=== PATIENT | male | born 1975 | race African-American/Black ===

== ENCOUNTER 2025-05-06 01:37 | Emergency (ER) | payer MEDICAID, SELFPAY ==
--- OUTSIDE RECORDS SUMMARY | 2025-05-06 05:26 | XMS RPT_ITS | CCD ---
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 sources, and as a consequence, information in this document may materially change the coding, format and clinical context of patient data. In addition, data may be omitted in some cases. CLINICAL DECISIONS SHOULD BE BASED ON THE PRIMARY CLINICAL RECORDS. [facility] [employer] [facility]. provides no warranty or guarantee of the accuracy or completeness of information in this document.
--- NOTE | 2025-05-06 06:39 | CT_ITS ---
PROCEDURE: SPINE CERVICAL WITHOUT CONTRAS 05/06/2025 REASON FOR EXAM: LEFT ARM PAIN TECHNIQUE: SPINE CERVICAL WITHOUT CONTRAS Coronal and Sagittal reconstruction series were provided. CONTRAST: None. One or more dose reduction techniques were used (e.g., Automated exposure control, adjustment of the mA and/or kV according to patient size, use of iterative reconstruction technique. RADIATION DOSE SUMMARY: CTDlvol: 29.57 mGy DLP: 762.54 mGycm COMPARISON: None. FINDINGS: There are diffuse spondylotic changes. Findings are demonstrated to by diffuse disc space narrowing, osteophyte formation and degenerative endplate sclerosis. There is diffuse facet joint arthropathy with secondary bilateral neural foramina narrowing. No fracture or dislocation is seen. No aggressive lytic or blastic bony lesion is noted. CT/Spine Cervical without Contras IMPRESSION: No CT evidence of an acute abnormality. Diffuse spondylosis. Reading [facility]
[2025-05-06 07:16] LABS: Hematocrit 38.7 % (40-54); Hemoglobin 13.4 g/dL (13.0-16.5); Mean Corp Hgb Conc 34.6 g/dL (32-36); Mean Corpuscular Hgb 29.3 pg (27.0-32.0); Mean Corpuscular Volume 84.7 fL (80-94); RBC Distribution Width SD 37.2 fl (35.1-43.9); Red Blood Count 4.57 M/mm3 (4.6-6.2); White Blood Count 6.6 K/mm3 (4.4-11.0)
[2025-05-06 07:17] LABS: Mean Platelet Vol. 9.3 fl (6.2-12.0); Platelet Count 359 K/mm3 (150-450)
[2025-05-06 07:43] LABS: Anion Gap 13 (5-15); BUN 16 mg/dL (4-19); Calcium,Total 9.3 mg/dL (7.6-11.0); Carbon Dioxide 20.7 mmol/L (21.0-32.0); Chloride 101 mmol/L (98-108); Creatinine, Serum 1.02 mg/dL (0.70-1.20); EST Glomerular Filtration Rate 88 (>60); Glucose 190 mg/dL (70-99); Potassium 3.5 mmol/L (3.3-5.1); Sodium Level 135 mmol/L (133-145)
--- NOTE | 2025-05-09 04:42 | EX.ED.DYSGE1 ---
HPI History of Present Illness Informant: patient Narrative Narrative: Patient is a 50-year-old male with history of hypertension. He is right-hand dominant. He states that he has been doing the job for the past few weeks and has noticed that with the repetitive activity/motion he now will have intermittent pain and numbness from his right shoulder down to his right hand. He states that there has been no direct trauma and he denies any recent bouts of nausea vomiting or diarrhea. He states that he feels like the symptoms are worsening with more shifts/repetitive motion he performs and secondary to this comes in for evaluation [facility] Home Medications ?Medication ?Instructions ?Recorded ?Last Taken ?Type albuterol sulfate 90 mcg/actuation 2 puff inhalation Q4H PRN PRN 08/19/14 Unknown Rx aerosol inhaler (Ventolin HFA) Wheezing ##1 azithromycin 250 mg tablet 250 mg PO DAILY ##4 08/19/14 Unknown Rx prednisone 20 mg tablet 20 mg PO BIDCM ##10 08/19/14 Unknown Rx Allergy/AdvReac Type Severity Reaction Status Date / Time No Known Allergies Allergy Verified 08/19/14 10:04 Social History Smoking Status: Current every day smoker ROS [facility] ED Constitutional Constitutional ED: Denies chills or fever(s) Eyes Eyes: Denies change in vision ENT ENT ED: Denies sore throat Cardiovascular Cardiovascular: Denies chest pain Respiratory/Chest Respiratory/Chest: Denies cough or dyspnea Gastrointestinal Gastrointestinal: Denies abdominal pain, diarrhea, nausea or vomiting Musculoskeletal Musculoskeletal: Denies back pain or neck pain Integumentary Denies rash Neurologic Neurologic: Reports paresthesias and weakness; Denies headache(s) Hematologic/Lymphatic Hematologic/Lymphatic: Denies easy bleeding or easy bruising EXAM Physical Exam Const Positive well nourished, well developed and obese General Appearance ED: well developed; Negative for pallor Nutritional Appearance: obese HEENT HEENT Narrative: Normocephalic atraumatic Eyes PERRL and EOMs intact bilaterally General Eye ED: Negative for scleral icterus Neck supple Neck Narrative: No bony deformity or step-off of the cervical spine No midline pain with palpation Negative Spurling sign bilaterally Resp normal respiratory effort and clear to auscultation bilaterally Cardio regular rate and regular rhythm Rate: other Other Details: Radial and carotid pulses are equal and symmetric Back/Spine Back/Spine Narrative: No bony deformity or step-off of the thoracic or lumbar spine. No midline tenderness to palpation Extremity Extremity Narrative: Right upper extremity is neurovascularly intact; AIN/PIN are intact and normal No obvious bony deformity or joint effusion All compartments are soft and compressible going against compartment syndrome Neuro oriented x3, CN's II-XII intact bilaterally and no sensory deficits noted Sensorium / Orientation: alert Motor Exam: strength 5/5 throughout Psych mental status grossly normal Skin no rashes or lesions noted and no wounds General Skin Exam: Negative for jaundice or pallor MDM MDM MDM Narrative Medical decision making narrative: Patient presented to the ER mildly hypertensive but has a past medical history of this. He reported intermittent paresthesias that are now occurring with overuse of the right arm. He denies any recent bouts of vomiting or diarrhea which could relate to an electrolyte abnormality. Physical exam does not show any signs of infection such as cellulitis or abscess. As his symptoms could be related to spinal stenosis versus herniated disc versus arthritis changes I did elect to perform a CT of the neck to check for nerve's compression as well as basic labs to look for electrolyte abnormality. As he is neurologically normal at this time I have low concern that this is related to a TIA or acute CVA and there is no need for a head CT. Patient's labs revealed no clinically significant findings and his neck CT did reveal changes consistent with degenerative disc disease. He denies any recent surgical procedures or injections going against discitis. Based on his arthritis and degenerative disc disease and recurrent symptoms he may need evaluated by spine surgery to discuss further treatment options or imaging studies with MRI but at this time as he is hemodynamically stable without signs of acute electrolyte abnormality fracture or nervous compression he is otherwise safe for discharge History & Record Review Discussion w/independent historian: Patient Radiography Diagnostic Testing: Clinical Impression(s) from Imaging Studies Cervical Spine CT 05/06/25 06:39 IMPRESSION: No CT evidence of an acute abnormality. Diffuse spondylosis. Reading [facility] Triage ED Provider: Kenan Pedroza Dx/Rx/DC Orders Clinical Impression: Hypertension, Cervical radiculopathy, Degenerative disc disease, cervical Prescriptions: No Action azithromycin 250 MG tablet 250 mg PO DAILY Qty: 4 0RF prednisone 20 MG tablet 20 mg PO BIDCM Qty: 10 0RF albuterol sulfate [Ventolin HFA] 1 INHALER inhaler 2 puff inhalation Q4H PRN PRN (Reason: Wheezing) Qty: 1 0RF Primary Care Provider: Care Physician,No Primary Print Language: [place] Disposition Disposition: Home, Self Care Discharge Date/Time: 05/06/25 04:35
== END 2025-05-06 04:35 | disposition home or self-care (01) ==
LOC: ED 05:24
PROVIDERS: Emergency Provider Emergency Medicine; Visit Provider Emergency Medicine
DX: I10 Essential (primary) hypertension (principal); F17.200 Nicotine dependence, unspecified, uncomplicated; M50.10 Cervical disc disorder with radiculopathy, unspecified cervical region; E66.9 Obesity, unspecified; R20.2 Paresthesia of skin; R53.1 Weakness
CPT/HCPCS: 72125; 80048; 83735; 85027; A4216

== ENCOUNTER 2025-08-10 11:57 | Inpatient (IN) | payer MEDICAID, SELFPAY ==
--- OUTSIDE RECORDS SUMMARY | 2025-07-31 14:35 | XMS RPT_ITS ---
Author Name Auto Generated Organization [facility] Care Team Providers Care Rabbit Breeder Name Role Phone NORA SCHROEDER Admitting Unavailable NORA SCHROEDER Attending Unavailable NORA SCHROEDER Consulting Unavailable PROVIDER, UNKNOWN Admitting Unavailable PROVIDER, UNKNOWN Attending Unavailable STEVIE FELICIANO Attending Unavailable PROVIDER, UNKNOWN Admitting Unavailable PROBLEMS No Problem Records Found PROCEDURES No Procedure Records Found RESULTS PROGRESS NOTES Observed: 08/03/2025 2:34 PM Status: COMPLETED Source: THE [facility] Emergency Department Follow- Up Call [facility] Call attempt: 08/03/25, 2:37 PM, no answer, unable to leave a VM Sources of Information: Chart review Date of ED visit: 07/31/25 Reason for ED visit: HTN, right shoulder pain Medical coverage: Payor: [place] / Plan: [place] [employer] / Product Type: Medicaid HMO Medication changes? Yes Amlodipine Ibuprofen ED PROVIDER NOTES Observed: 07/31/2025 6:02 PM Status: COMPLETED Source: THE [employer] Attestation signed by Stevie Feliciano MD at 08/05/2025 5:19 PM ATTENDING NOTE I saw and evaluated the patient. I personally obtained the ji and critical portions of the history and physical exam. I reviewed the resident's documentation and discussed the patient with the resident. I agree with the resident's medical decision making as documented in the resident's note. Stevie Feliciano MD EMERGENCY DEPARTMENT - VISIT NOTE HISTORY OF PRESENT ILLNESS Chief Complaint Patient presents with Hypertension HTN w/ DYE since this am Pt inconsistent with HTN medication Arm symptoms Right arm pian x2 months The history is provided by the Patient. Director Of Trauma use: not needed - patient preferred language is Emirati. Ariel Weeks is a 50 year old male presenting to the ED for right shoulder pain and HTN. Past medical history significant for HTN. He says he used to be on blood pressure meds in the past. He is unsure which medication he took. He says he stopped taking the medication because he was eating healthier and thought his HTN would improve. He also says he has right shoulder pain that started a few days ago. He denies trauma to the shoulder. He believes he may have slept on it wrong. Pt denies fever, nausea/vomitng, chest pain, SOB, abdominal pain, and headache. PAST HISTORY Pertinent Past History (Per Chart): There is no previous medical history on file. Pertinent Social History: Social History[1] PHYSICAL EXAM Vitals: 07/31/25 1407 BP: 152/92 Pulse: 96 Resp: 18 Temp: 98.2 ???F (36.8 ???C) SpO2: 96% Physical Exam Vitals and nursing note reviewed. Constitutional: General: He is awake. He is not in acute distress. Appearance: He is not ill-appearing. Eyes: General: No scleral icterus. Cardiovascular: Rate and Rhythm: Normal rate and regular rhythm. Heart sounds: S1 normal and S2 normal. Pulmonary: Effort: Pulmonary effort is normal. Breath sounds: Normal breath sounds. No decreased breath sounds, wheezing, rhonchi or rales. Abdominal: General: There is no distension. Palpations: Abdomen is soft. Tenderness: There is no abdominal tenderness. There is no guarding or rebound. Musculoskeletal: Comments: No gross deformities of RUE. Tenderness to right shoulder. Motor function and sensation intact of RUE. ROM limited due to shoulder pain. Palpable right radial pulse. Unable to test rotator cuff due to pain. Neurological: Mental Status: He is alert. Psychiatric: Behavior: Behavior is cooperative. MEDICAL DECISION MAKING and ED COURSE Nursing triage and assessment notes reviewed and incorporated. Review of external notes show the findings attached in the HPI. Diagnosis considered: There is less concern for neurovascular compromise given palpable radial pulse and patient neurovascularly intact on exam. There is less concern for hypertensive emergency given no headache and no evidence of decreased end organ perfusion. Medication Management: Medications prescribed - see visit medications. Independent Radiology Test Interpretation: See ED Course. Final decision-making pending radiology read. Independent Lab Test Interpretation: See ED course Independent EKG interpretation: See ED course Evaluated by EM attending Stevie Feliciano Course: ED Course as of 07/31/251910 Sat Jul 31, 2025 1834 Complete Blood Count: WBC 6.2 RBC 5.00 Hemoglobin 14.6 Hematocrit 42.0 MCV 84 MCH 29.2 MCHC 34.7 Platelet 386 RDW-CV% 13.2 MPV 8.5 The above laboratory study was reviewed and independently interpreted. Pertinent findings include: No leukocytosis, anemia or quantitative platelet abnormalities . [BF] 1835 I have personally reviewed and interpreted the X-Ray right shoulder. Pertinent findings include: no dislocation. [BF] 1835 X-ray C-Spine AP+Lateral IMPRESSION: Cervical spondylosis, as detailed. Mild prevertebral soft tissue swelling, of uncertain significance [BF] 1909 EMERGENCY DEPARTMENT EKG INTERPRETATION Rhythm: Normal sinus rhythm Rate: 78 AV block, first degree No acute ischemic changes Personally reviewed and interpretated by Omar Malave MD [BF] ED Course User Index [BF] Omar Malave MD Assessment AND Plan: Ariel Weeks is a 50 year old male presenting with HTN and right shoulder pain. Patient was afebrile, hemodynamically stable, and satting on room air on arrival. Full exam noted above. Labs with interpretation noted in ED course. Work up significant for normal renal function. EKG showed normal sinus rhythm without acute ischemic changes. XR right shoulder showed no evidence of fracture or dislocation. On re-examination, they are well-appearing and have remained hemodynamically stable. Patient left prior to receiving discharge paperwork and discussion of return precautions/follow up. IMPRESSION AND DISPOSITION Clinical Impression Diagnosis Comment Acute pain of right shoulder [M25.511] Hypertension, unspecified type [I10] Disposition: Home The patient has received a medical screening examination and within reasonable clinical confidence an emergency medical condition was identified and has been stabilized. Omar Malave MD PGY2, Department of Emergency Medicine [1] Social History Socioeconomic History Marital status: Single XR SHOULDER RIGHT MINIMUM 2 VIEWS Observed: 07/31/2025 3:13 PM Status: F Source: THE [employer] SYSTEM EXAMINATION: XR SHOULDER RIG HT MINIMUM 2 VIEWSPRO/RT 07/31/2025 02:49 PM CLINICAL HISTORY: Range of motion decreased ASSOCIATED DIAGNOSIS: Range of motion decreased ORDERING PROVIDER: AMANUEL HAYWARD TECHNOLOGISTS NOTE: Injured at work ([employer]) COMPARISON: None IMPRESSION: No right shoulder fracture or glenohumeral dislocation is identified. No evidence of calcific tendinitis. Mild degenerative glenohumeral joint change. Mild degenerative changes are present at the acromioclavicular joint. Right shoulder MACRO: None XR C-SPINE AP+LATERAL 2 VIEWS Observed: 07/31/2025 3:08 PM Status: F Source: THE [facility] MD EXAMINATION: XR C-SPINE AP+L ATERAL 2 VIEWSPRO 07/31/2025 02:49 PM CLINICAL HISTORY: Neuropathy ASSOCIATED DIAGNOSIS: Neuropathy ORDERING PROVIDER: AMANUEL HAYWARD TECHNOLOGISTS NOTE: Injured at work ([employer]) COMPARISON: None FINDINGS: On the lateral view the C-spine is visible to the C6 level because of the shoulders. On the AP view, the tip of the dens, C1 and the atlantooccipital joints are not visible because of overlying bone. Normal alignment with suspected ankylosis of C5-C6. The vertebral bodies appear intact. The atlantodental interval is normal. If there is clinical concern for acute fracture, CT cervical spine should be considered. Mild to moderate endplate degenerative changes most pronounced at C4-C5. Facet and uncovertebral arthrosis. Bilateral carotid calcifications. Mild prevertebral soft tissue swelling. IMPRESSION: Cervical spondylosis, as detailed. Mild prevertebral soft tissue swelling, of uncertain significance. If there is further clinical concern for neck soft tissue CT with contrast can be obtained. COMPLETE BLOOD COUNT Collected: 2:33 PM Status: F Source: THE [facility] MD TYPE CODE TESTS RESULT OUT OF RANGE REFERENCE UNITS LAB WBC WBC 6.2 4.5-11.5 K/uL LAB RBC RBC 5.00 4.50-5.90 M/uL LAB HGB HGB 14.6 13.9-16.3 g/dL LAB HCT HCT 42.0 41.0-53.0 % LAB MCV MCV 84 80-100 fL LAB MCH MCH 29.2 26.0-34.0 pg LAB MCHC MCHC 34.7 32.0-35.9 g/dL LAB PLT PLT 386 150-400 K/uL LAB RDW RDW-CV 13.2 11.5-14.5 % LAB MPV MPV 8.5 7.5-11.2 fL Performed By: #### CBC #### [facility] [address] [place] [address], [phone] BASIC METABOLIC PANEL Collected: 2024 2:33 PM Status: F Source: THE [facility] MD TYPE CODE TESTS RESULT OUT OF RANGE REFERENCE UNITS LAB GLU GLU 134 High 74-109 mg/dL LAB NA3 NA 135 Low 136-145 mmol/L LAB POT K 5.8 High 3.5-5.0 mmol/L Result Comment: Hemolysis pr esent LAB CO2 CO2 28 21-31 mmol/L LAB CHLOR CL 103 98-107 mmol/L LAB BUN BUN 16 7-25 mg/dL LAB CREAT CREAT 0.73 0.70-1.30 mg/dL LAB CA CA 9.8 8.6-10.3 mg/dL LAB ANION GAP ANION GAP 10 10-20 LAB eGFR ESTIMATED GFR (CKD-EPI) 109 >=60 mL/min/1 .73sqm Result Comment: 2020 CKD EPI Equation using Creatinine without Race Comment: Estimated glomerular filtration rate (eGFR) is calculated without a race coefficient. Values should be interpreted in the context of the patient's full clinical presentation. Reference: 1. Bear C, Magdy M, Juliano SKAGGS, et al.. A Unifying Approach for GFR Estimation: Recommendations of the NKF-ASN Task Force on Reassessing the Inclusion of Race in Diagnosing Kidney Disease. [place]ian Journal of Kidney Diseases 202;79(2):268- 88.e1. 2. N Engl J Med 2021 Vol. 385 Issue 19 Pages 3961-7637 Performed By: #### CH8 #### [facility] [address] [place] [address], [phone] ED PROVIDER NOTES Observed: 07/31/2025 2:11 PM Status: COMPLETED Source: THE [facility] Physician Triage Note The patient was seen by me in intake for a brief history and physical obtained for triage reasons only. My exam is intended to be an initial medical screening exam for disposition within our ED with limited initial orders placed, when appropriate, to expedite care by the treating team. Patient complains of right arm tingling x 3 months was treated for pinched nreve [facility]. This morning woke up with throbbing headache. Endorses blurry vision. Has pmh Htn, not currently medicated. Denies CP/SOB. A little better with ibuprofen. Focused Exam: limited AROM of Right shoulder in flexion/ABD, no midline cervical ttp, NVI The patient is deemed appropriate for west. Initial orders: rads/labs. The remainder of testing, treatment, and diagnostic plan will be assumed by the next clinician who will be seeing the patient as a primary patient, creating a plan and impression, and final disposition of the patient from the ED. I had a limited role in this case. PLEASE SEE OTHER ATTENDING/RESIDENT/PHYSICIAN/DIAL MAKER/PA NOTATION Amanuel Hayward APRN-MEENAKSHI ALLERGIES No Allergies Records Found ENCOUNTERS ADMIT/DISCHARGE ACCOUNT NUMBER ADMITTING ENCOUNTER CLASS LOCATION SOURCE 07/31/2025 [id number] Unknown Emergency [facility] 07/31/2025/07/31/20 25 [id number] Unknown Emergency [facility] 10/15/2024 [id number] NOAR SCHROEDER [facility] [id number] [facility] PAYERS ENCOUNTER GUARANTOR PAYER SUBSCRIBER SOURCE 07/31/2025 ARIEL JEFFERSINSDOB: [id number] [place] [address]Tel: (HP) Primary Insurance:[place] MEDICAIDPolicy Number: [id number] Date:2023-11-11[address] [place] [address]QH: ARIEL BIVINSDOB: [id number] [place] [address] [facility] 10/15/2024 ARIEL JEFFERSENSDOB: [id number] [address] [address]Xew: (HP) Primary Insurance:[facility] Number: [id number] Date:8908-78-16Rspp Name:[address] [place], [place] [address]NQ: ARIEL BIVENSDOB: [id number] [address] [address]Xpm: (HP) [facility] 10/15/2024 Secondary Insurance[facility] Number: [id number] Date:8366-63-00Trdi Name:[address] [place], [place] [address], [place] [address]SS: ARIEL JETTB: [id number] [address] [address]Nqa: () [facility] 10/15/2024 Tertiary Insurance:MEDICAID [id number] Number: [id number] Date:1404-23-03Ilha Name:[address] [place] [address], [place] [address]NU: ARIEL JETTB: [id number] [address] [address]Dcr: () [facility]
[2025-08-10] VITALS (10 sets, daily range): BP systolic 118–165; BP diastolic 65–94; PULSE 49–90; RESP 16–20; TEMP 36.4–37.1; O2SAT 97–100; BMI 38.5; BMI 40.0; BMI 39.0
--- NOTE | 2025-08-10 13:43 | EKG12_ITS ---
Test Reason : NEURO Blood Pressure : */* mmHG Vent. Rate : 59 BPM Atrial Rate : 59 BPM P-R Int : 234 ms QRS Dur : 94 ms QT Int : 438 ms P-R-T Axes : 58 75 44 degrees QTcB Int : 433 ms Sinus bradycardia with 1st degree A-V block Otherwise normal ECG Confirmed by MYRA WOLF, SIDNEY ([id number]), advertising editor ABBY DHALIWAL ([id number]) on 08/11/2025 9:10:38 AM Referred By: Confirmed By: SIDNEY RENTERIA MD
--- NOTE | 2025-08-10 13:43 | EX.ED.DYSGE1 ---
HPI <Dr. Ever Barth, DO - Last Filed: 08/10/25 15:17> History of Present Illness Chief Complaint: Neuro S/Sx Narrative Narrative: Chief complaint and HPI: 50-year-old gentleman presents for evaluation for intermittent confusion and generalized weakness for the past 2 weeks. Close contact in the room states that the patient's last known normal was prior to 07/25/2025. Close contact states she saw the patient on 07/25/2025 and he seemed intermittently confused about what he was doing. States that it is progressively worsened. Patient states he feels confused and is intermittently mixing his words. He states approximately 3 weeks ago he had his head on a concrete wall. He denies any LOC. Not on blood thinners. He denies any fever, chills, shortness of breath, chest pain, abdominal pain, nausea, vomiting, dysuria, numbness/tingling. States he feels that he is occasionally slurring his speech. Review of systems: See HPI Medications: As listed on the chart Allergies: As listed on the chart PFSH: Per chart Vital signs: As listed on the chart. Reviewed. 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 Ever Barth, DO - Last Filed: 08/10/25 15:17> [facility] Medical History (Updated 08/10/25 @ 18:48 by Keiko French) HTN (hypertension) Eye globe prosthesis Home Medications ?Medication ?Instructions ?Recorded ?Last Taken ?Type NK 08/10/25 Unknown History Allergy/AdvReac Type Severity Reaction Status Date / Time No Known Allergies Allergy Verified 08/10/25 19:55 Social History (Updated 08/10/25 @ 18:48 by Keiko French) household members: family housing: house Smoking Status: Light Smoker (<10/day) EXAM <Dr. Ever Barth, DO - Last Filed: 08/10/25 15:17> Physical Exam Const Vital Signs: 08/10/25 15:00 08/10/25 16:00 Pulse Rate 52 L 49 L Respiratory Rate 19 H 20 H Blood Pressure 142/70 H 165/74 H Blood Pressure Mean 94 104 Pulse Ox 98 100 Oxygen Delivery Method Room Air <Dr. Nathan Mejias MD - Last Filed: 08/11/25 01:41> Physical Exam Const Vital Signs: 08/10/25 15:00 08/10/25 16:00 Pulse Rate 52 L 49 L Respiratory Rate 19 H 20 H Blood Pressure 142/70 H 165/74 H Blood Pressure Mean 94 104 Pulse Ox 98 100 Oxygen Delivery Method Room Air MDM <Dr. Ever Barth, DO - Last Filed: 08/10/25 15:17> MDM MDM Narrative Medical decision making narrative: 50-year-old gentleman presents for evaluation for intermittent confusion and generalized weakness for the past 2 weeks. Close contact in the room states that the patient's last known normal was prior to 07/25/2025. Close contact states she saw the patient on 07/25/2025 and he seemed intermittently confused about what he was doing. States that it is progressively worsened. Patient states he feels confused and is intermittently mixing his words. He states approximately 3 weeks ago he had his head on a concrete wall. He denies any LOC. On presentation patient is alert but fatigued. He is confused. Slow to respond. Vital stable. See physical exam findings. Differential diagnosis includes but is not limited to concussion, traumatic brain injury, CVA, electrolyte abnormality, dehydration, UTI. NS bolus ordered. CBC without leukocytosis or anemia. Platelets unremarkable. Coagulation panel unremarkable. CMP unremarkable. CTA head and neck shows critical stenosis involving the proximal left internal carotid artery additional supraclinoid portion of the left internal carotid artery with likely flow limitation. Urgent vascular surgery consultation suggested. 50% stenosis of the right supraclinoid internal carotid artery. Hypoplastic versus atherosclerotic A1 segment on the left. No evidence of LVO at the MCA at this time. Enlargement of the lymphoid tissue to the nasopharynx and palatine tonsils. I personally received a call from the radiologist. He is awaiting CT head without contrast. EKG: Interpreted by me/EM physician: EKG shows sinus bradycardia with first-degree AV block. Heart rate 59. I do not have a previous EKG to compare to. Diagnostic: Interpreted by me/EM physician: Chest x-ray without pneumonia, effusion, cardiomegaly, pneumothorax. Radiology in agreement. Patient signed out to oncoming physician Dr. Mejias. He will wait further workup and results with plan for admission. Lab Data Labs: Laboratory Results - last 24 hr 08/10/25 08/10/25 08/10/25 14:07 14:09 14:45 WBC 6.6 RBC 4.68 Hgb 13.6 Hct 39.6 L MCV 84.6 MCH 29.1 MCHC 34.3 RDW Std Deviation 36.7 RDW Coeff of [place] 12.3 Plt Count 380 MPV 9.7 Immature Gran % (Auto) 0.200 Neut % (Auto) 46.0 L Lymph % (Auto) 41.8 H [place] % (Auto) 11.1 H Eos % (Auto) 0.6 Baso % (Auto) 0.3 Absolute Neuts (auto) 3.0 Absolute Lymphs (auto) 2.76 Nucleated RBC % 0 PT 13.9 INR 1.1 APTT 24.9 Sodium 139 Potassium 3.5 Chloride 106 Carbon Dioxide 23.2 Anion Gap 10 BUN 17 Creatinine 0.72 Estim Creat Clear Calc 166.57 Est GFR (MDRD) Non-Af 110 BUN/Creatinine Ratio 23.5 H Glucose 117 H Hemoglobin A1c 6.7 H Lactic Acid < 1.0 Calcium 9.1 Total Bilirubin 0.23 AST 19 ALT 26 Alkaline Phosphatase 99 Troponin T High Sens 8 Troponin T Hi Sens 2 Hr Total Protein 7.2 Albumin 3.9 Globulin 3.3 Albumin/Globulin Ratio 1.2 TSH 1.020 Urine Color Yellow Urine Clarity Clear Urine pH 6.0 Ur Specific [place] 1.015 Urine Protein 15 H Urine Glucose (UA) Normal Urine Ketones Negative Urine Occult Blood Negative Urine Nitrite Negative Urine Bilirubin Negative Urine Urobilinogen Normal Ur Leukocyte Esterase Negative Urine RBC 0-5 SEEN Urine WBC 0-5 SEEN Ur Squamous Epith Cells 0 SEEN Urine Bacteria 0 SEEN Urine Mucus 0 SEEN Urine Opiates Screen NEGATIVE U Buprenorphine Qual NEGATIVE Ur Oxycodone Screen NEGATIVE Urine Methadone Screen NEGATIVE Urine Fentanyl Screen NEGATIVE Ur Barbiturates Screen NEGATIVE Ur Phencyclidine Scrn NEGATIVE Ur Amphetamines Screen NEGATIVE U Benzodiazepines Scrn NEGATIVE Urine Cocaine Screen NEGATIVE U Cannabinoids Screen NEGATIVE Ethyl Alcohol < 10.1 08/10/25 16:10 WBC RBC Hgb Hct MCV MCH MCHC RDW Std Deviation RDW Coeff of [place] Plt Count MPV Immature Gran % (Auto) Neut % (Auto) Lymph % (Auto) [place] % (Auto) Eos % (Auto) Baso % (Auto) Absolute Neuts (auto) Absolute Lymphs (auto) Nucleated RBC % PT INR APTT Sodium Potassium Chloride Carbon Dioxide Anion Gap BUN Creatinine Estim Creat Clear Calc Est GFR (MDRD) Non-Af BUN/Creatinine Ratio Glucose Hemoglobin A1c Lactic Acid Calcium Total Bilirubin AST ALT Alkaline Phosphatase Troponin T High Sens Troponin T Hi Sens 2 Hr 8 Total Protein Albumin Globulin Albumin/Globulin Ratio TSH Urine Color Urine Clarity Urine pH Ur Specific [place] Urine Protein Urine Glucose (UA) Urine Ketones Urine Occult Blood Urine Nitrite Urine Bilirubin Urine Urobilinogen Ur Leukocyte Esterase Urine RBC Urine WBC Ur Squamous Epith Cells Urine Bacteria Urine Mucus Urine Opiates Screen U Buprenorphine Qual Ur Oxycodone Screen Urine Methadone Screen Urine Fentanyl Screen Ur Barbiturates Screen Ur Phencyclidine Scrn Ur Amphetamines Screen U Benzodiazepines Scrn Urine Cocaine Screen U Cannabinoids Screen Ethyl Alcohol Radiography Diagnostic Testing: Clinical Impression(s) from Imaging Studies Brain CT 08/10/25 14:20 IMPRESSION: 1. Acute (to subacute) ischemia left MCA distribution. No hemorrhage. Correlate with history. 2. Correlate with CT angiogram as there are critical findings. Stroke Alert: Left MCA acute ischemia The critical findings in the findings and impression above were relayed directly by me by telephone to Ever Barth on 08/10/2025 at 3:05 pm with readback verification. Reading Location: [facility] Chest X-Ray 08/10/25 14:30 IMPRESSION: No acute abnormality Reading Location: [id number] Head/Neck CTA 08/10/25 14:52 IMPRESSION: 1. Critical stenosis involving the proximal left internal carotid artery. Additionally, supraclinoid portion of the left internal carotid artery with likely flow limitation. Urgent vascular surgical consultation suggested. 2. 50% stenosis right supraclinoid internal carotid artery. 3. Hypoplastic versus atherosclerotic A1 segment on the left. 4. No evidence of large vessel occlusion at the MCA at this time. 5. Correlate with the head CT of the same day as there are positive findings. 6. Enlargement of the lymphoid tissue of the nasopharynx, palatine tonsils and uvula. Correlate with direct inspection, history and physical. Stroke Alert: Acute ischemia. Critical stenosis. The critical findings in the findings and impression above were relayed directly by me by telephone to Ever Barth on 08/10/2025 at 3:05 pm with readback verification. Reading Location: [id number] <Dr. Nathan Mejias MD - Last Filed: 08/11/25 01:41> [facility] Lab Data Attestation: I reviewed the patient's lab results. Lab results narrative: CBC is remarkable for mild lymphocytosis. Lactate was normal. Basic metabolic panel with slight ovation glucose of 117 with a normal CO2 anion gap. Liver enzymes and protein are normal. Urinalysis is unremarkable. Talk screen is negative. Alcohol is not detected. Will contact hospitalist for admission for acute to subacute ischemic stroke involving the left MCA distribution without evidence of hemorrhage. The CTA was remarkable for critical stenosis involving the proximal left internal carotid artery and supraclinoid portion of the left internal carotid artery with likely flow limitation. There is also 50% stenosis noted on the right. Labs: Laboratory Results - last 24 hr 08/10/25 08/10/25 08/10/25 14:07 14:09 14:45 WBC 6.6 RBC 4.68 Hgb 13.6 Hct 39.6 L MCV 84.6 MCH 29.1 MCHC 34.3 RDW Std Deviation 36.7 RDW Coeff of [place] 12.3 Plt Count 380 MPV 9.7 Immature Gran % (Auto) 0.200 Neut % (Auto) 46.0 L Lymph % (Auto) 41.8 H [place] % (Auto) 11.1 H Eos % (Auto) 0.6 Baso % (Auto) 0.3 Absolute Neuts (auto) 3.0 Absolute Lymphs (auto) 2.76 Nucleated RBC % 0 PT 13.9 INR 1.1 APTT 24.9 Sodium 139 Potassium 3.5 Chloride 106 Carbon Dioxide 23.2 Anion Gap 10 BUN 17 Creatinine 0.72 Estim Creat Clear Calc 166.57 Est GFR (MDRD) Non-Af 110 BUN/Creatinine Ratio 23.5 H Glucose 117 H Hemoglobin A1c 6.7 H Lactic Acid < 1.0 Calcium 9.1 Total Bilirubin 0.23 AST 19 ALT 26 Alkaline Phosphatase 99 Troponin T High Sens 8 Troponin T Hi Sens 2 Hr Total Protein 7.2 Albumin 3.9 Globulin 3.3 Albumin/Globulin Ratio 1.2 TSH 1.020 Urine Color Yellow Urine Clarity Clear Urine pH 6.0 Ur Specific [place] 1.015 Urine Protein 15 H Urine Glucose (UA) Normal Urine Ketones Negative Urine Occult Blood Negative Urine Nitrite Negative Urine Bilirubin Negative Urine Urobilinogen Normal Ur Leukocyte Esterase Negative Urine RBC 0-5 SEEN Urine WBC 0-5 SEEN Ur Squamous Epith Cells 0 SEEN Urine Bacteria 0 SEEN Urine Mucus 0 SEEN Urine Opiates Screen NEGATIVE U Buprenorphine Qual NEGATIVE Ur Oxycodone Screen NEGATIVE Urine Methadone Screen NEGATIVE Urine Fentanyl Screen NEGATIVE Ur Barbiturates Screen NEGATIVE Ur Phencyclidine Scrn NEGATIVE Ur Amphetamines Screen NEGATIVE U Benzodiazepines Scrn NEGATIVE Urine Cocaine Screen NEGATIVE U Cannabinoids Screen NEGATIVE Ethyl Alcohol < 10.1 08/10/25 16:10 WBC RBC Hgb Hct MCV MCH MCHC RDW Std Deviation RDW Coeff of [place] Plt Count MPV Immature Gran % (Auto) Neut % (Auto) Lymph % (Auto) [place] % (Auto) Eos % (Auto) Baso % (Auto) Absolute Neuts (auto) Absolute Lymphs (auto) Nucleated RBC % PT INR APTT Sodium Potassium Chloride Carbon Dioxide Anion Gap BUN Creatinine Estim Creat Clear Calc Est GFR (MDRD) Non-Af BUN/Creatinine Ratio Glucose Hemoglobin A1c Lactic Acid Calcium Total Bilirubin AST ALT Alkaline Phosphatase Troponin T High Sens Troponin T Hi Sens 2 Hr 8 Total Protein Albumin Globulin Albumin/Globulin Ratio TSH Urine Color Urine Clarity Urine pH Ur Specific [place] Urine Protein Urine Glucose (UA) Urine Ketones Urine Occult Blood Urine Nitrite Urine Bilirubin Urine Urobilinogen Ur Leukocyte Esterase Urine RBC Urine WBC Ur Squamous Epith Cells Urine Bacteria Urine Mucus Urine Opiates Screen U Buprenorphine Qual Ur Oxycodone Screen Urine Methadone Screen Urine Fentanyl Screen Ur Barbiturates Screen Ur Phencyclidine Scrn Ur Amphetamines Screen U Benzodiazepines Scrn Urine Cocaine Screen U Cannabinoids Screen Ethyl Alcohol Radiography Diagnostic Testing: Clinical Impression(s) from Imaging Studies Brain CT 08/10/25 14:20 IMPRESSION: 1. Acute (to subacute) ischemia left MCA distribution. No hemorrhage. Correlate with history. 2. Correlate with CT angiogram as there are critical findings. Stroke Alert: Left MCA acute ischemia The critical findings in the findings and impression above were relayed directly by me by telephone to Ever Barth on 08/10/2025 at 3:05 pm with readback verification. Reading Location: [facility] Chest X-Ray 08/10/25 14:30 IMPRESSION: No acute abnormality Reading Location: [facility] Head/Neck CTA 08/10/25 14:52 IMPRESSION: 1. Critical stenosis involving the proximal left internal carotid artery. Additionally, supraclinoid portion of the left internal carotid artery with likely flow limitation. Urgent vascular surgical consultation suggested. 2. 50% stenosis right supraclinoid internal carotid artery. 3. Hypoplastic versus atherosclerotic A1 segment on the left. 4. No evidence of large vessel occlusion at the MCA at this time. 5. Correlate with the head CT of the same day as there are positive findings. 6. Enlargement of the lymphoid tissue of the nasopharynx, palatine tonsils and uvula. Correlate with direct inspection, history and physical. Stroke Alert: Acute ischemia. Critical stenosis. The critical findings in the findings and impression above were relayed directly by me by telephone to Ever Barth on 08/10/2025 at 3:05 pm with readback verification. Reading Location: [facility] Management Discussion w/another healthcare provider: Hospitalist (Spoke with Dr. Kal Costa. He was informed of patient's history physical. He requested that I contact Dr. Nguyễn.) and Assistant Chief Of Police (I spoke with Dr. Nguyễn. He states he will see the patient. There is no issue keeping him at [facility]. He stated that they should do their normal workup.) Discharge Plan Dx/Rx/DC Orders Clinical Impression: Acute ischemic left MCA stroke, Acute confusion due to medical condition, Bradycardia, Elevated blood-pressure reading without diagnosis of hypertension Disposition Disposition: Acute Care Hospital [facility] Discharge Date/Time: 08/10/25 18:00
--- NOTE | 2025-08-10 14:20 | CT_ITS ---
PROCEDURE: BRAIN/HEAD WITHOUT CONTRAST 08/10/2025 REASON FOR EXAM: CONFUSION TECHNIQUE: Procedure Code: CTBR Modality: CT Procedure: BRAIN/HEAD WITHOUT CONTRAST Coronal and Sagittal reconstruction series were provided. One or more dose reduction techniques were used (e.g., Automated exposure control, adjustment of the mA and/or kV according to patient size, use of iterative reconstruction technique. RADIATION DOSE SUMMARY: CTDlvol: 85 mGy DLP: 1679 mGycm COMPARISON: CT angiogram of the same day FINDINGS: Brain: Hypodensity is seen in the left MCA distribution involving the left insular cortex, anterior MCA cortex (M1), lateral cortex (5) - ASPECTS 7 points. This is worrisome for acute to subacute ischemia. No hemorrhage. Hypodensity in the right cerebellar hemisphere likely sequelae of old infarct. CSF Spaces: Normal Sinuses/Mastoids: Clear Bones: No fracture Left orbit prosthesis. Multiple round, non-specific lesions of the scalp. This should be apparent clinically. CT/Brain/Head without Contrast IMPRESSION: 1. Acute (to subacute) ischemia left MCA distribution. No hemorrhage. Correl ate with history. 2. Correlate with CT angiogram as there are critical findings. Stroke Alert: Left MCA acute ischemia The critical findings in the findings and impression above were relayed directl y by me by telephone to Ever Barth on 08/10/2025 at 3:05 pm with readback verification. Reading Location: [id number]
[2025-08-10 14:24] LABS: Hematocrit 39.6 % (40-54); Hemoglobin 13.6 g/dL (13.0-16.5); Immature Granulocytes Count 0.010 X10^3/uL (0.0-0.0); Mean Corp Hgb Conc 34.3 g/dL (32-36); Mean Corpuscular Volume 84.6 fL (80-94); Mean Platelet Vol. 9.7 fl (6.2-12.0); NRBC Flagged by Analyzer 0 % (0-5); Platelet Count 380 K/mm3 (150-450); RBC Distribution Width CV 12.3 % (11.6-14.6); RBC Distribution Width SD 36.7 fl (35.1-43.9); Red Blood Count 4.68 M/mm3 (4.6-6.2); White Blood Count 6.6 K/mm3 (4.4-11.0)
--- NOTE | 2025-08-10 14:30 | RAD_ITS ---
PROCEDURE: CHEST PA AND LATERAL 08/10/2025 REASON FOR EXAM: CONFUSION TECHNIQUE: Procedure Code: RADCXR Modality: DX Procedure: CHEST PA AND LATERAL COMPARISON: None FINDINGS: Hardware: EKG leads Heart: Mild cardiac enlargement. Mediastinum: Aorta is atherosclerotic. Lungs: Hypoventilation. Otherwise clear. No pleural effusion or pneumothorax. Bones: The bones are unremarkable. RAD/Chest PA and Lateral IMPRESSION: No acute abnormality Reading Location: [id number]
[2025-08-10 14:33] LABS: Partial Thromboplast Time 24.9 Seconds (24.1-36.2); Prothrombin Time (Protime)PT. 13.9 SECONDS (11.7-14.9)
[2025-08-10] MEDS: 0.9% Normal Saline (1000mL) 1,000 ML 1000 ML IV (14:42)
[2025-08-10 14:50] LABS: Mucous, Urine 0 SEEN /hpf (<or=2+); Squamous Epithelial Cells - UA 0 SEEN /hpf (0-5)
[2025-08-10 14:51] LABS: AST(SGOT) 19 U/L (<=37); Alanine Aminotransfer ALT/SGPT 26 U/L (<=46); Albumin, Serum 3.9 g/dL (3.5-5.0); Alkaline Phosphatase 99 U/L (40-129); Anion Gap 10 (5-15); BUN 17 mg/dL (4-19); BUN/Creat Ratio 23.5 RATIO (10-20); Calcium,Total 9.1 mg/dL (7.6-11.0); Carbon Dioxide 23.2 mmol/L (21.0-32.0); Chloride 106 mmol/L (98-108); Estimated Creatinine Clearance 166.57 ml/min (50-250); Globulin 3.3 g/dL (2.2-4.2); Glucose 117 mg/dL (70-99); Potassium 3.5 mmol/L (3.3-5.1)
--- NOTE | 2025-08-10 14:52 | CT_ITS ---
PROCEDURE: CTA HEAD AND NECK W/ CONTRAST 08/10/2025 REASON FOR EXAM: CONFUSION TECHNIQUE: Procedure Code: [id number].HDNCK Modality: CT Procedure: CTA HEAD AND NECK W/ CONTRAST Multiplanar Sagittal and Coronal images were obtained. 3D post processing was performed CONTRAST: Optiray 320 VOLUME: 100 mL One or more dose reduction techniques were used (e.g., Automated exposure control, adjustment of the mA and/or kV according to patient size, use of iterative reconstruction technique). RADIATION DOSE SUMMARY: CTDlvol: 86 mGy DLP: 1679 mGycm COMPARISON: Head CT of the same day FINDINGS: Aortic Arch: Normal size and branching pattern. No significant atherosclerotic plaque. Brachiocephalic and Subclavians: Unremarkable RIGHT Carotid: Right CCA: Unremarkable. Right ICA: Mild eccentric plaque at the proximal internal carotid artery. Calcified and noncalcified soft plaque of the cavernous and supraclinoid internal carotid arteries without flow limitation. However, there is at least 50% narrowing of the supraclinoid portion. Maximum stenosis (NASCET): Less than 25 % Right ECA: Unremarkable LEFT Carotid: Left CCA: Unremarkable. Left ICA: Atherosclerotic plaque is present in primarily is soft plaque that has an infundibular morphology over the proximal 2 cm that terminates and a string sign. Calcified and noncalcified soft plaque of the supraclinoid internal carotid artery is likely flow-limiting. Maximum stenosis (NASCET): 70-99 % Left ECA: Unremarkable. Vertebrals: Codominant. Arise from the subclavians. Both vertebrals form the basilar. RIGHT Vertebral: Unremarkable. LEFT Vertebral: Unremarkable. Anatomy: [place] anatomy is normal. Aneurysm or avm: No intracranial aneurysms or large vascular malformations are identified. Anterior cerebral arteries: Patent bilaterally. Small caliber left A1 segment. Hypoplasia versus atherosclerosis. Middle cerebral arteries: Unremarkable. Basilar artery: Unremarkable. Posterior cerebral arteries: Unremarkable. Other major branches of the posterior circulation: There are possibly very small caliber patent posterior communicating arteries. Major venous structures: Unremarkable. Other findings: Neck: Fullness of the palatine tonsils bilaterally. Fullness of the soft tissues of the nasopharynx and uvula. Lungs: Clear. Bones: Degenerative changes mid to lower cervical spine. CT/CTA Head AND Neck W/ Contrast IMPRESSION: 1. Critical stenosis involving the proximal left internal carotid artery. Add itionally, supraclinoid portion of the left internal carotid artery with likely flow limitation. Urgent vascular surgical consultation suggested. 2. 50% stenosis right supraclinoid internal carotid artery. 3. Hypoplastic versus atherosclerotic A1 segment on the left. 4. No evidence of large vessel occlusion at the MCA at this time. 5. Correlate with the head CT of the same day as there are positive findings. 6. Enlargement of the lymphoid tissue of the nasopharynx, palatine tonsils and uvula. Correlate with direct inspection, history and physical. Stroke Alert: Acute ischemia. Critical stenosis. The critical findings in the findings and impression above were relayed directl y by me by telephone to Ever Barth on 08/10/2025 at 3:05 pm with readback verification. Reading Location: [id number]
[2025-08-10 14:53] LABS: Alcohol, Blood (Medical)-Serum < 10.1 mg/dL (<=10.0)
[2025-08-10 15:33] LABS: Color, Urine Yellow (Yellow); Glucose, Dipstick Normal (Normal); Ketone-Dipstick Negative (Negative); Leukocyte Esterase-Dipstick Negative /ul (Negative); Nitrite-Dipstick Negative (Negative); Occult Blood-Urine Negative /ul (Negative); Protein-Dipstick 15 mg/dl (Negative); Specific Gravity, Urine 1.015 (1.002-1.030); Urine Bilirubin Dipstick Negative (Negative)
[2025-08-10 15:50] LABS: Red Blood Cells-Urine 0-5 SEEN /hpf (0-5)
[2025-08-10 16:12] LABS: Barbiturate Urine NEGATIVE (< 200 ng/mL); Benzodiazepine Urine NEGATIVE (< 200 ng/mL); PCP Urine NEGATIVE (< 25 ng/mL); THC Urine NEGATIVE (< 50 ng/mL)
[2025-08-10 16:19] LABS: Troponin T High Sensitivity 8 ng/L (<=22)
[2025-08-10 16:50] LABS: Troponin T High Sens 2 HR 8 ng/L (<=22)
--- NOTE | 2025-08-10 17:08 | PCM.HP.STD ---
[facility] - General General Date of Admission: 08/10/25 Date of Service: 08/10/25 Chief Complaint: Confusion, slurred speech and worsening right upper extremity weakness and numbness/tingling [facility] Narrative FIOR BEAN, is a 50 M who presented to [facility] ED on 08/10/2025 with confusion, slurred speech and worsening right upper extremity weakness and numbness/tingling. Medical history is significant for hypertension, class II obesity and tobacco dependence. Patient reports intermittent right upper extremity numbness/tingling for the right shoulder down to the hand for the past few months. He was seen in the ED here in late April for this. CT neck without contrast was negative for cervical spine pathology. Given that he was neurologically intact, CT brain and CTA head/neck were not done. Patient was accompanied by significant other today. She noted that 2 weeks ago on 07/25 he appeared to be more confused and had intermittent slurred speech. Since then he has progressively become more confused with worsening slurring of his speech. He has also developed right upper extremity weakness with inability to lift his arm up to 90 degrees. For this reason they came to the ED for further evaluation. On CT brain he was found to have acute to subacute ischemia in the left MCA distribution with no hemorrhage noted. CTA head/neck showed critical stenosis involving the proximal left internal carotid artery with likely flow limitation. Case was discussed with Dr. Nguyễn who reviewed the imaging and agreed with the radiology call of critical stenosis and suspected this was the cause of his left MCA stroke. He recommended admitting for further stroke workup with MRI brain and echo and initiating dual antiplatelet therapy, with likely plan for surgical intervention in the next 1 to 2 weeks. Hospitalist was then contacted for admission. I saw the patient at bedside in the ED, significant other was present. Patient was sitting back fairly comfortably in bed and answering questions with short appropriate responses. He did have some slurred speech noted with a few answers. 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 He reported numbness/tingling from the shoulder down to the hands. Also reports numbness/tingling in the right side of his face and into his neck. He denied any right lower extremity weakness or numbness/tingling. No other acute concerns this time. Will be admitted for further management. [facility] Medical History (Updated 08/10/25 @ 18:48 by Keiko French) HTN (hypertension) Eye globe prosthesis Home Medications ?Medication ?Instructions ?Recorded ?Last Taken ?Type NK 08/10/25 Unknown History Allergy/AdvReac Type Severity Reaction Status Date / Time No Known Allergies Allergy Verified 08/10/25 19:55 Social History (Updated 08/10/25 @ 18:48 by Keiko French) household members: family housing: house Smoking Status: Light Smoker (<10/day) ROS Constitutional Constitutional: Reports weakness; Denies chills, fatigue or fever(s) Eyes Eyes: Denies change in vision Cardiovascular Cardiovascular: Denies chest pain Respiratory/Chest Respiratory/Chest: Denies shortness of breath at rest Gastrointestinal Gastrointestinal: Denies abdominal pain Musculoskeletal Musculoskeletal: Denies arthralgias, myalgias or neck pain Neurologic Neurologic: Reports abnormal gait, abnormal speech, confusion, disequilibrium, focal weakness, numbness, paresthesias and tingling; Denies dizziness or headache(s) Vital Signs Vital Signs Vital Signs: 08/10/25 11:58 08/10/25 12:58 08/10/25 14:00 Temperature 98.7 F Temperature Source Oral Pulse Rate 90 63 57 L Respiratory Rate 18 16 Blood Pressure 118/65 129/78 H 137/83 H Blood Pressure Mean 82 95 101 Pulse Ox 97 98 97 Oxygen Delivery Method Room Air Room Air Room Air 08/10/25 15:00 08/10/25 16:00 Temperature Temperature Source Pulse Rate 52 L 49 L Respiratory Rate 19 H 20 H Blood Pressure 142/70 H 165/74 H Blood Pressure Mean 94 104 Pulse Ox 98 100 Oxygen Delivery Method Room Air Weight Weight: 133.8 kg Body Mass Index (BMI) 40.0 Physical Exam Const alert, oriented x3 and no apparent distress Constitutional Narrative: Pleasant middle-age male, class II obesity, intermittent slurred speech noted but otherwise sitting back comfortably in bed, answering questions with short appropriate responses, in no acute distress. 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 Neck full ROM Chest inspection of chest normal Resp normal respiratory effort, normal air movement, no use of accessory muscles and clear to auscultation bilaterally Cardio regular rate, regular rhythm, no murmurs and peripheral pulses 2+ throughout GI normal to inspection, nondistended, normoactive bowel sounds, soft to palpation, non-tender and non-distended Back/Spine normal ROM Extremity normal to inspection, full ROM and no pedal edema Skin no rashes or lesions noted Neuro Neuro Narrative: Right shoulder weakness with abduction noted. Intermittent slurred speech noted. Results Lab / Micro Data 08/10/25 14:07 08/10/25 14:07 Labs: Laboratory Results - last 24 hr 08/10/25 14:07: WBC 6.6, RBC 4.68, Hgb 13.6, Hct 39.6 L, MCV 84.6, MCH 29.1, MCHC 34.3, RDW Std Deviation 36.7, RDW Coeff of [place] 12.3, Plt Count 380, MPV 9.7, Immature Gran % (Auto) 0.200, Neut % (Auto) 46.0 L, Lymph % (Auto) 41.8 H, Grady % (Auto) 11.1 H, Eos % (Auto) 0.6, Baso % (Auto) 0.3, Absolute Neuts (auto) 3.0, Absolute Lymphs (auto) 2.76, Nucleated RBC % 0, PT 13.9, INR 1.1, APTT 24.9, Sodium 139, Potassium 3.5, Chloride 106, Carbon Dioxide 23.2, Anion Gap 10, BUN 17, Creatinine 0.72, Estim Creat Clear Calc 166.57, Est GFR (MDRD) Non-Af 110, BUN/Creatinine Ratio 23.5 H, Glucose 117 H, Calcium 9.1, Total Bilirubin 0.23, AST 19, ALT 26, Alkaline Phosphatase 99, Troponin T High Sens 8, Total Protein 7.2, Albumin 3.9, Globulin 3.3, Albumin/Globulin Ratio 1.2, Ethyl Alcohol < 10.1 08/10/25 14:09: Lactic Acid < 1.0 08/10/25 14:45: Urine Color Yellow, Urine Clarity Clear, Urine pH 6.0, Ur Specific [place] 1.015, Urine Protein 15 H, Urine Glucose (UA) Normal, Urine Ketones Negative, Urine Occult Blood Negative, Urine Nitrite Negative, Urine Bilirubin Negative, Urine Urobilinogen Normal, Ur Leukocyte Esterase Negative, Urine RBC 0-5 SEEN, Urine WBC 0-5 SEEN, Ur Squamous Epith Cells 0 SEEN, Urine Bacteria 0 SEEN, Urine Mucus 0 SEEN, Urine Opiates Screen NEGATIVE, U Buprenorphine Qual NEGATIVE, Ur Oxycodone Screen NEGATIVE, Urine Methadone Screen NEGATIVE, Urine Fentanyl Screen NEGATIVE, Ur Barbiturates Screen NEGATIVE, Ur Phencyclidine Scrn NEGATIVE, Ur Amphetamines Screen NEGATIVE, U Benzodiazepines Scrn NEGATIVE, Urine Cocaine Screen NEGATIVE, U Cannabinoids Screen NEGATIVE 08/10/25 16:10: Troponin T Hi Sens 2 Hr 8 Imaging Radiology Impression Brain CT 08/10/25 14:20 IMPRESSION: 1. Acute (to subacute) ischemia left MCA distribution. No hemorrhage. Correlate with history. 2. Correlate with CT angiogram as there are critical findings. Stroke Alert: Left MCA acute ischemia The critical findings in the findings and impression above were relayed directly by me by telephone to Ever Barth on 08/10/2025 at 3:05 pm with readback verification. Reading Location: [facility] Chest X-Ray 08/10/25 14:30 IMPRESSION: No acute abnormality Reading Location: [id number] Head/Neck CTA 08/10/25 14:52 IMPRESSION: 1. Critical stenosis involving the proximal left internal carotid artery. Additionally, supraclinoid portion of the left internal carotid artery with likely flow limitation. Urgent vascular surgical consultation suggested. 2. 50% stenosis right supraclinoid internal carotid artery. 3. Hypoplastic versus atherosclerotic A1 segment on the left. 4. No evidence of large vessel occlusion at the MCA at this time. 5. Correlate with the head CT of the same day as there are positive findings. 6. Enlargement of the lymphoid tissue of the nasopharynx, palatine tonsils and uvula. Correlate with direct inspection, history and physical. Stroke Alert: Acute ischemia. Critical stenosis. The critical findings in the findings and impression above were relayed directly by me by telephone to Ever Barth on 08/10/2025 at 3:05 pm with readback verification. Reading Location: [id number] Assessment & Plan Assessment/Plan (1) Acute ischemic left MCA stroke: PLAN: Plan Patient is a 50-year-old male who presented [facility] ED on 08/10/2025 with confusion, slurred speech and worsening right upper extremity weakness and numbness/tingling. 1. Acute left MCA stroke with left-sided critical ICA stenosis ? Admit under inpatient status to PCU. Neurology and vascular surgery consulted. CT brain showed an acute to subacute left MCA stroke with no hemorrhage. CTA head/neck showed critical stenosis involving the proximal left internal carotid artery with likely flow limitation. Orders placed per stroke protocol order set. MRI brain and echo ordered. Fasting lipid panel and A1c ordered. Discussed with vascular surgery and will initiate baby aspirin, Plavix and high intensity statin. Likely plan will be for vascular intervention in about 1 week but vascular surgery will discuss further with patient pending MRI and echo results. PT/OT/case management consulted. 2. Hypertension ? Hypertensive to the 150s to 160s systolic in the ED. Not on any antihypertensive agents at this time, unclear if he has been in the past. Will hold off on initiating any antihypertensive therapy given need for permissive hypertension in setting of stroke as above, can consider adding on discharge. 3. Class II obesity ? BMI 39 on admit. Discussed lifestyle modifications. Complicates hospital course and care. 4. Tobacco dependence ? Current smoker. Nicotine replacement therapy available per patient request. Discussed cessation on discharge. DVT prophylaxis: SCDs CODE STATUS: Full code, verified Expected disposition: TBD Total clinical time spent by myself addressing the patient's medical issues, reviewing all the data, and collaborating with patient's care team: 78 minutes. Charges/Coding Visit Charges Inpatient E&M: 54449 Init Hosp L3
--- NOTE | 2025-08-10 17:12 | ECHOCS_ITS ---
Reason For Study Reason For Study: TIA/CVA Procedure This was a 2D Doppler, Color Flow transthoracic echocardiogram. The study was technically difficult. Contrast injection was performed. Exam performed portable in patient room. Left Ventricle Normal LV size. Mild concentric left ventricular hypertrophy. Left ventricular systolic function is normal. The left ventricular ejection fraction is 60 %. No regional wall motion abnormalities noted. Right Ventricle Normal RV size. Normal systolic function. Atria Normal left atrium. Normal right atrium. Bubble contrast study is negative for PFO/ASD. Mitral Valve Normal mitral valve. Tricuspid Valve Normal tricuspid valve. Aortic Valve Trisinus/trileaflet aortic valve. Pulmonic Valve Normal pulmonic valve. Great Vessels Normal aortic root. The pulmonary artery is normal size. Inferior vena cava collapse with respiration. Pericardium/Pleural No pericardial effusion. Medication Diluted definity 2ml given slow IV push to enhance endocardial definition. Performed a rapid injection of agitated mix of 9 cc saline and 1cc air to assess for atrial septal defect. MMode/2D Measurements & Calculations LVIDd: 4.5 cm IVSd: 1.2 cm LVOT diam: 2.0 cm LVIDs: 2.3 cm LVPWd: 1.2 cm RVDd: 4.2 cm FS: 48.3 % LVOT area: 3.2 cm2 asc Aorta Diam: 3.8 cm LAV(MOD-bp): 43.5 ml LVAd ap4: 43.3 cm2 LAV(MOD-bp) Indexed: 17.4 ml/m2 LVLd ap4: 9.0 cm LAV(MOD-sp2): 41.5 ml EDV(MOD-sp4): 171.4 ml LAV(MOD-sp4): 39.1 ml EDV(sp4-el): 175.9 ml LVAs ap4: 25.5 cm2 LVLs ap4: 8.3 cm ESV(MOD-sp4): 66.3 ml ESV(sp4-el): 66.3 ml EF(MOD-sp4): 61.3 % EF(sp4-el): 62.3 % LVAd ap2: 42.0 cm2 SV(MOD-sp4): 105.1 ml SV(MOD-sp2): 85.6 ml LVLd ap2: 9.5 cm SI(MOD-sp4): 41.9 ml/m2 SI(MOD-sp2): 34.2 ml/m2 EDV(MOD-sp2): 152.6 ml EDV(sp2-el): 158.1 ml LVAs ap2: 25.5 cm2 LVLs ap2: 8.0 cm ESV(MOD-sp2): 67.0 ml ESV(sp2-el): 68.9 ml EF(MOD-sp2): 56.1 % SV(sp4-el): 109.6 ml Ao sinus diam: 3.[address] Junction: 2.7 cm LA dimension(2D): 4.1 cm LA A4 area: 16.3 cm2 RA A4 area: 11.7 cm2 TAPSE: 1.3 cm Time Measurements MV dec time: 0.26 sec Doppler Measurements & Calculations MV E max jose: 96.9 cm/sec Lat Peak E' Jose: 13.1 cm/sec Med Peak E' Jose: 8.6 cm/sec MV A max jose: 92.9 cm/sec E/E' lat: 7.4 E/E' med: 11.3 MV E/A: 1.0 MV dec slope: 376.0 cm/sec2 Ao V2 max: 147.2 cm/sec LV V1 max: 107.4 cm/sec Ao max P.7 mmHg LV V1 max P.6 mmHg Ao V2 mean: 88.0 cm/sec LV V1 mean P.2 mmHg Ao mean P.8 mmHg LV V1 mean: 69.5 cm/sec Ao V2 VTI: 35.7 cm LV V1 VTI: 23.0 cm AV (velocity ratio): 0.65 CHERELLE(I,D): 2.1 cm2 CHERELLE(V,D): 2.3 cm2 SV(LVOT): 73.4 ml PA V2 max: 96.8 cm/sec ECHO/Echo Complete W/ Contrast Interpretation Summary Normal LV size. Left ventricular systolic function is normal. The left ventricular ejection fraction is 60 %. Bubble contrast study is negative for PFO/ASD. Mild concentric left ventricular hypertrophy. Contrast injection was performed. Ordering Physician: Roger Costa Performed By: Rosalinda Davenport RDCS
--- NOTE | 2025-08-10 17:12 | MRI_ITS ---
PROCEDURE: BRAIN WITHOUT CONTRAST 08/10/2025 REASON FOR EXAM: CVA TECHNIQUE: Procedure Code: MRIBR Modality: MR Procedure: BRAIN WITHOUT CONTRAST Multiplanar and multisequence images were obtained. COMPARISON: 08/10/2025. FINDINGS: There are foci of abnormal signal in the left frontoparietal region demonstrating increased diffusion-weighted imaging (DWI) signal, corresponding increased apparent diffusion coefficient (ADC), increased T2 signal, decreased T1 signal, and increased FLAIR signal. No gradient echo susceptibility is identified to suggest hemorrhagic transformation. The ventricles are normal in size and configuration. The paranasal sinuses and mastoid air cells are clear. 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 No evidence of hemorrhagic transformation. Reading Location: [id number]
--- NOTE | 2025-08-10 17:47 | CASEMGMT ---
Care Management Face to Face with patient for initial transition planning/care coordination assessment in the ED.? This chart writer introduced self and role at [facility]. Patient alert and oriented. Patient willing to participate in assessment and is able to answer all questions appropriately.? Care providers, pharmacy, and demographics verified. Admitting Diagnosis: Neuro s/sx Other diagnosis history: hypertension PCP: ?none Specialists: ?none Preferred Pharmacy: [facility] Insurance: ?IGIGI Prescription Benefit: ?yes Living Will/HPOA: ?none LNOK: ?children Living Arrangements: ?Lives with brother and nephew in 2 story home.? Reports being independent with ADLs and IADLs. Transportation: ?patient drives DME: ?none HHC: ?none SNF/Rehab: ?none Community Resources: ?none Behavioral Health History: ?none Patient goals: Patient wishes to discharge home, denies need for home health care at this time. Patient denies any further needs or concerns at this time. Disposition Plan: admission to acute; RN CM/SW to follow for discharge planning needs that may arise. Martha Tapia, BODY PAINTER, TORCH CUTTER
--- NOTE | 2025-08-10 18:01 | ED.RN ---
PT D/C TO MRI BEFORE ADMISSION TO FLOOR. DR MELLO PERFORMED [facility] WITH THIS NURSE AT BEDSIDE. THIS NURSE CALLED [phone] AND SPOKE WITH JULEE PELAEZ [facility] [place], INFORMING HER WE WILL BE CUTTING THE ANKLE MONITOR OFF THE PTS RIGHT LEG BEFORE HE GOES TO MRI UNDER HIS ADMISSION ORDERS. THE ANKLE MONITOR WAS LABELED AND PLACED INTO A HAZ BAG AND PLACED WITH PTS BAGGED ITEMS TO GO TO THE FLOOR WITH PT. PT ADVISED THAT STAFF STATES HE IS TO RETURN TO THE [facility] [place] FACILITY FOLLOWING D/C TO HAVE THE ANKLE MONITOR REPLACED. PT AND FRIEND THAT IS PRESENT WAS MADE AWARE OF THESE ORDERS.
[2025-08-11] VITALS (9 sets, daily range): BP systolic 130–143; BP diastolic 66–85; PULSE 51–63; RESP 16–17; TEMP 36.5–37; O2SAT 95–99; BMI 39.0
--- NOTE | 2025-08-11 07:38 | PCM.PN.HOSP ---
Reason for Visit Chief Complaint: Confusion, slurred speech and worsening right upper extremity weakness and numbness/tingling Objective Data Objective Data Vital Signs: Vital Signs Temp Pulse Resp BP Pulse Ox O2 Del Method 98.6 F 54 L 16 135/75 H 99 Room Air 08/11/25 06:45 08/11/25 06:45 08/11/25 06:45 08/11/25 06:45 08/11/25 06:45 08/11/25 06:45 Oxygen Delivery Method Room Air Weight: 288 lb Body Mass Index (BMI) 39.0 Intake & Output: Intake and Output for Last 24 Hours 08/09/25 08/10/25 08/11/25 23:59 23:59 23:59 Intake Total 1000 / 1000 Balance 1000 / 1000 Lab / Micro Data 08/10/25 14:07 08/10/25 14:07 Labs: Laboratory Results - last 24 hr 08/10/25 14:07: WBC 6.6, RBC 4.68, Hgb 13.6, Hct 39.6 L, MCV 84.6, MCH 29.1, MCHC 34.3, RDW Std Deviation 36.7, RDW Coeff of Ashanti 12.3, Plt Count 380, MPV 9.7, Immature Gran % (Auto) 0.200, Neut % (Auto) 46.0 L, Lymph % (Auto) 41.8 H, [place] % (Auto) 11.1 H, Eos % (Auto) 0.6, Baso % (Auto) 0.3, Absolute Neuts (auto) 3.0, Absolute Lymphs (auto) 2.76, Nucleated RBC % 0, PT 13.9, INR 1.1, APTT 24.9, Sodium 139, Potassium 3.5, Chloride 106, Carbon Dioxide 23.2, Anion Gap 10, BUN 17, Creatinine 0.72, Estim Creat Clear Calc 166.57, Est GFR (MDRD) Non-Af 110, BUN/Creatinine Ratio 23.5 H, Glucose 117 H, Hemoglobin A1c 6.7 H, Calcium 9.1, Total Bilirubin 0.23, AST 19, ALT 26, Alkaline Phosphatase 99, Troponin T High Sens 8, Total Protein 7.2, Albumin 3.9, Globulin 3.3, Albumin/Globulin Ratio 1.2, TSH 1.020, Ethyl Alcohol < 10.1 08/10/25 14:09: Lactic Acid < 1.0 08/10/25 14:45: Urine Color Yellow, Urine Clarity Clear, Urine pH 6.0, Ur Specific Brandon 1.015, Urine Protein 15 H, Urine Glucose (UA) Normal, Urine Ketones Negative, Urine Occult Blood Negative, Urine Nitrite Negative, Urine Bilirubin Negative, Urine Urobilinogen Normal, Ur Leukocyte Esterase Negative, Urine RBC 0-5 SEEN, Urine WBC 0-5 SEEN, Ur Squamous Epith Cells 0 SEEN, Urine Bacteria 0 SEEN, Urine Mucus 0 SEEN, Urine Opiates Screen NEGATIVE, U Buprenorphine Qual NEGATIVE, Ur Oxycodone Screen NEGATIVE, Urine Methadone Screen NEGATIVE, Urine Fentanyl Screen NEGATIVE, Ur Barbiturates Screen NEGATIVE, Ur Phencyclidine Scrn NEGATIVE, Ur Amphetamines Screen NEGATIVE, U Benzodiazepines Scrn NEGATIVE, Urine Cocaine Screen NEGATIVE, U Cannabinoids Screen NEGATIVE 08/10/25 16:10: Troponin T Hi Sens 2 Hr 8 Radiography Diagnostic Testing: Radiology Impression Brain CT 08/10/25 14:20 IMPRESSION: 1. Acute (to subacute) ischemia left MCA distribution. No hemorrhage. Correlate with history. 2. Correlate with CT angiogram as there are critical findings. Stroke Alert: Left MCA acute ischemia The critical findings in the findings and impression above were relayed directly by me by telephone to Ever Barth on 08/10/2025 at 3:05 pm with readback verification. Reading Location: [facility] Chest X-Ray 08/10/25 14:30 IMPRESSION: No acute abnormality Reading Location: [facility] Head/Neck CTA 08/10/25 14:52 IMPRESSION: 1. Critical stenosis involving the proximal left internal carotid artery. Additionally, supraclinoid portion of the left internal carotid artery with likely flow limitation. Urgent vascular surgical consultation suggested. 2. 50% stenosis right supraclinoid internal carotid artery. 3. Hypoplastic versus atherosclerotic A1 segment on the left. 4. No evidence of large vessel occlusion at the MCA at this time. 5. Correlate with the head CT of the same day as there are positive findings. 6. Enlargement of the lymphoid tissue of the nasopharynx, palatine tonsils and uvula. Correlate with direct inspection, history and physical. Stroke Alert: Acute ischemia. Critical stenosis. The critical findings in the findings and impression above were relayed directly by me by telephone to Ever Barth on 08/10/2025 at 3:05 pm with readback verification. Reading Location: [facility] Brain MRI 08/10/25 17:12 IMPRESSION: Subacute infarcts in the left frontoparietal region. No evidence of hemorrhagic transformation. Reading Location: [id number] Physical Exam Narrative Seen and examined. Patient admitted with 5 days of confusion weakness, slow to respond, mixing words/language deficit and slurred speech Physical exam General: Alert, Oriented x3, Cooperative. BMI 39.0 kg/m? obesity grade 2 HEENT: Atraumatic, PERRLA, EOMI, Normocephalic. Oral: No Gingival or Mucosal Lesions/ Ulcerations Neck: Supple, No JVD, Negative Carotid Bruits Chest wall/Lungs: Air entry diminished in bilateral lung bases. No crepitation/rhonchi Cardiovascular: Sinus bradycardia, Normal S1,S2, No M/G/R Abdomen: Bowel Sounds Present, Soft, Non Tender, Non-Distended : No dysuria. No renal angle tenderness. No suprapubic tenderness. Extremities: No edema, Capillary Refill Less than 3 Seconds Skin: No rashes, No breakdown Musculoskeletal: Right upper extremity weakness 3/5 no Tenderness to Palpation of Joints or Extremities Neurological: Mild left-sided facial palsy. Left upper extremity weakness, language deficit/slurred speech. Slow to respond. Last NIH stroke scale documented 4 but + right arm 1. Right arm is more weaker, 3. Mild to moderate aphasia. Psych/Mental Status: Flat affect Assessment & Plan Assessment/Plan (1) Acute ischemic left MCA stroke: PLAN: Plan Patient is a 50-year-old male who presented [facility] ED on 08/10/2025 with intermittent confusion, generalized weakness for 2 weeks. Patient is not acting right. LKW last Saturday. Patient slow to respond and is mixing words. Patient also slurred speech and worsening right upper extremity weakness and numbness/tingling. 1. Acute left MCA stroke with left-sided critical ICA stenosis ? Admit under inpatient status to PCU. Neurology and vascular surgery consulted 08/11: MRI brain shows subacute infarct in left frontoparietal region. No evidence of hemorrhagic transformation. Prior to that, CT head shows acute/subacute ischemia of left MCA distribution no hemorrhage. CT headache note shows critical stenosis over supraclinoid portion of left ICA with flow limitation. 50% stenosis of right supraclinoid ICA no evidence of LVO at MCA. Patient evaluated by [facility] neurologist recommended aspirin and Plavix along with statin which patient is already on. 2D echo was done report pending. Discussed with vascular surgeon Dr. Nguyễn. If echo is normal otherwise if it shows regional wall motion abnormalities/depressed EF need director of spa and guest experience evaluation and clearance. Likely plan will be for vascular intervention in about 1 week. PT/OT/case management consulted. Lipid profile shows HDL 39, TC 200 LDL 143 elevated. TSH normal. A1c 6.7%. UTOX screen was negative. UA shows mild proteinuria 15 otherwise normal. DM type II: A1C 6.7%, meets the definition of DM type II. Accu-Cheks AC and at bedtime coverage is normal sliding scale 2. Hypertension ? Hypertensive to the 150s to 160s systolic in the ED. Not on any antihypertensive agents at this time, unclear if he has been in the past. 08/11: Blood pressure is in permissive hypertension range 3. Class II obesity ? BMI 39 on admit. Discussed lifestyle modifications. Complicates hospital course and care. 4. Tobacco dependence ? Current smoker. Nicotine replacement therapy available per patient request. Discussed cessation on discharge. DVT prophylaxis: SCDs CODE STATUS: Full code, verified Laboratory Results 08/10/25 14:07: Hemoglobin A1c 6.7 H, Troponin T High Sens 8, TSH 1.020 08/10/25 14:45: Urine Color Yellow, Urine Clarity Clear, Urine pH 6.0, Ur Specific Brandon 1.015, Urine Protein 15 H, Urine Glucose (UA) Normal, Urine Ketones Negative, Urine Occult Blood Negative, Urine Nitrite Negative, Urine Bilirubin Negative, Urine Urobilinogen Normal, Ur Leukocyte Esterase Negative, Urine RBC 0-5 SEEN, Urine WBC 0-5 SEEN, Ur Squamous Epith Cells 0 SEEN, Urine Bacteria 0 SEEN, Urine Mucus 0 SEEN, Urine Opiates Screen NEGATIVE, U Buprenorphine Qual NEGATIVE, Ur Oxycodone Screen NEGATIVE, Urine Methadone Screen NEGATIVE, Urine Fentanyl Screen NEGATIVE, Ur Barbiturates Screen NEGATIVE, Ur Phencyclidine Scrn NEGATIVE, Ur Amphetamines Screen NEGATIVE, U Benzodiazepines Scrn NEGATIVE, Urine Cocaine Screen NEGATIVE, U Cannabinoids Screen NEGATIVE 08/10/25 16:10: Troponin T Hi Sens 2 Hr 8 08/11/25 05:04: Triglycerides 89, Cholesterol 200, LDL Cholesterol, Calc 143, VLDL Cholesterol 18, HDL Cholesterol 39 L, Cholesterol/HDL Ratio 5.12 Clinical Impression(s) from Imaging Studies Brain CT 08/10/25 14:20 IMPRESSION: 1. Acute (to subacute) ischemia left MCA distribution. No hemorrhage. Correlate with history. 2. Correlate with CT angiogram as there are critical findings. Stroke Alert: Left MCA acute ischemia The critical findings in the findings and impression above were relayed directly by me by telephone to Ever Barth on 08/10/2025 at 3:05 pm with readback verification. Reading Location: [facility] Chest X-Ray 08/10/25 14:30 IMPRESSION: No acute abnormality Reading Location: [facility] Head/Neck CTA 08/10/25 14:52 IMPRESSION: 1. Critical stenosis involving the proximal left internal carotid artery. Additionally, supraclinoid portion of the left internal carotid artery with likely flow limitation. Urgent vascular surgical consultation suggested. 2. 50% stenosis right supraclinoid internal carotid artery. 3. Hypoplastic versus atherosclerotic A1 segment on the left. 4. No evidence of large vessel occlusion at the MCA at this time. 5. Correlate with the head CT of the same day as there are positive findings. 6. Enlargement of the lymphoid tissue of the nasopharynx, palatine tonsils and uvula. Correlate with direct inspection, history and physical. Stroke Alert: Acute ischemia. Critical stenosis. The critical findings in the findings and impression above were relayed directly by me by telephone to Ever Barth on 08/10/2025 at 3:05 pm with readback verification. Reading Location: [facility] Brain MRI 08/10/25 17:12 IMPRESSION: Subacute infarcts in the left frontoparietal region. No evidence of hemorrhagic transformation. Reading Location: [id number] Charges/Coding Addendum Addendum: Total time of the visit including total time spent in counseling or coordination of care, (more than 50% of the total time, spent in obtaining medical information from nurses and other ancillary care providers ,explaining to the patient about labs, imaging, diagnosis and management of active complex medical conditions), evaluation of left MCA distribution ischemic stroke, discussion with vascular surgeon and neurologist, review of labs, MRI and CT scan and imaging is 35 minutes. Visit Charges Inpatient E&M: 87040 Subs Hosp L3 NIHSS NIHSS Nursing Documentation NIHSS Nursing Documentation: NIH Stroke Scale Start: 08/10/25 12:25 Freq: Status: Discharge Protocol: Activity Type Activity Date Activity User E-sign Co-sign Detail Recorded Client Recorded Date Recorded By Document 08/10/25 12:26 [facility] [id number] 08/10/25 12:26 TOSHA 08/10/25 12:26 NIH Stroke Scale [NIHSS] A score of 0 is normal or asymptomatic . Total possible score is 42. Inpatient: RN or Physician to activate a stroke alert for onset of new stroke symptoms or with NIHSS increase >/= 3 points. Following change in neurological status, NIHSS will be performed per physician order or more frequently PRN. -1a. Level of Consciousness 0 - Alert; keenly responsive -1b. LOC Questions 1 - Answers ONE question correctly -1c. LOC Commands 0 - Performs BOTH tasks correctly -2. Best Gaze 0 - Normal -3. Visual 0 - No visual loss -4. Facial Palsy 0 - Normal symmetrical movements -5a. Left Arm 0 - No drift; arm holds 90 ( or 45) degrees for full 10 seconds -5b. Right Arm 0 - No drift; arm holds 90 ( or 45) degrees for full 10 seconds -6a. Left Leg 0 - No drift; leg holds 30- degree position for full 5 seconds -6b. Right Leg 0 - No drift; leg holds 30- degree position for full 5 seconds -7. Limb Ataxia 0 - Absent -8. Sensory 0 - Normal; no sensory loss -9. Best Language 0 - No aphasia; normal -10. Dysarthria 0 - Normal -11. Extinction and Inattention 0 - No abnormality -Total 1 Query Text:A score of 0 is normal or asymptomatic. Total possible score is 42 . ED: Notify Physician for NIHSS increase by > / = 3 points. Inpatient: RN or Physician to activate a stroke alert for NIHSS increase of > / = 3 points. NIHSS: Ischemic Stroke/TIA Start: 08/10/25 18:45 Text: For PCU Patients: NIH and Neuro Check every 4 Status: Active hours, PRN and with change in RN caregiver. Freq: [id number] Protocol: Activity Type Activity Date Activity User E-sign Co-sign Detail Recorded Client Recorded Date Recorded By Document 08/11/25 06:45 ARELI [id number] 08/11/25 06:53 ARELI 08/11/25 06:45 -1a. Level of Consciousness 0 - Alert; keenly responsive -1b. LOC Questions 1 - Answers ONE question correctly -1c. LOC Commands 0 - Performs BOTH tasks correctly -2. Best Gaze 1 - Partial gaze palsy; -3. Visual 1 - Partial hemianopia -4. Facial Palsy 1 - Minor paralysis ( flattened nasolabial fold , asymmetry on smiling) -5a. Left Arm 0 - No drift; arm holds 90 ( or 45) degrees for full 10 seconds -5b. Right Arm 1 - Drift; arm drifts downward but doesn?t hit the bed -6a. Left Leg 0 - No drift; leg holds 30- degree position for full 5 seconds -6b. Right Leg 0 - No drift; leg holds 30- degree position for full 5 seconds -7. Limb Ataxia 1 - Present in 1 limb -8. Sensory 0 - Normal; no sensory loss -9. Best Language 1 - Mild-to- moderate aphasia; -10. Dysarthria 1 = Mild-to- moderate dysarthria; -11. Extinction and Inattention 0 - No abnormality -Total 8 Query Text:A score of 0 is normal or asymptomatic. Total possible score is 42 . ED: Notify Physician for NIHSS increase by > / = 3 points. Inpatient: RN or Physician to activate a stroke alert for NIHSS increase of > / = 3 points. Coma Scale [Assess] -Eye Opening Spontaneous -Motor Obeys Commands -Verbal Oriented [Total] -Coma Scale Total 15
--- NOTE | 2025-08-11 07:58 | EX.PCM.CON.S ---
Assessment & Plan Assessment/Plan (1) Left carotid stenosis: PLAN: CTA images reviewed, demonstrate severe L ICA stenosis at threshold to recommend surgical intervention. Given the distal nature of his lesion, carotid stent is felt to be the best option. Transcarotid stenting would be preferred as long as he is of acceptable risk from a cardiovascular standpoint; if he is deemed higher risk in this regard then would alternatively consider transfemoral stenting. Pending echo results, would consider cardiology consult for further assistance with risk stratification. We discussed that we could schedule on an outpatient basis in the next 1-2 weeks. He does wish to proceed with intervention, will schedule. Continue DAPT with ASA and Plavix and high-intensity statin. HPI Consult Data Date of Consult: 08/11/25 HPI Narrative HPI Narrative: FIOR BEAN, is a 50 M who is admitted for stroke workup after presenting to the [facility] ER 08/10/25 with 2-3 weeks of confusion, difficulty word-finding/communicating and general fatigue/weakness; he also noted RUE pain/weakness/numbness which started a couple months prior. He had Brain CT showed acute to subacute L MCA distribution ischemia. CTA Head/Neck demonstrated severe L ICA stenosis. Brain MRI demonstrated L frontoparietal subacute infarcts. Echo is pending. He reports no prior history of known CVA or similar symptoms suggestive of TIA; reports no prior knowledge of carotid artery disease and no history of prior vascular interventions. He was not on any medications at home. He denies any history of coronary artery disease, denies any CP/SOB. He answers questions appropriately with short answers, looks to family member at bedside for longer answers/explanations when he seemed to have difficulty word finding. He reports still limited mobility at his R shoulder but otherwise does not notice any weakness. [facility] Medical History (Updated 08/11/25 @ 14:10 by JUNO Harris) HTN (hypertension) Eye globe prosthesis Home Medications ?Medication ?Instructions ?Recorded ?Last Taken ?Type NK 08/10/25 Unknown History Allergy/AdvReac Type Severity Reaction Status Date / Time No Known Allergies Allergy Verified 08/10/25 19:55 Social History (Updated 08/10/25 @ 18:48 by Keiko French) household members: family housing: house Smoking Status: Light Smoker (<10/day) Physical Exam Const alert and oriented x3 General Appearance: cooperative and comfortable HEENT head/scalp atraumatic, hearing grossly normal bilaterally, external ears normal and external nose normal Eyes General Eye: other Other Details: prosthetic L eye Neck General: normal visual inspection and trachea midline Resp Effort and Inspection: able to speak in complete sentences; Negative for labored, grunting or stridor Cardio Rate: regular rate Rhythm: regular rhythm Neuro oriented x3 and moves all extremities Neuro Narrative: noted mild difficulty word finding, mild slurring of speech, otherwise neurologically intact Lab / Micro Data 08/10/25 14:07 08/10/25 14:07 Labs: Laboratory Results - last 24 hr 08/10/25 14:07: WBC 6.6, RBC 4.68, Hgb 13.6, Hct 39.6 L, MCV 84.6, MCH 29.1, MCHC 34.3, RDW Std Deviation 36.7, RDW Coeff of [place] 12.3, Plt Count 380, MPV 9.7, Immature Gran % (Auto) 0.200, Neut % (Auto) 46.0 L, Lymph % (Auto) 41.8 H, [place] % (Auto) 11.1 H, Eos % (Auto) 0.6, Baso % (Auto) 0.3, Absolute Neuts (auto) 3.0, Absolute Lymphs (auto) 2.76, Nucleated RBC % 0, PT 13.9, INR 1.1, APTT 24.9, Sodium 139, Potassium 3.5, Chloride 106, Carbon Dioxide 23.2, Anion Gap 10, BUN 17, Creatinine 0.72, Estim Creat Clear Calc 166.57, Est GFR (MDRD) Non-Af 110, BUN/Creatinine Ratio 23.5 H, Glucose 117 H, Hemoglobin A1c 6.7 H, Calcium 9.1, Total Bilirubin 0.23, AST 19, ALT 26, Alkaline Phosphatase 99, Troponin T High Sens 8, Total Protein 7.2, Albumin 3.9, Globulin 3.3, Albumin/Globulin Ratio 1.2, TSH 1.020, Ethyl Alcohol < 10.1 08/10/25 14:09: Lactic Acid < 1.0 08/10/25 14:45: Urine Color Yellow, Urine Clarity Clear, Urine pH 6.0, Ur Specific [place] 1.015, Urine Protein 15 H, Urine Glucose (UA) Normal, Urine Ketones Negative, Urine Occult Blood Negative, Urine Nitrite Negative, Urine Bilirubin Negative, Urine Urobilinogen Normal, Ur Leukocyte Esterase Negative, Urine RBC 0-5 SEEN, Urine WBC 0-5 SEEN, Ur Squamous Epith Cells 0 SEEN, Urine Bacteria 0 SEEN, Urine Mucus 0 SEEN, Urine Opiates Screen NEGATIVE, U Buprenorphine Qual NEGATIVE, Ur Oxycodone Screen NEGATIVE, Urine Methadone Screen NEGATIVE, Urine Fentanyl Screen NEGATIVE, Ur Barbiturates Screen NEGATIVE, Ur Phencyclidine Scrn NEGATIVE, Ur Amphetamines Screen NEGATIVE, U Benzodiazepines Scrn NEGATIVE, Urine Cocaine Screen NEGATIVE, U Cannabinoids Screen NEGATIVE 08/10/25 16:10: Troponin T Hi Sens 2 Hr 8 Imaging Radiology Impression Brain CT 08/10/25 14:20 IMPRESSION: 1. Acute (to subacute) ischemia left MCA distribution. No hemorrhage. Correlate with history. 2. Correlate with CT angiogram as there are critical findings. Stroke Alert: Left MCA acute ischemia The critical findings in the findings and impression above were relayed directly by me by telephone to Ever Barth on 08/10/2025 at 3:05 pm with readback verification. Reading Location: [facility] Chest X-Ray 08/10/25 14:30 IMPRESSION: No acute abnormality Reading Location: [facility] Head/Neck CTA 08/10/25 14:52 IMPRESSION: 1. Critical stenosis involving the proximal left internal carotid artery. Additionally, supraclinoid portion of the left internal carotid artery with likely flow limitation. Urgent vascular surgical consultation suggested. 2. 50% stenosis right supraclinoid internal carotid artery. 3. Hypoplastic versus atherosclerotic A1 segment on the left. 4. No evidence of large vessel occlusion at the MCA at this time. 5. Correlate with the head CT of the same day as there are positive findings. 6. Enlargement of the lymphoid tissue of the nasopharynx, palatine tonsils and uvula. Correlate with direct inspection, history and physical. Stroke Alert: Acute ischemia. Critical stenosis. The critical findings in the findings and impression above were relayed directly by me by telephone to Ever Barth on 08/10/2025 at 3:05 pm with readback verification. Reading Location: [id number] Brain MRI 08/10/25 17:12 IMPRESSION: Subacute infarcts in the left frontoparietal region. No evidence of hemorrhagic transformation. Reading Location: [id number] Charges/Coding Visit Charges Inpatient E&M: 81362 Init Hosp L1
[2025-08-11 08:50] LABS: Cholesterol 200 mg/dL (<=200); Low Density Lipoprotein Calc. 143 mg/dL; Triglycerides 89 mg/dL; Very Low Density Lipoprotein 18 mg/dL (5-40); cholesterol:hdl ratio screen 5.12
--- NOTE | 2025-08-11 13:08 | CASEMGMT ---
Social Work SW completed a PHQ9 with the patient. Patient scored a 2. Sina. BENJY Lopez
--- NOTE | 2025-08-11 13:51 | NEURO.CONS ---
Assessment and Plan: Neuro Assessment/Plan Telestroke (Audio/Video) Attending Stroke Consult Note - 08/11/2025 50 y/o man with h/o HTn, obesity and tobacco dependence p/w confusion, slurred speech and worsening right UE weakness and numbness/tinglin. CT head- subacute left MCA stroke. CTA- left ICA high grade stenosis. MRI brain - left MCA Stroke. LDL-143. Today, he still has mild aphasia and drift in RUE. Denies any new complaints. Diagnosis: Left MCA stroke, symptomatic LICA stenosis Plan: ASA and plavix alnnog with statin. Given symptomatic LICA stenosis, consult vascular surgery for possible revascularization. Follow up TTE. OT/PT/TREE FELLER. Control of vascular risk factors. Follow up A1c. Sign off for now. Please call us back for any questions. I personally attended this patient and spent a total time of 70 minutes evaluating this patient including clinical assessment, review of chart, medical history imaging, and determining appropriate treatment and workup. HPI Consult Data Date of Consult: 08/12/25 HPI Narrative HPI Narrative: 50 y/o man with h/o HTn, obesity and tobacco dependence p/w confusion, slurred speech and worsening right UE weakness and numbness/tinglin. CT head- subacute left MCA stroke. CTA- left ICA high grade stenosis. MRI brain - left MCA Stroke. LDL-143. Today, he still has mild aphasia and drift in RUE. Denies any new complaints. [facility] Medical History (Updated 08/11/25 @ 14:10 by JUNO Harris) HTN (hypertension) Eye globe prosthesis Home Medications ?Medication ?Instructions ?Recorded ?Last Taken ?Type NK 08/10/25 Unknown History Allergy/AdvReac Type Severity Reaction Status Date / Time No Known Allergies Allergy Verified 08/10/25 19:55 Social History (Updated 08/10/25 @ 18:48 by Keiko French) household members: family housing: house Smoking Status: Light Smoker (<10/day) Vital Signs Vital Signs Vital Signs: 08/10/25 14:00 08/10/25 15:00 08/10/25 16:00 Temperature Temperature Source Pulse Rate 57 L 52 L 49 L Pulse Strength Respiratory Rate 16 19 H 20 H Respiratory Effort Respiratory Depth Respiratory Pattern Blood Pressure 137/83 H 142/70 H 165/74 H Blood Pressure Mean 101 94 104 Blood Pressure Source Blood Pressure Position Blood Pressure Location Pulse Ox 97 98 100 Oxygen Delivery Method Room Air Room Air 08/10/25 17:12 08/10/25 17:13 08/10/25 19:30 Temperature 97.9 F Temperature Source Pulse Rate 60 58 L Pulse Strength Respiratory Rate 17 17 Respiratory Effort Normal Non-Labored Respiratory Depth Normal Respiratory Pattern Normal Blood Pressure 156/94 H 156/94 H Blood Pressure Mean 114 114 Blood Pressure Source Blood Pressure Position Blood Pressure Location Pulse Ox 100 100 Oxygen Delivery Method Room Air Room Air 08/10/25 19:40 08/10/25 22:00 08/10/25 22:52 Temperature 98.1 F Temperature Source Oral Pulse Rate 55 L Pulse Strength Normal (2+) Respiratory Rate 16 Respiratory Effort Respiratory Depth Respiratory Pattern Blood Pressure 140/87 H Blood Pressure Mean 104 Blood Pressure Source Monitor Blood Pressure Position Semi-Fowlers Blood Pressure Location Left Arm Pulse Ox 100 98 Oxygen Delivery Method Room Air Room Air 08/10/25 23:25 08/11/25 03:30 08/11/25 03:30 Temperature 97.6 F L 97.7 F L Temperature Source Oral Oral Pulse Rate 77 57 L Pulse Strength Respiratory Rate 16 16 Respiratory Effort Normal Non-Labored Respiratory Depth Normal Respiratory Pattern Normal Blood Pressure 138/77 H 140/77 H Blood Pressure Mean 97 98 Blood Pressure Source Monitor Monitor Blood Pressure Position Semi-Fowlers Semi-Fowlers Blood Pressure Location Left Arm Left Arm Pulse Ox 97 97 Oxygen Delivery Method Room Air Room Air Room Air 08/11/25 06:45 08/11/25 06:47 08/11/25 07:30 Temperature 98.6 F 97.8 F Temperature Source Oral Oral Pulse Rate 54 L 52 L Pulse Strength Respiratory Rate 16 16 Respiratory Effort Respiratory Depth Respiratory Pattern Blood Pressure 135/75 H 143/85 H Blood Pressure Mean 95 104 Blood Pressure Source Monitor Monitor Blood Pressure Position Supine Supine Blood Pressure Location Left Arm Left Forearm Pulse Ox 99 95 99 Oxygen Delivery Method Room Air Room Air Room Air 08/11/25 07:30 08/11/25 10:00 08/11/25 11:00 Temperature 97.9 F Temperature Source Oral Pulse Rate 60 Pulse Strength Normal (2+) Respiratory Rate 16 Respiratory Effort Normal Non-Labored Respiratory Depth Normal Respiratory Pattern Normal Blood Pressure 141/72 H Blood Pressure Mean 95 Blood Pressure Source Monitor Blood Pressure Position Supine Blood Pressure Location Left Forearm Pulse Ox 95 Oxygen Delivery Method Room Air Room Air Weight Weight: 130.6 kg Body Mass Index (BMI) 39.0 EEG Results Procedure Details EEG Procedure Details: FIOR BEAN is a 50 year old M with a past medical history of , who presents for evaluation of Electroencephalogram on DATE at TIME Lab / Micro Data 08/10/25 14:07 08/10/25 14:07 Labs: Laboratory Results - last 24 hr 08/10/25 14:07: WBC 6.6, RBC 4.68, Hgb 13.6, Hct 39.6 L, MCV 84.6, MCH 29.1, MCHC 34.3, RDW Std Deviation 36.7, RDW Coeff of [place] 12.3, Plt Count 380, MPV 9.7, Immature Gran % (Auto) 0.200, Neut % (Auto) 46.0 L, Lymph % (Auto) 41.8 H, Ness % (Auto) 11.1 H, Eos % (Auto) 0.6, Baso % (Auto) 0.3, Absolute Neuts (auto) 3.0, Absolute Lymphs (auto) 2.76, Nucleated RBC % 0, PT 13.9, INR 1.1, APTT 24.9, Sodium 139, Potassium 3.5, Chloride 106, Carbon Dioxide 23.2, Anion Gap 10, BUN 17, Creatinine 0.72, Estim Creat Clear Calc 166.57, Est GFR (MDRD) Non-Af 110, BUN/Creatinine Ratio 23.5 H, Glucose 117 H, Hemoglobin A1c 6.7 H, Calcium 9.1, Total Bilirubin 0.23, AST 19, ALT 26, Alkaline Phosphatase 99, Troponin T High Sens 8, Total Protein 7.2, Albumin 3.9, Globulin 3.3, Albumin/Globulin Ratio 1.2, TSH 1.020, Ethyl Alcohol < 10.1 08/10/25 14:09: Lactic Acid < 1.0 08/10/25 14:45: Urine Color Yellow, Urine Clarity Clear, Urine pH 6.0, Ur Specific [place] 1.015, Urine Protein 15 H, Urine Glucose (UA) Normal, Urine Ketones Negative, Urine Occult Blood Negative, Urine Nitrite Negative, Urine Bilirubin Negative, Urine Urobilinogen Normal, Ur Leukocyte Esterase Negative, Urine RBC 0-5 SEEN, Urine WBC 0-5 SEEN, Ur Squamous Epith Cells 0 SEEN, Urine Bacteria 0 SEEN, Urine Mucus 0 SEEN, Urine Opiates Screen NEGATIVE, U Buprenorphine Qual NEGATIVE, Ur Oxycodone Screen NEGATIVE, Urine Methadone Screen NEGATIVE, Urine Fentanyl Screen NEGATIVE, Ur Barbiturates Screen NEGATIVE, Ur Phencyclidine Scrn NEGATIVE, Ur Amphetamines Screen NEGATIVE, U Benzodiazepines Scrn NEGATIVE, Urine Cocaine Screen NEGATIVE, U Cannabinoids Screen NEGATIVE 08/10/25 16:10: Troponin T Hi Sens 2 Hr 8 08/11/25 05:04: Triglycerides 89, Cholesterol 200, LDL Cholesterol, Calc 143, VLDL Cholesterol 18, HDL Cholesterol 39 L, Cholesterol/HDL Ratio 5.12 Imaging Radiology Impression Brain CT 08/10/25 14:20 IMPRESSION: 1. Acute (to subacute) ischemia left MCA distribution. No hemorrhage. Correlate with history. 2. Correlate with CT angiogram as there are critical findings. Stroke Alert: Left MCA acute ischemia The critical findings in the findings and impression above were relayed directly by me by telephone to Ever Barth on 08/10/2025 at 3:05 pm with readback verification. Reading Location: [facility] Chest X-Ray 08/10/25 14:30 IMPRESSION: No acute abnormality Reading Location: [id number] Head/Neck CTA 08/10/25 14:52 IMPRESSION: 1. Critical stenosis involving the proximal left internal carotid artery. Additionally, supraclinoid portion of the left internal carotid artery with likely flow limitation. Urgent vascular surgical consultation suggested. 2. 50% stenosis right supraclinoid internal carotid artery. 3. Hypoplastic versus atherosclerotic A1 segment on the left. 4. No evidence of large vessel occlusion at the MCA at this time. 5. Correlate with the head CT of the same day as there are positive findings. 6. Enlargement of the lymphoid tissue of the nasopharynx, palatine tonsils and uvula. Correlate with direct inspection, history and physical. Stroke Alert: Acute ischemia. Critical stenosis. The critical findings in the findings and impression above were relayed directly by me by telephone to Ever Barth on 08/10/2025 at 3:05 pm with readback verification. Reading Location: [facility] Brain MRI 08/10/25 17:12 IMPRESSION: Subacute infarcts in the left frontoparietal region. No evidence of hemorrhagic transformation. Reading Location: [id number] Active Medications Active Medications Active Medications: Current Medications Generic Name Dose Route Start Last Admin Trade Name Freq PRN Reason Stop Dose Admin Acetaminophen 650 mg 08/10/25 18:45 Acetaminophen 325 Mg Tablet PO Q6H PRN PRN Pain 1-10 Or Fever>100.7 Aspirin 81 mg 08/11/25 08:00 08/11/25 11:02 Aspirin 81 Mg Tab.Chew PO 81 mg BREAKFAST KELSY Administration Atorvastatin Calcium 80 mg 08/10/25 22:00 08/10/25 20:05 Atorvastatin Calcium 80 Mg Tablet PO 80 mg QHS KELSY Administration Clopidogrel Bisulfate 75 mg 08/10/25 18:45 08/11/25 11:02 Clopidogrel Bisulfate 75 Mg Tablet PO 75 mg DAILY KELSY Administration Hydralazine HCl 5 mg 08/10/25 18:45 Hydralazine 20 Mg/Ml Vial IV 08/11/25 18:45 Q30M PRN maintain BP parameters with HR <60 Sodium Chloride 250 mls @ 15 mls/hr 08/10/25 19:08 IV .[id number] PRN Saline Flush Sodium Chloride 250 mls @ 15 mls/hr 08/10/25 19:08 IV .[id number] PRN Additional IVPB Infusion Labetalol HCl 10 - 20 mg 08/10/25 18:45 Labetalol 20 Mg/4 Ml Vial IV 08/11/25 18:45 Q10M PRN PRN maintain BP parameters with HR >/=60 Melatonin 3 mg 08/10/25 18:45 Melatonin 3 Mg Tablet PO QHS PRN PRN INSOMNIA Ondansetron HCl 4 mg 08/10/25 18:45 Ondansetron 4 Mg/2 Ml Vial IV Q8H PRN PRN NAUSEA/VOMITING Sodium Chloride 10 - 40 ml 08/10/25 19:08 0.9% Saline Lock 10 Ml Syringe IV UD PRN SALINE FLUSH NIHSS NIHSS Nursing Documentation NIHSS Nursing Documentation: NIH Stroke Scale Start: 08/10/25 12:25 Freq: Status: Discharge Protocol: Activity Type Activity Date Activity User E-sign Co-sign Detail Recorded Client Recorded Date Recorded By Document 08/10/25 12:26 ABBIE [id number] 08/10/25 12:26 DK 08/10/25 12:26 NIH Stroke Scale [NIHSS] A score of 0 is normal or asymptomatic . Total possible score is 42. Inpatient: RN or Physician to activate a stroke alert for onset of new stroke symptoms or with NIHSS increase >/= 3 points. Following change in neurological status, NIHSS will be performed per physician order or more frequently PRN. -1a. Level of Consciousness 0 - Alert; keenly responsive -1b. LOC Questions 1 - Answers ONE question correctly -1c. LOC Commands 0 - Performs BOTH tasks correctly -2. Best Gaze 0 - Normal -3. Visual 0 - No visual loss -4. Facial Palsy 0 - Normal symmetrical movements -5a. Left Arm 0 - No drift; arm holds 90 ( or 45) degrees for full 10 seconds -5b. Right Arm 0 - No drift; arm holds 90 ( or 45) degrees for full 10 seconds -6a. Left Leg 0 - No drift; leg holds 30- degree position for full 5 seconds -6b. Right Leg 0 - No drift; leg holds 30- degree position for full 5 seconds -7. Limb Ataxia 0 - Absent -8. Sensory 0 - Normal; no sensory loss -9. Best Language 0 - No aphasia; normal -10. Dysarthria 0 - Normal -11. Extinction and Inattention 0 - No abnormality -Total 1 Query Text:A score of 0 is normal or asymptomatic. Total possible score is 42 . ED: Notify Physician for NIHSS increase by > / = 3 points. Inpatient: RN or Physician to activate a stroke alert for NIHSS increase of > / = 3 points. NIHSS: Ischemic Stroke/TIA Start: 08/10/25 18:45 Text: For PCU Patients: NIH and Neuro Check every 4 Status: Active hours, PRN and with change in RN caregiver. Freq: [id number] Protocol: Activity Type Activity Date Activity User E-sign Co-sign Detail Recorded Client Recorded Date Recorded By Document 08/11/25 11:00 ML [id number] 08/11/25 11:08 ML 08/11/25 11:00 -1a. Level of Consciousness 0 - Alert; keenly responsive -1b. LOC Questions 0 - Answers BOTH questions correctly -1c. LOC Commands 0 - Performs BOTH tasks correctly -2. Best Gaze 0 - Normal -3. Visual 1 - Partial hemianopia -4. Facial Palsy 0 - Normal symmetrical movements -5a. Left Arm 0 - No drift; arm holds 90 ( or 45) degrees for full 10 seconds -5b. Right Arm 1 - Drift; arm drifts downward but doesn?t hit the bed -6a. Left Leg 0 - No drift; leg holds 30- degree position for full 5 seconds -6b. Right Leg 0 - No drift; leg holds 30- degree position for full 5 seconds -7. Limb Ataxia 0 - Absent -8. Sensory 1 - Mild-to- moderate sensory loss; -9. Best Language 1 - Mild-to- moderate aphasia; -10. Dysarthria 0 - Normal -11. Extinction and Inattention 0 - No abnormality -Total 4 Query Text:A score of 0 is normal or asymptomatic. Total possible score is 42 . ED: Notify Physician for NIHSS increase by > / = 3 points. Inpatient: RN or Physician to activate a stroke alert for NIHSS increase of > / = 3 points. Coma Scale [Assess] -Eye Opening Spontaneous -Motor Obeys Commands -Verbal Oriented [Total] -Coma Scale Total 15 NIHSS 1a. Level of Consciousness: 0 - Alert; keenly responsive 1b. LOC Questions: 0 - Answers BOTH questions correctly 1c. LOC Commands: 0 - Performs BOTH tasks correctly 2. Best Gaze: 0 - Normal 3. Visual: 0 - No visual loss 4. Facial Palsy: 0 - Normal symmetrical movements 5a. Left Arm: 0 - No drift; arm holds 90 (or 45) degrees for full 10 seconds 5b. Right Arm: 1 - Drift; arm drifts downward but doesn?t hit the bed 6a. Left Le - No drift; leg holds 30-degree position for full 5 seconds 6b. Right Le - No drift; leg holds 30-degree position for full 5 seconds 7. Limb Ataxia: 0 - Absent 8. Sensory: 0 - Normal; no sensory loss 9. Best Language: 1 - [id number] aphasia; 10. Dysarthria: 0 - Normal 11. Extinction and Inattention: 0 - No abnormality Total: 2
--- NOTE | 2025-08-11 16:04 | CASEMGMT ---
Social Work One ED note indicates pt is from a half way house and one note indicates pt lives with his brother. Pt is confused and not answering questions appropriately. This SW placed call to Veronica at [facility] in [place] ([phone]) for clarification on pt's living situation. Per Veronica, pt is finishing a federal correction sentence under house arrest. [facility] and has a GPS ankle monitor. Pt does go to work and must report to [facility] once a week to check in, review GPS locations and urine tests. Veronica is aware that pt is at [facility] and that the ankle monitor was cut off last night for the MRI. Veronica reports pt baseline is A&Ox3. In addition to pt's brother, pt has a relationship with his child's mother, however Veronica does not know her name and phone number. Veronica states that someone from [facility] will be visiting pt today. Nursing made aware. HAVEN inquired if pt can go to rehab if needed. Veronica states pt may be able to do this if needed, but it would need to be approved through the [employer] [facility] [employer]. Pt will need to return to [facility] at time of discharge to have ankle monitor placed back on. RNCM updated. SW/RNCM will continue to follow for discharge needs. JESUS Prince
--- NOTE | 2025-08-11 16:11 | CHAPLAIN ---
Type of Pastoral Visit ___ Initial Visit ___ Follow-up Visit ___ On-call Visit ___ General Patient Visit ___ Spiritual Assessment ___ Family Conference ___ Bereavement ___ Rapid Response ___ Code Blue ___ Other (describe below) Pastoral Care Referral From ___ Patient ___ Family ___ Nurse ___ Physician ___ Bridge Game Director ___ Test Skein Winder ___ Other (describe below) Sacrament/Intervention ___ Active listening ___ Anointing ___ Shinto ___ Bereavement ___ Communion ___ Kristel exploration ___ ___ Life review ___ Prayer ___ Reconciliation ___ Sacrament of Sick ___ Supportive presence ___ Wedding ___ Other (describe below) Pastoral Comments first attempt and patient had ST in the room; second attempt the patient is resting in bed; pt says that he has had much activity today and would like to rest; pt requests another try for a visit tomorrow
[2025-08-12 03:00] VITALS: PULSE 57; RESP 14; O2SAT 78
[2025-08-12 03:10] VITALS: BP 118/84; PULSE 57; RESP 17; TEMP 36.5; O2SAT 99
[2025-08-12 03:33] VITALS: BMI 39.0
[2025-08-12 07:06] VITALS: BP 131/84; PULSE 56; RESP 15; TEMP 36.4; O2SAT 99
[2025-08-12 07:12] VITALS: O2SAT 97
--- NOTE | 2025-08-12 09:00 | CASEMGMT ---
Discharge Planning A list of?HH providers including quality and resource use data and consistent with the patient's preferred geographic region, medical needs, and insurance network was created in [facility] Guide.? This list was provided to the RN BERNICE. Veronica Begum, Discharge Planning Asst.
[2025-08-12 10:45] VITALS: BP 134/86; PULSE 70; RESP 16; TEMP 36.4; O2SAT 98
--- NOTE | 2025-08-12 12:29 | CHAPLAIN ---
Type of Pastoral Visit _x__ Initial Visit ___ Follow-up Visit ___ On-call Visit ___ General Patient Visit ___ Spiritual Assessment ___ Family Conference ___ Bereavement ___ Rapid Response ___ Code Blue ___ Other (describe below) Pastoral Care Referral From _x__ Patient ___ Family ___ Nurse ___ Physician ___ Environmental Monitoring Specialist ___ Administrative Services Officer ___ Other (describe below) Sacrament/Intervention _x__ Active listening ___ Anointing ___ Restorationism ___ Bereavement ___ Communion ___ Kristel exploration ___ ___ Life review _x__ Prayer ___ Reconciliation ___ Sacrament of Sick ___ Supportive presence ___ Wedding ___ Other (describe below) Pastoral Comments patient is much more alert and inactive today; pt is not clear about his needs or his concerns nor does he express any worries; pt talks more about baseball and denies any spiritual issues; however pt does request saying a word for me and having a prayer
--- NOTE | 2025-08-12 12:40 | CASEMGMT ---
Addendum entered by Antoinette Howard 08/12/25 15:33: 2 PM: Pt's sig other, Stephanie, and pt's aunt, have arrived to [facility]. TO [facility] to room. They were made aware of appts scheduled @ [facility] and @ [facility] & that ST is advising pt does not drive until further evaluation. Stephanie states she is able to take pt to all of these appts. Questions answered. She was also made aware of importance of scheduling appt w/Dr Nguyễn as an OP. Pt, sig other, and family deny having further discharge concerns or needs. They thanked RN BERNICE for assistance. Original Note: RN BERNICE NOTE: Per Dr Leiva, pt to discharge today. [facility] to room. Pt sitting on edge of bed. Brother, Keon, @ bedside. Pt agreeable to [facility] discussing discharge planning w/Keon present. Pt wishes to discharge home & states safe going home today. Pt made aware of PT recommendations for therapy for right rotator cuff. Also made aware of recommendation for ST after discharge. Per ST Marilyn, she recommends pt does not drive at this time until further evaluation. Pt made aware of this as well. Discussed options of HHC and OP therapy. Pt would like to do OP therapy and would like to go to [facility]. He states his sig other, Stephanie, would be able to take him to the appts. He asked for [facility] to schedule appts for him for OP therapy's. He also does not have a PCP. Given local physician's directory as well as [facility] info. He would like go to go [facility] and asked [facility] to schedule an appt. Pt and brother made aware of importance of following up with Dr Nguyễn as an OP as well. Scripts for OP PT and OP ST obtained from Dr Leiva & faxed to [facility]. Call placed to [facility] and appts scheduled for both OP ST & OP PT to begin Thursday 08/16. Appts documented in discharge plan. Call placed to Melon[facility] Connelly. Hospital f/u visit scheduled for 08/17. This was also added to discharge plan. Pt gave permission for [facility] to discuss his medical care w/Stephanie as well & asked for her to be made aware of appts. He states she will be able to assist w/getting approval from the [place] to go to these appts. Call placed to [facility] and left asking for return call to this RN CM. Panda CHAVARRIAN RN CM
[2025-08-12 14:45] VITALS: BP 140/97; PULSE 69; RESP 16; TEMP 36.7; O2SAT 98; BMI 39.0
--- NOTE | 2025-08-12 14:52 | DCINST_ITS ---
Discharge Instructions DC O2, CPAP, BIPAP needs Home O2 Discharge instructions: No Follow Up Care Test Results: Test results from this visit will be discussed in further detail at your follow- up appointment, if applicable. Discharge Plan Admission Admit Date/Time: 08/10/25 17:09 Primary Reason for Your Visit: Left MCA acute ischemic stroke Attending Provider: Fahad Leiva Primary Care Provider: Care Physician,No Primary Consulting Providers: Bola Noland; Chalo Garibay; Juany Feliz; Lana Jimenez; Shey Tapia; Narciso Garcia; Sofia Montiel; Matt Day; David Jenkins; Yeison Muñoz; Gianna Granado; Afshan Solis; Bill Bunch; Sheryl James; tSeph Baengas; Oriana Gross; Adolfo Mcmahan; Kev Medina; Tashi Raman; Carley Melendez; Mariajose Knutson; Roger Costa Discharge Orders/Prescriptions Prescriptions: New atorvastatin 80 mg Tablet 80 mg PO QHS 30 Days Qty: 30 2RF clopidogrel 75 mg Tablet 75 mg PO DAILY 30 Days Qty: 30 2RF aspirin 81 mg Tablet,Chewable 81 mg PO BREAKFAST 30 Days Qty: 30 4RF Referrals / Follow Up: Grupo Nguyễn MD [Med Staff - Active Staff, Vascular Surgery] - Within 1 Week Guillermo Figueroa MD [Non-Staff -Ordering Privileges, Neurology] - Within 1 Month Care Physician,No Primary [Primary Care Provider, Medical] Rebecca Harper [facility] [[facility], [facility]] - 08/17/25 1:30 pm Referral Note: Please arrive 10-15 minutes early to complete paperwork. Disposition Disposition (needs filled in before D/C Order can be placed): Home Health Service
--- NOTE | 2025-08-12 15:07 | PCM.DC.SUM ---
Providers Date of Admission: 08/10/25 Date of Discharge: 08/12/25 Primary Care Physician: Rachell Primary Care Phys Consultations 08/10/25 18:45 Consult: Tele-Neurology Routine Consulting Provider: [facility] Reason for Consult: Acute Ischemic Stroke/TIA EMERGENT Consult: No MD Notified: Yes Date Notified: 08/10/25 Time Notified: 20:41 Method of Notification: Answering Service Nursing Unit Staff Notify [facility] of Tele-Neurology Consult: Yes Reason For Visit: LEFT MCA STROKE W/ LEFT ICA STENOSIS Diagnosis Discharge Diagnosis (1) Left carotid stenosis: Status: Acute Code(s): I65.22 - Occlusion and stenosis of left carotid artery Plan Patient is a 50-year-old male who presented [facility] ED on 08/10/2025 with intermittent confusion, generalized weakness for 2 weeks. Patient is not acting right. LKW last Saturday. Patient slow to respond and is mixing words. Patient also slurred speech and worsening right upper extremity weakness and numbness/tingling. 1. Acute left MCA stroke with left-sided critical ICA stenosis ? Admit under inpatient status to PCU. Neurology and vascular surgery consulted 08/11: MRI brain shows subacute infarct in left frontoparietal region. No evidence of hemorrhagic transformation. Prior to that, CT head shows acute/subacute ischemia of left MCA distribution no hemorrhage. CT headache note shows critical stenosis over supraclinoid portion of left ICA with flow limitation. 50% stenosis of right supraclinoid ICA no evidence of LVO at MCA. Patient evaluated by [facility] neurologist recommended aspirin and Plavix along with statin which patient is already on. 2D echo was done report pending. Discussed with vascular surgeon Dr. Nguyễn. If echo is normal otherwise if it shows regional wall motion abnormalities/depressed EF need meteorological equipment repairer evaluation and clearance. Likely plan will be for vascular intervention in about 1 week. PT/OT/case management consulted. Lipid profile shows HDL 39, TC 200 LDL 143 elevated. TSH normal. A1c 6.7%. UTOX screen was negative. UA shows mild proteinuria 15 otherwise normal. 08/12: Discussed with the patient and the medical case worker. Patient given prescription for outpatient physical therapy. Because of his stroke patient has decreased cognition and mild language deficit and therefore home health. Follow-up with vascular surgery in 1 week as mentioned above. Follow-up with neurology office as in discharge instruction. Prescription given for baby aspirin, Plavix, atorvastatin and metformin DM type II: A1C 6.7%, meets the definition of DM type II. Accu-Cheks AC and at bedtime coverage is normal sliding scale 08/12: Start metformin from 08/14/2025. Follow-up with PCP for optimal control of glucose. Alcohol 117. 2. Hypertension ? Hypertensive to the 150s to 160s systolic in the ED. Not on any antihypertensive agents at this time, unclear if he has been in the past. 08/11: Blood pressure is in permissive hypertension range 08/12 blood pressure 131/54, 130/86, 143/66. Prescribed low-dose of lisinopril 5 mg daily 3. Class II obesity ? BMI 39 on admit. Discussed lifestyle modifications. Complicates hospital course and care. 4. Tobacco dependence ? Current smoker. Nicotine replacement therapy available per patient request. Discussed cessation on discharge. DVT prophylaxis: SCDs CODE STATUS: Full code, verified Discharge medication reconciliation done. Discharge follow-up instructions completed. Discharge process discussed with the patient and all questions were answered to patient's satisfaction. Follow with PCP in 1 to 2 weeks Total time spent, exact 35 minutes on discharge meds reconciliation, examination, coordination of care with nurses and ancillary staff, review of imaging and blood test and discussion with the patient on follow-up instructions. Laboratory Results 08/10/25 14:07: Hemoglobin A1c 6.7 H, Troponin T High Sens 8, TSH 1.020 08/10/25 14:45: Urine Color Yellow, Urine Clarity Clear, Urine pH 6.0, Ur Specific [place] 1.015, Urine Protein 15 H, Urine Glucose (UA) Normal, Urine Ketones Negative, Urine Occult Blood Negative, Urine Nitrite Negative, Urine Bilirubin Negative, Urine Urobilinogen Normal, Ur Leukocyte Esterase Negative, Urine RBC 0-5 SEEN, Urine WBC 0-5 SEEN, Ur Squamous Epith Cells 0 SEEN, Urine Bacteria 0 SEEN, Urine Mucus 0 SEEN, Urine Opiates Screen NEGATIVE, U Buprenorphine Qual NEGATIVE, Ur Oxycodone Screen NEGATIVE, Urine Methadone Screen NEGATIVE, Urine Fentanyl Screen NEGATIVE, Ur Barbiturates Screen NEGATIVE, Ur Phencyclidine Scrn NEGATIVE, Ur Amphetamines Screen NEGATIVE, U Benzodiazepines Scrn NEGATIVE, Urine Cocaine Screen NEGATIVE, U Cannabinoids Screen NEGATIVE 08/10/25 16:10: Troponin T Hi Sens 2 Hr 8 08/11/25 05:04: Triglycerides 89, Cholesterol 200, LDL Cholesterol, Calc 143, VLDL Cholesterol 18, HDL Cholesterol 39 L, Cholesterol/HDL Ratio 5.12 Clinical Impression(s) from Imaging Studies Brain CT 08/10/25 14:20 IMPRESSION: 1. Acute (to subacute) ischemia left MCA distribution. No hemorrhage. Correlate with history. 2. Correlate with CT angiogram as there are critical findings. Stroke Alert: Left MCA acute ischemia The critical findings in the findings and impression above were relayed directly by me by telephone to Ever Barth on 08/10/2025 at 3:05 pm with readback verification. Reading Location: [facility] Chest X-Ray 08/10/25 14:30 IMPRESSION: No acute abnormality Reading Location: [facility] Head/Neck CTA 08/10/25 14:52 IMPRESSION: 1. Critical stenosis involving the proximal left internal carotid artery. Additionally, supraclinoid portion of the left internal carotid artery with likely flow limitation. Urgent vascular surgical consultation suggested. 2. 50% stenosis right supraclinoid internal carotid artery. 3. Hypoplastic versus atherosclerotic A1 segment on the left. 4. No evidence of large vessel occlusion at the MCA at this time. 5. Correlate with the head CT of the same day as there are positive findings. 6. Enlargement of the lymphoid tissue of the nasopharynx, palatine tonsils and uvula. Correlate with direct inspection, history and physical. Stroke Alert: Acute ischemia. Critical stenosis. The critical findings in the findings and impression above were relayed directly by me by telephone to Ever Barth on 08/10/2025 at 3:05 pm with readback verification. Reading Location: [facility] Brain MRI 08/10/25 17:12 IMPRESSION: Subacute infarcts in the left frontoparietal region. No evidence of hemorrhagic transformation. Reading Location: [facility] Medications at Discharge Home Medications aspirin 81 mg chewable tablet 81 mg PO BREAKFAST 30 days #30 tabs 08/12/25 atorvastatin 80 mg tablet 80 mg PO QHS 30 days #30 tabs 08/12/25 clopidogrel 75 mg tablet 75 mg PO DAILY 30 days #30 tabs 08/12/25 lisinopril 5 mg tablet 5 mg PO DAILY #30 tabs 08/12/25 metformin 500 mg tablet 500 mg PO BID 1 month #60 tabs 08/12/25 Physical Exam Narrative Seen and examined. Patient follows simple command. Has mildly decreased processing of words and mild language deficit. Patient admitted with 5 days of confusion weakness, slow to respond, mixing words/language deficit and slurred speech Physical exam General: Alert, Oriented x3, Cooperative. BMI 39.0 kg/m? obesity grade 2 HEENT: Atraumatic, PERRLA, EOMI, Normocephalic. Oral: No Gingival or Mucosal Lesions/ Ulcerations Neck: Supple, No JVD, Negative Carotid Bruits Chest wall/Lungs: Air entry diminished in bilateral lung bases. No crepitation/rhonchi Cardiovascular: Sinus bradycardia, Normal S1,S2, No M/G/R Abdomen: Bowel Sounds Present, Soft, Non Tender, Non-Distended : No dysuria. No renal angle tenderness. No suprapubic tenderness. Extremities: No edema, Capillary Refill Less than 3 Seconds Skin: No rashes, No breakdown Musculoskeletal: Right upper extremity weakness 3/5 no Tenderness to Palpation of Joints or Extremities Neurological: Mild left-sided facial palsy. Left upper extremity weakness, language deficit/slurred speech. Slow to respond. Right arm is more weaker. Mild to moderate aphasia. Psych/Mental Status: Flat affect Weight / BMI Weight Weight: 287 lb 14.779 oz Body Mass Index (BMI) 39.0 ABG / Lab / Microbiology Data 08/10/25 14:07 08/10/25 14:07 Radiography Diagnostic Testing: Radiology Impression Echocardiogram 08/10/25 17:12 Interpretation Summary Normal LV size. Left ventricular systolic function is normal. The left ventricular ejection fraction is 60 %. Bubble contrast study is negative for PFO/ASD. Mild concentric left ventricular hypertrophy. Contrast injection was performed. Ordering Physician: Roger Costa Performed By: Rosalinda Davenport RDCS D/C Instructions DC O2, CPAP, BIPAP Needs Home O2 Discharge instructions: No Meaningful Use Info Meaningful Use Meaningful Use Diagnoses (Choose all that apply): Ischemic CVA CVA Therapy Assessed for PT,OT and/or ST?: Yes Ischemic Stroke Antithrombotic order at d/c?: Yes Dx of Atrial fib/flutter?: No Anticoagulant at discharge?: Yes Statins at discharge?: Yes If patient is 75 or younger, pt will be discharged on HIGH intensity statin.: Yes Primary Dx Acute Ischemic CVA?: Yes Discharge Plan Admission Admit Date/Time: 08/10/25 17:09 Primary Reason for Your Visit: Acute left MCA ischemic stroke Attending Provider: Fahad Leiva Primary Care Provider: Care Physician,No Primary Consulting Providers: Bola Noland; Chalo Garibay; Juany Feliz; Lana Jimenez; Shey Tapia; Narciso Garcia; Sofia Montiel; Matt Day; David Jenkins; Yeison Muñoz; Gianna Granado; Afshan Solis; Bill Bunch; Sheryl James; Steph Banegas; Oriana Gross; Adolfo Mcmahan; Kev Medina; Tashi Raman; Carley Melendez; Mariajose Knutson; Roger Costa Discharge Orders/Prescriptions Prescriptions: New atorvastatin 80 mg Tablet 80 mg PO QHS 30 Days Qty: 30 2RF clopidogrel 75 mg Tablet 75 mg PO DAILY 30 Days Qty: 30 2RF aspirin 81 mg Tablet,Chewable 81 mg PO BREAKFAST 30 Days Qty: 30 4RF metformin 500 mg tablet 500 mg PO BID 30 Days Qty: 60 2RF Rx Instructions: Start from 08/14/2025 lisinopril 5 mg tablet 5 mg PO DAILY Qty: 30 2RF Referrals / Follow Up: Grupo Nguyễn MD [Med Staff - Active Staff, Vascular Surgery] - Within 1 Week Guillermo Figueroa MD [Non-Staff -Ordering Privileges, Neurology] - Within 1 Month Care Physician,No Primary [Primary Care Provider, Medical] Rebecca Harper NP-C [[facility]] - 08/17/25 1:30 pm Referral Note: Please arrive 10-15 minutes early to complete paperwork. Disposition Disposition (needs filled in before D/C Order can be placed): Home Health Service Charges/Coding Visit Charges Inpatient E&M: 80249 Disch Hosp >30min
--- NOTE | 2025-08-12 15:14 | CASEMGMT ---
RN BERNICE NOTE: Discharge order is in. Rx's have been e-scribed to [facility] retail pharmacy. Pt/family/GF would like meds delivered to pt's room. Willian in the pharmacy made aware. Panda MONCADA RN CM
== END 2025-08-12 16:20 | disposition home or self-care (01) | DRG 45 ==
LOC: ED 16:54 → PCU 17:15
PROVIDERS: Admitting Provider Hospitalist; Emergency Provider Surgery; Visit Provider Internal Medicine
DX: I63.512 Cerebral infarction due to unspecified occlusion or stenosis of left middle cerebral artery (principal); E11.9 Type 2 diabetes mellitus without complications; I10 Essential (primary) hypertension; E66.812 Obesity, class 2; R00.1 Bradycardia, unspecified; F17.200 Nicotine dependence, unspecified, uncomplicated; Z68.39 Body mass index [BMI] 39.0-39.9, adult; Z79.82 Long term (current) use of aspirin; Z79.02 Long term (current) use of antithrombotics/antiplatelets
CPT/HCPCS: 36415; 70450; 70496; 70498; 70551; 71046; 80053; 80061; 80307; 81001; 82077; 83036; 83605; 84443; 84484; 85025; 85610; 85730; 92522; 93005; 93306; 94762; 96105; 97162; 97166; 97802; 99284; Q9957; Q9967; A4216; C8929

== ENCOUNTER → 2025-09-02 | Outpatient (CLI) | payer MEDICAID, SELFPAY ==
[2025-09-02 12:12] LABS: Hematocrit 42.3 % (40-54); Hemoglobin 14.7 g/dL (13.0-16.5); Immature Granulocytes Count 0.020 X10^3/uL (0.0-0.0); Mean Corp Hgb Conc 34.8 g/dL (32-36); Mean Corpuscular Volume 83.8 fL (80-94); Mean Platelet Vol. 9.4 fl (6.2-12.0); NRBC Flagged by Analyzer 0 % (0-5); Platelet Count 432 K/mm3 (150-450); RBC Distribution Width CV 12.2 % (11.6-14.6); RBC Distribution Width SD 37.1 fl (35.1-43.9); Red Blood Count 5.05 M/mm3 (4.6-6.2); White Blood Count 7.1 K/mm3 (4.4-11.0)
[2025-09-02 12:50] LABS: AST(SGOT) 28 U/L (<=37); Alanine Aminotransfer ALT/SGPT 62 U/L (<=46); Albumin, Serum 4.4 g/dL (3.5-5.0); Alkaline Phosphatase 162 U/L (40-129); Anion Gap 11 (5-15); BUN 11 mg/dL (4-19); BUN/Creat Ratio 14.3 RATIO (10-20); Calcium,Total 9.5 mg/dL (7.6-11.0); Carbon Dioxide 24.8 mmol/L (21.0-32.0); Chloride 102 mmol/L (98-108); Globulin 3.6 g/dL (2.2-4.2); Glucose 109 mg/dL (70-99); Potassium 3.8 mmol/L (3.3-5.1)
[2025-09-02 18:55] LABS: Microalbumin,Random Urine 32.2 mg/L (<20 mg/L)
== END | disposition home or self-care (01) ==
LOC: VSLAB 11:01 → LAB 11:30
DX: E11.9 Type 2 diabetes mellitus without complications (principal)
CPT/HCPCS: 36415; 80053; 82043; 85025

== ENCOUNTER 2025-10-04 10:30 | Outpatient (RCR) | payer MEDICAID, SELFPAY ==
--- NOTE | 2025-08-16 15:00 | HP.PTEVAL_ITS ---
Patient's Visit Information Visit Information Visit Information: FIOR BEAN is a 50 year old M referred to Physical Therapy by Dr. Fahad Leiva MD with a diagnosis of R shoulder pain. Date of Evaluation: 08/16/25 Physical Therapist: Jaspal Mandujano DPT Visit Plan Frequency: 1-2x /Week Duration: 6 Weeks Plan: I gave Fior both R shoulder AROM and strengthening exercises. He is going to take these home with him and work on them for 1-2 weeks then back to PT. He is having IVC filter placement next week as well. Subjective Subjective: Pt. is here today for his initial evaluation with diagnosis of R RTC injury. Pt. reports his arm has been bothering him for a while, prior to the CVA. Pt. is now having some N/T in his R UE as well. Pt. has some mild pain, but mostly when he moves it. Pt. is off work until he gets cleared. He is having what sounds like IVC filter placed next week. Pt. works at local [employer] with some lifting, but not much over head. Pt. reports his N/T does not go away. Pt. is hopeful to get back to all previous work activities without limitations. Pain R shoulder: Pain Intensity (Out of 10): 2 Pain Intensity Range: 0 and 2 Objective Objective: POSTURE: Pt. has slight forward head and rounded shoulder positioning. Pt. has slight increased thoracic kyphosis as well. PALPATION: Pt. has slight increased symptoms at anterior shoulder along biceps tendon. No much throughout rest of sub acromial space. NEURO: Pt. has normal DTR of BUEs. Pt. reports decreased sensation throughout RUE to light touch. It feels numb. ROM: AROM: R shoulder: flexion full, but aberrant, functional IR L5, functional ER C4 , abd 160deg. His motion improved with increased repetitions. PROM: full motion without increase in symptoms. MMT: Pt. has full strength with BUEs. without increase in symptoms. Balance/Special Test Scores Quick DASH Score: 27.2725 Goals Goal 1:: LTG: Pt. to have full R shoulder AROM with normal pattern. Goal Time Frame: 4-6 Weeks Goal 2:: LTG: Pt. to reports no N/T in RUE. Goal Time Frame: 4-6 Weeks Goal 3:: LTG: Pt. to be able to lift 15# OH to simulate all work related activities. Goal Time Frame: 4-6 Weeks Goal 4:: LTG: Pt. to have no pain in R shoulder all ADLs. Goal Time Frame: 4-6 Weeks Rehabilitation Potential Physical Therapy Diagnosis: Pt. has signs and symptoms consistent with R shoulder pain. Pt. has slight reduced ROM, good strength. Pt. would benefit from PT to work on progressive loading for his R UE and stretching towards end ranges of his motion. Rehabilitation Potential: Excellent Anticipated Interventions Patient/Client Instruction: Educate patient on: Condition, Plan of Care, Risk Factors and Benefits of Fitness Program For the Purpose of:: To improve decision making, To facilitate caregiver knowle dge, To improve self management, To prevent re-injury, To improve ability to perform tasks related to life management and To improve tolerance to ADL's Therapeutic Exercise to Include: Strength training, Power training, Postural training, Passive ROM, Active ROM and Scapular Strength/Stabilization For the Purpose of:: To decrease pain, To increase ROM, To improve nutrient delivery to tissue, To increase oxygenation perfusion, To improve muscle performance and motor function, To improve ability to perform ADL's, To improve health of tissue, To decrease soft tissue restriction and To increase flexibility/ROM Text: Thank you for the opportunity to evaluate your patient. For Medicare and Medicare HMO plans, please review the plan of care and approve it. It will need to be FAXED BACK to us at [phone] for Medicare purposes. For Medicare only, by signing this I certify the plan of care. Please let me know if there are questions or concerns regarding this plan of care. Physician Signature: Date:
--- NOTE | 2025-08-18 12:44 | HP.SP.EV_ITS ---
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 Other Relevant Medical History/Diagnoses/Surgery: Ariel Robertson is a 50 M who presented to [facility] ED on 08/10/2025 with confusion, slurred speech and worsening right upper extremity weakness and numbness/tingling. Medical history is significant for hypertension, class II obesity and tobacco dependence. Patient reported intermittent right upper extremity numbness/tingling for the right shoulder down to the hand for the past few months. He was seen in the ED at [facility] in late April for that. Diana significant other noted that on 07/25/2025 he appeared to be more confused and had intermittent slurred speech. He progressively become more confused with worsening slurring of his speech until they decided to go to the ED. On CT brain he was found to have acute to subacute ischemia in the left MCA distribution with no hemorrhage noted. CTA head/neck showed critical stenosis involving the proximal left internal carotid artery with likely flow limitation. Case was discussed with Dr. Nguyễn who reviewed the imaging and agreed with the radiology call of critical stenosis and suspected this was the cause of his left MCA stroke. He presents to [facility] with chief complaints of difficulty with memory and word finding. Medications related to this diagnosis: aspirin 81 mg Tablet,Chewable; atorvastatin 80 mg Tablet; clopidogrel 75 mg Tablet; lisinopril 5 mg tablet; metformin 500 mg tablet Smoking Status: Light Smoker (<10/day) Diagnosis Diagnosis: Mild cognitive deficit Pain Is pain an issue with your current prescribed condition?: No Personal Preferred language: Cuban Patient Allergies Allergies Allergies: Allergies No Known Allergies Allergy (Verified 08/13/25 10:36) CLQT CLQT CLQT Administered: Yes CLQT: Cognitive Linguistic Quick Test (CLQT) is a criterion - referenced assessment designed for adults between the ages of 18 and 89 with known or suspected neurological dysfuntions. The CLQT is to assess strength and weaknesses in five cognitive domains. Severity ratings are within normal limits, mild, moderate, severe deficits. The subtests are as follows: Date: 08/18/25 Attention Attention: WNL Memory Memory: Moderate Executive Functions Executive Functions: WNL Language Language: Moderate Visuospatial Skills Visuospatial Skills: WNL Composite Severity Rating Composite Severity Rating: Mild Clock Drawing Severity Rating Clock Drawing Severity Rating: Mild CLQT Comments -: -: Attention: 192 (WNL) Memory: 121 (Moderate) Executive Functions: 29 (WNL) Language: 23 (Moderate) Visuospatial Skills: 96 (WNL) Reference: Neuro-QoL instrument Radiation Oncology Patient Plan Plan Plan: At this time, skilled outpatient speech therapy is recommended to address a mild cognitive deficit, targeting memory and language. Participation in interventions will aid in increasing Diana ability to communicate his every day needs as well as participate in his daily activities. Recommendations Treatment Warranted: Yes Treatment Warranted: Receptive/ Expressive Language and Cognition Progress Prognosis: Good Frequency Frequency: 1x/Week Duration: 12 Months Visits in this POC: 50 Patient/Family Goal Patient/Family Goal: Pt and his significant other stated that they would like the see improvement with his memory skills. Goals that are Established Determination:: Goals will be added/modified as deemed necessary and appropriate. Therapy will be discontinued when results of re-evaluation indicate therapy is no longer needed or lack of progress has been documented. Goal #1-5 Goal #1: Ariel will complete basic to mod complex immediate, short-term, and working memory tasks with 90% acc independently across 3 measured opportunities. Goal #2: Ariel will complete basic to mod complex confrontation, convergent, and divergent naming tasks with 90% acc independently across 3 measured opportunities to improve word retrieval. Goal #3: Ariel will independently demonstrate use of word finding strategies to complete complex convergent and divergent naming tasks progressing to conversation in 80% of word finding occurences across 3 measured opportunities. Education Patient has Indicated that the Following Identified Educational Needs: None The Patient has indicated that they have no educational or learning abilities that may effect their care.: Yes Patient Instruction Patient Education: Diagnosis, Treatment Plan and Goals Person Taught: Patient and Significant Other Teaching Method: Discussion Response to teaching: Verbalize Understanding
--- NOTE | 2025-08-23 10:52 | HP.SP.EVAL ---
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 Other Relevant Medical History/Diagnoses/Surgery: Ariel Robertson is a 50 M who presented to [facility] ED on 08/10/2025 with confusion, slurred speech and worsening right upper extremity weakness and numbness/tingling. Medical history is significant for hypertension, class II obesity and tobacco dependence. Patient reported intermittent right upper extremity numbness/tingling for the right shoulder down to the hand for the past few months. He was seen in the ED at [facility] in late April for that. Diana significant other noted that on 07/25/2025 he appeared to be more confused and had intermittent slurred speech. He progressively become more confused with worsening slurring of his speech until they decided to go to the ED. On CT brain he was found to have acute to subacute ischemia in the left MCA distribution with no hemorrhage noted. CTA head/neck showed critical stenosis involving the proximal left internal carotid artery with likely flow limitation. Case was discussed with Dr. Nguyễn who reviewed the imaging and agreed with the radiology call of critical stenosis and suspected this was the cause of his left MCA stroke. He presents to [facility] with chief complaints of difficulty with memory and word finding. Medications related to this diagnosis: aspirin 81 mg Tablet,Chewable; atorvastatin 80 mg Tablet; clopidogrel 75 mg Tablet; lisinopril 5 mg tablet; metformin 500 mg tablet Smoking Status: Light Smoker (<10/day) Diagnosis Diagnosis: Mild cognitive deficit Pain Is pain an issue with your current prescribed condition?: No Personal Preferred language: Ivorian Patient Allergies Allergies Allergies: Allergies No Known Allergies Allergy (Verified 08/13/25 10:36) CLQT CLQT CLQT Administered: Yes CLQT: Cognitive Linguistic Quick Test (CLQT) is a criterion - referenced assessment designed for adults between the ages of 18 and 89 with known or suspected neurological dysfuntions. The CLQT is to assess strength and weaknesses in five cognitive domains. Severity ratings are within normal limits, mild, moderate, severe deficits. The subtests are as follows: Date: 08/18/25 Attention Attention: WNL Memory Memory: Moderate Executive Functions Executive Functions: WNL Language Language: Moderate Visuospatial Skills Visuospatial Skills: WNL Composite Severity Rating Composite Severity Rating: Mild Clock Drawing Severity Rating Clock Drawing Severity Rating: Mild CLQT Comments -: -: Attention: 192 (WNL) Memory: 121 (Moderate) Executive Functions: 29 (WNL) Language: 23 (Moderate) Visuospatial Skills: 96 (WNL) Reference: Neuro-QoL instrument Radiation Oncology Patient Plan Plan Plan: At this time, skilled outpatient speech therapy is recommended to address a mild cognitive deficit, targeting memory and language. Participation in interventions will aid in increasing Diana ability to communicate his every day needs as well as participate in his daily activities. Recommendations Treatment Warranted: Yes Treatment Warranted: Receptive/ Expressive Language and Cognition Progress Prognosis: Good Frequency Frequency: 1x/Week Duration: 12 Months Visits in this POC: 52 Patient/Family Goal Patient/Family Goal: Pt and his significant other stated that they would like the see improvement with his memory skills. Goals that are Established Determination:: Goals will be added/modified as deemed necessary and appropriate. Therapy will be discontinued when results of re-evaluation indicate therapy is no longer needed or lack of progress has been documented. Goal #1-5 Goal #1: Ariel will complete basic to mod complex immediate, short-term, and working memory tasks with 90% acc independently across 3 measured opportunities. Goal #2: Ariel will independently demonstrate use of word finding strategies to complete complex convergent and divergent naming tasks progressing to conversation in 80% of word finding occurences across 3 measured opportunities. Education Patient has Indicated that the Following Identified Educational Needs: None The Patient has indicated that they have no educational or learning abilities that may effect their care.: Yes Patient Instruction Patient Education: Diagnosis, Treatment Plan and Goals Person Taught: Patient and Significant Other Teaching Method: Discussion Response to teaching: Verbalize Understanding
--- NOTE | 2025-10-29 10:10 | HP.SP.DC ---
ST Discharge Summary Discharged: Discharge: Patient is being discharged from [facility] speech therapy services at this time. Patient attended initial evaluation on 08/16/25 and atteneded 6 out of 9 scehduled sessiosn. Patient did not schedule any visits following that date. Thank you for allowing me to participate in the care of this patient.
== END 2025-10-04 19:00 | disposition home or self-care (01) ==
LOC: SP 10:30
PROVIDERS: Referring Provider Internal Medicine; Visit Provider Internal Medicine
DX: R41.841 Cognitive communication deficit (principal); R47.01 Aphasia; R47.1 Dysarthria and anarthria
CPT/HCPCS: 92507; 92523; 97161

== ENCOUNTER 2025-10-24 10:00 | Emergency (ER) | payer MEDICAID, SELFPAY ==
[2025-10-24 10:00] VITALS: BP 137/78; PULSE 78; RESP 16; TEMP 36.2; O2SAT 100; BMI 38.9
[2025-10-24 10:03] VITALS: BMI 38.9
--- OUTSIDE RECORDS SUMMARY | 2025-10-24 10:05 | XMS RPT_ITS | CCD ---
Author Organization [facility] Care Team Providers Care Application Design Engineer Name Role Phone Unavailable Primary Care Provider Unavailabl e DEBORAH INFANTE Admitting Unavailable DEBORAH INFANTE Attending Unavailable DEBORAH INFANTE Consulting Unavailable Care Physician, No Primary Primary Care Provider Unavailable Dr. Kenan Pedroza DO Emergency Provider [phone] Unavailable Primary Care Provider Unavailabl e Care Physician, No Primary Primary Care Physicia n Unavailable Dr. Kenan Pedroza DO Attending Physician Dr. Kenan Pedroza DO Emergency Department Physic nano Dr. Ever Barth DO Emergency Departmen t Physician Dr. Roger Costa DO Admitting Physician Dr. Roger Costa DO Nurse Practitioner Bola Noland MD Nurse Practitioner Unavailable Lani WOLF, Dr. Isabel Nurse Practitioner [phone] Juany Feliz MD Nurse Practitioner Unavailab Dr. Lana Patel DO Nurse Practitioner Regina WOLF, Dr. Kat Nurse Practitioner [phone] Dr. Narciso Garcia MD Nurse Practitioner Dinesh WOLF, Dr. Black Nurse Practitioner Dr. Matt Day MD Nurse Practitioner Gregory WOLF, Dr. Hernandez Nurse Practitioner Toni WOLF, Dr. Latham Nurse Practitioner Vannesa SU, Dr. Katz Nurse Practitioner Will WOLF, Afshan Nurse Practitioner Julio C WOLF, Dr. Khan Nurse Practitioner Jacob WOLF, Dr. Saucedo Nurse Practitioner Makenzie WOLF, Dr. Choi Nurse Practitioner Ginny WOLF, Dr. Oriana Coppola Nurse Practitioner Martir WOLF, Dr. Mata Nurse Practitioner Adam WOLF, Dr. Angulo Nurse Practitioner Danisha WOLF, Dr. Akins Nurse Practitioner Al WOLF, Dr. Howe Nurse Practitioner Unavailcaren Knutson MD, [facility] Nurse Practitioner Unavailcaren Leiva MD, Dr. Vásquez Attending Physician Cali WOLF, Dr. Vásquez Nurse Practitioner [phone] Chris WOLF, Dr. Forrester Attending Physician MAGGI CHOI Attending Unavailable MAGGI CHOI Admitting Unavailable MAGGI CHOI Admitting Unavailable STEVIE FELICIANO Attending Unavailable Usama Perez Attending Unavailable Care Physician, No Primary Primary Care Unava ilable Care Physician, No Primary Primary Care Unava ilable Roger Costa Admitting Unavailable Fahad Leiva Attending Unavailable Bola Noland Consulting Unavailable Adeli, Amir Consulting Unavailable Hinduja, Juany Consulting Unavailable Tony, Lana Consulting Unavailable Zha, Shey Consulting Unavailable Jose, Narciso Consulting Unavailable Dinesh, Sofia Consulting Unavailable Bittashira, Matt Consulting Unavailable David Jenkins Consulting Unavailable Yeison Muñoz Consulting Unavailable Gianna Granado Consulting Unavailable Afshan Solis Consulting Unavailable Bill Bunch Consulting Unavailable Sheryl James Consulting Unavailable Steph Banegas Consulting Unavailable Oriana Gross Consulting UnavailAdolfo Stokes Consulting Unavailable Kev Medina Consulting Unavailable Tashi Raman Consulting Unavailable Carley Melendez Consulting Unavailable Mariajose Knutson Consulting Unavailable Roger Costa Consulting Unavailable Cali, Fahad Consulting Unavailable Lana Swenson Attending Unavailable Cali, Fahad Referring Unavailable Roger Costa Attending Unavailable Beam, Zebulun Primary Care Unavailable [place], Grupo Attending Unavailable Gopi, Grupo Referring Unavailable [place], Grupo Admitting Unavailable Care Physician, No Primary Primary Care Unava ilable Cali, Fahad Attending Unavailable Cali, Fahad Referring Unavailable Beam, Zebulun Attending Unavailable Beam, Zebulun Referring Unavailable Beam, Zebulun Primary Care Unavailable Kenan Pedroza Attending Unavailable Care Physician, No Primary Primary Care Unava ilable Cali, Fahad Attending Unavailable Bola Noland Consulting Unavailable Roger Costa Admitting Unavailable Care Physician, No Primary Primary Care Unava ilable Chalo Garibay Consulting Unavailable Juany Feliz Consulting Unavailable Lana Jimenez Consulting Unavailable Shey Tapia Consulting Unavailable Narciso Garcia Consulting Unavailable Sofia Montiel Consulting Unavailable Matt Day Consulting Unavailable David Jenkins Consulting Unavailable Yeison Muñoz Consulting Unavailable Gianna Granado Consulting Unavailable Afshan Solis Consulting Unavailable Bill Bunch Consulting Unavailable Sheryl James Consulting Unavailable Steph Banegas Consulting Unavailable Oriana Gross Consulting UnavailAdolfo Stokes Consulting Unavailable Kev Medina Consulting Unavailable Tashi Raman Consulting Unavailable Carley Melendez Consulting Unavailable Mariajose Knutson Consulting Unavailable Roger Costa Consulting Unavailable Medications Current Medications Medication Drug Class(es) Dates Sig (Normalized) Sig (Original) [id number] actuat albuterol 0.09 mg/actuat metered dose inhaler (3 sources) beta2-Adrenergic Agonist Start: 08-19-2014 Albuterol Sulfate (Ventolin Hfa) 1 INHALER inhaler Active 2 NMA INHALATION EVERY 4 HOURS NEEDED as needed for Wheezing August 19, 2014 12:00am Start: 08-19-2014 End: 08-10-2025 Albuterol Sulfate (Ventolin Hfa) 1 INHALER inhaler Discontinued 2 NMA INHALATION EVERY 4 HOURS NEEDED as needed for Wheezing 1 August 19, 2014 12:00am August 10, 2025 5:15pm amLODIPine 5 mg oral tablet (1 source) Dihydropyridine Calcium Channel Pipo Start: 07-31-2025 take 1 tablet by mouth once daily amLODIPine (Norvasc) 5 MG tablet Take 1 Tablet by mouth daily. 30 Tablet 07/31/2025 Active aspirin 81 mg chewable tablet (1 source) Platelet Aggregation Inhibitor, Nonsteroidal Anti-inflammatory Drug Start: 08-12-2025 take 1 tablet by mouth at breakfast atorvastatin 80 mg oral tablet (1 source) HMG-CoA Reductase Inhibitor Start: 08-12-2025 take 1 tablet by mouth at bedtime clopidogrel 75 mg oral tablet (1 source) P2Y12 Platelet Inhibitor Start: 08-12-2025 take 1 tablet by mouth once daily lisinopril 5 mg oral tablet (1 source) Angiotensin Converting Enzyme Inhibitor Start: 08-12-2025 take 1 tablet by mouth once daily metFORMIN hydrochloride 500 mg oral tablet (1 source) Biguanide Start: 08-12-2025 take 1 tablet by mouth twice daily Oblong (Nk) (1 source) Start: 08-10-2025 Oblong (Nk) Active August 10, 2025 12:00am Completed/Discontinued Medications Medication Drug Class(es) Dates Sig (Normalized) Sig (Original) azithromycin 250 mg oral tablet (3 sources) Macrolide Antimicrobial Start: 08-19-20 End: 08-10-20 take 1 tablet by mouth once daily Azithromycin 250 MG tablet Discontinued 250 mg PO DAILY 4 0 August 19, 2014 12:00am August 10, 2025 5:15pm ergocalciferol 1.25 mg oral capsule (2 sources) Provitamin D2 Compound Start: 10-15-20 take 1 capsule by mouth every week ergocalciferol (VITAMIN D-2) 1,250 mcg (50,000 unit) capsule Indications: Vitamin D deficiency Take 1 Capsule by mouth once a week 8 Capsule 10/15/2024 Active Comment on above: Take 1 Capsule by [facility] once a week fluticasone propionate 0.05 mg/actuat metered dose nasal spray (6 sources) Corticosteroid Start: 10-02-20 End: 10-15-20 take 1 spray(s) nasal route once daily fluticasone (FLONASE) 50 mcg/actuation nasal spray Indications: Tonsillar hypertrophy Place 1 [place] in both nostrils once daily 16 g 2 10/15/2024 Active Comment on above: Place 1 [place] in bot h nostrils once daily hydroCHLOROthiazide 12.5 mg oral capsule (6 sources) Thiazide Diuretic Start: 10-02-20 End: 10-15-20 take 1 capsule by mouth once daily hydroCHLOROthiazide (MICROZIDE) 12.5 mg capsule Indications: Primary hypertension Take 1 Capsule by mouth once daily 30 Capsule 5 10/15/2024 Active Comment on above: Take 1 Capsule by mo uth once daily ibuprofen 600 mg oral tablet (2 sources) Nonsteroidal Anti-inflammatory Drug Start: 07-31-20 End: 07-31-20 take 1 dose by mouth once 600 mg, Oral, Once, 1 dose, On 07/31/25 at 1917 Start: 07-31-2025 End: 10-29-2025 take 1 tablet by mouth every six hours as needed for pain ibuprofen (MOTRIN) 600 MG tablet Take 1 Tablet by mouth every 6 hours as needed for Pain. 30 Tablet 07/31/2025 10/29/2025 Active predniSONE 20 mg oral tablet (3 sources) Start: 08-19-2014 End: 08-10-2025 take 1 tablet by mouth twice daily at mealtime Prednisone 20 MG tablet Discontinued 20 mg PO TWICE DAILY WITH MEALS 10 0 August 19, 2014 12:00am August 10, 2025 5:15pm Problems Problem Classification Problem Date Documented Da te Episodic/Chronic Acute and chronic tonsillitis (3 sources) Hypertrophy of tonsils; Translations: [Hypertrophy of tonsils] 10-02-2024 Chronic Acute cerebrovascular disease (5 sources) Ischemic stroke; Translations: [Cerebral infarction due to unspecified occlusion or stenosis of left middle cerebral artery] Onset: 08-26-2025 08-10-2025 Chronic Administrative/social admission (1 source) Person consulting for explanation of examination or test findings; Translations: [Patient encounter status] 10-15-2024 Episodic Cardiac dysrhythmias (2 sources) Bradycardia; Translations: [Bradycardia, unspecified] 08-10-2025 Episodic Delirium, dementia, and amnestic and other cognitive disorders (2 sources) Delirium; Translations: [Delirium due to known physiological condition] 08-10-2025 Chronic Diabetes mellitus without complication (4 sources) Type 2 diabetes mellitus without complications; Translations: [Type 2 diabetes mellitus without complication] Onset: 10-16-2024 10-15-2024 Chronic Disorders of lipid metabolism (7 sources) Hyperlipidemia, unspecified; Translations: [Hyperlipidemia] Onset: 10-02-2024 10-02-2024 Chronic Essential hypertension (12 sources) Essential (primary) hypertension; Translations: [Essential hypertension] Onset: 10-02-2024 10-02-2024 Chronic Nutritional deficiencies (3 sources) Vitamin D deficiency, unspecified; Translations: [Vitamin D deficiency] Onset: 10-16-2024 10-15-2024 Chronic Occlusion or stenosis of precerebral arteries (5 sources) Left carotid artery stenosis; Translations: [Occlusion and stenosis of left carotid artery] Onset: 09-16-2025 08-11-2025 Chronic Other circulatory disease (2 sources) Elevated blood-pressure reading without diagnosis of hypertension; Translations: [Elevated blood-pressure reading, without diagnosis of hypertension] 08-10-2025 Episodic Other eye disorders (7 sources) Presence of artificial eye; 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] Onset: 10-02-2024 10-02-2024 Chronic Other gastrointestinal disorders (1 source) Abdominal distension (gaseous); Translations: [Abdominal distension (gaseous)] Onset: 09-03-2025 Episodic Other lower respiratory disease (2 sources) Snoring; Translations: [Snoring] 10-02-2024 Episodic Other non-traumatic joint disorders (1 source) Pain in right shoulder; Translations: [Pain in joint, shoulder region] 07-31-2025 Episodic Spondylosis; intervertebral disc disorders; other back problems (2 sources) Degeneration of cervical intervertebral disc; Translations: [Other cervical disc degeneration, unspecified cervical region] 05-14-2025 Chronic Spondylosis; intervertebral disc disorders; other back problems (2 sources) Cervical radiculopathy; Translations: [Radiculopathy, cervical region] 05-14-2025 Episodic Unclassified (1 source) Please arrive 10-15 minutes early to complete paperwork. Results Test Name Value Interpretation Reference Range Facility CBC W/Diff, Automatedon 08-12 Absolute Lymph 3.35 X10 3/uL Normal 0.83-4.51 [facility] Comment on above: Performed By: #### L 100.0100, L500.4050 #### [facility] [address] [place], [address] Absolute Neut 3.0 X10 3/uL Normal 2.0-7.7 [facility] Comment on above: Performed By: #### L 100.0100, L500.4050 #### [facility] [address] [place], [address] Basophils/100 WBC (Bld) 0.4 % Normal 0-1 [facility] Comment on above: Performed By: #### L 100.0100, L500.4050 #### [facility] [address] [place], [address] Eosinophils/100 WBC (Bld) 0.6 % Normal 0-5 [facility] Comment on above: Performed By: #### L 100.0100, L500.4050 #### [facility] [address] [place], [address] Erythrocyte distribution width (RBC) [Ratio] 12.2 % Normal 11.6-14.6 [facility] Comment on above: Performed By: #### L 100.0100, L500.4050 #### [facility] [address] [place], [address] Hematocrit (Bld) [Volume fraction] 42.3 % Normal 40-54 [facility] Comment on above: Performed By: #### L 100.0100, L500.4050 #### [facility] [address] [place], [address] Hemoglobin (Bld) [Mass/Vol] 14.7 g/dL Normal 13.0-16.5 [facility] Comment on above: Performed By: #### L 100.0100, L500.4050 #### [facility] [address] [place], [address] IG% 0.300 Normal 0.0-0.9 [facility] Comment on above: Result Comment: IG% - Immature Granulocytes (promyelocytes, myelocytes and metamyelocytes) > 1% indicates that a LEFT SHIFT is Present. Performed By: #### L 100.0100, L500.4050 #### [facility] [address] [place], [address] Lymphocytes/100 WBC (Bld) 47.5 % High 19-41 [facility] Comment on above: Performed By: #### L 100.0100, L500.4050 #### [facility] [address] [place], [address] MCH (RBC) [Entitic mass] 29.1 pg Normal 27.0-32.0 [facility] Comment on above: Performed By: #### L 100.0100, L500.4050 #### [facility] [address] [place], [address] MCHC (RBC) [Mass/Vol] 34.8 g/dL Normal 32-36 [facility] Comment on above: Performed By: #### L 100.0100, L500.4050 #### [facility] [address] [place], [address] MCV (RBC) [Entitic vol] 83.8 fL Normal 80-94 [facility] Comment on above: Performed By: #### L 100.0100, L500.4050 #### [facility] [address] [place], [address] Monocytes/100 WBC (Bld) 9.1 % Normal 0-10 [facility] Comment on above: Performed By: #### L 100.0100, L500.4050 #### [facility] [address] [place], [address] Neutrophils/100 WBC (Bld) 42.1 % Low 47-70 [facility] Comment on above: Performed By: #### L 100.0100, L500.4050 #### [facility] [address] [place], [address] Nucleated RBC (Bld) [#/Vol] 0 10*3/uL Normal 0-5 [facility] Comment on above: Performed By: #### L 100.0100, L500.4050 #### [facility] [address] [place], [address] Platelet mean volume (Bld) [Entitic vol] 9.4 fL Normal 6.2-12.0 [facility] Comment on above: Performed By: #### L 100.0100, L500.4050 #### [facility] [address] [place], [address] Platelets (Bld) [#/Vol] 432 10*3/uL Normal 150-450 [facility] Comment on above: Performed By: #### L 100.0100, L500.4050 #### [facility] [address] [place], [address] RBC (Bld) [#/Vol] 5.05 10*6/uL Normal 4.6-6.2 [facility] Comment on above: Performed By: #### L 100.0100, L500.4050 #### [facility] [address] [place], [address] RDW SD 37.1 fl Normal 35.1-43.9 [facility] Comment on above: Performed By: #### L 100.0100, L500.4050 #### [facility] [address] [place], [address] WBC (Bld) [#/Vol] 7.1 10*3/uL Normal 4.4-11.0 [facility] Comment on above: Performed By: #### L 100.0100, L500.4050 #### [facility] [address] [place], [address] Absolute Neut Normal 2.0-7.7 [facility] Comment on above: Result Comment: PT [facility] S [facility]. Performed By: #### L 500.4050, L502.0500, L100.0100 ####[facility] [address] [place], [address] HCT Normal 40-54 [facility] Comment on above: Result Comment: PT [facility] S [facility]. Performed By: #### L 500.4050, L502.0500, L100.0100 ####[facility] [address] [place], [address] HGB Normal 13.0-16.5 [facility] Comment on above: Result Comment: PT I S [facility] TO DO BLOOD WORK. Performed By: #### L 500.4050, L502.0500, L100.0100 ####[facility] [address] [place], [address] MCH Normal 27.0-32.0 [facility] Comment on above: Result Comment: PT I S [facility] TO DO BLOOD WORK. Performed By: #### L 500.4050, L502.0500, L100.0100 ####[facility] [address] [place], [address] MCHC Normal 32-36 [facility] Comment on above: Result Comment: PT I S [facility] TO DO BLOOD WORK. Performed By: #### L 500.4050, L502.0500, L100.0100 ####[facility] [address] [place], [address] MCV Normal 80-94 [facility] Comment on above: Result Comment: PT I S [facility] TO DO BLOOD WORK. Performed By: #### L 500.4050, L502.0500, L100.0100 ####[facility] [address] [place], [address] NEUT% Normal 47-70 [facility] Comment on above: Result Comment: PT I [facility]OD [facility]. Performed By: #### L 500.4050, L502.0500, L100.0100 ####[facility] [address] [place], [address] PLT Normal 150-450 [facility] Comment on above: Result Comment: PT I S [facility] TO DO BLOOD WORK. Performed By: #### L 500.4050, L502.0500, L100.0100 ####[facility] [address] [place], [address] RBC Normal 4.6-6.2 [facility] Comment on above: Result Comment: PT I S [facility] TO DO BLOOD WORK. Performed By: #### L 500.4050, L502.0500, L100.0100 ####[facility] [address] [place], [address] RDW CV Normal 11.6-14.6 [facility] Comment on above: Result Comment: PT [facility]OD [facility]. Performed By: #### L 500.4050, L502.0500, L100.0100 ####[facility] [address] [place], [address] RDW SD Normal 35.1-43.9 [facility] Comment on above: Result Comment: PT I S [facility] TO DO BLOOD WORK. Performed By: #### L 500.4050, L502.0500, L100.0100 ####[facility] [address] [place], [address] WBC Normal 4.4-11.0 [facility] Comment on above: Result Comment: PT [facility]OD [facility]. Performed By: #### L 500.4050, L502.0500, L100.0100 ####[facility] [address] [place], [address] Comprehensive Metabolic Prof txon 09-02-2025 Albumin [Mass/Vol] 4.4 g/dL Normal 3.5-5.0 [facility] Comment on above: Performed By: #### L 100.0100, L500.4050 #### [facility] [address] [place], [address] Albumin/Globulin [Mass ratio] 1.2 {ratio} Normal 0.9-2.4 [facility] Comment on above: Performed By: #### L 100.0100, L500.4050 #### [facility] [address] [place], [address] ALK PHOS 162 U/L High 40-129 [facility] Comment on above: Performed By: #### L 100.0100, L500.4050 #### [facility] [address] [place], [address] ALT [Catalytic activity/Vol] 62 U/L High <=46 [facility] Comment on above: Performed By: #### L 100.0100, L500.4050 #### [facility] [address] [place], [address] AST [Catalytic activity/Vol] 28 U/L Normal <=37 [facility] Comment on above: Performed By: #### L 100.0100, L500.4050 #### [facility] [address] [place], [address] Bilirubin [Mass/Vol] 0.46 mg/dL Normal 0.00-1.30 [facility] Comment on above: Performed By: #### L 100.0100, L500.4050 #### [facility] [address] [place], [address] BUN/CRE 14.3 RATIO Normal 10-20 [facility] Comment on above: Performed By: #### L 100.0100, L500.4050 #### [facility] [address] [place], [address] Calcium [Mass/Vol] 9.5 mg/dL Normal 7.6-11.0 [facility] Comment on above: Performed By: #### L 100.0100, L500.4050 #### [facility] [address] [place], [address] Chloride [Moles/Vol] 102 mmol/L Normal 98-108 [facility] Comment on above: Performed By: #### L 100.0100, L500.4050 #### [facility] [address] [place], [address] CO2 [Moles/Vol] 24.8 mmol/L Normal 21.0-32.0 [facility] Comment on above: Performed By: #### L 100.0100, L500.4050 #### [facility] [address] [place], [address] Creatinine [Mass/Vol] 0.75 mg/dL Normal 0.70-1.20 [facility] Comment on above: Performed By: #### L 100.0100, L500.4050 #### [facility] [address] [place], [address] GAP 11 Normal 5-15 [facility] Comment on above: Performed By: #### L 100.0100, L500.4050 #### [facility] [address] [place], [address] GFR/1.73 sq M.predicted among non-blacks MDRD (S/P/Bld) [Vol rate/Area] 109 mL/min/{1.73_m2} Normal >60 [facility] Comment on above: Result Comment: mL/m in/1.73m2 CKD-EPI Creatinine Equation (2020) Performed By: #### L 100.0100, L500.4050 #### [facility] [address] [place], [address] Globulin (S) [Mass/Vol] 3.6 g/dL Normal 2.2-4.2 [facility] Comment on above: Performed By: #### L 100.0100, L500.4050 #### [facility] [address] [place], [address] Glucose [Mass/Vol] 109 mg/dL High 70-99 [facility] Comment on above: Performed By: #### L 100.0100, L500.4050 #### [facility] [address] [place], [address] Potassium [Moles/Vol] 3.8 mmol/L Normal 3.3-5.1 [facility] Comment on above: Performed By: #### L 100.0100, L500.4050 #### [facility] [address] [place], [address] Sodium [Moles/Vol] 138 mmol/L Normal 133-145 [facility] Comment on above: Performed By: #### L 100.0100, L500.4050 #### [facility] [address] [place], [address] T PROT 8.0 g/dL Normal 5.9-8.4 [facility] Comment on above: Performed By: #### L 100.0100, L500.4050 #### [facility] [address] [place], [address] Urea nitrogen [Mass/Vol] 11 mg/dL Normal 4-19 [facility] Comment on above: Performed By: #### L 100.0100, L500.4050 #### [facility] [address] [place], [address] ALB Normal 3.5-5.0 [facility] Comment on above: Result Comment: PT [facility]. Performed By: #### L 500.4050, L502.0500, L100.0100 ####[facility] [address] [place], [address] ALK PHOS Normal 40-129 [facility] Comment on above: Result Comment: PT [facility]. Performed By: #### L 500.4050, L502.0500, L100.0100 ####[facility] [address] [place], [address] ALT Normal <=46 [facility] Comment on above: Result Comment: PT I S [facility] TO DO BLOOD WORK. Performed By: #### L 500.4050, L502.0500, L100.0100 ####[facility] [address] [place], [address] AST Normal <=37 [facility] Comment on above: Result Comment: PT I [facility]. Performed By: #### L 500.4050, L502.0500, L100.0100 ####[facility] [address] [place], [address] BUN Normal 4-19 [facility] Comment on above: Result Comment: PT I [facility]. Performed By: #### L 500.4050, L502.0500, L100.0100 ####[facility] [address] [place], [address] BUN/CRE Normal 10-20 [facility] Comment on above: Result Comment: PT I S [facility] TO DO BLOOD WORK. Performed By: #### L 500.4050, L502.0500, L100.0100 ####[facility] [address] [place], [address] Calcium Normal 7.6-11.0 [facility] Comment on above: Result Comment: PT I S GOINT [facility] TO DO BLOOD WORK. Performed By: #### L 500.4050, L502.0500, L100.0100 ####[facility] [address] [place], [address] CL Normal 98-108 [facility] Comment on above: Result Comment: PT I S GOINT [facility] TO DO BLOOD WORK. Performed By: #### L 500.4050, L502.0500, L100.0100 ####[facility] [address] [place], [address] CO2 Normal 21.0-32.0 [facility] Comment on above: Result Comment: PT I S [facility]INT [facility] TO DO BLOOD WORK. Performed By: #### L 500.4050, L502.0500, L100.0100 ####[facility] [address] [place], [address] CREAT,SERUM Normal 0.70-1.20 [facility] Comment on above: Result Comment: PT I S [facility]INT [facility] TO DO BLOOD WORK. Performed By: #### L 500.4050, L502.0500, L100.0100 ####[facility] [address] [place], [address] eGFR Normal >60 [facility] Comment on above: Result Comment: PT I S [facility] TO DO BLOOD WORK. Performed By: #### L 500.4050, L502.0500, L100.0100 ####[facility] [address] [place], [address] GAP Normal 5-15 [facility] Comment on above: Result Comment: PT I S [facility] TO DO BLOOD WORK. Performed By: #### L 500.4050, L502.0500, L100.0100 ####[facility] [address] [place], [address] GLU Normal 70-99 [facility] Comment on above: Result Comment: PT I S [facility]INT [facility] TO DO BLOOD WORK. Performed By: #### L 500.4050, L502.0500, L100.0100 ####[facility] [address] [place], [address] Potassium Normal 3.3-5.1 [facility] Comment on above: Result Comment: PT I S [facility]INT [facility] TO DO BLOOD WORK. Performed By: #### L 500.4050, L502.0500, L100.0100 ####[facility] [address] [place], [address] T BILI Normal 0.00-1.30 [facility] Comment on above: Result Comment: PT I S [facility]INT [facility] TO DO BLOOD WORK. Performed By: #### L 500.4050, L502.0500, L100.0100 ####[facility] [address] [place], [address] T PROT Normal 5.9-8.4 [facility] Comment on above: Result Comment: PT I S [facility]INT [facility] TO DO BLOOD WORK. Performed By: #### L 500.4050, L502.0500, L100.0100 ####[facility] [address] [place], [address] Comprehensive Metabolic Profil Normal 133-145 [facility] Comment on above: Result Comment: PT I S [facility] TO DO BLOOD WORK. Performed By: #### L 500.4050, L502.0500, L100.0100 ####[facility] [address] [place], [address] Microalbumin,Random Urineon 09-02-2025 MICROALBUMIN,UR 32.2 mg/L Normal <20 mg/L [facility] Comment on above: Performed By: #### L 500.4050, L502.0500, L100.0100 ####[facility] [address] [place], [address] SP/HP.SP.Iraj 08-23-2025 SP/HP.SP.EV [facility] Speech Pathology [facility] [address] [place] [address] / REHABILITATION SERVICES INITIAL EVALUATION MR#: [id number] Acct: [id number] Name: ARIEL BEAN Rep #: [id number] : 1975 50 From: Allegra Ordonez Referring Dr.: Dr. 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 Other Relevant Medical History/Diagnoses/Surge ry: Ariel Robertson is a 50 M who presented to [facility] ED on 08/10/2025 with confusion, slurred speech and worsening right upper extremity weakness and numbness/tingling. Medical history is significant for hypertension, class II obesity and tobacco dependence. Patient reported intermittent right upper extremity numbness/tingling for the right shoulder down to the hand for the past few months. He was seen in the ED at [facility] in late April for that. Diana significant other noted that on 07/25/2025 he appeared to be more confused and had intermittent slurred speech. He progressively become more confused with worsening slurring of his speech until they decided to go to the ED. On CT brain he was found to have acute to subacute ischemia in the left MCA distribution with no hemorrhage noted. CTA head/neck showed critical stenosis involving the proximal left internal carotid artery with likely flow limitation. Case was discussed with Dr. Nguyễn who reviewed the imaging and agreed with the radiology call of critical stenosis and suspected this was the cause of his left MCA stroke. He presents to [facility] with chief complaints of difficulty with memory and word finding. Medications related to this diagnosis: aspirin 81 mg Tablet,Chewable; atorvastatin 80 mg Tablet; clopidogrel 75 mg Tablet; lisinopril 5 mg tablet; metformin 500 mg tablet Smoking Status: Light Smoker (<10/day) Diagnosis Diagnosis: Mild cognitive deficit Pain Is pain an issue with your current prescribed condition?: No Personal Preferred language: Greek Patient Allergies Allergies Allergies: Allergies No Known Allergies Allergy (Verified 08/13/25 10:36) CLQT CLQT CLQT Administered: Yes CLQT: Cognitive Linguistic Quick Test (CLQT) is a criterion - referenced assessment designed for adults between the ages of 18 and 89 with known or suspected neurological dysfuntions. The CLQT is to assess strength and weaknesses in five cognitive domains. Severity ratings are within normal limits, mild, moderate, severe deficits. The subtests are as follows: Date: 08/18/25 Attention Attention: WNL Memory Memory: Moderate Executive Functions Executive Functions: WNL Language Language: Moderate Visuospatial Skills Visuospatial Skills: WNL Composite Severity Rating Composite Severity Rating: Mild Clock Drawing Severity Rating Clock Drawing Severity Rating: Mild CLQT Comments -: -: Attention: 192 (WNL) Memory: 121 (Moderate) Executive Functions: 29 (WNL) Language: 23 (Moderate) Visuospatial Skills: 96 (WNL) Reference: Neuro-QoL instrument Radiation Oncology Patient Plan Plan Plan: At this time, skilled outpatient speech therapy is recommended to address a mild cognitive deficit, targeting memory and language. Participation in interventions will aid in increasing Diana ability to communicate his every day needs as well as participate in his daily activities. Recommendations Treatment Warranted: Yes Treatment Warranted: Receptive/ Expressive Language and Cognition Progress Prognosis: Good Frequency Frequency: 1x/Week Duration: 12 Months Visits in this POC: 52 Patient/Family Goal Patient/Family Goal: Pt and his significant other stated that they would like the see improvement with his memory skills. Goals that are Established Determination:: Goals will be added/modified as deemed necessary and appropriate. Therapy will be discontinued when results of re-evaluation indicate therapy is no longer needed or lack of progress has been documented. Goal #1-5 Goal #1: Ariel will complete basic to mod complex immediate, short-term, and working memory tasks with 90% acc independently across 3 measured opportunities. Goal #2: Ariel will independently demonstrate use of word finding strategies to complete complex convergent and (more content not included)... Normal [facility] SP/HP.SP.Iraj 08-18-2025 SP/HP.SP.EV [facility] Speech Pathology [facility] [address] [place] [address] / REHABILITATION SERVICES INITIAL EVALUATION MR#: [id number] Acct: [id number] Name: ARIEL BEAN Rep #: [id number] : 1975 50 From: Allegra Ordonez Referring Dr.: Dr. 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 Other Relevant Medical History/Diagnoses/Surge ry: Ariel Robertson is a 50 M who presented to [facility] ED on 08/10/2025 with confusion, slurred speech and worsening right upper extremity weakness and numbness/tingling. Medical history is significant for hypertension, class II obesity and tobacco dependence. Patient reported intermittent right upper extremity numbness/tingling for the right shoulder down to the hand for the past few months. He was seen in the ED at [facility] in late April for that. Ariels significant other noted that on 07/25/2025 he appeared to be more confused and had intermittent slurred speech. He progressively become more confused with worsening slurring of his speech until they decided to go to the ED. On CT brain he was found to have acute to subacute ischemia in the left MCA distribution with no hemorrhage noted. CTA head/neck showed critical stenosis involving the proximal left internal carotid artery with likely flow limitation. Case was discussed with Dr. Nguyễn who reviewed the imaging and agreed with the radiology call of critical stenosis and suspected this was the cause of his left MCA stroke. He presents to [facility] with chief complaints of difficulty with memory and word finding. Medications related to this diagnosis: aspirin 81 mg Tablet,Chewable; atorvastatin 80 mg Tablet; clopidogrel 75 mg Tablet; lisinopril 5 mg tablet; metformin 500 mg tablet Smoking Status: Light Smoker (<10/day) Diagnosis Diagnosis: Mild cognitive deficit Pain Is pain an issue with your current prescribed condition?: No Personal Preferred language: Greek Patient Allergies Allergies Allergies: Allergies No Known Allergies Allergy (Verified 08/13/25 10:36) CLQT CLQT CLQT Administered: Yes CLQT: Cognitive Linguistic Quick Test (CLQT) is a criterion - referenced assessment designed for adults between the ages of 18 and 89 with known or suspected neurological dysfuntions. The CLQT is to assess strength and weaknesses in five cognitive domains. Severity ratings are within normal limits, mild, moderate, severe deficits. The subtests are as follows: Date: 08/18/25 Attention Attention: WNL Memory Memory: Moderate Executive Functions Executive Functions: WNL Language Language: Moderate Visuospatial Skills Visuospatial Skills: WNL Composite Severity Rating Composite Severity Rating: Mild Clock Drawing Severity Rating Clock Drawing Severity Rating: Mild CLQT Comments -: -: Attention: 192 (WNL) Memory: 121 (Moderate) Executive Functions: 29 (WNL) Language: 23 (Moderate) Visuospatial Skills: 96 (WNL) Reference: Neuro-QoL instrument Radiation Oncology Patient Plan Plan Plan: At this time, skilled outpatient speech therapy is recommended to address a mild cognitive deficit, targeting memory and language. Participation in interventions will aid in increasing Diana ability to communicate his every day needs as well as participate in his daily activities. Recommendations Treatment Warranted: Yes Treatment Warranted: Receptive/ Expressive Language and Cognition Progress Prognosis: Good Frequency Frequency: 1x/Week Duration: 12 Months Visits in this POC: 52 Patient/Family Goal Patient/Family Goal: Pt and his significant other stated that they would like the see improvement with his memory skills. Goals that are Established Determination:: Goals will be added/modified as deemed necessary and appropriate. Therapy will be discontinued when results of re-evaluation indicate therapy is no longer needed or lack of progress has been documented. Goal #1-5 Goal #1: Ariel will complete basic to mod complex immediate, short-term, and working memory tasks with 90% acc independently across 3 measured opportunities. Goal #2: Ariel will complete basic to mod complex confrontation, convergent, and divergent naming tasks with 90 (more content not included)... Normal [facility] Inital Evaluation (1) - PTon 08-16-2025 Inital Evaluation (1) - PT [facility] Physical Therapy [facility] [address] [place] [address] / REHABILITATION SERVICES INITIAL EVALUATION MR#: [id number] Acct: [id number] Name: ARIEL BEAN Rep #: [id number] : 1975 50 From: Jaspal Mandujano DPT Referring Dr.: Dr. Fahad Leiva MD Status: RE [facility] Insurance: [employer] SELF PAY INSURANCE Patient's Visit Information Visit Information Visit Information: ARIEL BEAN is a 50 year old M referred to Physical Therapy by Dr. Fahad Leiva MD with a diagnosis of R shoulder pain. Date of Evaluation: 08/16/25 Physical Therapist: Jaspal Mandujano DPT Visit Plan Frequency: 1-2x /Week Duration: 6 Weeks Plan: I gave Ariel both R shoulder AROM and strengthening exercises. He is going to take these home with him and work on them for 1-2 weeks then back to PT. He is having IVC filter placement next week as well. Subjective Subjective: Pt. is here today for his initial evaluation with diagnosis of R RTC injury. Pt. reports his arm has been bothering him for a while, prior to the CVA. Pt. is now having some N/T in his R UE as well. Pt. has some mild pain, but mostly when he moves it. Pt. is off work until he gets cleared. He is having what sounds like IVC filter placed next week. Pt. works at local [employer] with some lifting, but not much over head. Pt. reports his N/T does not go away. Pt. is hopeful to get back to all previous work activities without limitations. Pain R shoulder: Pain Intensity (Out of 10): 2 Pain Intensity Range: 0 and 2 Objective Objective: POSTURE: Pt. has slight forward head and rounded shoulder positioning. Pt. has slight increased thoracic kyphosis as well. PALPATION: Pt. has slight increased symptoms at anterior shoulder along biceps tendon. No much throughout rest of sub acromial space. NEURO: Pt. has normal DTR of BUEs. Pt. reports decreased sensation throughout RUE to light touch. It feels numb. ROM: AROM: R shoulder: flexion full, but aberrant, functional IR L5, functional ER C4 , abd 160deg. His motion improved with increased repetitions. PROM: full motion without increase in symptoms. MMT: Pt. has full strength with BUEs. without increase in symptoms. Balance/Special Test Scores Quick DASH Score: 27.2725 Goals Goal 1:: LTG: Pt. to have full R shoulder AROM with normal pattern. Goal Time Frame: 4-6 Weeks Goal 2:: LTG: Pt. to reports no N/T in RUE. Goal Time Frame: 4-6 Weeks Goal 3:: LTG: Pt. to be able to lift 15# [place] to simulate all work related activities. Goal Time Frame: 4-6 Weeks Goal 4:: LTG: Pt. to have no pain in R shoulder all ADLs. Goal Time Frame: 4-6 Weeks Rehabilitation Potential Physical Therapy Diagnosis: Pt. has signs and symptoms consistent with R shoulder pain. Pt. has slight reduced ROM, good strength. Pt. would benefit from PT to work on progressive loading for his R UE and stretching towards end ranges of his motion. Rehabilitation Potential: Excellent Anticipated Interventions Patient/Client Instruction: Educate patient on: Condition, Plan of Care, Risk Factors and Benefits of Fitness Program For the Purpose of:: To improve decision making, To facilitate caregiver knowledge, To improve self management, To prevent re-injury, To improve ability to perform tasks related to life management and To improve tolerance to ADL's Therapeutic Exercise to Include: Strength training, Power training, Postural training, Passive ROM, Active ROM and Scapular Strength/Stabilization For the Purpose of:: To decrease pain, To increase ROM, To improve nutrient delivery to tissue, To increase oxygenation perfusion, To improve muscle performance and motor function, To improve ability to perform ADL's, To improve health of tissue, To decrease soft tissue restriction and To increase flexibility/ROM Text: Thank you for the opportunity to evaluate your patient. For Medicare and Medicare HMO plans, please review the plan of care and approve it. It will need to be FAXED BACK to us at [phone] for Medicare purposes. For Medicare only, by signing this I certify the plan of care. Please let me know if there are questions or concerns regarding this plan of care. Physician Signature: Date: 08/16/25 1500 CC: Dr. 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 When Was Last Pacemaker Check QUESTION #4 FULL TEXT: You/Your Family Experience fever (hyperthermia) with Anesthesia Last Oral Intake Last Oral intake: Last Oral Intake NPO since Meds taken in AM with sips of water? Meds patient instructed to take am of surgery PONV PONV - resort keeper: PONV - resort keeper Female No 08/13/25 10:40 HX of Motion Sickness No 08/13/25 10:40 HX of N/V After Surgery No 08/13/25 10:40 Non-Smoker No 08/13/25 10:40 Duration of Surgery greater Yes 08/13/25 10:40 than 60 minutes Number of Risk Factors 1 08/13/25 10:40 PONV Score Low Risk 08/13/25 10:40 Height Weight Height Weight: Anesthesia: Height Weight Height 6 ft 08/11/25 11:36 Respiratory Assessment Respiratory Assessment - resort keeper: Respiratory Tract Infection Hx - resort keeper Hx Respiratory Tract Infection No 08/13/25 10:40 STOP Sleep Apnea STOP Sleep Apnea - resort keeper: STOP Sleep Apnea - resort keeper Hx Hypertension Yes 08/13/25 10:40 Hx Sleep Apnea No 08/13/25 10:40 CPAP BIPAP Do you snore loudly (louder Yes 08/13/25 10:40 than talking or can be heard Do you often feel tired/ Yes 08/13/25 10:40 fatigued/ sleepy during daytime? Has anyone observed you stop Yes 08/13/25 10:40 breathing during sleep? STOP Results Positive 08/13/25 10:40 QUESTION #5 FULL TEXT : Do you snore loudly (louder than talking or can be heard through closed doors)? 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 Specify any problems Hx of Preganancy in last 3 N/A 08/13/25 10:40 Months Nurse Filling Out Transfusion NBUCHER 08/13/25 10:40 Questions: Date: 08/13/25 08/13/25 10:40 Time: 10:42 08/13/25 10:40 Patient unable to answer at this time (ie. confused, unrespo /Reproduction History /Reproductive History - resort keeper: /Reproductive Hx- resort keeper Hx Now No 08/13/25 10:40 Gestational Age (in weeks): EDC: Hx Hx Para Hx Section SAB No 08/13/25 10:40 [facility] Medical History (Updated 08/13/25 @ 10:46 by Kymberly Mulligan) Wears glasses Diabetes High cholesterol Stroke/cerebrovascular accident Smoker Poor historian History of echocardiogram HTN (hypertension) Eye globe prosthesis Home Medications ???Medication ???Instructions ???Recorded ???Last Taken ???Type aspirin 81 mg chewable tablet 81 mg PO BREAKFAST 30 days #30 tab s 08/12/25 Unknown Rx atorvastatin 80 mg tablet 80 mg PO QHS 30 days #30 tabs 01/05 Unknown Rx clopidogrel 75 mg tablet 75 mg PO DAILY 30 days #30 tabs Unknown Rx lisinopril 5 mg tablet 5 mg PO DAILY #30 tabs 08/12/25 Un known Rx metformin 500 mg tablet 500 mg PO BID 1 month #60 tabs 01/05 Unknown Rx Allergy/AdvReac Type Severity Reaction Status Date / Time No Known Allergies Allergy Verified 08/13/25 10:36 Social History (Updated 08/10/25 @ 18:48 by Keiko French) household members: family housing: house Smoking Status: Light Smoker (<10/day) (more content not included)... Normal [facility] Discharge Instructionon Discharge Instruction [facility] Medical Records Department [address] [place] [address] Instructions for Home/Discharge Instructions 08/12/25 1452 MR#: [id number] Acct: [id number] Name: ARIEL BEAN Rep #: [id number] : 1975 50 From: Fahad Leiva MD PCP: Care Physician,No Primary Status:ADM IN Discharge Instructions DC O2, CPAP, BIPAP needs Home O2 Discharge instructions: No Follow Up Care Test Results: Test results from this visit will be discussed in further detail at your follow-up appointment, if applicable. Discharge Plan Admission Admit Date/Time: 08/10/25 17:09 Primary Reason for Your Visit: Left MCA acute ischemic stroke Attending Provider: Fahad Leiva Primary Care Provider: Care Physician,No Primary Consulting Providers: Bola Noland; Chalo Garibay; Juany Feliz; Lana Jimenez; Shey Tapia; Narciso Garcia; Sofia Montiel; Matt Day; David Jenkins; Yeison Muñoz; Gianna Granado; Afshan Solis; Bill Bunch; Sheryl James; Steph Banegas; Oriana Gross; Adolfo Mcmahan; Kev Medina; Tashi Raman; Carley Melendez; Mariajose Knutson; Roger Costa Discharge Orders/Prescriptions Prescriptions: New atorvastatin 80 mg Tablet 80 mg PO QHS 30 Days Qty: 30 2RF clopidogrel 75 mg Tablet 75 mg PO DAILY 30 Days Qty: 30 2RF aspirin 81 mg Tablet,Chewable 81 mg PO BREAKFAST 30 Days Qty: 30 4RF Referrals / Follow Up: Grupo Nguyễn MD [Med Staff - Active Staff, Vascular Surgery] - Within 1 Week Guillermo Figueroa MD [Non-Staff -Ordering Privileges, Neurology] - Within 1 Month Care Physician,No Primary [Primary Care Provider, Medical] Rebecca Harper, CODING EDUCATOR-C [[facility]] - 08/17/25 1:30 pm Referral Note: Please arrive 10-15 minutes early to complete paperwork. Disposition Disposition (needs filled in before D/C Order can be placed): Home Health Service 08/12/25 1506 Fahad Leiva MD CC: Lana Jimenez; Sheryl James; Adolfo Mcmahan; Shey Tapia MD; Juany Feliz MD; Bola Noland MD; Dr. Roger Costa DO; Dr. Chalo Garibay MD; Dr. Narciso Garcia MD; Dr. Sofia Montiel MD; Dr. David Jenkins MD; Dr. Matt Day MD; Dr. Yeison Muñoz MD; Dr. Gianna Granado DO; Dr. Bill Bunch DO; Dr. Oriana Gross MD; Dr. Steph Banegas MD; Dr. Kev Medina MD; Dr. Tashi Raman MD; Dr. Carley Melendez MD; Afshan Solis DO; No Primary Care Physician; Mariajose Knutson MD Signed Normal [facility] Calculated very low density lipoprotein (VLDL) cholesterol measurementOrdered By: Roger Costa on 08-11-2025 Calculated very low density lipoprotein (VLDL) cholesterol measurement 18 mg/dL 5-40 [facility] Consultation - Surgicalon Consultation - [facility] Medical Records Department [address] [place] [address] Consultation - Surgical 08/11/25 0758 MR#: [id number] Acct: [id number] Name: ARIEL BEAN Rep #: [id number] : 1975 50 From: Lana FRAIRE PCP: Care Physician,No Primary Status:DIS IN Location: [place] [id number] Assessment Plan Assessment/Plan (1) Left carotid stenosis: PLAN: CTA images reviewed, demonstrate severe L ICA stenosis at threshold to recommend surgical intervention. Given the distal nature of his lesion, carotid stent is felt to be the best option. Transcarotid stenting would be preferred as long as he is of acceptable risk from a cardiovascular standpoint; if he is deemed higher risk in this regard then would alternatively consider transfemoral stenting. Pending echo results, would consider cardiology consult for further assistance with risk stratification. We discussed that we could schedule on an outpatient basis in the next 1-2 weeks. He does wish to proceed with intervention, will schedule. Continue DAPT with ASA and Plavix and high-intensity statin. HPI Consult Data Date of Consult: 08/11/25 HPI Narrative HPI Narrative: ARIEL BEAN, is a 50 M who is admitted for stroke workup after presenting to the [facility] ER 08/10/25 with 2-3 weeks of confusion, difficulty word-finding/communicat ing and general fatigue/weakness; he also noted RUE pain/weakness/numbness which started a couple months prior. He had Brain CT showed acute to subacute L MCA distribution ischemia. CTA Head/Neck demonstrated severe L ICA stenosis. Brain MRI demonstrated L frontoparietal subacute infarcts. Echo is pending. He reports no prior history of known CVA or similar symptoms suggestive of TIA; reports no prior knowledge of carotid artery disease and no history of prior vascular interventions. He was not on any medications at home. He denies any history of coronary artery disease, denies any CP/SOB. He answers questions appropriately with short answers, looks to family member at bedside for longer answers/explanations when he seemed to have difficulty word finding. He reports still limited mobility at his R shoulder but otherwise does not notice any weakness. [facility] Medical History (Updated 08/11/25 @ 14:10 by JUNO Harris) HTN (hypertension) Eye globe prosthesis Home Medications ???Medication ???Instructions ???Recorded ???Last Taken ???Type NK 08/10/25 Unknown History Allergy/AdvReac Type Severity Reaction Status Date / Time No Known Allergies Allergy Verified 08/10/25 19:55 Social History (Updated 08/10/25 @ 18:48 by Keiko French) household members: family housing: house Smoking Status: Light Smoker (<10/day) Physical Exam Const alert and oriented x3 General Appearance: cooperative and comfortable HEENT head/scalp atraumatic, hearing grossly normal bilaterally, external ears normal and external nose normal Eyes General Eye: other Other Details: prosthetic L eye Neck General: normal visual inspection and trachea midline Resp Effort and Inspection: able to speak in complete sentences; Negative for labored, grunting or stridor Cardio Rate: regular rate Rhythm: regular rhythm Neuro oriented x3 and moves all extremities Neuro Narrative: noted mild difficulty word finding, mild slurring of speech, otherwise neurologically intact Lab / Micro Data 08/10/25 14:07 08/10/25 14:07 Labs: Laboratory Results - last 24 hr 08/10/25 14:07: WBC 6.6, RBC 4.68, Hgb 13.6, Hct 39.6 L, MCV 84.6, MCH 29.1, MCHC 34.3, RDW Std Deviation 36.7, RDW Coeff of Ashanti 12.3, Plt Count 380, MPV 9.7, Immature Gran % (Auto) 0.200, Neut % (Auto) 46.0 L, Lymph % (Auto) 41.8 H, [place] % (Auto) 11.1 H, Eos % (Auto) 0.6, Baso % (Auto) 0.3, Absolute Neuts (auto) 3.0, Absolute Lymphs (auto) 2.76, Nucleated RBC % 0, PT 13.9, INR 1.1, APTT 24.9, Sodium 139, Potassium 3.5, Chloride 106, Carbon Dioxide 23.2, Anion Gap 10, BUN 17, Creatinine 0.72, Estim Creat Clear Calc 166.57, Est GFR (MDRD) Non-Af 110, BUN/Creatinine Ratio 23.5 H, Glucose 117 H, Hemoglobin A1c 6.7 H, Calcium 9.1, Total Bilirubin 0.23, AST 19, ALT 26, Alkaline Phosphatase 99, Troponin T High Sens 8, Total Protein 7.2, Albumin 3.9, Globulin 3.3, Albumin/Globulin Ratio 1.2, TSH 1.020, Ethyl Alcohol < 10.1 08/10/25 14:09: Lactic Acid < 1.0 08/10/25 14:45: Urine Color Yellow, Urine Clarity Clear, Urine pH 6.0, Ur Specific [place] 1.015, U rine Protein 15 H, Urine Glucose (UA) Normal, Urine Ketones Negative, Urine Occult Blood Negative, Urine Nitrite Negative, Urine Bilirubin Negative, Urine Urobilinogen Normal, Ur Leukocyte Esterase Negative, Urine RBC 0-5 SEEN, Urine WBC 0-5 SEEN, Ur Squamous Epith Cells 0 SEEN, Urine Bacteria 0 SEEN, Urine Mucus 0 SEEN, Urine Opiates Screen NEGATIVE, U Buprenorphine Qual NEGATIVE, Ur Oxycodone Screen NEGATIVE (more content not included)... Normal [facility] Echocardiogram study reportO rdered By: Usama Perez on 08-11-[address] [facility] Cardiovascular Services [address] [place] [address] Echo Complete W/ Contrast 08/11/25 0931 MR#: [id number] Acct: [id number] Name: ARIEL BEAN Rep #:[id number] : 1975 50 From: Usama Melton Attending Dr: Dr. Fahad Leiva MD Status: ADM IN Ordering Dr: Roger Costa DO Da te: 08/10/25 Location: U Sex: M AA Admitted: 08/10/25 Reason For Study Reason For Study: TIA/CVA Procedure This was a 2D Doppler, Color Flow transthoracic echocardiogram. The study was technically difficult. Contrast injection was performed. Exam performed portable in patient room. Left Ventricle Normal LV size. Mild concentric left ventricular hypertrophy. Left ventricular systolic function is normal. The left ventricular ejection fraction is 60 %. No regional wall motion abnormalities noted. Right Ventricle Normal RV size. Normal systolic function. Atria Normal left atrium. Normal right atrium. Bubble contrast study is negative for PFO/ASD. Mitral Valve Normal mitral valve. Tricuspid Valve Normal tricuspid valve. Aortic Valve Trisinus/trileaflet aortic valve. Pulmonic Valve Normal pulmonic valve. Great Vessels Normal aortic root. The pulmonary artery is normal size. Inferior vena cava collapse with respiration. Pericardium/Pleural No pericardial effusion. Medication Diluted definity 2ml given slow IV push to enhance endocardial definition. Performed a rapid injection of agitated mix of 9 cc saline and 1cc air to assess for atrial septal defect. MMode/2D Measurements & Calculations LVIDd: 4.5 cm IVSd: 1.2 cm LVOT diam: 2.0 cm LVIDs: 2.3 cm LVPWd: 1.2 cm RVDd: 4.2 cm FS: 48.3 % LVOT area: 3.2 cm2 asc Aorta Diam: 3.8 cm LAV(MOD-bp): 43.5 ml LVAd ap4: 43.3 cm2 LAV(MOD-bp) Indexed: 17.4 ml/m2 LVLd ap4: 9.0 cm LAV(MOD-sp2): 41.5 ml EDV(MOD-sp4): 171.4 ml LAV(MOD-sp4): 39.1 ml EDV(sp4-el): 175.9 ml LVAs ap4: 25.5 cm2 LVLs ap4: 8.3 cm ESV(MOD-sp4): 66.3 ml ESV(sp4-el): 66.3 ml EF(MOD-sp4): 61.3 % EF(sp4-el): 62.3 % LVAd ap2: 42.0 cm2 SV(MOD-sp4): 105.1 ml SV(MOD-sp2): 85.6 ml LVLd ap2: 9.5 cm SI(MOD-sp4): 41.9 ml/m2 SI(MOD-sp2): 34.2 ml/m2 EDV(MOD-sp2): 152.6 ml EDV(sp2-el): 158.1 ml LVAs ap2: 25.5 cm2 LVLs ap2: 8.0 cm ESV(MOD-sp2): 67.0 ml ESV(sp2-el): 68.9 ml EF(MOD-sp2): 56.1 % _ ____ SV(sp4-el): 109.6 ml Ao sinus diam: 3.[address] Junction: 2.7 cm LA dimension(2D): 4.1 cm LA A4 area: 16.3 cm2 RA A4 area: 11.7 cm2 TAPSE: 1.3 cm Time Measurements MV dec time: 0.26 sec Doppler Measurements & Calculations MV E max fide: 96.9 cm/sec Lat Peak E' Fide: 13.1 cm/sec Med Peak E' Fide: 8.6 cm/sec MV A max fide: 92.9 cm/sec E/E' lat: 7.4 E/E' med: 11.3 MV E/A: 1.0 MV dec slope: 376.0 cm/sec2 Ao V2 max: 147.2 cm/sec LV V1 max: 107.4 cm/sec Ao max P.7 mmHg LV V1 max P.6 mmHg Ao V2 mean: 88.0 cm/sec LV V1 mean P.2 mmHg Ao mean P.8 mmHg LV V1 mean: 69.5 cm/sec Ao V2 VTI: 35.7 cm LV V1 VTI: 23.0 cm AV (velocity ratio): 0.65 CHERELLE(I,D): 2.1 cm2 CHERELLE(V,D): 2.3 cm2 SV(LVOT): 73.4 ml PA V2 max: 96.8 cm/sec ECHO/Echo Complete W/ Contrast Interpretation Summary Normal LV size. Left ventricular systolic function is normal. The left ventricular ejection fraction is 60 %. Bubble contrast study is negative for PFO/ASD. Mild concentric left ventricular hypertrophy. Contrast injection was performed. Ordering Physician: Roger Costa Performed By: Rosalinda Davenport RDCS 08/11/251923 Date _ Usama Perez MD CC: Dr. Roger Cosat DO; Dr. Fahad Leiva MD; No Primary Care Physician ~ Date Dictated: 08/11/25930 Date Transcribed: 08/11/251923 Edger Operator: Signed [facility] Other Electrocardiogram reportOrde red By: Usama Perez on 08-11-2025 EKG study [facility] Cardiovascular Services [address] [place] [address] 12 Lead EKG 08/10/25 1412 MR#: [id number] Acct: [id number] Name: ARIEL BEAN Rep #:[id number] : 1975 50 From: Usama Perez MD Attending Dr: Dr. Fahad Leiva MD Status: ADM IN Ordering Dr: Ever Barth ate: 08/10/25 Location: [facility] Sex: M AA Admitted: 08/10/25 Test Reason : NEURO Blood Pressure : */* mmHG Vent. Rate : 59 BPM Atrial Rate : 59 BPM P-R Int : 234 ms QRS Dur : 94 ms QT Int : 438 ms P-R-T Axes : 58 75 44 degrees QTcB Int : 433 ms Sinus bradycardia with 1st degree A-V block Otherwise normal ECG Confirmed by CHRIS WOLF, USAMA ([id number]), editorial writer ABBY DHALIWAL ([id number]) on 08/11/2025 9:10:38 AM Referred By: Confirmed By: USAMA PEREZ MD 08/11/25909 Date _ Usama Perez MD CC: Dr. Ever Barth DO; Dr. Fahad Leiva MD; No Primary Care Physician ~ Signed [facility] Other LDL calc ser/plasOrdered By: Roegr Costa on 08-11-2025 Cholesterol in LDL [Mass/Vol] 143 mg/dL [facility] Comment on above: Hpryjswegl=307-207 m g/dL & Higher Cmwp=518 mg/dL or greaterFriedwald Equation for LDL-C Lipid Profileon 08-11-2025 CHOL:HDL 5.12 Normal [facility] Comment on above: Order Comment: Comme nts: NPO at [place] prior to lipid panel Performed By: #### L 500.0130 #### [facility] [address] [place], [place], [address] Cholesterol [Mass/Vol] 200 mg/dL Normal <=200 [facility] Comment on above: Order Comment: Comme nts: NPO at [place] prior to lipid panel Result Comment: Chol esterol level, Desirable <200 mg/dL Borderline high cholesterol 200-239 mg/dL High cholesterol >=240 mg/dL Recommendations of the NCEP Adult Treatment Panel for the following risk-cutoff thresholds for the [place] population. Performed By: #### L 500.4100 #### [facility] [address] [place], [address] Cholesterol in HDL [Mass/Vol] 39 mg/dL Low [facility] Comment on above: Order Comment: Comme nts: NPO at [place] prior to lipid panel Result Comment: Judith onal Cholesterol Education Program (NCEP) guidelines: <40 mg/dL: Low HDL-cholesterol (major risk factor for CHD) >= 60 mg/dL: High HDL-cholesterol (negative risk factor for CHD) HDL-cholesterol is affected by a number of factors, e.g. smoking, exercise, hormones, sex and age. Performed By: #### L 500.4100 #### [facility] [address] [place], [address] Cholesterol in LDL [Mass/Vol] 143 mg/dL Normal [facility] Comment on above: Order Comment: Comme nts: NPO at [place] prior to lipid panel Result Comment: Bord lzrgln=827-102 mg/dL Higher Ypno=428 mg/dL or greater Friedwald Equation for LDL-C Performed By: #### L 500.4100 #### [facility] [address] [place], [address] Cholesterol in VLDL [Mass/Vol] 18 mg/dL Normal 5-40 [facility] Comment on above: Order Comment: Comme nts: NPO at [place] prior to lipid panel Performed By: #### L 500.4100 #### [facility] [address] [place], [address] Triglyceride [Mass/Vol] 89 mg/dL Normal [facility] Comment on above: Order Comment: Comme nts: NPO at [place] prior to lipid panel Result Comment: The drugs N-Acetylcysteine and Metamizole may falsely depress this assay. Normal range: <150 mg/dL Borderline High: 150-199 mg/dL High: 200-499 mg/dL Very High: >500 mg/dL Performed By: #### L 500.4100 #### [facility] [address] [place], [address] MR/CON.PCM.NEon 08-11-2025 MR/CON.PCM.NE [facility] Medical Records Department [address] [place] [address] Consultation - Neurology 08/11/25 1351 MR#: [id number] Acct: [id number] Name: ARIEL BEAN Rep #: [id number] : 1975 50 From: Narciso Garcia MD PCP: Care Physician,No Primary Status:ADM IN Location: [place] [address] Assessment and Plan: Neuro Assessment/Plan Telestroke (Audio/Video) Attending Stroke Consult Note - 08/11/2025 50 y/o man with h/o HTn, obesity and tobacco dependence p/w confusion, slurred speech and worsening right UE weakness and numbness/tinglin. CT head- subacute left MCA stroke. CTA- left ICA high grade stenosis. MRI brain - left MCA Stroke. LDL-143. Today, he still has mild aphasia and drift in RUE. Denies any new complaints. Diagnosis: Left MCA stroke, symptomatic LICA stenosis Plan: ASA and plavix alnnog with statin. Given symptomatic LICA stenosis, consult vascular surgery for possible revascularization. Follow up TTE. 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 Control of vascular risk factors. Follow up A1c. Sign off for now. Please call us back for any questions. I personally attended this patient and spent a total time of 70 minutes evaluating this patient including clinical assessment, review of chart, medical history imaging, and determining appropriate treatment and workup. HPI Consult Data Date of Consult: 08/12/25 HPI Narrative HPI Narrative: 50 y/o man with h/o HTn, obesity and tobacco dependence p/w confusion, slurred speech and worsening right UE weakness and numbness/tinglin. CT head- subacute left MCA stroke. CTA- left ICA high grade stenosis. MRI brain - left MCA Stroke. LDL-143. Today, he still has mild aphasia and drift in RUE. Denies any new complaints. [facility] Medical History (Updated 08/11/25 @ 14:10 by JUNO Harris) HTN (hypertension) Eye globe prosthesis Home Medications ???Medication ???Instructions ???Recorded ???Last Taken ???Type NK 08/10/25 Unknown History Allergy/AdvReac Type Severity Reaction Status Date / Time No Known Allergies Allergy Verified 08/10/25 19:55 Social History (Updated 08/10/25 @ 18:48 by Keiko French) household members: family housing: house Smoking Status: Light Smoker (<10/day) Vital Signs Vital Signs Vital Signs: 08/10/25 14:00 08/10/25 15:00 08/10/25 16:00 Temperature Temperature Source Pulse Rate 57 L 52 L 49 L Pulse Strength Respiratory Rate 16 19 H 20 H Respiratory Effort Respiratory Depth Respiratory Pattern Blood Pressure 137/83 H 142/70 H 165/74 H Blood Pressure Mean 101 94 104 Blood Pressure Source Blood Pressure Position Blood Pressure Location Pulse Ox 97 98 100 Oxygen Delivery Method Room Air Room Air 08/10/25 17:12 08/10/25 17:13 08/10/25 19:30 Temperature 97.9 F Temperature Source Pulse Rate 60 58 L Pulse Strength Respiratory Rate 17 17 Respiratory Effort Normal Non-Labored Respiratory Depth Normal Respiratory Pattern Normal Blood Pressure 156/94 H 156/94 H Blood Pressure Mean 114 114 Blood Pressure Source Blood Pressure Position Blood Pressure Location Pulse Ox 100 100 Oxygen Delivery Method Room Air Room Air 08/10/25 19:40 08/10/25 22:00 08/10/25 22:52 Temperature 98.1 F Temperature Source Oral Pulse Rate 55 L Pulse Strength Normal (2+) Respiratory Rate 16 Respiratory Effort Respiratory Depth Respiratory Pattern Blood Pressure 140/87 H Blood Pressure Mean 104 Blood Pressure Source Monitor Blood Pressure Position Semi-Fowlers Blood Pressure Location Left Arm Pulse Ox 100 98 Oxygen Delivery Method Room Air Room Air 08/10/25 23:25 08/11/25 03:30 08/11/25 03:30 Temperature 97.6 F L 97.7 F L Temperature Source Oral Oral Pulse Rate 77 57 L Pulse Strength Respiratory Rate 16 16 Respiratory Effort Normal Non-Labored Respiratory Depth Normal Respiratory Pattern Normal Blood Pressure 138/77 H 140/77 H Blood Pressure Mean 97 98 Blood Pressure Source Monitor Monitor Blood Pressure Position Semi-Fowlers Semi-Fowlers Blood Pressure Location Left Arm Left Arm Pulse Ox 97 97 Oxygen Delivery Method Room Air Room Air Room Air 08/11/25 06:45 08/11/25 06:47 08/11/25 07:30 Temperature 98.6 F 97.8 F Temperature Source Oral Oral Pulse Rate 54 L 52 L Pulse Strength Respiratory Rate 16 16 Respiratory Effort Respiratory Depth Respiratory Pattern Blood Pressure 135/75 H 143/85 H Blood Pressure Mean 95 104 Blood Pressure Source Monitor Monitor Blood Pressure Position Supine Supine Blood Pressure Location Left Arm Left Forearm Pulse Ox 99 95 99 Oxygen Delivery Method Room Air Room Air Room Air 08/11/25 07:30 (more content not included)... Normal [facility] Screening total cholesterol/ high density lipoprotein (HDL) cholesterol ratioOrdered By: Roger Costa on 08-11-2025 Cholesterol.total/Monica sterol in HDL [Mass ratio] 5.12 {ratio} [facility] Serum or plasma cholesterol in HDL measurement (mass/volume)Ordered By: Roger Costa on 08-11-2025 Cholesterol in HDL [Mass/Vol] 39 mg/dL Low >40 [facility] Comment on above: National Cholesterol Education Program (NCEP) guidelines:<40 mg/dL: Low HDL-cholesterol (major risk factor for CHD)>= 60 mg/dL: High HDL-cholesterol (negative risk factor for CHD)HDL-cholesterol is affected by a number of factors, e.g. smoking, exercise, hormones, sex and age. Serum or plasma cholesterol measurement (mass/volume)Ordered By: Roger Costa on 08-11-2025 Cholesterol [Mass/Vol] 200 mg/dL <[address] [facility] Comment on above: Cholesterol level, D esirable <200 mg/dLBorderline high cholesterol 200-239 mg/dLHigh cholesterol >=240 mg/dLRecommendations of the NCEP Adult Treatment Panel for the following risk-cutoff thresholds for the [place] population. Triglycerides measurementOrd ered By: Roger Costa on 08-11-2025 Triglyceride [Mass/Vol] 89 mg/dL <199 [facility] Comment on above: The drugs N-Acetylcy steine and Metamizole may falsely depress this assay. Normal range: <150 mg/dLBorderline High: 150-199 mg/dLHigh: 200-499 mg/dLVery High: >500 mg/dL 12 Lead EKGon 08-10-2025 12 Lead EKG [facility] Cardiovascular Services [address] [place] [address] 12 Lead EKG 08/10/25 1412 MR#: [id number] Acct: [id number] Name: ARIEL BEAN Rep #: [id number] : 1975 50 From: Usama Perez MD Attending Dr: Dr. Fahad Leiva MD Status: ADM IN Ordering Dr: Ever Barth DO Date: 5 Location: [facility] Sex: M AA Admitted: 08/10/25 Test Reason : NEURO Blood Pressure : */* mmHG Vent. Rate : 59 BPM Atrial Rate : 59 BPM P-R Int : 234 ms QRS Dur : 94 ms QT Int : 438 ms P-R-T Axes : 58 75 44 degrees QTcB Int : 433 ms Sinus bradycardia with 1st degree A-V block Otherwise normal ECG Confirmed by CHRIS WOLF, USAMA ([id number]), editorial writer ABBY DHALIWAL ([id number]) on 08/11/2025 9:10:38 AM Referred By: Confirmed By: USAMA PEREZ MD 08/11/25 0910 Date Usama Perez MD CC: Dr. Ever Barth DO; Dr. Fahad Leiva MD; No Primary Care Physician Signed Normal [facility] Absolute lymphocyte countOrd ered By: Ever Barth on 08-10-2025 Lymphocytes Auto (Unsp spec) [#/Vol] 2.76 10*3/uL 0.83-4.51 [facility] Absolute neutrophil countOrd ered By: Ever Barth on 08-10-2025 Neutrophils (Bld) [#/Vol] 3.0 10*3/uL 2.0-7.7 [facility] Activated partial thrombopla stin time (aPTT) in platelet poor plasma by coagulation aOrdered By: Ever Barth on 08-10-2025 aPTT Coag (PPP) [Time] 24.9 s 24.1-36.2 [facility] Alcohol, Blood (Medical)-Ser umon 08-10-2025 SERUM ETOH < 10.1 Normal <=10.0 [facility] Comment on above: Result Comment: This test is for medical purposes only. The legal definition of intoxication varies according to local law. Performed By: #### L 503.6005, L500.4050, L501.9100, L505.5000, L300.4310, L300.3900, L100.0100 ####[facility] [address] [place], [address] Amphetamine detection with 1 000 ng/mL as cutoffOrdered By: Ever Tab on 08-10-2025 Amphetamines Screen method >1000 ng/mL Ql (U) Negative < 200 ng/mL [facility] Anion gap in Serum or Plasma Ordered By: [facility] on 08-10-2025 Anion gap [Moles/Vol] 10 mmol/L 5-15 [facility] Automated lymphocyte count a s percentage of total leukocytesOrdered By: Quinhagak RajSuzanne on 08-10-2025 Lymphocytes/100 WBC Auto (Unsp spec) 41.8 % High 19-41 [facility] BUN/creatinine ratioOrdered By: [facility]Suzanne on 08-10-2025 Urea nitrogen/Creatinine [Mass ratio] 23.5 mg/mg High 10-20 [facility] Basophil percentageOrdered B y: Ever AnthonySuzanne on 08-10-2025 Basophils/100 WBC (Bld) 0.3 % 0-1 [facility] Bilirubin Test strip Ql (U)O rdered By: [facility] CenterJuan on 08-10-2025 Bilirubin Ql (U) Negative Negative [facility] Bilirubin, totalOrdered By: [facility]Suzanne on 08-10-2025 Bilirubin [Mass/Vol] 0.23 mg/dL 0.00-1.30 [facility] Brain without Contraston Brain without Contrast [facility] Imaging Services [address] [place], [place] [address] Brain without Contrast MR#: [id number] Acct: [id number] Name: ARIEL BEAN Rep #: [id number] : 1975 M 50 From: Bill Lopez MD PCP: Care Physician,No Primary Status: ADM IN Study: Brain without Contrast Date of Exam: 08/10/25 Exam# [id number] Ordering Dr: Roger Costa DO PROCEDURE: BRAIN WITHOUT CONTRAST 08/10/2025 REASON FOR EXAM: CVA TECHNIQUE: Procedure Code: MRIBR Modality: MR Procedure: BRAIN WITHOUT CONTRAST Multiplanar and multisequence images were obtained. COMPARISON: 08/10/2025. FINDINGS: There are foci of abnormal signal in the left frontoparietal region demonstrating increased diffusion-weighted imaging (DWI) signal, corresponding increased apparent diffusion coefficient (ADC), increased T2 signal, decreased T1 signal, and increased FLAIR signal. No gradient echo susceptibility is identified to suggest hemorrhagic transformation. The ventricles are normal in size and configuration. The paranasal sinuses and mastoid air cells are clear. 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 No evidence of hemorrhagic transformation. Reading Location: [facility] CC: Dr. Roger Costa DO; No Primary Care Physician Edger Operator: Signed Normal [facility] Brain/Head without Contrasto n 08-10-2025 Brain/Head without Contrast [facility] Imaging Services [address] [place], [place] [address] Brain/Head without Contrast MR#: [id number] Acct: [id number] Name: ARIEL BEAN Rep #: [id number] : 1975 M 50 From: Ivan Garay MD PCP: Care Physician,No Primary Status: REG ER Study: Brain/Head without Contrast Date of Exam: 07/14 Exam# [id number] Ordering Dr: Ever Barth DO PROCEDURE: BRAIN/HEAD WITHOUT CONTRAST 08/10/2025 REASON FOR EXAM: CONFUSION TECHNIQUE: Procedure Code: CTBR Modality: CT Procedure: BRAIN/HEAD WITHOUT CONTRAST Coronal and Sagittal reconstruction series were provided. One or more dose reduction techniques were used (e.g., Automated exposure control, adjustment of the mA and/or kV according to patient size, use of iterative reconstruction technique. RADIATION DOSE SUMMARY: CTDlvol: 85 mGy DLP: 1679 mGycm COMPARISON: CT angiogram of the same day FINDINGS: Brain: Hypodensity is seen in the left MCA distribution involving the left insular cortex, anterior MCA cortex (M1), lateral cortex (5) - ASPECTS 7 points. This is worrisome for acute to subacute ischemia. No hemorrhage. Hypodensity in the right cerebellar hemisphere likely sequelae of old infarct. CSF Spaces: Normal Sinuses/Mastoids: Clear Bones: No fracture Left orbit prosthesis. Multiple round, non-specific lesions of the scalp. This should be apparent clinically. CT/Brain/Head without Contrast IMPRESSION: 1. Acute (to subacute) ischemia left MCA distribution. No hemorrhage. Correlate with history. 2. Correlate with CT angiogram as there are critical findings. Stroke Alert: Left MCA acute ischemia The critical findings in the findings and impression above were relayed directly by me by telephone to Ever Barth on 08/10/2025 at 3:05 pm with readback verification. Reading Location: [id number] CC: Dr. Ever aBrth, ; No Primary Care Physician Edger Operator: Signed Normal [facility] CBC W/Diff, Automatedon 07-14 Absolute Lymph 2.76 X10 3/uL Normal 0.83-4.51 [facility] Comment on above: Performed By: #### L 503.6005, L500.4050, L501.9100, L505.5000, L300.4310, L300.3900, L100.0100 ####[facility] [address] [place], [place], [id number] Absolute Neut 3.0 X10 3/uL Normal 2.0-7.7 [facility] Comment on above: Performed By: #### L 503.6005, L500.4050, L501.9100, L505.5000, L300.4310, L300.3900, L100.0100 ####[facility] [address] [place], [address] Basophils/100 WBC (Bld) 0.3 % Normal 0-1 [facility] Comment on above: Performed By: #### L 503.6005, L500.4050, L501.9100, L505.5000, L300.4310, L300.3900, L100.0100 ####[facility] [address] [place], [address] Eosinophils/100 WBC (Bld) 0.6 % Normal 0-5 [facility] Comment on above: Performed By: #### L 503.6005, L500.4050, L501.9100, L505.5000, L300.4310, L300.3900, L100.0100 ####[facility] [address] [place], [address] Erythrocyte distribution width (RBC) [Ratio] 12.3 % Normal 11.6-14.6 [facility] Comment on above: Performed By: #### L 503.6005, L500.4050, L501.9100, L505.5000, L300.4310, L300.3900, L100.0100 ####[facility] [address] [place], [address] Hematocrit (Bld) [Volume fraction] 39.6 % Low 40-54 [facility] Comment on above: Performed By: #### L 503.6005, L500.4050, L501.9100, L505.5000, L300.4310, L300.3900, L100.0100 ####[facility] [address] [place], [address] Hemoglobin (Bld) [Mass/Vol] 13.6 g/dL Normal 13.0-16.5 [facility] Comment on above: Performed By: #### L 503.6005, L500.4050, L501.9100, L505.5000, L300.4310, L300.3900, L100.0100 ####[facility] [address] [place], [address] IG% 0.200 Normal 0.0-0.9 [facility] Comment on above: Result Comment: IG% - Immature Granulocytes (promyelocytes, myelocytes and metamyelocytes) > 1% indicates that a LEFT SHIFT is Present. Performed By: #### L 503.6005, L500.4050, L501.9100, L505.5000, L300.4310, L300.3900, L100.0100 ####[facility] [address] [place], [address] Lymphocytes/100 WBC (Bld) 41.8 % High 19-41 [facility] Comment on above: Performed By: #### L 503.6005, L500.4050, L501.9100, L505.5000, L300.4310, L300.3900, L100.0100 ####[facility] [address] [place], [address] MCH (RBC) [Entitic mass] 29.1 pg Normal 27.0-32.0 [facility] Comment on above: Performed By: #### L 503.6005, L500.4050, L501.9100, L505.5000, L300.4310, L300.3900, L100.0100 ####[facility] [address] [place], [address] MCHC (RBC) [Mass/Vol] 34.3 g/dL Normal 32-36 [facility] Comment on above: Performed By: #### L 503.6005, L500.4050, L501.9100, L505.5000, L300.4310, L300.3900, L100.0100 ####[facility] [address] [place], [address] MCV (RBC) [Entitic vol] 84.6 fL Normal 80-94 [facility] Comment on above: Performed By: #### L 503.6005, L500.4050, L501.9100, L505.5000, L300.4310, L300.3900, L100.0100 ####[facility] [address] [place], [address] Monocytes/100 WBC (Bld) 11.1 % High 0-10 [facility] Comment on above: Performed By: #### L 503.6005, L500.4050, L501.9100, L505.5000, L300.4310, L300.3900, L100.0100 ####[facility] [address] [place], [address] Neutrophils/100 WBC (Bld) 46.0 % Low 47-70 [facility] Comment on above: Performed By: #### L 503.6005, L500.4050, L501.9100, L505.5000, L300.4310, L300.3900, L100.0100 ####[facility] [address] [place], [address] Nucleated RBC (Bld) [#/Vol] 0 10*3/uL Normal 0-5 [facility] Comment on above: Performed By: #### L 503.6005, L500.4050, L501.9100, L505.5000, L300.4310, L300.3900, L100.0100 ####[facility] [address] [place], [address] Platelet mean volume (Bld) [Entitic vol] 9.7 fL Normal 6.2-12.0 [facility] Comment on above: Performed By: #### L 503.6005, L500.4050, L501.9100, L505.5000, L300.4310, L300.3900, L100.0100 ####[facility] [address] [place], [address] Platelets (Bld) [#/Vol] 380 10*3/uL Normal 150-450 [facility] Comment on above: Performed By: #### L 503.6005, L500.4050, L501.9100, L505.5000, L300.4310, L300.3900, L100.0100 ####[facility] [address] [place], [address] RBC (Bld) [#/Vol] 4.68 10*6/uL Normal 4.6-6.2 [facility] Comment on above: Performed By: #### L 503.6005, L500.4050, L501.9100, L505.5000, L300.4310, L300.3900, L100.0100 ####[facility] [address] [place], [address] RDW SD 36.7 fl Normal 35.1-43.9 [facility] Comment on above: Performed By: #### L 503.6005, L500.4050, L501.9100, L505.5000, L300.4310, L300.3900, L100.0100 ####[facility] [address] [place], [address] WBC (Bld) [#/Vol] 6.6 10*3/uL Normal 4.4-11.0 [facility] Comment on above: Performed By: #### L 503.6005, L500.4050, L501.9100, L505.5000, L300.4310, L300.3900, L100.0100 ####[facility] [address] [place], [address] CTA Head AND Neck W/ Contras ton 08-10-2025 CTA Head AND Neck W/ Contrast [facility] Imaging Services [address] [place] [address] CTA Head AND Neck W/ Contrast MR#: [id number] Acct: [id number] Name: ARIEL BEAN Rep #: [id number] : 1975 M 50 From: Ivan Garay MD PCP: Care Physician,No Primary Status: REG ER Study: CTA Head AND Neck W/ Contrast Date of Exam: Exam# [id number] Ordering Dr: Ever Barth DO PROCEDURE: CTA HEAD AND NECK W/ CONTRAST 08/10/2025 REASON FOR EXAM: CONFUSION TECHNIQUE: Procedure Code: CTCTA.HDNCK Modality: CT Procedure: CTA HEAD AND NECK W/ CONTRAST Multiplanar Sagittal and Coronal images were obtained. 3D post processing was performed CONTRAST: Optiray 320 VOLUME: 100 mL One or more dose reduction techniques were used (e.g., Automated exposure control, adjustment of the mA and/or kV according to patient size, use of iterative reconstruction technique). RADIATION DOSE SUMMARY: CTDlvol: 86 mGy DLP: 1679 mGycm COMPARISON: Head CT of the same day FINDINGS: Aortic Arch: Normal size and branching pattern. No significant atherosclerotic plaque. Brachiocephalic and Subclavians: Unremarkable RIGHT Carotid: Right CCA: Unremarkable. Right ICA: Mild eccentric plaque at the proximal internal carotid artery. Calcified and noncalcified soft plaque of the cavernous and supraclinoid internal carotid arteries without flow limitation. However, there is at least 50% narrowing of the supraclinoid portion. Maximum stenosis (NASCET): Less than 25 % Right ECA: Unremarkable LEFT Carotid: Left CCA: Unremarkable. Left ICA: Atherosclerotic plaque is present in primarily is soft plaque that has an infundibular morphology over the proximal 2 cm that terminates and a string sign. Calcified and noncalcified soft plaque of the supraclinoid internal carotid artery is likely flow-limiting. Maximum stenosis (NASCET): 70-99 % Left ECA: Unremarkable. Vertebrals: Codominant. Arise from the subclavians. Both vertebrals form the basilar. RIGHT Vertebral: Unremarkable. LEFT Vertebral: Unremarkable. Anatomy: [place] anatomy is normal. Aneurysm or avm: No intracranial aneurysms or large vascular malformations are identified. Anterior cerebral arteries: Patent bilaterally. Small caliber left A1 segment. Hypoplasia versus atherosclerosis. Middle cerebral arteries: Unremarkable. Basilar artery: Unremarkable. Posterior cerebral arteries: Unremarkable. Other major branches of the posterior circulation: There are possibly very small caliber patent posterior communicating arteries. Major venous structures: Unremarkable. Other findings: Neck: Fullness of the palatine tonsils bilaterally. Fullness of the soft tissues of the nasopharynx and uvula. Lungs: Clear. Bones: Degenerative changes mid to lower cervical spine. CT/CTA Head AND Neck W/ Contrast IMPRESSION: 1. Critical stenosis involving the proximal left internal carotid artery. Additionally, supraclinoid portion of the left internal carotid artery with likely flow limitation. Urgent vascular surgical consultation suggested. 2. 50% stenosis right supraclinoid internal carotid artery. 3. Hypoplastic versus atherosclerotic A1 segment on the left. 4. No evidence of large vessel occlusion at the MCA at this time. 5. Correlate with the head CT of the same day as there are positive findings. 6. Enlargement of the lymphoid tissue of the nasopharynx, palatine tonsils and uvula. Correlate with direct inspection, history and physical. Stroke Alert: Acute ischemia. Critical stenosis. The critical findings in the findings and impression above were relayed directly by me by telephone to Ever Barth on 08/10/2025 at 3:05 pm with readback verification. Reading Location: [id number] CC: Dr. Ever Barth, DO; No Primary Care Physician Edger Operator: Signed Normal [facility] Carbon dioxide, total [Moles /volume] in Central venous bloodOrdered By: Ever Barth on 08-10-2025 CO2 [Moles/Vol] 23.2 mmol/L 21.0-32.0 [facility] Chest PA and Lateralon 08-10 Chest PA and Lateral [facility] Imaging Services [address] [place] [address] Chest PA and Lateral MR#: [id number] Acct: [id number] Name: ARIEL BEAN Rep #: [id number] : 1975 M 50 From: Ivan Garay MD PCP: Care Physician,No Primary Status: REG ER Study: Chest PA and Lateral Date of Exam: 08/10/25 Exam# [id number] Ordering Dr: Ever Barth DO PROCEDURE: CHEST PA AND LATERAL 08/10/2025 REASON FOR EXAM: CONFUSION TECHNIQUE: Procedure Code: RADCXR Modality: DX Procedure: CHEST PA AND LATERAL COMPARISON: None FINDINGS: Hardware: EKG leads Heart: Mild cardiac enlargement. Mediastinum: Aorta is atherosclerotic. Lungs: Hypoventilation. Otherwise clear. No pleural effusion or pneumothorax. Bones: The bones are unremarkable. RAD/Chest PA and Lateral IMPRESSION: No acute abnormality Reading Location: [id number] CC: Dr. Ever Barth DO; No Primary Care Physician Edger Operator: Signed Normal [facility] Chloride assayOrdered By: Billy Barth on 08-10-2025 Chloride [Moles/Vol] 106 mmol/L 98-108 [facility] Comprehensive Metabolic Prof ilon 08-10-2025 Albumin [Mass/Vol] 3.9 g/dL Normal 3.5-5.0 [facility] Comment on above: Performed By: #### L 503.6005, L500.4050, L501.9100, L505.5000, L300.4310, L300.3900, L100.0100 ####[facility] [address] [place], [address] Albumin/Globulin [Mass ratio] 1.2 {ratio} Normal 0.9-2.4 [facility] Comment on above: Performed By: #### L 503.6005, L500.4050, L501.9100, L505.5000, L300.4310, L300.3900, L100.0100 ####[facility] [address] [place], [address] ALK PHOS 99 U/L Normal 40-129 [facility] Comment on above: Performed By: #### L 503.6005, L500.4050, L501.9100, L505.5000, L300.4310, L300.3900, L100.0100 ####[facility] [address] [place], [address] ALT [Catalytic activity/Vol] 26 U/L Normal <=46 [facility] Comment on above: Performed By: #### L 503.6005, L500.4050, L501.9100, L505.5000, L300.4310, L300.3900, L100.0100 ####[facility] [address] [place], [address] AST [Catalytic activity/Vol] 19 U/L Normal <=37 [facility] Comment on above: Performed By: #### L 503.6005, L500.4050, L501.9100, L505.5000, L300.4310, L300.3900, L100.0100 ####[facility] [address] [place], [address] Bilirubin [Mass/Vol] 0.23 mg/dL Normal 0.00-1.30 [facility] Comment on above: Performed By: #### L 503.6005, L500.4050, L501.9100, L505.5000, L300.4310, L300.3900, L100.0100 ####[facility] [address] [place], [address] BUN/CRE 23.5 RATIO High 10-20 [facility] Comment on above: Performed By: #### L 503.6005, L500.4050, L501.9100, L505.5000, L300.4310, L300.3900, L100.0100 ####[facility] [address] [place], [address] Calcium [Mass/Vol] 9.1 mg/dL Normal 7.6-11.0 [facility] Comment on above: Performed By: #### L 503.6005, L500.4050, L501.9100, L505.5000, L300.4310, L300.3900, L100.0100 ####[facility] [address] [place], [address] Chloride [Moles/Vol] 106 mmol/L Normal 98-108 [facility] Comment on above: Performed By: #### L 503.6005, L500.4050, L501.9100, L505.5000, L300.4310, L300.3900, L100.0100 ####[facility] [address] [place], [address] CO2 [Moles/Vol] 23.2 mmol/L Normal 21.0-32.0 [facility] Comment on above: Performed By: #### L 503.6005, L500.4050, L501.9100, L505.5000, L300.4310, L300.3900, L100.0100 ####[facility] [address] [place], [address] Creatinine [Mass/Vol] 0.72 mg/dL Normal 0.70-1.20 [facility] Comment on above: Performed By: #### L 503.6005, L500.4050, L501.9100, L505.5000, L300.4310, L300.3900, L100.0100 ####[facility] [address] [place], [address] ECRCL 166.57 ml/min Normal 50-250 [facility] Comment on above: Performed By: #### L 503.6005, L500.4050, L501.9100, L505.5000, L300.4310, L300.3900, L100.0100 ####[facility] [address] [place], [address] GAP 10 Normal 5-15 [facility] Comment on above: Performed By: #### L 503.6005, L500.4050, L501.9100, L505.5000, L300.4310, L300.3900, L100.0100 ####[facility] [address] [place], [address] GFR/1.73 sq M.predicted among non-blacks MDRD (S/P/Bld) [Vol rate/Area] 110 mL/min/{1.73_m2} Normal >60 [facility] Comment on above: Result Comment: mL/m in/1.73m2 CKD-EPI Creatinine Equation (2020) Performed By: #### L 503.6005, L500.4050, L501.9100, L505.5000, L300.4310, L300.3900, L100.0100 ####[facility] [address] [place], [address] Globulin (S) [Mass/Vol] 3.3 g/dL Normal 2.2-4.2 [facility] Comment on above: Performed By: #### L 503.6005, L500.4050, L501.9100, L505.5000, L300.4310, L300.3900, L100.0100 ####[facility] [address] [place], [address] Glucose [Mass/Vol] 117 mg/dL High 70-99 [facility] Comment on above: Performed By: #### L 503.6005, L500.4050, L501.9100, L505.5000, L300.4310, L300.3900, L100.0100 ####[facility] [address] [place], [address] Potassium [Moles/Vol] 3.5 mmol/L Normal 3.3-5.1 [facility] Comment on above: Performed By: #### L 503.6005, L500.4050, L501.9100, L505.5000, L300.4310, L300.3900, L100.0100 ####[facility] [address] [place], [address] Sodium [Moles/Vol] 139 mmol/L Normal 133-145 [facility] Comment on above: Performed By: #### L 503.6005, L500.4050, L501.9100, L505.5000, L300.4310, L300.3900, L100.0100 ####[facility] [address] [place], [address] T PROT 7.2 g/dL Normal 5.9-8.4 [facility] Comment on above: Performed By: #### L 503.6005, L500.4050, L501.9100, L505.5000, L300.4310, L300.3900, L100.0100 ####[facility] [address] [place], [address] Urea nitrogen [Mass/Vol] 17 mg/dL Normal 4-19 [facility] Comment on above: Performed By: #### L 503.6005, L500.4050, L501.9100, L505.5000, L300.4310, L300.3900, L100.0100 ####[facility] [address] [place], [address] Echo Complete W/ Contraston 08-10-2025 Echo Complete W/ Contrast [facility] Cardiovascular Services [address] [place] [address] Echo Complete W/ Contrast 08/11/25 0931 MR#: [id number] Acct: [id number] Name: ARIEL BEAN Rep #: [id number] : 1975 50 From: Usama Perez MD Attending Dr: Dr. Fahad Leiva MD Status: ADM IN Ordering Dr: Roger Costa DO Date: 08/10/25 Location: U Sex: M AA Admitted: 08/10/25 Reason For Study Reason For Study: TIA/CVA Procedure This was a 2D Doppler, Color Flow transthoracic echocardiogram. The study was technically difficult. Contrast injection was performed. Exam performed portable in patient room. Left Ventricle Normal LV size. Mild concentric left ventricular hypertrophy. Left ventricular systolic function is normal. The left ventricular ejection fraction is 60 %. No regional wall motion abnormalities noted. Right Ventricle Normal RV size. Normal systolic function. Atria Normal left atrium. Normal right atrium. Bubble contrast study is negative for PFO/ASD. Mitral Valve Normal mitral valve. Tricuspid Valve Normal tricuspid valve. Aortic Valve Trisinus/trileaflet aortic valve. Pulmonic Valve Normal pulmonic valve. Great Vessels Normal aortic root. The pulmonary artery is normal size. Inferior vena cava collapse with respiration. Pericardium/Pleural No pericardial effusion. Medication Diluted definity 2ml given slow IV push to enhance endocardial definition. Performed a rapid injection of agitated mix of 9 cc saline and 1cc air to assess for atrial septal defect. MMode/2D Measurements Calculations LVIDd: 4.5 cm IVSd: 1.2 cm LVOT diam: 2.0 cm LVIDs: 2.3 cm LVPWd: 1.2 cm RVDd: 4.2 cm FS: 48.3 % LVOT area: 3.2 cm2 asc Aorta Diam: 3.8 cm LAV(MOD-bp): 43.5 ml LVAd ap4: 43.3 cm2 LAV(MOD-bp) Indexed: 17.4 ml/m2 LVLd ap4: 9.0 cm LAV(MOD-sp2): 41.5 ml EDV(MOD-sp4): 171.4 ml LAV(MOD-sp4): 39.1 ml EDV(sp4-el): 175.9 ml LVAs ap4: 25.5 cm2 LVLs ap4: 8.3 cm ESV(MOD-sp4): 66.3 ml ESV(sp4-el): 66.3 ml EF(MOD-sp4): 61.3 % EF(sp4-el): 62.3 % LVAd ap2: 42.0 cm2 SV(MOD-sp4): 105.1 ml SV(MOD-sp2): 85.6 ml LVLd ap2: 9.5 cm SI(MOD-sp4): 41.9 ml/m2 SI(MOD-sp2): 34.2 ml/m2 EDV(MOD-sp2): 152.6 ml EDV(sp2-el): 158.1 ml LVAs ap2: 25.5 cm2 LVLs ap2: 8.0 cm ESV(MOD-sp2): 67.0 ml ESV(sp2-el): 68.9 ml EF(MOD-sp2): 56.1 % SV(sp4-el): 109.6 ml Ao sinus diam: 3.[address] Junction: 2.7 cm LA dimension(2D): 4.1 cm LA A4 area: 16.3 cm2 RA A4 area: 11.7 cm2 TAPSE: 1.3 cm Time Measurements MV dec time: 0.26 sec Doppler Measurements Calculations MV E max fide: 96.9 cm/sec Lat Peak E' Fide: 13.1 cm/sec Med Peak E' Fide: 8.6 cm/sec MV A max fide: 92.9 cm/sec E/E' lat: 7.4 E/E' med: 11.3 MV E/A: 1.0 MV dec slope: 376.0 cm/sec2 Ao V2 max: 147.2 cm/sec LV V1 max: 107.4 cm/sec Ao max P.7 mmHg LV V1 max P.6 mmHg Ao V2 mean: 88.0 cm/sec LV V1 mean P.2 mmHg Ao mean P.8 mmHg LV V1 mean: 69.5 cm/sec Ao V2 VTI: 35.7 cm LV V1 VTI: 23.0 cm AV (velocity ratio): 0.65 CHERELLE(I,D): 2.1 cm2 CHERELLE(V,D): 2.3 cm2 SV(LVOT): 73.4 ml PA V2 max: 96.8 cm/sec ECHO/Echo Complete W/ Contrast Interpretation Summary Normal LV size. Left ventricular systolic function is normal. The left ventricular ejection fraction is 60 %. Bubble contrast study is negative for PFO/ASD. Mild concentric left ventricular hypertrophy. Contrast injection was performed. Ordering Physician: Roger Costa Performed By: Rosalinda Davenport RDCS 08/11/251923 Date Usama Perez MD CC: Dr. Roger Costa DO; Dr. Fahad Leiva MD; No Primary Care Physician Date Dictated: 08/11/25930 Date Transcribed: 08/11/251923 Edger Operator: Signed Normal [facility] Emergency Department Summary on 08-10-2025 Emergency Department [address] [facility] Medical Records Department [address] [place] [address] Emergency Department Summary 08/10/25 MR#: [id number] Acct: [id number] Name: ARIEL BEAN Rep #: [id number] : 1975 50 From: Ever Barth DO PCP: Care Physician,No Primary Status:ADM IN Location: [place] [address] HPI History of Present Illness Chief Complaint: Neuro S/Sx Narrative Narrative: Chief complaint and HPI: 50-year-old gentleman presents for evaluation for intermittent confusion and generalized weakness for the past 2 weeks. Close contact in the room states that the patient's last known normal was prior to 07/25/2025. Close contact states she saw the patient on 07/25/2025 and he seemed intermittently confused about what he was doing. States that it is progressively worsened. Patient states he feels confused and is intermittently mixing his words. He states approximately 3 weeks ago he had his head on a concrete wall. He denies any LOC. Not on blood thinners. He denies any fever, chills, shortness of breath, chest pain, abdominal pain, nausea, vomiting, dysuria, numbness/tingling. States he feels that he is occasionally slurring his speech. Review of systems: See HPI Medications: As listed on the chart Allergies: As listed on the chart PFSH: Per chart Vital signs: As listed on the chart. Reviewed. 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 ENT: Mildly dry mucous membranes, No facial asymmetry Neck: Trachea midline, No JVD CV: RRR, no murmurs, no peripheral edema Resp: Lungs CTA BL, no w/r/c GI: Abd soft, non-distended, non-tender, no r/r/g Musc: Full ROM except for the right upper extremity secondary to right shoulder pain that has been ongoing for several weeks, no deformity, strength +5/5 in all extremities, no pronator drift, no ataxia Skin: Warm, dry, intact Neuro: Alert, grossly intact, sensation intact, occasionally slurring certain words Psych: Cooperative [facility] Medical History (Updated 08/10/25 @ 18:48 by Keiko French) HTN (hypertension) Eye globe prosthesis Home Medications ???Medication ???Instructions ???Recorded ???Last Taken ???Type NK 08/10/25 Unknown History Allergy/AdvReac Type Severity Reaction Status Date / Time No Known Allergies Allergy Verified 08/10/25 19:55 Social History (Updated 08/10/25 @ 18:48 by Keiko See) household members: family housing: house Smoking Status: Light Smoker (<10/day) EXAM Physical Exam Const Vital Signs: 08/10/25 15:00 08/10/25 16:00 Pulse Rate 52 L 49 L Respiratory Rate 19 H 20 H Blood Pressure 142/70 H 165/74 H Blood Pressure Mean 94 104 Pulse Ox 98 100 Oxygen Delivery Method Room Air Physical Exam Const Vital Signs: 08/10/25 15:00 08/10/25 16:00 Pulse Rate 52 L 49 L Respiratory Rate 19 H 20 H Blood Pressure 142/70 H 165/74 H Blood Pressure Mean 94 104 Pulse Ox 98 100 Oxygen Delivery Method Room Air MDM MDM MDM Narrative Medical decision making narrative: 50-year-old gentleman presents for evaluation for intermittent confusion and generalized weakness for the past 2 weeks. Close contact in the room states that the patient's last known normal was prior to 07/25/2025. Close contact states she saw the patient on 07/25/2025 and he seemed intermittently confused about what he was doing. States that it is progressively worsened. Patient states he feels confused and is intermittently mixing his words. He states approximately 3 weeks ago he had his head on a concrete wall. He denies any LOC. On presentation patient is alert but fatigued. He is confused. Slow to respond. Vital stable. See physical exam findings. Differential diagnosis includes but is not limited to concussion, traumatic brain injury, CVA, electrolyte abnormality, dehydration, UTI. NS bolus ordered. CBC without leukocytosis or anemia. Platelets unremarkable. Coagulation panel unremarkable. CMP unremarkable. CTA head and neck shows critical stenosis involving the proximal left internal carotid artery additional supraclinoid portion of the left internal carotid artery with likely flow limitation. Urgent vascular surgery consultation suggested. 50% stenosis of the right supraclinoid internal carotid artery. Hypoplastic versus atherosclerotic A1 segment on the left. No evidence of LVO at the MCA at this time. Enlargement of the lymphoid tissue to the nasopharynx and palatine tonsils. I personally received a call from the radiologist. He is awaiting CT head without contrast. EKG: Interpreted by me/EM physician: EKG shows sinus bradycardia with first-degree AV block. Hea (more content not included)... Normal [facility] Eosinophil percentageOrdered By: Ever Barth on 08-10-2025 Eosinophils/100 WBC (Bld) 0.6 % 0-5 [facility] Erythrocyte distribution wid th ratioOrdered By: Ever Barth on 08-10-2025 Erythrocyte distribution width (RBC) [Ratio] 12.3 % 11.6-14.6 [facility] Erythrocyte distribution wid th standard deviationOrdered By: [facility] Hospitalcherie Palacios on 08-10-2025 Erythrocyte distribution width (RBC) [Ratio] 36.7 fl 35.1-43.9 [facility] Glomerular filtration rate ( GFR) estimation/1.73 sq m using serum, plasma, or whole bOrdered By: [facility] HospitalJean Carlos on 08-10-2025 GFR/1.73 sq M.predicted among non-blacks MDRD (S/P/Bld) [Vol rate/Area] 110 mL/min/{1.73_m2} >60 [facility] Comment on above: mL/min/1.73m2 CKD-EP I Creatinine Equation (2020) H AND P Exam - [facility] 08-10-2025 H&P Exam - Hospitalist [facility] Medical Records Department [address] [place] [address] H P Exam - Hospitalist 08/10/25 1708 MR#: [id number] Acct: [id number] Name: ARIEL BEAN Rep #: [id number] : 1975 50 From: Roger Costa DO PCP: Care Physician,No Primary Status:ADM IN Location: [place] [address] HPI - General General Date of Admission: 08/10/25 Date of Service: 08/10/25 Chief Complaint: Confusion, slurred speech and worsening right upper extremity weakness and numbness/tingling HPI Narrative ARIEL BEAN, is a 50 M who presented to [facility] ED on 08/10/2025 with confusion, slurred speech and worsening right upper extremity weakness and numbness/tingling. Medical history is significant for hypertension, class II obesity and tobacco dependence. Patient reports intermittent right upper extremity numbness/tingling for the right shoulder down to the hand for the past few months. He was seen in the ED here in late April for this. CT neck without contrast was negative for cervical spine pathology. Given that he was neurologically intact, CT brain and CTA head/neck were not done. Patient was accompanied by significant other today. She noted that 2 weeks ago on 07/25 he appeared to be more confused and had intermittent slurred speech. Since then he has progressively become more confused with worsening slurring of his speech. He has also developed right upper extremity weakness with inability to lift his arm up to 90 degrees. For this reason they came to the ED for further evaluation. On CT brain he was found to have acute to subacute ischemia in the left MCA distribution with no hemorrhage noted. CTA head/neck showed critical stenosis involving the proximal left internal carotid artery with likely flow limitation. Case was discussed with Dr. Nguyễn who reviewed the imaging and agreed with the radiology call of critical stenosis and suspected this was the cause of his left MCA stroke. He recommended admitting for further stroke workup with MRI brain and echo and initiating dual antiplatelet therapy, with likely plan for surgical intervention in the next 1 to 2 weeks. Hospitalist was then contacted for admission. I saw the patient at bedside in the ED, significant other was present. Patient was sitting back fairly comfortably in bed and answering questions with short appropriate responses. He did have some slurred speech noted with a few answers. 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 He reported numbness/tingling from the shoulder down to the hands. Also reports numbness/tingling in the right side of his face and into his neck. He denied any right lower extremity weakness or numbness/tingling. No other acute concerns this time. Will be admitted for further management. [facility] Medical History (Updated 08/10/25 @ 18:48 by Keiko French) HTN (hypertension) Eye globe prosthesis Home Medications ???Medication ???Instructions ???Recorded ???Last Taken ???Type NK 08/10/25 Unknown History Allergy/AdvReac Type Severity Reaction Status Date / Time No Known Allergies Allergy Verified 08/10/25 19:55 Social History (Updated 08/10/25 @ 18:48 by Keiko French) household members: family housing: house Smoking Status: Light Smoker (<10/day) ROS Constitutional Constitutional: Reports weakness; Denies chills, fatigue or fever(s) Eyes Eyes: Denies change in vision Cardiovascular Cardiovascular: Denies chest pain Respiratory/Chest Respiratory/Chest: Denies shortness of breath at rest Gastrointestinal Gastrointestinal: Denies abdominal pain Musculoskeletal Musculoskeletal: Denies arthralgias, myalgias or neck pain Neurologic Neurologic: Reports abnormal gait, abnormal speech, confusion, disequilibrium, focal weakness, numbness, paresthesias and tingling; Denies dizziness or headache(s) Vital Signs Vital Signs Vital Signs: 08/10/25 11:58 08/10/25 12:58 08/10/25 14:00 Temperature 98.7 F Temperature Source Oral Pulse Rate 90 63 57 L Respiratory Rate 18 16 Blood Pressure 118/65 129/78 H 137/83 H Blood Pressure Mean 82 95 101 Pulse Ox 97 98 97 Oxygen Delivery Method Room Air Room Air Room Air 08/10/25 15:00 08/10/25 16:00 Temperature Temperature Source Pulse Rate 52 L 49 L Respiratory Rate 19 H 20 H Blood Pressure 142/70 H 165/74 H Blood Pressure Mean 94 104 Pulse Ox 98 100 Oxygen Delivery Method Room Air Weight Weight: 133.8 kg Body Mass Index (BMI) 40.0 Physical Exam Const alert, oriented x3 and no apparent distress Constitutional Narrative: Pleasant middle-age male, class II obesity, intermittent slurred speech no (more content not included)... Normal [facility] Hematocrit Auto (Bld) [Volum e fraction]Ordered By: Ever Barth on 08-10-2025 Hematocrit (Bld) [Volume fraction] 39.6 % Low 40-54 [facility] Hemoglobin A1con 08-10-2025 HbA1c (Bld) [Mass fraction] 6.7 % High <=5.6 [facility] Comment on above: Result Comment: Norm al < 5.7 % Prediabetic 5.7 - 6.4 % Diabetic >or= 6.5 % Please note range changes. Performed By: #### L 501.2607, L501.9916 ####[facility] [address] [place], [address] Hemoglobin A1c percentageOrd ered By: Roger Costa on 08-10-2025 HbA1c (Bld) [Mass fraction] 6.7 % High <5.7 [facility] Comment on above: Normal < 5.7 % Predi abetic 5.7 - 6.4 % Diabetic >or= 6.5 % Please note range changes. Hemoglobin measurementOrdere d By: Ever Barth on 08-10-2025 Hemoglobin (Bld) [Mass/Vol] 13.6 g/dL 13.0-16.5 [facility] Immature granulocytes/100 WB C Auto (Bld)Ordered By: Ever Barth on 08-10-2025 Immature granulocytes/100 WBC (Bld) 0.200 % 0.0-0.9 [facility] Comment on above: IG% - Immature Granu locytes (promyelocytes, myelocytes and metamyelocytes) > 1% indicates that a LEFT SHIFT is Present. International normalized rat io (INR) calculationOrdered By: Ever Barth on 08-10-2025 INR Coag (Bld) [Relative time] 1.1 {INR} [facility] Ketones Test strip Ql (U)Ord ered By: Ever Barth on 08-10-2025 Ketones Ql (U) Negative Negative [facility] L501.4021on 08-10-2025 Trop T High Sen 8 ng/L Normal <=22 [facility] Comment on above: Performed By: #### L 501.4021 ####[facility] [address] [place], [place], [id number] Laboratory - Chemistry and C hemistry - challengeOrdered By: Ever Barth on 08-10-2025 AST [Catalytic activity/Vol] 19 U/L <38 [facility] Lactic Acidon 08-10-2025 Lactate [Moles/Vol] mmol/L Normal 0.0-2.0 [facility] Comment on above: Order Comment: Y Performed By: #### L 503.6005, L500.4050, L501.9100, L505.5000, L300.4310, L300.3900, L100.0100 ####[facility] [address] [place], [place], [id number] Lactic acid measurementOrder ed By: Ever Barth on 08-10-2025 Lactate [Moles/Vol] mmol/L 0.0-2.0 [facility] MCV (mean corpuscular volume ) determinationOrdered By: Ever Barth on 08-10-2025 MCV (RBC) [Entitic vol] 84.6 fL 80-94 [facility] Magnetic resonance imaging r eportOrdered By: Bill Lopez on 08-10-2025 Study report [facility] Imaging Services [address] [place] [address] Brain without Contrast MR#: [id number] Acct: [id number] Name: ARIEL BEAN Rep #: [id number] : 1975 M 50 From: Kirt Lopez MD PCP: Care Physician,No Primary Status: ADM IN Study:Brain without Contrast Date of Exam: 08/10/25 Exam# [id number] Ordering Dr: Roger Broussard DO PROCEDURE: BRAIN WITHOUT CONTRAST 08/10/2025 REASON FOR EXAM: CVA TECHNIQUE: Procedure Code: MRIBR Modality: MR Procedure: BRAIN WITHOUT CONTRAST Multiplanar and multisequence images were obtained. COMPARISON: 08/10/2025. FINDINGS: There are foci of abnormal signal in the left frontoparietal region demonstrating increased diffusion-weighted imaging (DWI) signal, corresponding increased apparent diffusion coefficient (ADC), increased T2 signal, decreased T1 signal, and increased FLAIR signal. No gradient echo susceptibility is identified to suggest hemorrhagic transformation. The ventricles are normal in size and configuration. The paranasal sinuses and mastoid air cells are clear. 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 No evidence of hemorrhagic transformation. Reading Location: [id number] CC: Dr. Roger Costa DO; No Primary Care Physician ~ Edger Operator: Signed [facility] Mean corpuscular hemoglobin (MCH) determinationOrdered By: Ever Barth on 08-10-2025 MCH (RBC) [Entitic mass] 29.1 pg 27.0-32.0 [facility] Mean corpuscular hemoglobin concentration (MCHC) determinationOrdered By: Ever Barth on 08-10-2025 MCHC (RBC) [Mass/Vol] 34.3 g/dL 32-36 [facility] Mean platelet volume determi nationOrdered By: Ever Barth on 08-10-2025 Platelet mean volume (Bld) [Entitic vol] 9.7 fL 6.2-12.0 [facility] Microscopic analysis of urin e for red blood cells (RBC)Ordered By: Ever Barth on 08-10-2025 Microscopic analysis of urine for red blood cells (RBC) 0-5 SEEN /hpf 0-5 [facility] Monocyte percentageOrdered B y: Ever Barth on 08-10-2025 Monocytes/100 WBC (Bld) 11.1 % High 0-10 [facility] Mucus LM Ql (Urine sed)Order ed By: Ever Barth on 08-10-2025 Mucus Ql (Urine sed) 0 SEEN /hpf [facility] Neutrophil percentageOrdered By: Ever Barth on 08-10-2025 Neutrophils/100 WBC (Bld) 46.0 % Low 47-70 [facility] Nitrite Test strip Ql (U)Ord ered By: Ever Barth on 08-10-2025 Nitrite Ql (U) Negative Negative [facility] No Panel InformationOrdered By: Ever Barth on 08-10-2025 Urine Buprenorphine Qualitative Negative < 200 ng/mL [facility] Urine Oxycodone Screen Negative < 100 ng/mL [facility] Nucleated red blood cell per centageOrdered By: Ever Barth on 08-10-2025 Nucleated RBC/100 WBC (Bld) [Ratio] 0 % 0-5 [facility] Partial Thromboplast Timeon 08-10-2025 aPTT Coag (Bld) [Time] 24.9 s Normal 24.1-36.2 [facility] Comment on above: Performed By: #### L 503.6005, L500.4050, L501.9100, L505.5000, L300.4310, L300.3900, L100.0100 ####[facility] [address] [place], [address](725) Platelet countOrdered By: Billy Barth on 08-10-2025 Platelets (Bld) [#/Vol] 380 10*3/uL 150-450 [facility] Potassium measurement (mass/ volume)Ordered By: Ever Juan on 08-10-2025 Potassium (Unsp spec) [Mass/Vol] 3.5 mmol/L 3.3-5.1 [facility] Protein Test strip Ql (U)Ord ered By: Ever Barth on 08-10-2025 Protein Ql (U) 15 mg/dl High Negative [facility] Prothrombin Time w/INRon INR Coag (PPP) [Relative time] 1.1 {INR} Normal [facility] Comment on above: Performed By: #### L 503.6005, L500.4050, L501.9100, L505.5000, L300.4310, L300.3900, L100.0100 ####[facility] [address] [place], [address] PT Coag (PPP) [Time] 13.9 s Normal 11.7-14.9 [facility] Comment on above: Performed By: #### L 503.6005, L500.4050, L501.9100, L505.5000, L300.4310, L300.3900, L100.0100 ####[facility] [address] [place], [address] Prothrombin timeOrdered By: Ever Barth on 08-10-2025 PT Coag (PPP) [Time] 13.9 s 11.7-14.9 [facility] Quantitative urine opiates m easurementOrdered By: Ever Barth on 08-10-2025 Opiates Ql (U) Negative < 300 ng/mL [facility] RBC Auto (Bld) [#/Vol]Ordere d By: Ever Barth on 08-10-2025 RBC (Bld) [#/Vol] 4.68 10*6/uL 4.6-6.2 [facility] Screening urine fentanyl javier surementOrdered By: Ever Barth on 08-10-2025 fentaNYL Screen Ql (U) Negative <5 ng/mL [facility] Comment on above: CONFIRMATORY TESTING FOR ALL POSITIVE URINE DRUG SCREENRESULTS WILL ONLY BE SENT OUT UPON PHYSICIAN ORDER. [facility] Urine Drug Screen methods provide only preliminaryanalytical test results. A more specific alternate chemicalmethod must be used in order to obtain a confirmedanalytical result. Gas chromatography/mass spectrometery(GC/MS) is the preferred confirmatory method. Clinicalconsideration and professional judgement should be appliedto any drug of abuse test result, particularly whenpreliminary positive results are used. Urine TCA testing must be ordered separately. Use test mnemonic: [facility] Serum creatinine measurement (mass/volume)Ordered By: Ever Barth on 08-10-2025 Creatinine [Mass/Vol] 0.72 mg/dL 0.70-1.20 [facility] Serum globulin measurementOr dered By: Ever Barth on 08-10-2025 Globulin (S) [Mass/Vol] 3.3 g/dL 2.2-4.2 [facility] Serum glucose measurement (m ass/volume)Ordered By: Ever Barth on 08-10-2025 Glucose [Mass/Vol] 117 mg/dL High 70-99 [facility] Serum or plasma alanine starks otransferase (ALT) measurementOrdered By: Ever Barth on 08-10-2025 ALT [Catalytic activity/Vol] 26 U/L <47 [facility] Serum or plasma albumin alvino urement (mass/volume)Ordered By: Ever Palacios on 08-10-2025 Albumin [Mass/Vol] 3.9 g/dL 3.5-5.0 [facility] Serum or plasma albumin/glob ulin mass ratioOrdered By: [facility] CenterowenYemi on 08-10-2025 Albumin/Globulin [Mass ratio] 1.2 {ratio} 0.9-2.4 [facility] Serum or plasma alkaline avel sphatase measurementOrdered By: [facility]boroDougSuzanne on 08-10-2025 ALP [Catalytic activity/Vol] 99 U/L 40-129 [facility] Serum or plasma calcium alvino urement (mass/volume)Ordered By: Ever Palacios on 08-10-2025 Calcium [Mass/Vol] 9.1 mg/dL 7.6-11.0 [facility] Serum or plasma ethanol alvino urement (mass/volume)Ordered By: [facility] Centerjessica Palacios on 08-10-2025 Ethanol [Mass/Vol] mg/dL <10.1 [facility] Comment on above: This test is for med ical purposes only. The legal definition of intoxication varies according to local law. Serum or plasma urea nitroge n measurement (mass/volume)Ordered By: Everjanina GironYemi on 08-10-2025 Urea nitrogen [Mass/Vol] 17 mg/dL 4-19 [facility] Sodium levelOrdered By: Laci Barth on 08-10-2025 Sodium [Moles/Vol] 139 mmol/L 133-145 [facility] Squamous epithelial cells de tection in urine sediment by light microscopyOrdered By: Ever Barth on 08-10-2025 Epithelial cells.squamous LM Ql (Urine sed) 0 SEEN /hpf 0-5 [facility] TSH DL <= 0.005 mIU/L QnOrde red By: Roger Costa on 08-10-2025 TSH Qn 1.020 uIU/mL 0.300-4.200 [facility] Thyroid Stim Hormone (TSH)on 08-10-2025 TSH 1.020 uIU/mL Normal 0.300-4.200 [facility] Comment on above: Performed By: #### L 501.9520, L501.9985 #### [facility] [address] [place], [place], [id number] Total proteinOrdered By: Tone Barth on 08-10-2025 Protein [Mass/Vol] 7.2 g/dL 5.9-8.4 [facility] Troponin T HS 2 HRon 025 Trop T High Sen 8 ng/L Normal <=22 [facility] Comment on above: Performed By: #### L 499.0042 ####[facility] [address] [place], [place], [phone](282) Troponin T.cardiac [Mass/vol ume] in Serum or Plasma by High sensitivity methodOrdered By: Ever Barth on 08-10-2025 Troponin T.cardiac High sensitivity method [Mass/Vol] 8 ng/L <22 [facility] Troponin T.cardiac High sensitivity method [Mass/Vol] 8 ng/L <22 [facility] Urinalysis, Completeon 08-10 RBC 0-5 SEEN Normal 0-5 [facility] Comment on above: Order Comment: CLEAN CATCH Performed By: #### L 400.0001 ####[facility] [address] [place], [address] WBC 0-5 SEEN Normal 0-5 [facility] Comment on above: Order Comment: CLEAN CATCH Performed By: #### L 400.0001 ####[facility] [address] [place], [address] BACTERIA 0 SEEN Normal None Seen [facility] Comment on above: Order Comment: CLEAN CATCH Performed By: #### L 400.0001 ####[facility] [address] [place], [address] EPI,SQUAMOUS 0 SEEN Normal 0-5 [facility] Comment on above: Order Comment: CLEAN CATCH Performed By: #### L 400.0001 ####[facility] [address] [place], [address] Mucus Ql (Urine sed) 0 SEEN Normal [facility] Comment on above: Order Comment: CLEAN CATCH Performed By: #### L 400.0001 ####[facility] [address] [place], [place], [phone] Urine Drug Screen (VISTA)on 08-10-2025 AMPHETAMINES Negative Normal <1000 ng/mL [facility] Comment on above: Performed By: #### L 503.6005, L500.4050, L501.9100, L505.5000, L300.4310, L300.3900, L100.0100 ####[facility] [address] [place], [address] BARBITIURATES Negative Normal < 200 ng/mL [facility] Comment on above: Performed By: #### L 503.6005, L500.4050, L501.9100, L505.5000, L300.4310, L300.3900, L100.0100 ####[facility] [address] [place], [place], [phone] BENZODIAZIPINE Negative Normal < 200 ng/mL [facility] Comment on above: Performed By: #### L 503.6005, L500.4050, L501.9100, L505.5000, L300.4310, L300.3900, L100.0100 ####[facility] [address] [place], [place], [phone] BUP Ur Drug Scr Negative Normal < 200 ng/mL [facility] Comment on above: Performed By: #### L 503.6005, L500.4050, L501.9100, L505.5000, L300.4310, L300.3900, L100.0100 ####[facility] [address] [place], [address] COCAINE Negative Normal < 300 ng/mL [facility] Comment on above: Performed By: #### L 503.6005, L500.4050, L501.9100, L505.5000, L300.4310, L300.3900, L100.0100 ####[facility] [address] [place], [address] Fentanyl Negative Normal <5 ng/mL [facility] Comment on above: Result Comment: CONF IRMATORY TESTING FOR ALL POSITIVE URINE DRUG SCREEN RESULTS WILL ONLY BE SENT OUT UPON PHYSICIAN ORDER. [facility] Urine Drug Screen methods provide only preliminary analytical test results. A more specific alternate chemical method must be used in order to obtain a confirmed analytical result. Gas chromatography/mass spectrometery (GC/MS) is the preferred confirmatory method. Clinical consideration and professional judgement should be applied to any drug of abuse test result, particularly when preliminary positive results are used. Urine TCA testing must be ordered separately. Use test mnemonic: [facility] Performed By: #### L 503.6005, L500.4050, L501.9100, L505.5000, L300.4310, L300.3900, L100.0100 ####[facility] [address] [place], [address] METHADONE Negative Normal < 300 ng/mL [facility] Comment on above: Performed By: #### L 503.6005, L500.4050, L501.9100, L505.5000, L300.4310, L300.3900, L100.0100 ####[facility] [address] [place], [address] OPIATES Negative Normal < 300 ng/mL [facility] Comment on above: Performed By: #### L 503.6005, L500.4050, L501.9100, L505.5000, L300.4310, L300.3900, L100.0100 ####[facility] [address] [place], [address] OXYCODONE Negative Normal < 100 ng/mL [facility] Comment on above: Performed By: #### L 503.6005, L500.4050, L501.9100, L505.5000, L300.4310, L300.3900, L100.0100 ####[facility] [address] [place], [address] PCP Negative Normal < 25 ng/mL [facility] Comment on above: Performed By: #### L 503.6005, L500.4050, L501.9100, L505.5000, L300.4310, L300.3900, L100.0100 ####[facility] [address] [place], [address] THC Negative Normal < 50 ng/mL [facility] Comment on above: Performed By: #### L 503.6005, L500.4050, L501.9100, L505.5000, L300.4310, L300.3900, L100.0100 ####[facility] [address] [place], [place], [phone] Urine benzodiazepine levelOr dered By: Ever Barth on 08-10-2025 Benzodiazepines Ql (U) Negative < 200 ng/mL [facility] Urine clarityOrdered By: Tone Barth on 08-10-2025 Clarity (U) Clear Clear [facility] Urine cocaine levelOrdered B y: Ever Barth on 08-10-2025 Cocaine Ql (U) Negative < 300 ng/mL [facility] Urine color determinationOrd ered By: Ever Barth on 08-10-2025 Color (U) Yellow Yellow [facility] Urine lsxdp-2-zughdsodjplwis abinol (THC) measurementOrdered By: Ever Palacios on 08-10-2025 Cannabinoids Screen Ql (U) Negative < 50 ng/mL [facility] Urine glucose detectionOrder ed By: Ever Barth on 08-10-2025 Glucose Ql (U) Normal mg/dl Normal [facility] Urine leukocyte esterase det ection by dipstickOrdered By: Ever Barth on 08-10-2025 Leukocyte esterase Test strip Ql (U) Negative Negative [facility] Urine pHOrdered By: Ever Martinez on 08-10-2025 pH (U) 6.0 [pH] 5.0 - 8.0 [facility] Urine phencyclidine (PCP) de tectionOrdered By: Ever Barth on 08-10-2025 Phencyclidine Ql (U) Negative < 25 ng/mL [facility] Urine sediment bacteria coun t by microscopy (number/high power field)Ordered By: Ever Barth on 08-10-2025 Bacteria LM.HPF (Urine sed) [#/Area] 0 /[HPF] None Seen [facility] Urine specific gravity measu rementOrdered By: Ever Barth on 08-10-2025 Specific gravity (U) [Rel density] 1.015 1.002-1.030 [facility] Urine urobilinogen measureme ntOrdered By: Ever Barth on 08-10-2025 Urobilinogen Ql (U) Normal mg/dl Normal [facility] White blood cell (WBC) count Ordered By: Ever Barth on 08-10-2025 WBC (Bld) [#/Vol] 6.6 10*3/uL 4.4-11.0 [facility] White blood cell countOrdere d By: Ever Barth on 08-10-2025 White blood cell count 0-5 SEEN /hpf 0-5 [facility] Progress Noteson 08-03-2025 [employer] Authentication Interface Message Text Emergency Department Follow-Up Call [facility] Call attempt: 08/03/25, 2:37 PM, no answer, unable to leave a VM Sources of Information: Chart review Date of ED visit: 07/31/25 Reason for ED visit: HTN, right shoulder pain Medical coverage: Payor: be2 MEDICAID / Plan: [place] / Product Type: Medicaid HMO Medication changes? Yes Amlodipine Ibuprofen Normal [facility] BASIC METABOLIC PANELon 07-13 Anion gap [Moles/Vol] 10 mmol/L Normal 10-20 [facility] Comment on above: Performed By: #### C H8 #### [facility] [address] [place], [place], Calcium [Mass/Vol] 9.8 mg/dL Normal 8.6-10.3 [facility] Comment on above: Performed By: #### C H8 #### [facility] [address] [place] [address], Chloride [Moles/Vol] 103 mmol/L Normal 98-107 [facility] Comment on above: Performed By: #### C H8 #### [facility] [address], [place], CO2 [Moles/Vol] 28 mmol/L Normal 21-31 [facility] Comment on above: Performed By: #### C H8 #### [facility] [address] [place] [address], Creatinine [Mass/Vol] 0.73 mg/dL Normal 0.70-1.30 [facility] Comment on above: Performed By: #### C H8 #### [facility] [address] [place] [address], ESTIMATED GFR (CKD-EPI) 109 mL/min/1.73sqm Normal >=60 [facility] Comment on above: Result Comment: 2020 CKD EPI Equation using [...] Inclusion of Race in Diagnosing Kidney Disease. [place] Journal of Kidney Diseases 2021;79(2):268-88.e1. 2. N Engl J Med 1 Vol. 385 Issue 19 Pages 2507-1347 Performed By: #### C H8 #### [facility] [address], [place], Glucose [Mass/Vol] 134 mg/dL High 74-[address] [facility] Comment on above: Performed By: #### C H8 #### [facility] PATHOLOGY LABORATORY [address] [place] [address], Potassium [Moles/Vol] 5.8 mmol/L High 3.5-5.0 [facility] Comment on above: Result Comment: Hemo lysis present Performed By: #### C H8 #### S PATHOLOGY LABORATORY [address], [place], Sodium [Moles/Vol] 135 mmol/L Low 136-145 [facility] Comment on above: Performed By: #### C H8 #### [facility] [address], [place], Urea nitrogen [Mass/Vol] 16 mg/dL Normal 7-25 [facility] Comment on above: Performed By: #### C H8 #### [facility] [address], [place], Basic metabolic 2000 panelon 07-31-2025 Anion gap [Moles/Vol] 10 mmol/L 10 - 20 [facility] Calcium [Mass/Vol] 9.8 mg/dL 8.6 - 10. 3 mg/dL [facility] Chloride [Moles/Vol] 103 mmol/L 98 - 10 7 mmol/L [facility] CO2 [Moles/Vol] 28 mmol/L 21 - 31 mmol/L [facility] Creatinine [Mass/Vol] 0.73 mg/dL 0.70 - 1.30 mg/dL [facility] GFR/1.73 sq M.predicted CKD-EPI (S/P/Bld) [Vol rate/Area] 109 - PINF [facility] Comment on above: 2020 CKD EPI Equatio n using Creatinine without Race Comment: Estimated glomerular filtration rate (eGFR) is calculated without a race coefficient. Values should be interpreted in the context of the patient's full clinical presentation. Reference: 1. Bear C, Magdy M, Juliano DC, et al.. A Unifying Approach for GFR Estimation: Recommendations of the NKF-ASN Task Force on Reassessing the Inclusion of Race in Diagnosing Kidney Disease. [place] Journal of Kidney Diseases 202;79(2):268-88.e1. 2. N Engl J Med 2020 Vol. 385 Issue 19 Pages 8219-6592 Glucose [Mass/Vol] 134 mg/dL High 74 - 109 mg/dL [facility] Interpretation and review of laboratory results Abnormal [facility] Potassium [Moles/Vol] 5.8 mmol/L High 3.5 - 5.0 mmol/L [facility] Comment on above: Hemolysis present Sodium [Moles/Vol] 135 mmol/L Low 136 - 145 mmol/L [facility] Urea nitrogen [Mass/Vol] 16 mg/dL 7 - 25 mg/dL [facility] CBC panel Auto (Bld)on 07-31 Erythrocyte distribution width (RBC) [Ratio] 13.2 % 11.5 - 14.5 % [facility] Hematocrit (Bld) [Volume fraction] 42 % 41.0 - 53.0 % [facility] Hemoglobin (Bld) [Mass/Vol] 14.6 g/dL 13.9 - 16.3 g/dL [facility] Interpretation and review of laboratory results Normal [facility] MCH (RBC) [Entitic mass] 29.2 pg 26.0 - 34.0 pg [facility] MCHC (RBC) [Mass/Vol] 34.7 g/dL 32.0 - 35.9 g/dL [facility] MCV (RBC) [Entitic vol] 84 fL 80 - 100 fL [facility] Platelet mean volume (Bld) [Entitic vol] 8.5 fL 7.5 - 11.2 fL [facility] Platelets (Bld) [#/Vol] 386 10*3/uL 150 - 400 K/uL [facility] RBC (Bld) [#/Vol] 5 10*6/uL [facility] WBC (Bld) [#/Vol] 6.2 10*3/uL 4.5 - 11.5 K/uL [facility] COMPLETE BLOOD COUNTon 07-31 Erythrocyte distribution width (RBC) [Ratio] 13.2 % Normal 11.5-14.5 [facility] Comment on above: Performed By: #### C BC #### S PATHOLOGY LABORATORY [address] [place] [address], Hematocrit (Bld) [Volume fraction] 42.0 % Normal 41.0-53.0 [facility] Comment on above: Performed By: #### C BC #### S PATHOLOGY LABORATORY [address] [place] [address], Hemoglobin (Bld) [Mass/Vol] 14.6 g/dL Normal 13.9-16.[address] [facility] Comment on above: Performed By: #### C BC #### [facility] [address] [place] [address], MCH (RBC) [Entitic mass] 29.2 pg Normal 26.0-34.[address] [facility] Comment on above: Performed By: #### C BC #### [facility] [address] [place] [address], MCHC (RBC) [Mass/Vol] 34.7 g/dL Normal 32.0-35.[address] [facility] Comment on above: Performed By: #### C BC #### S PATHOLOGY LABORATORY [address] [place] [address], MCV (RBC) [Entitic vol] 84 fL Normal 80-100 [facility] Comment on above: Performed By: #### C BC #### S PATHOLOGY LABORATORY [address] [place] [address], Platelet mean volume (Bld) [Entitic vol] 8.5 fL Normal 7.5-11.[address] [facility] Comment on above: Performed By: #### C BC #### S PATHOLOGY LABORATORY [address] [place] [address], Platelets (Bld) [#/Vol] 386 10*3/uL Normal 150-400 [facility] Comment on above: Performed By: #### C BC #### S PATHOLOGY LABORATORY [address] [place] [address], RBC (Bld) [#/Vol] 5.00 10*6/uL Normal 4.50-5.90 [facility] Comment on above: Performed By: #### C BC #### S PATHOLOGY LABORATORY [address] [place] [address], WBC (Bld) [#/Vol] 6.2 10*3/uL Normal 4.5-11.[address] [facility] Comment on above: Performed By: #### C BC #### [facility] [address] [place] [address], ED Provider Noteson 07-31-20 [employer] Authentication Interface Message Text Attestation signed by Stevie Feliciano MD at [...] Feliciano MD EMERGENCY DEPARTMENT - VISIT NOTE ------- HISTORY OF PRESENT ILLNESS --- Chief Complaint Patient presents with Hypertension HTN w/ DYE since this am Pt inconsistent with HTN medication Arm symptoms Right arm pian x2 months The history is provided by the Patient. Retail Customer Service Representative use: not needed - patient preferred language is Greek. Ariel Bean is a 50 year old male presenting [...] as of 07/31/251910 Sat Jul 31, 2025 183 Complete Blood Count: WBC 6.2 RBC 5.00 [...] Omar Malave MD Assessment AND Plan: Ariel Bean is a 50 year old male presenting with HTN and right shoulder pain. Patient was afebrile, hemodynamically stable, and satting on room air on arrival. Full exam noted above. Labs with interpretation noted in ED course. Work up significant for normal renal f (more content not included)... Normal [facility] No Panel Informationon 07-31 Radiology Study observation (narrative) [facility] XR C-SPINE AP+LATERAL 2 VIEW Son 07-31-2025 XR C-SPINE AP+LATERAL 2 VIEWS EXAMINATION: XR C-SPINE AP+LATERAL 2 VIEWSPRO 07/31/2025 02:49 PM CLINICAL HISTORY: Neuropathy ASSOCIATED DIAGNOSIS: Neuropathy ORDERING PROVIDER: AMANUEL HAYWARD TECHNOLOGISTS NOTE: Injured at work ([employer]) COMPARISON: None FINDINGS: On the lateral [...] tissue CT with contrast can be obtained. Normal [facility] XR Cervical spine AP and Lat eralon 07-31-2025 EXAMINATION: XR C-SP INE AP+LATERAL 2 VIEWSPRO 07/31/2025 02:49 PM CLINICAL HISTORY: Neuropathy ASSOCIATED DIAGNOSIS: Neuropathy ORDERING PROVIDER: AMANUEL RUBIN NOTE: Injured at work ([employer]) COMPARISON: None FINDINGS: On the lateral [...] tissue CT with contrast can be obtained. RADIOLOGY Camden Willis MD - 07/31/2025 EXAMINATION: XR C-SPINE AP+LATERAL 2 VIEWSPRO 07/31/2025 02:49 PM CLINICAL HISTORY: Neuropathy ASSOCIATED DIAGNOSIS: Neuropathy ORDERING PROVIDER: AMANUEL RUBIN NOTE: Injured at work ([employer]) COMPARISON: None FINDINGS: On the lateral [...] tissue CT with contrast can be obtained. [facility] XR SHOULDER RIGHT MINIMUM 2 VIEWSon 07-31-2025 XR SHOULDER RIGHT MINIMUM 2 VIEWS EXAMINATION: XR SHOULDER RIGHT MINIMUM 2 VIEWSPRO/RT 07/31/2025 02:49 PM CLINICAL HISTORY: Range of motion decreased ASSOCIATED DIAGNOSIS: Range of motion decreased ORDERING PROVIDER: AMANUEL RUBIN NOTE: Injured at work ([employer]) COMPARISON: None IMPRESSION: No right shoulder fracture or glenohumeral dislocation is identified. No evidence of calcific tendinitis. Mild degenerative glenohumeral joint change. Mild degenerative changes are present at the acromioclavicular joint. Right shoulder MACRO: None Normal [facility] XR Shoulder - right 2 Viewso n 07-31-2025 EXAMINATION: XR SHOULDER RIGHT MINIMUM 2 VIEWSPRO/RT 07/31/2025 02:49 PM CLINICAL HISTORY: Range of motion decreased ASSOCIATED DIAGNOSIS: Range of motion decreased ORDERING PROVIDER: AMANUEL RUBIN NOTE: Injured at work ([employer]) COMPARISON: None IMPRESSION: No right shoulder fracture or glenohumeral dislocation is identified. No evidence of calcific tendinitis. Mild degenerative glenohumeral joint change. Mild degenerative changes are present at the acromioclavicular joint. Right shoulder MACRO: None RADIOLOGY Camden Willis MD - 07/31/2025 EXAMINATION: XR SHOULDER RIGHT MINIMUM 2 VIEWSPRO/RT 07/31/2025 02:49 PM CLINICAL HISTORY: Range of motion decreased ASSOCIATED DIAGNOSIS: Range of motion decreased ORDERING PROVIDER: AMANUEL RUBIN NOTE: Injured at work ([employer]) COMPARISON: None IMPRESSION: No right shoulder fracture or glenohumeral dislocation is identified. No evidence of calcific tendinitis. Mild degenerative glenohumeral joint change. Mild degenerative changes are present at the acromioclavicular joint. Right shoulder MACRO: None [facility] XR Shoulder - right 2 ViewsO rdered By: Camden Willis on 07-31-2025 [employer] Work Phone: Emergency Department Summary on 05-09-2025 Emergency Department Summary [facility] Medical Records Department [address] [place] [address] Emergency Department Summary 05/09/25 MR#: [id number] Acct: [id number] Name: ARIEL BEAN Rep #: [id number] : 1975 50 From: Kenan Pedroza DO PCP: Care Physician,No Primary Status:DEP ER Location: ED HPI History of Present Illness Informant: patient Narrative Narrative: Patient is a 50-year-old male with history of hypertension. He is right-hand dominant. He states that he has been doing the job for the past few weeks and has noticed that with the repetitive activity/motion he now will have intermittent pain and numbness from his right shoulder down to his right hand. He states that there has been no direct trauma and he denies any recent bouts of nausea vomiting or diarrhea. He states that he feels like the symptoms are worsening with more shifts/repetitive motion he performs and secondary to this comes in for evaluation [facility] Home Medications ???Medication ???Instructions ???Recorded ???Last Taken ???Type albuterol sulfate 90 mcg/actuation 2 puff inhalation Q4H PRN PRN Unknown Rx aerosol inhaler (Ventolin HFA) Wheezing ##1 azithromycin 250 mg tablet 250 mg PO DAILY ##4 08/19/14 Unkno wn Rx prednisone 20 mg tablet 20 mg PO BIDCM ##10 08/19/14 Unkno wn Rx Allergy/AdvReac Type Severity Reaction Status Date / Time No Known Allergies Allergy Verified 08/19/14 10:04 Social History Smoking Status: Current every day smoker ROS ROS ED Constitutional Constitutional ED: Denies chills or fever(s) Eyes Eyes: Denies change in vision ENT ENT ED: Denies sore throat Cardiovascular Cardiovascular: Denies chest pain Respiratory/Chest Respiratory/Chest: Denies cough or dyspnea Gastrointestinal Gastrointestinal: Denies abdominal pain, diarrhea, nausea or vomiting Musculoskeletal Musculoskeletal: Denies back pain or neck pain Integumentary Denies rash Neurologic Neurologic: Reports paresthesias and weakness; Denies headache(s) Hematologic/Lymphatic Hematologic/Lymphatic: Denies easy bleeding or easy bruising EXAM Physical Exam Const Positive well nourished, well developed and obese General Appearance ED: well developed; Negative for pallor Nutritional Appearance: obese HEENT HEENT Narrative: Normocephalic atraumatic Eyes PERRL and EOMs intact bilaterally General Eye ED: Negative for scleral icterus Neck supple Neck Narrative: No bony deformity or step-off of the cervical spine No midline pain with palpation Negative Spurling sign bilaterally Resp normal respiratory effort and clear to auscultation bilaterally Cardio regular rate and regular rhythm Rate: other Other Details: Radial and carotid pulses are equal and symmetric Back/Spine Back/Spine Narrative: No bony deformity or step-off of the thoracic or lumbar spine. No midline tenderness to palpation Extremity Extremity Narrative: Right upper extremity is neurovascularly intact; AIN/PIN are intact and normal No obvious bony deformity or joint effusion All compartments are soft and compressible going against compartment syndrome Neuro oriented x3, CN's II-XII intact bilaterally and no sensory deficits noted Sensorium / Orientation: alert Motor Exam: strength 5/5 throughout Psych mental status grossly normal Skin no rashes or lesions noted and no wounds General Skin Exam: Negative for jaundice or pallor MDM MDM MDM Narrative Medical decision making narrative: Patient presented to the ER mildly hypertensive but has a past medical history of this. He reported intermittent paresthesias that are now occurring with overuse of the right arm. He denies any recent bouts of vomiting or diarrhea which could relate to an electrolyte abnormality. Physical exam does not show any signs of infection such as cellulitis or abscess. As his symptoms could be related to spinal stenosis versus herniated disc versus arthritis changes I did elect to perform a CT of the neck to check for nerve's compression as well as basic labs to look for electrolyte abnormality. As he is neurologically normal at this time I have low concern that this is related to a TIA or acute CVA and there is no need for a head CT. Patient's labs revealed no clinically significant findings and his neck CT did reveal changes consistent with degenerative disc disease. He denies any recent surgical procedures or injections going against discitis. Based on his arthritis and degenerative disc disease and recurrent symptoms he may need evaluated by spine surgery to discuss further treatment options or imaging studies with MRI but at this time as he is hemodynamically stable without signs of acute electrolyte abnormality fracture or nervous compression he is otherwise safe for discharge History Record Review (more content not included)... Normal [facility] Anion gap in Serum or Plasma Ordered By: Kenan Pedroza on 05-06-2025 Anion gap [Moles/Vol] 13 mmol/L - [facility] BUN/creatinine ratioOrdered By: Kenan Pedroza on 05-06-2025 Urea nitrogen/Creatinine [Mass ratio] 16.0 mg/mg - [facility] Basic Metabolic Profile (BMP )on 05-06-2025 BUN/CRE 16.0 RATIO Normal 08-30 [facility] Comment on above: Performed By: #### L 501.5200, L500.2500, L100.0500 #### [facility] [address] [place], [address] Calcium [Mass/Vol] 9.3 mg/dL Normal 7.6-11.0 [facility] Comment on above: Performed By: #### L 501.5200, L500.2500, L100.0500 #### [facility] [address] [place], [address] Chloride [Moles/Vol] 101 mmol/L Normal 98-108 [facility] Comment on above: Performed By: #### L 501.5200, L500.2500, L100.0500 #### [facility] [address] [place], [address] CO2 [Moles/Vol] 20.7 mmol/L Low 21.0-32.0 [facility] Comment on above: Performed By: #### L 501.5200, L500.2500, L100.0500 #### [facility] [address] [place], [address] Creatinine [Mass/Vol] 1.02 mg/dL Normal 0.70-1.20 [facility] Comment on above: Performed By: #### L 501.5200, L500.2500, L100.0500 #### [facility] [address] [place], [address] GAP 13 Normal 5-15 [facility] Comment on above: Performed By: #### L 501.5200, L500.2500, L100.0500 #### [facility] [address] [place], [address] GFR/1.73 sq M.predicted among non-blacks MDRD (S/P/Bld) [Vol rate/Area] 88 mL/min/{1.73_m2} Normal >60 [facility] Comment on above: Result Comment: mL/m in/1.73m2 CKD-EPI Creatinine Equation (2020) Performed By: #### L 501.5200, L500.2500, L100.0500 #### [facility] [address] [place], [address] Glucose [Mass/Vol] 190 mg/dL High 70-99 [facility] Comment on above: Performed By: #### L 501.5200, L500.2500, L100.0500 #### [facility] [address] [place], [address] Potassium [Moles/Vol] 3.5 mmol/L Normal 3.3-5.1 [facility] Comment on above: Performed By: #### L 501.5200, L500.2500, L100.0500 #### [facility] [address] [place], [address] Sodium [Moles/Vol] 135 mmol/L Normal 133-145 [facility] Comment on above: Performed By: #### L 501.5200, L500.2500, L100.0500 #### [facility] [address] [place], [address] Urea nitrogen [Mass/Vol] 16 mg/dL Normal 4-19 [facility] Comment on above: Performed By: #### L 501.5200, L500.2500, L100.0500 #### [facility] [address] [place], [address] Blood platelets count (numbe r/volume)Ordered By: Kenan Pedroza on 05-06-2025 Platelets (Bld) [#/Vol] 359 10*3/uL 150-450 [facility] CBC-Complete Blood Cnt No Di ffon 05-06-2025 Platelet mean volume (Bld) [Entitic vol] 9.3 fL Normal 6.2-12.0 [facility] Comment on above: Performed By: #### L 501.5200, L500.2500, L100.0500 #### [facility] [address] [place], [address] Platelets (Bld) [#/Vol] 359 10*3/uL Normal 150-450 [facility] Comment on above: Performed By: #### L 501.5200, L500.2500, L100.0500 #### [facility] [address] [place], [address] Erythrocyte distribution width (RBC) [Ratio] 12.0 % Normal 11.6-14.6 [facility] Comment on above: Performed By: #### L 501.5200, L500.2500, L100.0500 #### [facility] [address] [place], [address] Hematocrit (Bld) [Volume fraction] 38.7 % Low 40-54 [facility] Comment on above: Performed By: #### L 501.5200, L500.2500, L100.0500 #### [facility] [address] [place], [address] Hemoglobin (Bld) [Mass/Vol] 13.4 g/dL Normal 13.0-16.5 [facility] Comment on above: Performed By: #### L 501.5200, L500.2500, L100.0500 #### [facility] [address] [place], [address] MCH (RBC) [Entitic mass] 29.3 pg Normal 27.0-32.0 [facility] Comment on above: Performed By: #### L 501.5200, L500.2500, L100.0500 #### [facility] [address] [place], [address] MCHC (RBC) [Mass/Vol] 34.6 g/dL Normal 32-36 [facility] Comment on above: Performed By: #### L 501.5200, L500.2500, L100.0500 #### [facility] [address] [place], [address] MCV (RBC) [Entitic vol] 84.7 fL Normal 80-94 [facility] Comment on above: Performed By: #### L 501.5200, L500.2500, L100.0500 #### [facility] [address] [place], [address] RBC (Bld) [#/Vol] 4.57 10*6/uL Low 4.6-6.2 [facility] Comment on above: Performed By: #### L 501.5200, L500.2500, L100.0500 #### [facility] [address] [place], [address] RDW SD 37.2 fl Normal 35.1-43.9 [facility] Comment on above: Performed By: #### L 501.5200, L500.2500, L100.0500 #### [facility] [address] [place], [address] WBC (Bld) [#/Vol] 6.6 10*3/uL Normal 4.4-11.0 [facility] Comment on above: Performed By: #### L 501.5200, L500.2500, L100.0500 #### [facility] [address] [place], [place], [address] Carbon dioxide, total [Moles /volume] in Central venous bloodOrdered By: Kenan Pedroza on 05-06-2025 CO2 [Moles/Vol] 20.7 mmol/L Low 21.0-32.0 [facility] Chloride assayOrdered By: Geovanna Pedroza on 05-06-2025 Chloride [Moles/Vol] 101 mmol/L 98-108 [facility] Erythrocyte distribution wid th ratioOrdered By: Kenan Pedroza on 05-06-2025 Erythrocyte distribution width (RBC) [Ratio] 12.0 % 11.6-14.6 [facility] Glomerular filtration rate ( GFR) estimation/1.73 sq m using serum, plasma, or whole bOrdered By: Kenan Pedroza on 05-06-2025 GFR/1.73 sq M.predicted among non-blacks MDRD (S/P/Bld) [Vol rate/Area] 88 mL/min/{1.73_m2} >60 [facility] Comment on above: mL/min/1.73m2 CKD-EP I Creatinine Equation (2020) Hematocrit Auto (Bld) [Volum e fraction]Ordered By: Kenan Pedroza on 05-06-2025 Hematocrit (Bld) [Volume fraction] 38.7 % Low 40-54 [facility] Hemoglobin measurementOrdere d By: Kenan Pedroza on 05-06-2025 Hemoglobin (Bld) [Mass/Vol] 13.4 g/dL 13.0-16.5 [facility] MCV (mean corpuscular volume ) determinationOrdered By: Kenan Pedroza on 05-06-2025 MCV (RBC) [Entitic vol] 84.7 fL 80-94 [facility] Magnesiumon 05-06-2025 Magnesium [Mass/Vol] 2.0 mg/dL Normal 1.5-2.2 [facility] Comment on above: Performed By: #### L 501.5200, L500.2500, L100.0500 #### [facility] [address] [place], [address] Magnesium measurement (mass/ volume)Ordered By: Kenan Pedroza on 05-06-2025 Magnesium (Unsp spec) [Mass/Vol] 2.0 mg/dL 1.5-2.2 [facility] Mean corpuscular hemoglobin (MCH) determinationOrdered By: Kenan Pedroza on 05-06-2025 MCH (RBC) [Entitic mass] 29.3 pg 27.0-32.0 [facility] Mean corpuscular hemoglobin concentration (MCHC) determinationOrdered By: Kenan Pedroza on 05-06-2025 MCHC (RBC) [Mass/Vol] 34.6 g/dL 32-36 [facility] Mean platelet volume determi nationOrdered By: Kenan Pedroza on 05-06-2025 Platelet mean volume (Bld) [Entitic vol] 9.3 fL 6.2-12.0 [facility] Potassium measurement (mass/ volume)Ordered By: Kenan Pedroza on 05-06-2025 Potassium (Unsp spec) [Mass/Vol] 3.5 mmol/L 3.3-5.1 [facility] RBC Auto (Bld) [#/Vol]Ordere d By: Kenan Pedroza on 05-06-2025 RBC (Bld) [#/Vol] 4.57 10*6/uL Low 4.6-6.2 [facility] RDWOrdered By: Kenan Pedroza on 05-06-2025 RDW 37.2 fl 35.1-43.9 [facility] Serum creatinine measurement (mass/volume)Ordered By: Kenan Pedroza on 05-06-2025 Creatinine [Mass/Vol] 1.02 mg/dL 0.70-1.20 [facility] Serum glucose measurement (m ass/volume)Ordered By: Kenan Pedroza on 05-06-2025 Glucose [Mass/Vol] 190 mg/dL High 70-99 [facility] Serum or plasma calcium alvino urement (mass/volume)Ordered By: Kenan Pedroza on 05-06-2025 Calcium [Mass/Vol] 9.3 mg/dL 7.6-11.0 [facility] Serum or plasma urea nitroge n measurement (mass/volume)Ordered By: Kenan Pedroza on 05-06-2025 Urea nitrogen [Mass/Vol] 16 mg/dL 4-19 [facility] Sodium levelOrdered By: Jaime Perdoza on 05-06-2025 Sodium [Moles/Vol] 135 mmol/L 133-145 [facility] Spine Cervical without Contr ason 05-06-2025 Spine Cervical without Contras [facility] Imaging Services [address] [place], [place] [address] Spine Cervical without Contras MR#: [id number] Acct: [id number] Name: ARIEL BEAN Rep #: [id number] : 1975 M 50 From: An ortiz MD PCP: Care Physician,No Primary Status: DEP ER Study: Spine Cervical without Contras Date of Exam: 0 05/06/25 Exam# [id number] Ordering Dr: Kenan Pedroza DO PROCEDURE: SPINE CERVICAL WITHOUT CONTRAS 05/06/2025 REASON FOR EXAM: LEFT ARM PAIN TECHNIQUE: SPINE CERVICAL WITHOUT CONTRAS Coronal and Sagittal reconstruction series were provided. CONTRAST: None. One or more dose reduction techniques were used (e.g., Automated exposure control, adjustment of the mA and/or kV according to patient size, use of iterative reconstruction technique. RADIATION DOSE SUMMARY: CTDlvol: 29.57 mGy DLP: 762.54 mGycm COMPARISON: None. FINDINGS: There are diffuse spondylotic changes. Findings are demonstrated to by diffuse disc space narrowing, osteophyte formation and degenerative endplate sclerosis. There is diffuse facet joint arthropathy with secondary bilateral neural foramina narrowing. No fracture or dislocation is seen. No aggressive lytic or blastic bony lesion is noted. CT/Spine Cervical without Contras IMPRESSION: No CT evidence of an acute abnormality. Diffuse spondylosis. Reading Location: [place] [address] CC: Kenan Pedroza DO; No Primary Care Physician Edger Operator: Signed Normal [facility] White blood cell (WBC) count Ordered By: Kenan Pedroza on 05-06-2025 WBC (Bld) [#/Vol] 6.6 10*3/uL 4.4-11.0 [facility] Vital Signs Date Time Vital Sign Value Performing Clinician Facility 08-12-2025 14:45-0400 Body temperature 98.1 [degF] No Primary Care Physician [facility] 08-12-2025 14:45-0400 Diastolic blood pressure 97 mm[Hg] No Primary Care Physician [facility] 08-12-2025 14:45-0400 Heart rate 69 /min No Primary Care Physician [facility] 08-12-2025 14:45-0400 Respiratory rate 16 /min No Primary Care Physician [facility] 08-12-2025 14:45-0400 SaO2% (BldA) [Mass fraction] 98 % No Primary Care Physician [facility] 08-12-2025 14:45-0400 Systolic blood pressure 140 mm[Hg] No Primary Care Physician [facility] 08-12-2025 07:06-0400 Inhaled oxygen flow rate 1 L/min No Primary Care Physician [facility] 08-12-2025 03:33-0400 Body mass index (BMI) [Ratio] 39 kg/m2 No Primary Care Physician [facility] 08-11-2025 16:07-0400 Body mass index (BMI) [Ratio] 39 kg/m2 No Primary Care Physician [facility] 08-11-2025 16:00-0400 Body temperature 97.9 [degF] No Primary Care Physician [facility] 08-11-2025 16:00-0400 Diastolic blood pressure 66 mm[Hg] No Primary Care Physician [facility] 08-11-2025 16:00-0400 Heart rate 52 /min No Primary Care Physician [facility] 08-11-2025 16:00-0400 Respiratory rate 16 /min No Primary Care Physician [facility] 08-11-2025 16:00-0400 SaO2% (BldA) [Mass fraction] 99 % No Primary Care Physician [facility] 08-11-2025 16:00-0400 Systolic blood pressure 143 mm[Hg] No Primary Care Physician [facility] 08-11-2025 11:36-0400 Body height 182.88 cm No Primary Care Physician [facility] 08-11-2025 11:36-0400 Body weight 130.6 kg No Primary Care Physician [facility] 07-31-2025 19:17-0400 Diastolic blood pressure 93 mm[Hg] Stevie Feliciano MD Work Phone: [employer] 07-31-2025 19:17-0400 Systolic blood pressure 138 mm[Hg] Stevie Feliciano MD [facility] 07-31-2025 14:07-0400 Body temperature 98.2 [degF] Stevie Feliciano MD Work Phone: [employer] 07-31-2025 14:07-0400 Heart rate 96 /min Stevie Feliciano MD Work Phone: [employer] 07-31-2025 14:07-0400 Respiratory rate 18 /min Stevie Feliciano MD [facility] 07-31-2025 14:07-0400 SaO2% (BldA) [Mass fraction] 96 % Stevie Feliciano MD Work Phone: [employer] 10-02-2024 08:53-0500 Body height 182.9 cm Deborah Infante Work Phone: [facility] Work Phone: 10-02-2024 08:53-0500 Body temperature 98.01 [degF] Deborah Infante Work Phone: [facility] Work Phone: 10-02-2024 08:53-0500 Body weight 127.64 kg Deborah Alexanderajo Work Phone: [facility] Work Phone: 10-02-2024 08:53-0500 Diastolic blood pressure 90 mm[Hg] Deborah Naresh Work Phone: [facility] Work Phone: 10-02-2024 08:53-0500 Heart rate 74 /min Deborah Naresh Work Phone: [facility] Work Phone: 10-02-2024 08:53-0500 Respiratory rate 18 /min Deborah Infante Work Phone: [facility] Work Phone: 10-02-2024 08:53-0500 SaO2% (BldA) [Mass fraction] 98 % Deborah Infante Work Phone: [facility] Work Phone: 10-02-2024 08:53-0500 Systolic blood pressure 142 mm[Hg] Deborah Infante Work Phone: [facility] Work Phone: Encounters Encounter Date Encounter Type Care Provider Facility Start: 09-20-2025 ambulatory No Primary Car e Physician Facility:[facility] Start: 09-02-2025 End: 09-02-2025 ambulatory Zebulun Beam Facility:[facility] Start: 08-31-2025 End: 08-31-2025 ambulatory Monica Rdz Work Phone: [facility] Start: 08-31-2025 End: 08-31-2025 Chart abstracting Monica Rdz Work Phone: [employer] Start: 08-12-2025 Non-patient / Non-visit Dr. Fahad Leiva MD -[facility] Work Phone: Start: 08-11-2025 ambulatory Usama Perez Facility:[facility] Start: 08-11-2025 Non-patient / Non-visit [facility] Start: 08-11-2025 Non-patient / Non-visit Dr. Fahad Leiva MD -[facility] Work Phone: Start: 08-10-2025 ambulatory No Primary Car e Physician Facility:[facility] Start: 08-10-2025 End: 08-12-2025 Evaluation and management of inpatient Dr. Fahad Leiva MD -[facility] Work Phone: Start: 07-31-2025 End: 07-31-2025 Emergency department patient visit Stevie Feliciano MD Work Phone: [facility] Comment on above: Hypertension (HTN w/ DYE since this am /Pt inconsistent with HTN medication ); Arm symptoms (Right arm pian x2 months ) Start: 05-06-2025 End: 05-06-2025 Emergency department patient visit No Primary Care Physician -Emergency Department Work Phone: Start: 10-15-2024 End: 10-15-2024 Phys/qhp telephone evaluation 11-20 min Deborah Infnate Work Phone: [facility] Comment on above: Encounter to discuss test results (Primary Dx); Controlled type 2 diabetes mellitus without complication, without long-term current use of insulin ([facility]); Vitamin D deficiency; Tonsillar hypertrophy; Primary hypertension Start: 10-15-2024 ambulatory DEBORAH INFANTE [facility] Start: 10-02-2024 End: 10-02-2024 ambulatory Tia Boris Work Phone: [facility] Start: 10-02-2024 End: 10-02-2024 Chart abstracting Tia Boris Work Phone: [employer] Start: 10-02-2024 End: 10-02-2024 Initial preventive medicine new patient 40-64yrs Deborah Infante Work Phone: [facility] Comment on above: Encounter for routin e history and physical exam for male (Primary Dx); Primary hypertension; Hyperlipidemia, unspecified hyperlipidemia type; Prosthetic eye globe; Snoring; Tonsillar hypertrophy Start: 10-02-2024 End: 10-02-2024 Physical examination Deborah Infante Work Phone: [facility] Work Phone: Procedures Date Procedure Procedure Detail Performing Clinician Start: 08-10-2025 MRI of brain without contrast No Primary Care Physician Start: 08-10-2025 CT angiography of he ad and neck No Primary Care Physician Start: 08-10-2025 Methadone measuremen t, urine No Primary Care Physician Start: 08-10-2025 Urnls dip stick/tabl et reagent auto microscopy No Primary Care Physician Start: 08-10-2025 Radiologic exam ches t 2 views No Primary Care Physician Start: 08-10-2025 CT of head without contrast No Primary Care Physician Start: 08-10-2025 Estimated creatinine clearance No Primary Care Physician Start: 07-31-2025 Radex shoulder compl ete minimum 2 views Amanuel Hayward [employer]ATION [employer] Work Phone: Start: 07-31-2025 Blood count complete automated Amanuel Hayward [employer] RES[employer]ATION AGENT[employer] MANA[employer] Work Phone: Start: 05-06-2025 CT cervical spine wi thout contrast No Primary Care Physician Start: 10-02-2024 Lipid 1996 panel - S keith or Plasma Deborah Infante Work Phone: Plan of Treatment Date Care Activity Detail Author Start: 10-02-2029 Lipid panel [facility] Start: 07-31-2026 Creatinine measurement Basic Metabol ic Panel [facility] Start: 10-02-2025 Annual Preventive Ca re Visit Annual Preventive Care Visit [facility] Start: 10-02-2025 Annual Wellness (Yg lt): Indicated (All Coverage) Annual Wellness (Adult): Indicated (All Coverage) [facility] Start: 10-02-2025 Creatinine measurement Serum Creatin ine [facility] Start: 10-02-2025 Lipid panel Lipid Screening [facility] Start: 09-24-2025 ambulatory Ambulatory Facility:[facility] Start: 08-12-2025 Patient discharge [facility] Start: 08-10-2025 Application of intermittent pneumatic compression device [facility] Start: 08-10-2025 Following clinical pathway protocol [facility] Start: 08-10-2025 Aspiration precautions [facility] Start: 08-10-2025 Assessment of risk o f venous thromboembolism [facility] Start: 08-10-2025 Cardiac monitoring [facility] Start: 08-10-2025 Catheterization of vein [facility] Start: 08-10-2025 Consultation [facility] Start: 08-10-2025 Continuous pulse oximetry [facility] Start: 08-10-2025 Elevation of head of bed [facility] Start: 08-10-2025 Exercises [facility] Start: 08-10-2025 Insertion of cathete r into peripheral vein [facility] Start: 08-10-2025 Notification of physician [facility] Start: 08-10-2025 Oxygen therapy [facility] Start: 08-10-2025 Patient referral to dietitian [facility] Start: 08-10-2025 Providing care accor ding to standard [facility] Start: 08-10-2025 Referral for physica l therapy [facility] Start: 08-10-2025 Referral to occupati onal therapist [facility] Start: 08-10-2025 Referral to service [facility] Start: 08-10-2025 Speech therapy assessment [facility] Start: 08-10-2025 Telemedicine consult ation with patient [facility] Start: 08-10-2025 Tobacco use cessatio n education [facility] Start: 08-10-2025 End: 08-10-2025 [facility] Start: 08-10-2025 Vital signs measurements [facility] Start: 08-10-2025 Verification routine [facility] Start: 08-10-2025 Admission procedure [facility] Start: 08-10-2025 [facility] Start: 08-10-2025 Patient referral to dietitian [facility] Start: 07-12-2025 COVID-19 Vaccine ( season) COVID-19 Vaccine ( season) [facility] Start: 07-12-2025 Uht-FIEAT-51 ( season) Fpf-DAOPS-83 ( season) [facility] Start: 07-12-2025 [facility] Start: 05-10-2025 Influenza vaccination Imm-Influenza (#1) [facility] Comment on above: Postponed from 07/12 (Patient postponement) Start: 04-01-2025 Hemoglobin A1c measurement [facility] Start: 11-11-2024 Depression screening Depressio n Annual Screen [facility] Start: 11-11-2024 Screening for substa nce abuse Alcohol and Drug Screen [facility] Start: 07-12-2024 Czn-CKKOG-96 ( season) Qtc-HDKKP-43 ( season) [facility] Start: 11-11-2023 Depression screening Depressio n Annual Screen [facility] Start: 11-11-2023 Screening for substa nce abuse Alcohol and Drug Screen [facility] Start: 2023 Imm-Zoster, Recombin ant (1 of 2) Imm-Zoster, Recombinant (1 of 2) [facility] Start: 2023 Pneumococcal vaccination Pneum ococcal Vaccine(s) (50+ yrs) (1 of 1 - PCV) [facility] Start: 2023 Shingles (RZV) Vacci ne (1 of 2) Shingles (RZV) Vaccine (1 of 2) [facility] Start: 2018 Screening for malign ant neoplasm of colon [facility] Start: 1992 Hepatitis A (HAV) Va ccine (optional start 19+ years) Hepatitis A (HAV) Vaccine (optional start 19+ years) [facility] Start: 1992 Hepatitis B vaccination [facility] Start: 1992 Imm-Pneumococcal 50+ (1 of 2 - PCV) Imm-Pneumococcal 50+ (1 of 2 - PCV) [facility] Start: 1992 Tetanus vaccination Imm-DTaP/T dap/Td (1 - Tdap) [facility] Start: 1991 Hepatitis C screening Hepatitis C An tibody [facility] Start: 1991 Tdap Booster Tdap Booster [facility] Start: 1988 HIV Screening HIV Screening [facility] Start: 1988 HIV screening HIV Test [facility] Start: 1986 Diabetic retinal eye exam Retinopath y Screening [facility] Start: 1979 Imm-Pneumococcal (1 of 2 - PCV) Imm-Pneumococcal (1 of 2 - PCV) [facility] Start: 1973 Anxiety Screening Anxiety Screening [facility] Start: 1973 Diabetes mellitus screening Diabetes Screening [facility] Start: 1973 Diabetic foot examination Diabetes F oot Exam [facility] Start: 1973 Hepatitis C screening Hepatitis C Sc reening [facility] Start: 1973 Lipid panel Lipid Screening [facility] Start: 1973 Microalbumin measure ment, urine, quantitative [facility] Start: 1973 Screening for malign ant neoplasm of colon Colonoscopy [facility] Start: 1973 Tobacco use cessatio n education Tobacco Cessation Counseling (#1) [facility] 25 hydroxy includes fractions if performed 25 HYDROXY INCLUDES FRACTIONS IF PERFORMED Lab Routine Encounter for routine history and physical exam for male Ordered: 10/02/2024 [facility] [employer] Work Phone: Comment on above: Ordered: 10/02/2024 Assay of thyroid stimulating hormone tsh TSH REFLEX TO T4 Lab Routine Encounter for routine history and physical exam for male Ordered: 10/02/2024 [facility] [employer] Work Phone: Comment on above: Ordered: 10/02/2024 CBC W Auto Different ial panel - Blood BLOOD COUNT COMPLETE AUTO&AUTO DIFRNTL WBC Lab Routine Encounter for routine history and physical exam for male Ordered: 10/02/2024 [facility] Work Phone: Comment on above: Ordered: 10/02/2024 Comprehensive metabo lic panel COMPREHENSIVE METABOLIC PANEL Lab Routine Encounter for routine history and physical exam for male Ordered: 10/02/2024 [facility] [employer] Work Phone: Comment on above: Ordered: 10/02/2024 Hemoglobin glycosyla mark a1c HEMOGLOBIN GLYCOSYLATED A1C Lab Routine Encounter for routine history and physical exam for male Ordered: 10/02/2024 [facility] Work Phone: Comment on above: Ordered: 10/02/2024 Lipid panel LIPID PANEL Lab Routine Encounter for routine history and physical exam for male Hyperlipidemia, unspecified hyperlipidemia type Ordered: 10/02/2024 [facility] [employer] Work Phone: Comment on above: Ordered: 10/02/2024 [facility] Immunizations Immunization Date Immunization Notes Care Provider Hillary moraes 10-02-2024 Hemoglobin A1c Monica Rausch son Work Phone: [facility] Work Phone: Payers Date Payer Category Payer Self-pay [id number] 2024 Private Health Insurance [id number] 2023 Medicaid HMO [employer] [id number] 2023 Unknown [id number] 2023 Unknown [id number] 1973 Unknown [id number] 1975 Unknown [id number] Unknown [id number] Unknown [id number] Unknown [id number] 462 Unknown [id number] 462 Unknown [id number] Unknown [id number] 462 Unknown [id number] 462 Unknown [id number] 462 Unknown [id number] 462 Unknown [id number] 462 Unknown [id number] Social History Date Type Detail Facility Start: 10-02-2024 Tobacco smoking status [facility] Occasional tobacco smoker [facility] History of tobacco use Cigar Smoker [facility] Start: 10-02-2024 Tobacco use and exposure Smokeless tobacco non-user [facility] Start: 10-02-2024 Alcoholic beverage intake Ex-drinker (finding) [facility] Work Phone: Start: 09-15-2024 History of Social function [facility] Work Phone: Start: 09-15-2024 Social Connections [facility] Connectedness 0 [facility] Work Phone: Start: 10-02-2024 Tobacco Comment 10/02/2024 [facility] Work Phone: Start: 1975 Sex assigned at Not on file [facility] Work Phone: Start: 08-19-2014 Tobacco smoking status NHIS Smokes tobacco daily (finding) [facility] Start: 1975 Sex Assigned At Male [facility] Tobacco smoking stat us [facility] Tobacco smoking consumption unknown [facility] Start: 09-15-2024 End: 07-31-2025 Sex Male (finding[facility] Start: 08-11-2025 End: 08-12-2025 Tobacco smoking status NHIS Current Light tobacco smoker [facility] Goals Date Patient Goal Desired Activity /State Functional Status Date Assessment Result Facility 08-12-2025 Functional status Ambulates [facility] Work Phone: 08-11-2025 Functional status Ambulates [facility] Work Phone: Mental Status Date Assessment Result Facility 08-12-2025 Cognitive function Voice/Name [facility] Work Phone: 08-11-2025 Cognitive function Voice/Name [facility] Work Phone: Clinical Notes 10-02-2024 to 08-31-2025 Monica Rdz - 08/31/2025 9:14 AM EDT Note Date & Type Note Facility 08-31-2025 History of Present illness Narrative Therapeutic Specialist contacted patient regarding scheduling diabetes education. Patient was not interested, stating he does not need that. documented in this encounter [facility] Work Phone: 08-12-2025 Discharge summary [facility] 08-12-2025 Note [facility] Medical Records Department [address] [place] [address] Discharge Summary 08/12/25 1507 MR#: [id number] Acct: [id number] Name: ARIEL BEAN Rep #: [id number] : 1975 50 From: Fahad Leiva MD PCP: Care Physician,No Primary Status:ADM IN Location: PCU [place] [address] Providers Date of Admission: 08/10/25 Date of Discharge: 08/12/25 Primary Care Physician: No Primary Care Phys Consultations 08/10/25 18:45 Consult: Tele-Neurology Routine Consulting Provider: [facility] Reason for Consult: Acute Ischemic Stroke/TIA EMERGENT Consult: No MD Notified: Yes Date Notified: 08/10/25 Time Notified: 20:41 Method of Notification: Answering Service Nursing Unit Staff Notify [facility] of Tele-Neurology Consult: Yes Reason For Visit: LEFT MCA STROKE W/ LEFT ICA STENOSIS Diagnosis Discharge Diagnosis (1) Left carotid stenosis: Status: Acute Code(s): I65.22 - Occlusion and stenosis of left carotid artery Plan Patient is a 50-year-old male who presented [facility] ED on 08/10/2025 with intermittent confusion, generalized weakness for 2 weeks. Patient is not acting right. LKW last Saturday. Patient slow to respond and is mixing words. Patient also slurred speech and worsening right upper extremity weakness and numbness/tingling. 1. Acute left MCA stroke with left-sided critical ICA stenosis ??? Admit under inpatient status to PCU. Neurology and vascular surgery consulted 08/11: MRI brain shows subacute infarct in left frontoparietal region. No evidence of hemorrhagic transformation. Prior to that, CT head shows acute/subacute ischemia of left MCA distribution no hemorrhage. CT headache note shows critical stenosis over supraclinoid portion of left ICA with flow limitation. 50% stenosis of right supraclinoid ICA no evidence of LVO at MCA. Patient evaluated by [facility] neurologist recommended aspirin and Plavix along with statin which patient is already on. 2D echo was done report pending. Discussed with vascular surgeon Dr. Nguyễn. If echo is normal otherwise if it shows regional wall motion abnormalities/depressed EF need impersonator character evaluation and clearance. Likely plan will be for vascular intervention in about 1 week. PT/OT/case management consulted. Lipid profile shows HDL 39, TC 200 LDL 143 elevated. TSH normal. A1c 6.7%. UTOX screen was negative. UA shows mild proteinuria 15 otherwise normal. 08/12: Discussed with the patient and the case briefer. Patient given prescription for outpatient physical therapy. Because of his stroke patient has decreased cognition and mild language deficit and therefore home health. Follow-up with vascular surgery in 1 week as mentioned above. Follow-up with neurology office as in discharge instruction. Prescription given for baby aspirin, Plavix, atorvastatin and metformin DM type II: A1C 6.7%, meets the definition of DM type II. Accu-Cheks AC and at bedtime coverage is normal sliding scale 10: Start metformin from 08/14/2025. Follow-up with PCP for optimal control of glucose. Alcohol 117. 2. Hypertension ??? Hypertensive to the 150s to 160s systolic in the ED. Not on any antihypertensive agents at this time, unclear if he has been in the past. 08/11: Blood pressure is in permissive hypertension range 08/12 blood pressure 131/54, 130/86, 143/66. Prescribed low-dose of lisinopril 5 mg daily 3. Class II obesity ??? BMI 39 on admit. Discussed lifestyle modifications. Complicates hospital course and care. 4. Tobacco dependence ??? Current smoker. Nicotine replacement therapy available per patient request. Discussed cessation on discharge. DVT prophylaxis: SCDs CODE STATUS: Full code, verified Discharge medication reconciliation done. Discharge follow-up instructions completed. Discharge process discussed with the patient and all questions were answered to patient's satisfaction. Follow with PCP in 1 to 2 weeks Total time spent, exact 35 minutes on discharge meds reconciliation, examination, coordination of care with nurses and ancillary staff, review of imaging and blood test and discussion with the patient on follow-up instructions. Laboratory Results 08/10/25 14:07: Hemoglobin A1c 6.7 H, Troponin T High Sens 8, TSH 1.020 08/10/25 14:45: Urine Color Yellow, Urine Clarity Clear, Urine pH 6.0, Ur Specific [place] 1.015, U rine Protein 15 H, Urine Glucose (UA) Normal, Urine Ketones Negative, Urine Occult Blood Negative, Urine Nitrite Negative, Urine Bilirubin Negative, Urine Urobilinogen Normal, Ur Leukocyte Esterase Negative, Urine RBC 0-5 SEEN, Urine WBC 0-5 SEEN, Ur Squamous Epith Cells 0 SEEN, Urine Bacteria 0 SEEN, Urine Mucus 0 SEEN, Urine Opiates Screen NEGATIVE, U Buprenorphine Qual NEGATIVE, Ur Oxycodone Screen NEGATIVE, Urine Methadone Screen NEGATIVE, Urine Fentanyl Screen NEGATIVE, Ur Barbiturates Screen NEG (more content not included)... [facility] 08-12-2025 Discharge summary [facility] 08-12-2025 Consult note Note Date/Time August 12, 2025 12:14pm [facility] Medical Records Department [address] [place] [address] Consultation - Neurology 08/11/25 1351 MR#: [id number] Acct: [id number] Name: ARIEL BEAN Rep #:[id number] : 1975 50 From: Narciso Melton PCP: Care Physician,No Primary Status :ADM IN Location: [place] [address] Assessment and Plan: Neuro Assessment/Plan Telestroke (Audio/Video) Attending Stroke Consult Note - 08/11/2025 50 y/o man with h/o HTn, obesity and tobacco dependence p/w confusion, slurred speech and worsening right UE weakness and numbness/tinglin. CT head- subacute left MCA stroke. CTA- left ICA high grade stenosis. MRI brain - left MCA Stroke.[id number]. Today, he still has mild aphasia and drift in RUE. Denies any new complaints. Diagnosis: Left MCA stroke, symptomatic LICA stenosis Plan: ASA and plavix alnnog with statin. Given symptomatic LICA stenosis, consult vascular surgery for possible revascularization. Follow up TTE. 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 Control of vascular risk factors. Follow up A1c. Sign off for now. Please call us back for any questions. I personally attended this patient and spent a total time of 70 minutes evaluating this patient including clinical assessment, review of chart, medical history imaging, and determining appropriate treatment and workup. HPI Consult Data Date of Consult: 08/12/25 HPI Narrative HPI Narrative: 50 y/o man with h/o HTn, obesity and tobacco dependence p/w confusion, slurred speech and worsening right UE weakness and numbness/tinglin. CT head- subacute left MCA stroke. CTA- left ICA high grade stenosis. MRI brain - left MCA Stroke.LDL-143. Today, he still has mild aphasia and drift in RUE. Denies any new complaints. [facility] Medical History (Updated 08/11/25 @ 14:10 by JUNO Harris) HTN (hypertension) Eye globe prosthesis Home Medications ?Medication ?Instructions ?Recorded ?Last Taken ?Type NK 08/10/25 Unknown History Allergy/AdvReac Type Severity Reaction Status Date / Time No Known Allergies Allergy Verified 08/10/25 19:55 Social History (Updated 08/10/25 @ 18:48 by Keiko French) household members: family housing: house Smoking Status: Light Smoker (<10/day) Vital Signs Vital Signs Vital Signs: 08/10/25 14:00 08/10/25 15:00 08/10/25 16:00 Temperature Temperature Source Pulse Rate 57 L 52 L 49 L Pulse Strength Respiratory Rate 16 19 H 20 H Respiratory Effort Respiratory Depth Respiratory Pattern Blood Pressure 137/83 H 142/70 H 165/74 H Blood Pressure Mean 101 94 104 Blood Pressure Source Blood Pressure Position Blood Pressure Location Pulse Ox 97 98 100 Oxygen Delivery Method Room Air Room Air 08/10/25 17:12 08/10/25 17:13 08/10/25 19:30 Temperature 97.9 F Temperature Source Pulse Rate 60 58 L Pulse Strength Respiratory Rate 17 17 Respiratory Effort Normal Non-Labored Respiratory Depth Normal Respiratory Pattern Normal Blood Pressure 156/94 H 156/94 H Blood Pressure Mean 114 114 Blood Pressure Source Blood Pressure Position Blood Pressure Location Pulse Ox 100 100 Oxygen Delivery Method Room Air Room Air 08/10/25 19:40 08/10/25 22:00 08/10/25 22:52 Temperature 98.1 F Temperature Source Oral Pulse Rate 55 L Pulse Strength Normal (2+) Respiratory Rate 16 Respiratory Effort Respiratory Depth Respiratory Pattern Blood Pressure 140/87 H Blood Pressure Mean 104 Blood Pressure Source Monitor Blood Pressure Position Semi-Fowlers Blood Pressure Location Left Arm Pulse Ox 100 98 Oxygen Delivery Method Room Air Room Air 08/10/25 23:25 08/11/25 03:30 08/11/25 03:30 Temperature 97.6 F L 97.7 F L Temperature Source Oral Oral Pulse Rate 77 57 L Pulse Strength Respiratory Rate 16 16 Respiratory Effort Normal Non-Labored Respiratory Depth Normal Respiratory Pattern Normal Blood Pressure 138/77 H 140/77 H Blood Pressure Mean 97 98 Blood Pressure Source Monitor Monitor Blood Pressure Position Semi-Fowlers Semi-Fowlers Blood Pressure Location Left Arm Left Arm Pulse Ox 97 97 Oxygen Delivery Method Room Air Room Air Room Air 08/11/25 06:45 08/11/25 06:47 08/11/25 07:30 Temperature 98.6 F 97.8 F Temperature Source Oral Oral Pulse Rate 54 L 52 L Pulse Strength Respiratory Rate 16 16 Respiratory Effort Respiratory Depth Respiratory Pattern Blood Pressure 135/75 H 143/85 H Blood Pressure Mean 95 104 Blood Pressure Source Monitor Monitor Blood Pressure Position Supine Supine Blood Pressure Location Left Arm Left Forearm Pulse Ox 99 95 99 Oxygen Delivery Method Room Air Room Air Room Air 08/11/25 07:30 08/11/25 10:00 08/11/25 11:00 Temperature 97.9 F Temperature Source Oral Pulse Rate 60 Pulse Strength Normal (2+) Respiratory Rate 16 Respiratory Effort Normal Non-Labored Respiratory Depth Normal Respiratory Pattern Normal Blood Pressure 141/72 H Blood Pressure Mean 95 Blood Pressure Source Monitor Blood Pressure Position Supine Blood Pressure Location Left Forearm Pulse Ox 95 Oxygen Delivery Method Room Air Room Air Weight Weight: 130.6 kg Body Mass Index (BMI) 39.0 EEG Results Procedure Details EEG Procedure Details: ARIEL BEAN is a 50 year old M with a past medical history of , who presents for evaluation of Electroencephalogram on DATE at TIME Lab / Micro Data 08/10/25 14:07 08/10/25 14:07 Labs: Laboratory Results - last 24 hr 08/10/25 14:07: WBC 6.6, RBC 4.68, Hgb 13.6, Hct 39.6 L, MCV 84.6, MCH 29.1, MCHC 34.3, RDW Std Deviation 36.7, RDW Coeff of [place] 12.3, Plt Count 380, MPV 9.7, Immature Gran % (Auto) 0.200, Neut % (Auto) 46.0 L, Lymph % (Auto) 41.8 H, [place] % (Auto) 11.1 H, Eos % (Auto) 0.6, Baso % (Auto) 0.3, Absolute Neuts (auto)3.0, Absolute Lymphs (auto) 2.76, Nucleated RBC % 0, PT 13.9, INR 1.1, APTT 24.9, Sodium 139, Potassium 3.5, Chloride 106, Carbon Dioxide 23.2, Anion Gap 10, BUN 17, Creatinine 0.72, Estim Creat Clear Calc 166.57, Est GFR (MDRD) Non-Af 110, BUN/Creatinine Ratio 23.5 H, Glucose 117 H, Hemoglobin A1c 6.7 H, Calcium 9.1, Total Bilirubin 0.23, AST 19, ALT 26, Alkaline Phosphatase 99, Troponin T High Sens 8, Total Protein 7.2, Albumin 3.9, Globulin 3.3, Albumin/Globulin Ratio 1.2, TSH 1.020, Ethyl Alcohol < 10.1 08/10/25 14:09: Lactic Acid < 1.0 08/10/25 14:45: Urine Color Yellow, Urine Clarity Clear, Urine pH 6.0, Ur Specific [place] 1.015, Urine Protein 15 H, Urine Glucose (UA) Normal, Urine Ketones Negative, Urine Occult Blood Negative, Urine Nitrite Negative, Urine Bilirubin Negative, Urine Urobilinogen Normal, Ur Leukocyte Esterase Negative, Urine RBC 0-5 SEEN, Urine WBC 0-5 SEEN, Ur Squamous Epith Cells 0 SEEN, Urine Bacteria 0 SEEN, Urine Mucus 0 SEEN, Urine Opiates Screen NEGATIVE, U Buprenorphine Qual NEGATIVE, Ur Oxycodone Screen NEGATIVE, Urine Methadone Screen NEGATIVE, Urine Fentanyl Screen NEGATIVE, Ur Barbiturates Screen NEGATIVE, Ur Phencyclidine Scrn NEGATIVE, Ur Amphetamines Screen NEGATIVE, U Benzodiazepines Scrn NEGATIVE, Urine Cocaine Screen NEGATIVE, U Cannabinoids Screen NEGATIVE 08/10/25 16:10: Troponin T Hi Sens 2 Hr 8 08/11/25 05:04: Triglycerides 89, Cholesterol 200, LDL Cholesterol, Calc 143, VLDL Cholesterol 18, HDL Cholesterol 39 L, Cholesterol/HDL Ratio 5.12 Imaging Radiology Impression Brain CT 08/10/25 14:20 IMPRESSION: 1. Acute (to subacute) ischemia left MCA distribution. No hemorrhage. Correlate with history. 2. Correlate with CT angiogram as there are critical findings. Stroke Alert: Left MCA acute ischemia The critical findings in the findings and impression above were relayed directlyby me by telephone to Ever Barth on 08/10/2025 at 3:05 pm with readback verification. Reading Location: [facility] Chest X-Ray 08/10/25 14:30 IMPRESSION: No acute abnormality Reading Location: [facility] Head/Neck CTA 08/10/25 14:52 IMPRESSION: 1. Critical stenosis involving the proximal left internal carotid artery. Additionally, supraclinoid portion of the left internal carotid artery with likely flow limitation. Urgent vascular surgical consultation suggested. 2. 50% stenosis right supraclinoid internal carotid artery. 3. Hypoplastic versus atherosclerotic A1 segment on the left. 4. No evidence of large vessel occlusion at the MCA at this time. 5. Correlate with the head CT of the same day as there are positive findings. 6. Enlargement of the lymphoid tissue of the nasopharynx, palatine tonsils and uvula. Correlate with direct inspection, history and physical. Stroke Alert: Acute ischemia. Critical stenosis. The critical findings in the findings and impression above were relayed directlyby me by telephone to Ever Barth on 08/10/2025 at 3:05 pm with readback verification. Reading Location: [facility] Brain MRI 08/10/25 17:12 IMPRESSION: Subacute infarcts in the left frontoparietal region. No evidence of hemorrhagic transformation. Reading Location: [facility] Active Medications Active Medications Active Medications: Current Medications Generic Name Dose Route Start Last Admin Trade Name Freq PRN Reason Stop Dose Admin Acetaminophen 650 mg 08/10/25 18:45 Acetaminophen 325 Mg Tablet PO Q6H PRN PRN Pain 1-10 Or Fever>100.7 Aspirin 81 mg 08/11/25 08:00 08/11/25 11:02 Aspirin 81 Mg Tab.Chew PO 81 mg BREAKFAST KELSY Administration Atorvastatin Calcium 80 mg 08/10/25 22:00 08/10/25 20:05 Atorvastatin Calcium 80 Mg Tablet PO 80 mg QHS KELSY Administration Clopidogrel Bisulfate 75 mg 08/10/25 18:45 08/11/25 11:02 Clopidogrel Bisulfate 75 Mg Tablet PO 75 mg DAILY KELSY Administration Hydralazine HCl 5 mg 08/10/25 18:45 Hydralazine 20 Mg/Ml Vial IV 08/11/25 18:45 Q30M PRN maintain BP parameters with HR <60 Sodium Chloride 250 mls @ 15 mls/hr 08/10/25 19:08 IV .[id number] PRN Saline Flush Sodium Chloride 250 mls @ 15 mls/hr 08/10/25 19:08 IV .[id number] PRN Additional IVPB Infusion Labetalol HCl 10 - 20 mg 08/10/25 18:45 Labetalol 20 Mg/4 Ml Vial IV 08/11/25 18:45 Q10M PRN PRN maintain BP parameters with HR >/=60 Melatonin 3 mg 08/10/25 18:45 Melatonin 3 Mg Tablet PO QHS PRN PRN INSOMNIA Ondansetron HCl 4 mg 08/10/25 18:45 Ondansetron 4 Mg/2 Ml Vial IV Q8H PRN PRN NAUSEA/VOMITING Sodium Chloride 10 - 40 ml 08/10/25 19:08 0.9% Saline Lock 10 Ml Syringe IV UD PRN SALINE FLUSH NIHSS NIHSS Nursing Documentation NIHSS Nursing Documentation: NIH Stroke Scale Start: 08/10/25 12:25 Freq: Status: Discharge Protocol: Activity Type Activity Date Activity User E-sign Co-sign Detail Recorded Client Recorded Date Recorded By Document 08/10/25 12:26 [facility] [id number] 08/10/25 12:26 [facility] 08/10/25 12:26 NIH Stroke Scale [NIHSS] A score of 0 is normal or asymptomatic . Total possible score is 42. Inpatient: RN or Physician to activate a stroke alert for onset of new stroke symptoms or with NIHSS increase >/= 3 points. Following change in neurological status, NIHSS will be performed per physician order or more frequently PRN. -1a. Level of Consciousness 0 - Alert; keenly responsive -1b. LOC Questions 1 - Answers ONE question correctly -1c. LOC Commands 0 - Performs BOTH tasks correctly -2. Best Gaze 0 - Normal -3. Visual 0 - No visual loss -4. Facial Palsy 0 - Normal symmetrical movements -5a. Left Arm 0 - No drift; arm holds 90 ( or 45) degrees for full 10 seconds -5b. Right Arm 0 - No drift; arm holds 90 ( or 45) degrees for full 10 seconds -6a. Left Leg 0 - No drift; leg holds 30- degree position for full 5 seconds -6b. Right Leg 0 - No drift; leg holds 30- degree position for full 5 seconds -7. Limb Ataxia 0 - Absent -8. Sensory 0 - Normal; no sensory loss -9. Best Language 0 - No aphasia; normal -10. Dysarthria 0 - Normal -11. Extinction and Inattention 0 - No abnormality -Total 1 Query Text:A score of 0 is normal or asymptomatic. Total possible score is 42 . ED: Notify Physician for NIHSS increase by > / = 3 points. Inpatient: RN or Physician to activate a stroke alert for NIHSS increase of > / = 3 points. NIHSS: Ischemic Stroke/TIA Start: 08/10/25 18:45 Text: For PCU Patients: NIH and Neuro Check every 4 Status: Active hours, PRN and with change in RN caregiver. Freq: [id number] Protocol: Activity Type Activity Date Activity User E-sign Co-sign Detail Recorded Client Recorded Date Recorded By Document 08/11/25 11:00 [id number] 08/11/25 11:08 08/11/25 11:00 -1a. Level of Consciousness 0 - Alert; keenly responsive -1b. LOC Questions 0 - Answers BOTH questions correctly -1c. LOC Commands 0 - Performs BOTH tasks correctly -2. Best Gaze 0 - Normal -3. Visual 1 - Partial hemianopia -4. Facial Palsy 0 - Normal symmetrical movements -5a. Left Arm 0 - No drift; arm holds 90 ( or 45) degrees for full 10 seconds -5b. Right Arm 1 - Drift; arm drifts downward but doesn?t hit the bed -6a. Left Leg 0 - No drift; leg holds 30- degree position for full 5 seconds -6b. Right Leg 0 - No drift; leg holds 30- degree position for full 5 seconds -7. Limb Ataxia 0 - Absent -8. Sensory 1 - Mild-to- moderate sensory loss; -9. Best Language 1 - Mild-to- moderate aphasia; -10. Dysarthria 0 - Normal -11. Extinction and Inattention 0 - No abnormality -Total 4 Query Text:A score of 0 is normal or asymptomatic. Total possible score is 42 . ED: Notify Physician for NIHSS increase by > / = 3 points. Inpatient: RN or Physician to activate a stroke alert for NIHSS increase of > / = 3 points. Coma Scale [Assess] -Eye Opening Spontaneous -Motor Obeys Commands -Verbal Oriented [Total] -Coma Scale Total 15 NIHSS 1a. Level of Consciousness: 0 - Alert; keenly responsive 1b. LOC Questions: 0 - Answers BOTH questions correctly 1c. LOC Commands: 0 - Performs BOTH tasks correctly 2. Best Gaze: 0 - Normal 3. Visual: 0 - No visual loss 4. Facial Palsy: 0 - Normal symmetrical movements 5a. Left Arm: 0 - No drift; arm holds 90 (or 45) degrees for full 10 seconds 5b. Right Arm: 1 - Drift; arm drifts downward but doesn?t hit the bed 6a. Left Le - No drift; leg holds 30-degree position for full 5 seconds 6b. Right Le - No drift; leg holds 30-degree position for full 5 seconds 7. Limb Ataxia: 0 - Absent 8. Sensory: 0 - Normal; no sensory loss 9. Best Language: 1 - [id number] aphasia; 10. Dysarthria: 0 - Normal 11. Extinction and Inattention: 0 - No abnormality Total: 2 08/12/25 1214 <Electronically signed by Narciso Garcia MD> Cosigner Signature (if applicable): CC: No Primary Care Physician~ Signed [facility] Work Phone: 1(920) 402-274910-02-2025 Hospital Discharge instructionsAdditional Instructions [facility]: [facility]: 1(409) 123-464510-02-2025 Consult note [facility] Medical Records Department [address] [place] [address] Consultation - Neurology 08/11/25 1351 MR#: [id number] Acct: [id number] Name: ARIEL BEAN Rep #:[id number] : 1975 50 From: Narciso Melton PCP: Care Physician,No Primary Status :ADM IN Location: [place] [address] Assessment and Plan: Neuro Assessment/Plan Telestroke (Audio/Video) Attending Stroke Consult Note - 08/11/2025 50 y/o man with h/o HTn, obesity and tobacco dependence p/w confusion, slurred speech and worseningright UE weakness and numbness/tinglin. CT head- subacute left MCA stroke. CTA- left ICA high gradestenosis. MRI brain - left MCA Stroke.LDL-143. Today, he still has mild aphasia and drift in RUE. Denies any new complaints. Diagnosis: Left MCA stroke, symptomatic LICA stenosis Plan: ASA and plavix alnnog with statin. Given symptomatic LICA stenosis, consult vascular surgery for possible revascularization. Follow up TTE. 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 Control of vascular risk factors. Follow up A1c. Sign off for now. Please call us back for any questions. I personally attended this patient and spent a total time of 70 minutes evaluating this patient including clinical assessment, review of chart, medical history imaging, and determining appropriate treatment and workup. HPI Consult Data Date of Consult: 08/12/25 HPI Narrative HPI Narrative: 50 y/o man with h/o HTn, obesity and tobacco dependence p/w confusion, slurred speech and worseningright UE weakness and numbness/tinglin. CT head- subacute left MCA stroke. CTA- left ICA high gradestenosis. MRI brain - left MCA Stroke.LDL-143. Today, he still has mild aphasia and drift in RUE. Denies any new complaints. [facility] Medical History (Updated 08/11/25 @ 14:10 by JUNO Harris) HTN (hypertension) Eye globe prosthesis Home Medications ?Medication ?Instructions ?Recorded ?Last Taken ?Type NK 08/10/25 Unknown History Allergy/AdvReac Type Severity Reaction Status Date / Time No Known Allergies Allergy Verified 08/10/25 19:55 Social History (Updated 08/10/25 @ 18:48 by Keiko French) household members: family housing: house Smoking Status: Light Smoker (<10/day) Vital Signs Vital Signs Vital Signs: 08/10/25 14:00 08/10/25 15:00 08/10/25 16:00 Temperature Temperature Source Pulse Rate 57 L 52 L 49 L Pulse Strength Respiratory Rate 16 19 H 20 H Respiratory Effort Respiratory Depth Respiratory Pattern Blood Pressure 137/83 H 142/70 H 165/74 H Blood Pressure Mean 101 94 104 Blood Pressure Source Blood Pressure Position Blood Pressure Location Pulse Ox 97 98 100 Oxygen Delivery Method Room Air Room Air 08/10/25 17:12 08/10/25 17:13 08/10/25 19:30 Temperature 97.9 F Temperature Source Pulse Rate 60 58 L Pulse Strength Respiratory Rate 17 17 Respiratory Effort Normal Non-Labored Respiratory Depth Normal Respiratory Pattern Normal Blood Pressure 156/94 H 156/94 H Blood Pressure Mean 114 114 Blood Pressure Source Blood Pressure Position Blood Pressure Location Pulse Ox 100 100 Oxygen Delivery Method Room Air Room Air 08/10/25 19:40 08/10/25 22:00 08/10/25 22:52 Temperature 98.1 F Temperature Source Oral Pulse Rate 55 L Pulse Strength Normal (2+) Respiratory Rate 16 Respiratory Effort Respiratory Depth Respiratory Pattern Blood Pressure 140/87 H Blood Pressure Mean 104 Blood Pressure Source Monitor Blood Pressure Position Semi-Fowlers Blood Pressure Location Left Arm Pulse Ox 100 98 Oxygen Delivery Method Room Air Room Air 08/10/25 23:25 08/11/25 03:30 08/11/25 03:30 Temperature 97.6 F L 97.7 F L Temperature Source Oral Oral Pulse Rate 77 57 L Pulse Strength Respiratory Rate 16 16 Respiratory Effort Normal Non-Labored Respiratory Depth Normal Respiratory Pattern Normal Blood Pressure 138/77 H 140/77 H Blood Pressure Mean 97 98 Blood Pressure Source Monitor Monitor Blood Pressure Position Semi-Fowlers Semi-Fowlers Blood Pressure Location Left Arm Left Arm Pulse Ox 97 97 Oxygen Delivery Method Room Air Room Air Room Air 08/11/25 06:45 08/11/25 06:47 08/11/25 07:30 Temperature 98.6 F 97.8 F Temperature Source Oral Oral Pulse Rate 54 L 52 L Pulse Strength Respiratory Rate 16 16 Respiratory Effort Respiratory Depth Respiratory Pattern Blood Pressure 135/75 H 143/85 H Blood Pressure Mean 95 104 Blood Pressure Source Monitor Monitor Blood Pressure Position Supine Supine Blood Pressure Location Left Arm Left Forearm Pulse Ox 99 95 99 Oxygen Delivery Method Room Air Room Air Room Air 08/11/25 07:30 08/11/25 10:00 08/11/25 11:00 Temperature 97.9 F Temperature Source Oral Pulse Rate 60 Pulse Strength Normal (2+) Respiratory Rate 16 Respiratory Effort Normal Non-Labored Respiratory Depth Normal Respiratory Pattern Normal Blood Pressure 141/72 H Blood Pressure Mean 95 Blood Pressure Source Monitor Blood Pressure Position Supine Blood Pressure Location Left Forearm Pulse Ox 95 Oxygen Delivery Method Room Air Room Air Weight Weight: 130.6 kg Body Mass Index (BMI) 39.0 EEG Results Procedure Details EEG Procedure Details: ARIEL BEAN is a 50 year old M with a past medical history of , who presents for evaluation of Electroencephalogram on DATE at TIME Lab / Micro Data 08/10/25 14:07 08/10/25 14:07 Labs: Laboratory Results - last 24 hr 08/10/25 14:07: WBC 6.6, RBC 4.68, Hgb 13.6, Hct 39.6 L, MCV 84.6, MCH 29.1, MCHC 34.3, RDW Std Deviation 36.7, RDW Coeff of [place] 12.3, Plt Count 380, MPV 9.7, Immature Gran % (Auto) 0.200, Neut % (Auto) 46.0 L, Lymph % (Auto) 41.8 H, [place] % (Auto) 11.1 H, Eos % (Auto) 0.6, Baso % (Auto) 0.3, Absolute Neuts (auto)3.0, Absolute Lymphs (auto) 2.76, Nucleated RBC % 0, PT 13.9, INR 1.1, APTT 24.9, Sodium 139, Potassium 3.5, Chloride 106, Carbon Dioxide 23.2, Anion Gap 10, BUN 17, Creatinine 0.72, Estim Creat Clear Calc 166.57, Est GFR (MDRD) Non-Af 110, BUN/Creatinine Ratio 23.5 H, Glucose 117 H, Hemoglobin A1c 6.7 H, Calcium 9.1, Total Bilirubin 0.23, AST 19, ALT 26, Alkaline Phosphatase 99, Tro ponin T High Sens 8, Total Protein 7.2, Albumin 3.9, Globulin 3.3, Albumin/Globulin Ratio 1.2, TSH 1.020, Ethyl Alcohol < 10.1 08/10/25 14:09: Lactic Acid < 1.0 08/10/25 14:45: Urine Color Yellow, Urine Clarity Clear, Urine pH 6.0, Ur Specific [place] 1.015, Urine Protein 15 H, Urine Glucose (UA) Normal, Urine Ketones Negative, Urine Occult Blood Negative, Urine Nitrite Negative, Urine Bilirubin Negative, Urine Urobilinogen Normal, Ur Leukocyte Esterase Negative, Urine RBC 0-5 SEEN, Urine WBC 0-5 SEEN, Ur Squamous Epith Cells 0 SEEN, Urine Bacteria 0 SEEN, Urine Mucus 0 SEEN, Urine Opiates Screen NEGATIVE, U Buprenorphine Qual NEGATIVE, Ur Oxycodone Screen NEGATIVE, Urine Methadone Screen NEGATIVE, Urine Fentanyl Screen NEGATIVE, Ur Barbiturates Screen NEGATIVE, Ur Phencyclidine Scrn NEGATIVE, Ur Amphetamines Screen NEGATIVE, U Benzodiazepines ScrnNEGATIVE, Urine Cocaine Screen NEGATIVE, U Cannabinoids Screen NEGATIVE 08/10/25 16:10: Troponin T Hi Sens 2 Hr 8 08/11/25 05:04: Triglycerides 89, Cholesterol 200, LDL Cholesterol, Calc 143, VLDL Cholesterol 18, HDL Cholesterol 39 L, Cholesterol/HDL Ratio 5.12 Imaging Radiology Impression Brain CT 08/10/25 14:20 IMPRESSION: 1. Acute (to subacute) ischemia left MCA distribution. No hemorrhage. Correlate with history. 2. Correlate with CT angiogram as there are critical findings. Stroke Alert: Left MCA acute ischemia The critical findings in the findings and impression above were relayed directlyby me by telephone to Ever Barth on 08/10/2025 at 3:05 pm with readback verification. Reading Location: [id number] Chest X-Ray 08/10/25 14:30 IMPRESSION: No acute abnormality Reading Location: [id number] Head/Neck CTA 08/10/25 14:52 IMPRESSION: 1. Critical stenosis involving the proximal left internal carotid artery. Additionally, supraclinoid portion of the left internal carotid artery with likely flow limitation. Urgent vascular surgical consultation suggested. 2. 50% stenosis right supraclinoid internal carotid artery. 3. Hypoplastic versus atherosclerotic A1 segment on the left. 4. No evidence of large vessel occlusion at the MCA at this time. 5. Correlate with the head CT of the same day as there are positive findings. 6. Enlargement of the lymphoid tissue of the nasopharynx, palatine tonsils and uvula. Correlate with direct inspection, history and physical. Stroke Alert: Acute ischemia. Critical stenosis. The critical findings in the findings and impression above were relayed directlyby me by telephone to Ever Barth on 08/10/2025 at 3:05 pm with readback verification. Reading Location: [id number] Brain MRI 08/10/25 17:12 IMPRESSION: Subacute infarcts in the left frontoparietal region. No evidence of hemorrhagic transformation. Reading Location: [id number] Active Medications Active Medications Active Medications: Current Medications Generic Name Dose Route Start Last Admin Trade Name Freq PRN Reason Stop Dose Admin Acetaminophen 650 mg 08/10/25 18:45 Acetaminophen 325 Mg Tablet PO Q6H PRN PRN Pain 1-10 Or Fever>100.7 Aspirin 81 mg 08/11/25 08:00 08/11/25 11:02 Aspirin 81 Mg Tab.Chew PO 81 mg BREAKFAST KELSY Administration Atorvastatin Calcium 80 mg 08/10/25 22:00 08/10/25 20:05 Atorvastatin Calcium 80 Mg Tablet PO 80 mg QHS KELSY Administration Clopidogrel Bisulfate 75 mg 08/10/25 18:45 08/11/25 11:02 Clopidogrel Bisulfate 75 Mg Tablet PO 75 mg DAILY KELSY Administration Hydralazine HCl 5 mg 08/10/25 18:45 Hydralazine 20 Mg/Ml Vial IV 08/11/25 18:45 Q30M PRN maintain BP parameters with HR <60 Sodium Chloride 250 mls @ 15 mls/hr 08/10/25 19:08 IV .[id number] PRN Saline Flush Sodium Chloride 250 mls @ 15 mls/hr 08/10/25 19:08 IV .[id number] PRN Additional IVPB Infusion Labetalol HCl 10 - 20 mg 08/10/25 18:45 Labetalol 20 Mg/4 Ml Vial IV 08/11/25 18:45 Q10M PRN PRN maintain BP parameters with HR >/=60 Melatonin 3 mg 08/10/25 18:45 Melatonin 3 Mg Tablet PO QHS PRN PRN INSOMNIA Ondansetron HCl 4 mg 08/10/25 18:45 Ondansetron 4 Mg/2 Ml Vial IV Q8H PRN PRN NAUSEA/VOMITING Sodium Chloride 10 - 40 ml 09/30/25 19:08 0.9% Saline Lock 10 Ml Syringe IV UD PRN SALINE FLUSH NIHSS NIHSS Nursing Documentation NIHSS Nursing Documentation: NIH Stroke Scale Start: 08/10/25 12:25 Freq: Status: Discharge Protocol: Activity Type Activity Date Activity User E-sign Co-sign Detail Recorded Client Recorded Date Recorded By Document 08/10/25 12:26 [facility] [id number] 08/10/25 12:26 [facility] 08/10/25 12:26 NIH Stroke Scale [NIHSS] A score of 0 is normal or asymptomatic . Total possible score is 42. Inpatient: RN or Physician to activate a stroke alert for onset of new stroke symptoms or with NIHSS increase >/= 3 points. Following change in neurological status, NIHSS will be performed per physician order or more frequently PRN. -1a. Level of Consciousness 0 - Alert; keenly responsive -1b. LOC Questions 1 - Answers ONE question correctly -1c. LOC Commands 0 - Performs BOTH tasks correctly -2. Best Gaze 0 - Normal -3. Visual 0 - No visual loss -4. Facial Palsy 0 - Normal symmetrical movements -5a. Left Arm 0 - No drift; arm holds 90 ( or 45) degrees for full 10 seconds -5b. Right Arm 0 - No drift; arm holds 90 ( or 45) degrees for full 10 seconds -6a. Left Leg 0 - No drift; leg holds 30- degree position for full 5 seconds -6b. Right Leg 0 - No drift; leg holds 30- degree position for full 5 seconds -7. Limb Ataxia 0 - Absent -8. Sensory 0 - Normal; no sensory loss -9. Best Language 0 - No aphasia; normal -10. Dysarthria 0 - Normal -11. Extinction and Inattention 0 - No abnormality -Total 1 Query Text:A score of 0 is normal or asymptomatic. Total possible score is 42 . ED: Notify Physician for NIHSS increase by > / = 3 points. Inpatient: RN or Physician to activate a stroke alert for NIHSS increase of > / = 3 points. NIHSS: Ischemic Stroke/TIA Start: 08/10/25 18:45 Text: For PCU Patients: NIH and Neuro Check every 4 Status: Active hours, PRN and with change in RN caregiver. Freq: [id number] Protocol: Activity Type Activity Date Activity User E-sign Co-sign Detail Recorded Client Recorded Date Recorded By Document 08/11/25 11:00 [id number] 08/11/25 11:08 08/11/25 11:00 -1a. Level of Consciousness 0 - Alert; keenly responsive -1b. LOC Questions 0 - Answers BOTH questions correctly -1c. LOC Commands 0 - Performs BOTH tasks correctly -2. Best Gaze 0 - Normal -3. Visual 1 - Partial hemianopia -4. Facial Palsy 0 - Normal symmetrical movements -5a. Left Arm 0 - No drift; arm holds 90 ( or 45) degrees for full 10 seconds -5b. Right Arm 1 - Drift; arm drifts downward but doesn?t hit the bed -6a. Left Leg 0 - No drift; leg holds 30- degree position for full 5 seconds -6b. Right Leg 0 - No drift; leg holds 30- degree position for full 5 seconds -7. Limb Ataxia 0 - Absent -8. Sensory 1 - Mild-to- moderate sensory loss; -9. Best Language 1 - Mild-to- moderate aphasia; -10. Dysarthria 0 - Normal -11. Extinction and Inattention 0 - No abnormality -Total 4 Query Text:A score of 0 is normal or asymptomatic. Total possible score is 42 . ED: Notify Physician for NIHSS increase by > / = 3 points. Inpatient: RN or Physician to activate a stroke alert for NIHSS increase of > / = 3 points. Coma Scale [Assess] -Eye Opening Spontaneous -Motor Obeys Commands -Verbal Oriented [Total] -Coma Scale Total 15 NIHSS 1a. Level of Consciousness: 0 - Alert; keenly responsive 1b. LOC Questions: 0 - Answers BOTH questions correctly 1c. LOC Commands: 0 - Performs BOTH tasks correctly 2. Best Gaze: 0 - Normal 3. Visual: 0 - No visual loss 4. Facial Palsy: 0 - Normal symmetrical movements 5a. Left Arm: 0 - No drift; arm holds 90 (or 45) degrees for full 10 seconds 5b. Right Arm: 1 - Drift; arm drifts downward but doesn?t hit the bed 6a. Left Le - No drift; leg holds 30-degree position for full 5 seconds 6b. Right Le - No drift; leg holds 30-degree position for full 5 seconds 7. Limb Ataxia: 0 - Absent 8. Sensory: 0 - Normal; no sensory loss 9. Best Language: 1 - Axhf-cs-[id number] aphasia; 10. Dysarthria: 0 - Normal 11. Extinction and Inattention: 0 - No abnormality Total: 2 08/12/25 1214 Cosigner Signature (if applicable): CC: No Primary Care Physician~ Signed [facility]10-01-2025 Progress note Author Fahad Leiva [facility] Note Date/Time August 11, 2025 3: 48pm [facility] Medical Records Department [address] [place] [address] Progress Note - Hospitalist 08/11/25 0738 MR#: [id number] Acct: [id number] Name: ARIEL BEAN Rep #:[id number] : 1975 50 From: Fahad Melton PCP: Care Physician,No Primary Status :ADM IN Location: [place] [address] Reason for Visit Chief Complaint: Confusion, slurred speech and worsening right upper extremity weakness and numbness/tingling Objective Data Objective Data Vital Signs: Vital Signs Temp Pulse Resp BP Pulse Ox O2 Del Method 98.6 F 54 L 16 135/75 H 99 Room Air 08/11/25 06:45 08/11/25 06:45 08/11/25 06:45 08/11/25 06:45 08/11/25 06:45 08/11/25 06:45 Oxygen Delivery Method Room Air Weight: 288 lb Body Mass Index (BMI) 39.0 Intake & Output: Intake and Output for Last 24 Hours 08/09/25 08/10/25 08/11/25 23:59 23:59 23:59 Intake Total 1000 / 1000 Balance 1000 / 1000 Lab / Micro Data 08/10/25 14:07 08/10/25 14:07 Labs: Laboratory Results - last 24 hr 08/10/25 14:07: WBC 6.6, RBC 4.68, Hgb 13.6, Hct 39.6 L, MCV 84.6, MCH 29.1, MCHC 34.3, RDW Std Deviation 36.7, RDW Coeff of Ashanti 12.3, Plt Count 380, MPV 9.7, Immature Gran % (Auto) 0.200, Neut % (Auto) 46.0 L, Lymph % (Auto) 41.8 H, [place] % (Auto) 11.1 H, Eos % (Auto) 0.6, Baso % (Auto) 0.3, Absolute Neuts (auto)3.0, Absolute Lymphs (auto) 2.76, Nucleated RBC % 0, PT 13.9, INR 1.1, APTT 24.9, Sodium 139, Potassium 3.5, Chloride 106, Carbon Dioxide 23.2, Anion Gap 10, BUN 17, Creatinine 0.72, Estim Creat Clear Calc 166.57, Est GFR (MDRD) Non-Af 110, BUN/Creatinine Ratio 23.5 H, Glucose 117 H, Hemoglobin A1c 6.7 H, Calcium 9.1, Total Bilirubin 0.23, AST 19, ALT 26, Alkaline Phosphatase 99, Troponin T High Sens 8, Total Protein 7.2, Albumin 3.9, Globulin 3.3, Albumin/Globulin Ratio 1.2, TSH 1.020, Ethyl Alcohol < 10.1 08/10/25 14:09: Lactic Acid < 1.0 08/10/25 14:45: Urine Color Yellow, Urine Clarity Clear, Urine pH 6.0, Ur Specific [place] 1.015, Urine Protein 15 H, Urine Glucose (UA) Normal, Urine Ketones Negative, Urine Occult Blood Negative, Urine Nitrite Negative, Urine Bilirubin Negative, Urine Urobilinogen Normal, Ur Leukocyte Esterase Negative, Urine RBC 0-5 SEEN, Urine WBC 0-5 SEEN, Ur Squamous Epith Cells 0 SEEN, Urine Bacteria 0 SEEN, Urine Mucus 0 SEEN, Urine Opiates Screen NEGATIVE, U Buprenorphine Qual NEGATIVE, Ur Oxycodone Screen NEGATIVE, Urine Methadone Screen NEGATIVE, Urine Fentanyl Screen NEGATIVE, Ur Barbiturates Screen NEGATIVE, Ur Phencyclidine Scrn NEGATIVE, Ur Amphetamines Screen NEGATIVE, U Benzodiazepines Scrn NEGATIVE, Urine Cocaine Screen NEGATIVE, U Cannabinoids Screen NEGATIVE 08/10/25 16:10: Troponin T Hi Sens 2 Hr 8 Radiography Diagnostic Testing: Radiology Impression Brain CT 08/10/25 14:20 IMPRESSION: 1. Acute (to subacute) ischemia left MCA distribution. No hemorrhage. Correlate with history. 2. Correlate with CT angiogram as there are critical findings. Stroke Alert: Left MCA acute ischemia The critical findings in the findings and impression above were relayed directlyby me by telephone to Ever Barth on 08/10/2025 at 3:05 pm with readback verification. Reading Location: [facility] Chest X-Ray 08/10/25 14:30 IMPRESSION: No acute abnormality Reading Location: [facility] Head/Neck CTA 08/10/25 14:52 IMPRESSION: 1. Critical stenosis involving the proximal left internal carotid artery. Additionally, supraclinoid portion of the left internal carotid artery with likely flow limitation. Urgent vascular surgical consultation suggested. 2. 50% stenosis right supraclinoid internal carotid artery. 3. Hypoplastic versus atherosclerotic A1 segment on the left. 4. No evidence of large vessel occlusion at the MCA at this time. 5. Correlate with the head CT of the same day as there are positive findings. 6. Enlargement of the lymphoid tissue of the nasopharynx, palatine tonsils and uvula. Correlate with direct inspection, history and physical. Stroke Alert: Acute ischemia. Critical stenosis. The critical findings in the findings and impression above were relayed directlyby me by telephone to Ever Barth on 08/10/2025 at 3:05 pm with readback verification. Reading Location: [facility] Brain MRI 08/10/25 17:12 IMPRESSION: Subacute infarcts in the left frontoparietal region. No evidence of hemorrhagic transformation. Reading Location: [facility] Physical Exam Narrative Seen and examined. Patient admitted with 5 days of confusion weakness, slow to respond, mixing words/language deficit and slurred speech Physical exam General: Alert, Oriented x3, Cooperative. BMI 39.0 kg/m? obesity grade 2 HEENT: Atraumatic, PERRLA, EOMI, Normocephalic. Oral: No Gingival or Mucosal Lesions/ Ulcerations Neck: Supple, No JVD, Negative Carotid Bruits Chest wall/Lungs: Air entry diminished in bilateral lung bases. No crepitation/rhonchi Cardiovascular: Sinus bradycardia, Normal S1,S2, No M/G/R Abdomen: Bowel Sounds Present, Soft, Non Tender, Non-Distended : No dysuria. No renal angle tenderness. No suprapubic tenderness. Extremities: No edema, Capillary Refill Less than 3 Seconds Skin: No rashes, No breakdown Musculoskeletal: Right upper extremity weakness 3/5 no Tenderness to Palpation of Joints or Extremities Neurological: Mild left-sided facial palsy. Left upper extremity weakness, language deficit/slurred speech. Slow to respond. Last NIH stroke scale documented 4 but + right arm 1. Right arm is more weaker, 3. Mild to moderate aphasia. Psych/Mental Status: Flat affect Assessment & Plan Assessment/Plan (1) Acute ischemic left MCA stroke: PLAN: Plan Patient is a 50-year-old male who presented [facility] ED on 08/10/2025 with intermittent confusion, generalized weakness for 2 weeks. Patient is not acting right. LKW last Saturday. Patient slow to respond and is mixing words. Patient also slurred speech and worsening right upper extremity weakness and numbness/tingling. 1. Acute left MCA stroke with left-sided critical ICA stenosis ? Admit under inpatient status to PCU. Neurology and vascular surgery consulted 08/11: MRI brain shows subacute infarct in left frontoparietal region. No evidence of hemorrhagic transformation. Prior to that, CT head shows acute/subacute ischemia of left MCA distribution no hemorrhage. CT headache note shows critical stenosis over supraclinoid portion of left ICA with flow limitation. 50% stenosis of right supraclinoid ICA no evidence of LVO at MCA. Patient evaluated by [facility] neurologist recommended aspirin and Plavix along with statin which patient is already on. 2D echo was done report pending. Discussedwith vascular surgeon Dr. Nguyễn. If echo is normal otherwise if it shows regional wall motion abnormalities/depressed EF need impersonator character evaluation andclearance. Likely plan will be for vascular intervention in about 1 week. PT/OT/case management consulted. Lipid profile shows HDL 39, TC 200 LDL 143 elevated. TSH normal. A1c 6.7%. UTOX screen was negative. UA shows mild proteinuria 15 otherwise normal. DM type II: A1C 6.7%, meets the definition of DM type II. Accu-Cheks AC and at bedtime coverage is normal sliding scale 2. Hypertension ? Hypertensive to the 150s to 160s systolic in the ED. Not on any antihypertensive agents at this time, unclear if he has been in the past. 08/11: Blood pressure is in permissive hypertension range 3. Class II obesity ? BMI 39 on admit. Discussed lifestyle modifications. Complicates hospital course and care. 4. Tobacco dependence ? Current smoker. Nicotine replacement therapy available per patient request. Discussed cessation on discharge. DVT prophylaxis: SCDs CODE STATUS: Full code, verified Laboratory Results 08/10/25 14:07: Hemoglobin A1c 6.7 H, Troponin T High Sens 8, TSH 1.020 08/10/25 14:45: Urine Color Yellow, Urine Clarity Clear, Urine pH 6.0, Ur Specific [place] 1.015, Urine Protein 15 H, Urine Glucose (UA) Normal, Urine Ketones Negative, Urine Occult Blood Negative, Urine Nitrite Negative, Urine Bilirubin Negative, Urine Urobilinogen Normal, Ur Leukocyte Esterase Negative, Urine RBC 0-5 SEEN, Urine WBC 0-5 SEEN, Ur Squamous Epith Cells 0 SEEN, Urine Bacteria 0 SEEN, Urine Mucus 0 SEEN, Urine Opiates Screen NEGATIVE, U Buprenorphine Qual NEGATIVE, Ur Oxycodone Screen NEGATIVE, Urine Methadone Screen NEGATIVE, Urine Fentanyl Screen NEGATIVE, Ur Barbiturates Screen NEGATIVE, Ur Phencyclidine Scrn NEGATIVE, Ur Amphetamines Screen NEGATIVE, U Benzodiazepines Scrn NEGATIVE, Urine Cocaine Screen NEGATIVE, U Cannabinoids Screen NEGATIVE 08/10/25 16:10: Troponin T Hi Sens 2 Hr 8 08/11/25 05:04: Triglycerides 89, Cholesterol 200, LDL Cholesterol, Calc 143, VLDL Cholesterol 18, HDL Cholesterol 39 L, Cholesterol/HDL Ratio 5.12 Clinical Impression(s) from Imaging Studies Brain CT 08/10/25 14:20 IMPRESSION: 1. Acute (to subacute) ischemia left MCA distribution. No hemorrhage. Correlate with history. 2. Correlate with CT angiogram as there are critical findings. Stroke Alert: Left MCA acute ischemia The critical findings in the findings and impression above were relayed directlyby me by telephone to Ever Barth on 08/10/2025 at 3:05 pm with readback verification. Reading Location: [id number] Chest X-Ray 08/10/25 14:30 IMPRESSION: No acute abnormality Reading Location: [facility] Head/Neck CTA 08/10/25 14:52 IMPRESSION: 1. Critical stenosis involving the proximal left internal carotid artery. Additionally, supraclinoid portion of the left internal carotid artery with likely flow limitation. Urgent vascular surgical consultation suggested. 2. 50% stenosis right supraclinoid internal carotid artery. 3. Hypoplastic versus atherosclerotic A1 segment on the left. 4. No evidence of large vessel occlusion at the MCA at this time. 5. Correlate with the head CT of the same day as there are positive findings. 6. Enlargement of the lymphoid tissue of the nasopharynx, palatine tonsils and uvula. Correlate with direct inspection, history and physical. Stroke Alert: Acute ischemia. Critical stenosis. The critical findings in the findings and impression above were relayed directlyby me by telephone to Ever Barth on 08/10/2025 at 3:05 pm with readback verification. Reading Location: [id number] Brain MRI 08/10/25 17:12 IMPRESSION: Subacute infarcts in the left frontoparietal region. No evidence of hemorrhagic transformation. Reading Location: [id number] Charges/Coding Addendum Addendum: Total time of the visit including total time spent in counseling or coordinationof care, (more than 50% of the total time, spent in obtaining medical information from nurses and other ancillary care providers ,explaining to the patient about labs, imaging, diagnosis and management of active complex medical conditions), evaluation of left MCA distribution ischemic stroke, discussion with vascular surgeon and neurologist, review of labs, MRI and CT scan and imaging is 35 minutes. Visit Charges Inpatient E&M: 28823 Subs Hosp L3 NIHSS NIHSS Nursing Documentation NIHSS Nursing Documentation: NIH Stroke Scale Start: 08/10/25 12:25 Freq: Status: Discharge Protocol: Activity Type Activity Date Activity User E-sign Co-sign Detail Recorded Client Recorded Date Recorded By Document 08/10/25 12:26 ABBIE [id number] 08/10/25 12:26 ABBIE 08/10/25 12:26 NIH Stroke Scale [NIHSS] A score of 0 is normal or asymptomatic . Total possible score is 42. Inpatient: RN or Physician to activate a stroke alert for onset of new stroke symptoms or with NIHSS increase >/= 3 points. Following change in neurological status, NIHSS will be performed per physician order or more frequently PRN. -1a. Level of Consciousness 0 - Alert; keenly responsive -1b. LOC Questions 1 - Answers ONE question correctly -1c. LOC Commands 0 - Performs BOTH tasks correctly -2. Best Gaze 0 - Normal -3. Visual 0 - No visual loss -4. Facial Palsy 0 - Normal symmetrical movements -5a. Left Arm 0 - No drift; arm holds 90 ( or 45) degrees for full 10 seconds -5b. Right Arm 0 - No drift; arm holds 90 ( or 45) degrees for full 10 seconds -6a. Left Leg 0 - No drift; leg holds 30- degree position for full 5 seconds -6b. Right Leg 0 - No drift; leg holds 30- degree position for full 5 seconds -7. Limb Ataxia 0 - Absent -8. Sensory 0 - Normal; no sensory loss -9. Best Language 0 - No aphasia; normal -10. Dysarthria 0 - Normal -11. Extinction and Inattention 0 - No abnormality -Total 1 Query Text:A score of 0 is normal or asymptomatic. Total possible score is 42 . ED: Notify Physician for NIHSS increase by > / = 3 points. Inpatient: RN or Physician to activate a stroke alert for NIHSS increase of > / = 3 points. NIHSS: Ischemic Stroke/TIA Start: 08/10/25 18:45 Text: For PCU Patients: NIH and Neuro Check every 4 Status: Active hours, PRN and with change in RN caregiver. Freq: [id number] Protocol: Activity Type Activity Date Activity User E-sign Co-sign Detail Recorded Client Recorded Date Recorded By Document 08/11/25 06:45 JS [id number] 08/11/25 06:53 JS 08/11/25 06:45 -1a. Level of Consciousness 0 - Alert; keenly responsive -1b. LOC Questions 1 - Answers ONE question correctly -1c. LOC Commands 0 - Performs BOTH tasks correctly -2. Best Gaze 1 - Partial gaze palsy; -3. Visual 1 - Partial hemianopia -4. Facial Palsy 1 - Minor paralysis ( flattened nasolabial fold , asymmetry on smiling) -5a. Left Arm 0 - No drift; arm holds 90 ( or 45) degrees for full 10 seconds -5b. Right Arm 1 - Drift; arm drifts downward but doesn?t hit the bed -6a. Left Leg 0 - No drift; leg holds 30- degree position for full 5 seconds -6b. Right Leg 0 - No drift; leg holds 30- degree position for full 5 seconds -7. Limb Ataxia 1 - Present in 1 limb -8. Sensory 0 - Normal; no sensory loss -9. Best Language 1 - Mild-to- moderate aphasia; -10. Dysarthria 1 = Mild-to- moderate dysarthria; -11. Extinction and Inattention 0 - No abnormality -Total 8 Query Text:A score of 0 is normal or asymptomatic. Total possible score is 42 . ED: Notify Physician for NIHSS increase by > / = 3 points. Inpatient: RN or Physician to activate a stroke alert for NIHSS increase of > / = 3 points. Coma Scale [Assess] -Eye Opening Spontaneous -Motor Obeys Commands -Verbal Oriented [Total] -Coma Scale Total 15 08/11/25 1548 <Electronically signed by Fahad Leiva MD> Cosigner Signature (if applicable): CC: ~ Signed [facility] Work Phone: 1(337) 481-162810-01-2025 Discharge summary Author Ever Barth [facility] Note Date/Time August 11, 2025 3: 26pm [facility] Medical Records Department [address] [place] [id number] Emergency Department Summary 08/10/25 MR#: [id number] Acct: [id number] Name: ARIEL BEAN Rep #:[id number] : 1975 50 From: Ever tang DO PCP: Care Physician,No Primary Status :ADM IN Location: [place] [address] HPI <Dr. Ever Barth DO - Last Filed: 08/10/25 15:17> History of Present Illness Chief Complaint: Neuro S/Sx Narrative Narrative: Chief complaint and HPI: 50-year-old gentleman presents for evaluation for intermittent confusion and generalized weakness for the past 2 weeks. Close contact in the room states that the patient's last known normal was prior to 07/25/2025. Close contact states she saw the patient on 07/25/2025 and he seemed intermittently confused about what he was doing. States that it is progressively worsened. Patient states he feels confused and is intermittently mixing his words. He states approximately 3 weeks ago he had his head on a concrete wall. He denies any LOC. Not on blood thinners. He denies any fever,chills, shortness of breath, chest pain, abdominal pain, nausea, vomiting, dysuria, numbness/tingling. States he feels that he is occasionally slurring his speech. Review of systems: See HPI Medications: As listed on the chart Allergies: As listed on the chart PFSH: Per chart Vital signs: As listed on the chart. Reviewed. 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 Ever Ayala-Suzanne, DO - Last Filed: 08/10/25 15:17> [facility] Medical History (Updated 08/10/25 @ 18:48 by Keiko French) HTN (hypertension) Eye globe prosthesis Home Medications ?Medication ?Instructions ?Recorded ?Last Taken ?Type NK 08/10/25 Unknown History Allergy/AdvReac Type Severity Reaction Status Date / Time No Known Allergies Allergy Verified 08/10/25 19:55 Social History (Updated 08/10/25 @ 18:48 by Keiko French) household members: family housing: house Smoking Status: Light Smoker (<10/day) EXAM <Dr. Ever Barth, DO - Last Filed: 08/10/25 15:17> Physical Exam Const Vital Signs: 08/10/25 15:00 08/10/25 16:00 Pulse Rate 52 L 49 L Respiratory Rate 19 H 20 H Blood Pressure 142/70 H 165/74 H Blood Pressure Mean 94 104 Pulse Ox 98 100 Oxygen Delivery Method Room Air <Dr. Nathan Mejias MD - Last Filed: 08/11/25 01:41> Physical Exam Const Vital Signs: 08/10/25 15:00 08/10/25 16:00 Pulse Rate 52 L 49 L Respiratory Rate 19 H 20 H Blood Pressure 142/70 H 165/74 H Blood Pressure Mean 94 104 Pulse Ox 98 100 Oxygen Delivery Method Room Air MDM <Dr. Ever Barth, DO - Last Filed: 08/10/25 15:17> MDM MDM Narrative Medical decision making narrative: 50-year-old gentleman presents for evaluation for intermittent confusion and generalized weakness for the past 2 weeks. Close contact in the room states that the patient's last known normal was prior to 07/25/2025. Close contact states she saw the patient on 07/25/2025 and he seemed intermittently confused about what he was doing. States that it is progressively worsened. Patient states he feels confused and is intermittently mixing his words. He states approximately 3 weeks ago he had his head on a concrete wall. He denies any LOC. On presentation patient is alert but fatigued. He is confused. Slow to respond. Vital stable. See physical exam findings. Differential diagnosis includes but is not limited to concussion, traumatic brain injury, CVA, electrolyte abnormality, dehydration, UTI. NS bolus ordered. CBC without leukocytosis or anemia. Platelets unremarkable. Coagulation panel unremarkable. CMP unremarkable. CTA head and neck shows critical stenosis involving the proximal left internal carotid artery additional supraclinoid portion of the left internal carotid artery with likely flow limitation. Urgentvascular surgery consultation suggested. 50% stenosis of the right supraclinoidinternal carotid artery. Hypoplastic versus atherosclerotic A1 segment on the left. No evidence of LVO at the MCA at this time. Enlargement of the lymphoid tissue to the nasopharynx and palatine tonsils. I personally received a call from the radiologist. He is awaiting CT head without contrast. EKG: Interpreted by me/EM physician: EKG shows sinus bradycardia with first-degree AVblock. Heart rate 59. I do not have a previous EKG to compare to. Diagnostic: Interpreted by me/EM physician: Chest x-ray without pneumonia, effusion, cardiomegaly, pneumothorax. Radiology in agreement. Patient signed out to oncoming physician Dr. Mejias. He will wait further workupand results with plan for admission. Lab Data Labs: Laboratory Results - last 24 hr 08/10/25 08/10/25 08/10/25 14:07 14:09 14:45 WBC 6.6 RBC 4.68 Hgb 13.6 Hct 39.6 L MCV 84.6 MCH 29.1 MCHC 34.3 RDW Std Deviation 36.7 RDW Coeff of Ashanti 12.3 Plt Count 380 MPV 9.7 Immature Gran % (Auto) 0.200 Neut % (Auto) 46.0 L Lymph % (Auto) 41.8 H [place] % (Auto) 11.1 H Eos % (Auto) 0.6 Baso % (Auto) 0.3 Absolute Neuts (auto) 3.0 Absolute Lymphs (auto) 2.76 Nucleated RBC % 0 PT 13.9 INR 1.1 APTT 24.9 Sodium 139 Potassium 3.5 Chloride 106 Carbon Dioxide 23.2 Anion Gap 10 BUN 17 Creatinine 0.72 Estim Creat Clear Calc 166.57 Est GFR (MDRD) Non-Af 110 BUN/Creatinine Ratio 23.5 H Glucose 117 H Hemoglobin A1c 6.7 H Lactic Acid < 1.0 Calcium 9.1 Total Bilirubin 0.23 AST 19 ALT 26 Alkaline Phosphatase 99 Troponin T High Sens 8 Troponin T Hi Sens 2 Hr Total Protein 7.2 Albumin 3.9 Globulin 3.3 Albumin/Globulin Ratio 1.2 TSH 1.020 Urine Color Yellow Urine Clarity Clear Urine pH 6.0 Ur Specific [place] 1.015 Urine Protein 15 H Urine Glucose (UA) Normal Urine Ketones Negative Urine Occult Blood Negative Urine Nitrite Negative Urine Bilirubin Negative Urine Urobilinogen Normal Ur Leukocyte Esterase Negative Urine RBC 0-5 SEEN Urine WBC 0-5 SEEN Ur Squamous Epith Cells 0 SEEN Urine Bacteria 0 SEEN Urine Mucus 0 SEEN Urine Opiates Screen NEGATIVE U Buprenorphine Qual NEGATIVE Ur Oxycodone Screen NEGATIVE Urine Methadone Screen NEGATIVE Urine Fentanyl Screen NEGATIVE Ur Barbiturates Screen NEGATIVE Ur Phencyclidine Scrn NEGATIVE Ur Amphetamines Screen NEGATIVE U Benzodiazepines Scrn NEGATIVE Urine Cocaine Screen NEGATIVE U Cannabinoids Screen NEGATIVE Ethyl Alcohol < 10.1 08/10/25 16:10 WBC RBC Hgb Hct MCV MCH MCHC RDW Std Deviation RDW Coeff of Ashanti Plt Count MPV Immature Gran % (Auto) Neut % (Auto) Lymph % (Auto) [place] % (Auto) Eos % (Auto) Baso % (Auto) Absolute Neuts (auto) Absolute Lymphs (auto) Nucleated RBC % PT INR APTT Sodium Potassium Chloride Carbon Dioxide Anion Gap BUN Creatinine Estim Creat Clear Calc Est GFR (MDRD) Non-Af BUN/Creatinine Ratio Glucose Hemoglobin A1c Lactic Acid Calcium Total Bilirubin AST ALT Alkaline Phosphatase Troponin T High Sens Troponin T Hi Sens 2 Hr 8 Total Protein Albumin Globulin Albumin/Globulin Ratio TSH Urine Color Urine Clarity Urine pH Ur Specific [place] Urine Protein Urine Glucose (UA) Urine Ketones Urine Occult Blood Urine Nitrite Urine Bilirubin Urine Urobilinogen Ur Leukocyte Esterase Urine RBC Urine WBC Ur Squamous Epith Cells Urine Bacteria Urine Mucus Urine Opiates Screen U Buprenorphine Qual Ur Oxycodone Screen Urine Methadone Screen Urine Fentanyl Screen Ur Barbiturates Screen Ur Phencyclidine Scrn Ur Amphetamines Screen U Benzodiazepines Scrn Urine Cocaine Screen U Cannabinoids Screen Ethyl Alcohol Radiography Diagnostic Testing: Clinical Impression(s) from Imaging Studies Brain CT 08/10/25 14:20 IMPRESSION: 1. Acute (to subacute) ischemia left MCA distribution. No hemorrhage. Correlate with history. 2. Correlate with CT angiogram as there are critical findings. Stroke Alert: Left MCA acute ischemia The critical findings in the findings and impression above were relayed directlyby me by telephone to Ever Barth on 08/10/2025 at 3:05 pm with readback verification. Reading Location: [facility] Chest X-Ray 08/10/25 14:30 IMPRESSION: No acute abnormality Reading Location: [id number] Head/Neck CTA 08/10/25 14:52 IMPRESSION: 1. Critical stenosis involving the proximal left internal carotid artery. Additionally, supraclinoid portion of the left internal carotid artery with likely flow limitation. Urgent vascular surgical consultation suggested. 2. 50% stenosis right supraclinoid internal carotid artery. 3. Hypoplastic versus atherosclerotic A1 segment on the left. 4. No evidence of large vessel occlusion at the MCA at this time. 5. Correlate with the head CT of the same day as there are positive findings. 6. Enlargement of the lymphoid tissue of the nasopharynx, palatine tonsils and uvula. Correlate with direct inspection, history and physical. Stroke Alert: Acute ischemia. Critical stenosis. The critical findings in the findings and impression above were relayed directlyby me by telephone to Ever Barth on 08/10/2025 at 3:05 pm with readback verification. Reading Location: [id number] <Dr. Nathan Mejias MD - Last Filed: 08/11/25 01:41> [facility] Lab Data Attestation: I reviewed the patient's lab results. Lab results narrative: CBC is remarkable for mild lymphocytosis. Lactate was normal. Basic metabolic panel with slight ovation glucose of 117 with a normal CO2 anion gap. Liver enzymes and protein are normal. Urinalysis is unremarkable. Talk screen is negative. Alcohol is not detected. Will contact hospitalist for admission for acute to subacute ischemic stroke involving the left MCA distribution without evidence of hemorrhage. The CTA was remarkable for critical stenosis involving the proximal left internal carotid artery and supraclinoid portion of the left internal carotid artery with likely flow limitation. There is also 50% stenosisnoted on the right. Labs: Laboratory Results - last 24 hr 08/10/25 08/10/25 08/10/25 14:07 14:09 14:45 WBC 6.6 RBC 4.68 Hgb 13.6 Hct 39.6 L MCV 84.6 MCH 29.1 MCHC 34.3 RDW Std Deviation 36.7 RDW Coeff of Ashanti 12.3 Plt Count 380 MPV 9.7 Immature Gran % (Auto) 0.200 Neut % (Auto) 46.0 L Lymph % (Auto) 41.8 H [place] % (Auto) 11.1 H Eos % (Auto) 0.6 Baso % (Auto) 0.3 Absolute Neuts (auto) 3.0 Absolute Lymphs (auto) 2.76 Nucleated RBC % 0 PT 13.9 INR 1.1 APTT 24.9 Sodium 139 Potassium 3.5 Chloride 106 Carbon Dioxide 23.2 Anion Gap 10 BUN 17 Creatinine 0.72 Estim Creat Clear Calc 166.57 Est GFR (MDRD) Non-Af 110 BUN/Creatinine Ratio 23.5 H Glucose 117 H Hemoglobin A1c 6.7 H Lactic Acid < 1.0 Calcium 9.1 Total Bilirubin 0.23 AST 19 ALT 26 Alkaline Phosphatase 99 Troponin T High Sens 8 Troponin T Hi Sens 2 Hr Total Protein 7.2 Albumin 3.9 Globulin 3.3 Albumin/Globulin Ratio 1.2 TSH 1.020 Urine Color Yellow Urine Clarity Clear Urine pH 6.0 Ur Specific [place] 1.015 Urine Protein 15 H Urine Glucose (UA) Normal Urine Ketones Negative Urine Occult Blood Negative Urine Nitrite Negative Urine Bilirubin Negative Urine Urobilinogen Normal Ur Leukocyte Esterase Negative Urine RBC 0-5 SEEN Urine WBC 0-5 SEEN Ur Squamous Epith Cells 0 SEEN Urine Bacteria 0 SEEN Urine Mucus 0 SEEN Urine Opiates Screen NEGATIVE U Buprenorphine Qual NEGATIVE Ur Oxycodone Screen NEGATIVE Urine Methadone Screen NEGATIVE Urine Fentanyl Screen NEGATIVE Ur Barbiturates Screen NEGATIVE Ur Phencyclidine Scrn NEGATIVE Ur Amphetamines Screen NEGATIVE U Benzodiazepines Scrn NEGATIVE Urine Cocaine Screen NEGATIVE U Cannabinoids Screen NEGATIVE Ethyl Alcohol < 10.1 08/10/25 16:10 WBC RBC Hgb Hct MCV MCH MCHC RDW Std Deviation RDW Coeff of Ashanti Plt Count MPV Immature Gran % (Auto) Neut % (Auto) Lymph % (Auto) [place] % (Auto) Eos % (Auto) Baso % (Auto) Absolute Neuts (auto) Absolute Lymphs (auto) Nucleated RBC % PT INR APTT Sodium Potassium Chloride Carbon Dioxide Anion Gap BUN Creatinine Estim Creat Clear Calc Est GFR (MDRD) Non-Af BUN/Creatinine Ratio Glucose Hemoglobin A1c Lactic Acid Calcium Total Bilirubin AST ALT Alkaline Phosphatase Troponin T High Sens Troponin T Hi Sens 2 Hr 8 Total Protein Albumin Globulin Albumin/Globulin Ratio TSH Urine Color Urine Clarity Urine pH Ur Specific [place] Urine Protein Urine Glucose (UA) Urine Ketones Urine Occult Blood Urine Nitrite Urine Bilirubin Urine Urobilinogen Ur Leukocyte Esterase Urine RBC Urine WBC Ur Squamous Epith Cells Urine Bacteria Urine Mucus Urine Opiates Screen U Buprenorphine Qual Ur Oxycodone Screen Urine Methadone Screen Urine Fentanyl Screen Ur Barbiturates Screen Ur Phencyclidine Scrn Ur Amphetamines Screen U Benzodiazepines Scrn Urine Cocaine Screen U Cannabinoids Screen Ethyl Alcohol Radiography Diagnostic Testing: Clinical Impression(s) from Imaging Studies Brain CT 08/10/25 14:20 IMPRESSION: 1. Acute (to subacute) ischemia left MCA distribution. No hemorrhage. Correlate with history. 2. Correlate with CT angiogram as there are critical findings. Stroke Alert: Left MCA acute ischemia The critical findings in the findings and impression above were relayed directlyby me by telephone to Ever Barth on 08/10/2025 at 3:05 pm with readback verification. Reading Location: [id number] Chest X-Ray 08/10/25 14:30 IMPRESSION: No acute abnormality Reading Location: [facility] Head/Neck CTA 08/10/25 14:52 IMPRESSION: 1. Critical stenosis involving the proximal left internal carotid artery. Additionally, supraclinoid portion of the left internal carotid artery with likely flow limitation. Urgent vascular surgical consultation suggested. 2. 50% stenosis right supraclinoid internal carotid artery. 3. Hypoplastic versus atherosclerotic A1 segment on the left. 4. No evidence of large vessel occlusion at the MCA at this time. 5. Correlate with the head CT of the same day as there are positive findings. 6. Enlargement of the lymphoid tissue of the nasopharynx, palatine tonsils and uvula. Correlate with direct inspection, history and physical. Stroke Alert: Acute ischemia. Critical stenosis. The critical findings in the findings and impression above were relayed directlyby me by telephone to Ever Barth on 08/10/2025 at 3:05 pm with readback verification. Reading Location: [id number] Management Discussion w/another healthcare provider: Hospitalist (Spoke with Dr. Kal Costa. He was informed of patient's history physical. He requested that I contact Dr. Nguyễn.) and Utilization Supervisor (I spoke with Dr. Nguyễn. He states he willsee the patient. There is no issue keeping him at [facility]. He stated that they should do their normal workup.) Discharge Plan Dx/Rx/DC Orders Clinical Impression: Acute ischemic left MCA stroke, Acute confusion due to medical condition, Bradycardia, Elevated blood-pressure reading without diagnosis of hypertension Disposition Disposition: Acute Care Hospital [facility] Discharge Date/Time: 08/10/25 18:00 What to do if you have Problems For any increased pain, shortness of breath, bleeding, nausea or vomiting, chestpain, or any unexpected problems, contact your Primary Care Provider. Call [facility] ([phone]) or report to the closest Emergency Room. Call 911 if necessary. 08/11/25 1526 <Electronically signed by Ever Barth DO> Cosigner Signature (if applicable): 08/11/25 0141 <Electronically signed by Velma WOLF> CC: No Primary Care Physician ~ Signed [facility] Work Phone: [phone]) 340-316210-01-[address] [facility] Medical Records Department [address] [place] [address] Progress Note - Hospitalist 08/11/25 0738 MR#: [id number] Acct: [id number] Name: ARIEL BEAN Rep #:[id number] : 1975 50 From: Fahad Melton PCP: Care Physician,No Primary Status :ADM IN Location: [place] [address] Reason for Visit Chief Complaint: Confusion, slurred speech and worsening right upper extremity weakness and numbness/tingling Objective Data Objective Data Vital Signs: Vital Signs Temp Pulse Resp BP Pulse Ox O2 Del Method 98.6 F 54 L 16 135/75 H 99 Room Air 08/11/25 06:45 08/11/25 06:45 08/11/25 06:45 08/11/25 06:45 08/11/25 06:45 08/11/25 06:45 Oxygen Delivery Method Room Air Weight: 288 lb Body Mass Index (BMI) 39.0 Intake & Output: Intake and Output for Last 24 Hours 08/09/25 08/10/25 08/11/25 23:59 23:59 23:59 Intake Total 1000 / 1000 Balance 1000 / 1000 Lab / Micro Data 08/10/25 14:07 08/10/25 14:07 Labs: Laboratory Results - last 24 hr 08/10/25 14:07: WBC 6.6, RBC 4.68, Hgb 13.6, Hct 39.6 L, MCV 84.6, MCH 29.1, MCHC 34.3, RDW Std Deviation 36.7, RDW Coeff of Ashanti 12.3, Plt Count 380, MPV 9.7, Immature Gran % (Auto) 0.200, Neut % (Auto) 46.0 L, Lymph % (Auto) 41.8 H, [place] % (Auto) 11.1 H, Eos % (Auto) 0.6, Baso % (Auto) 0.3, Absolute Neuts (auto)3.0, Absolute Lymphs (auto) 2.76, Nucleated RBC % 0, PT 13.9, INR 1.1, APTT 24.9, Sodium 139, Potassium 3.5, Chloride 106, Carbon Dioxide 23.2, Anion Gap 10, BUN 17, Creatinine 0.72, Estim Creat Clear Calc 166.57, Est GFR (MDRD) Non-Af 110, BUN/Creatinine Ratio 23.5 H, Glucose 117 H, Hemoglobin A1c 6.7 H, Calcium 9.1, Total Bilirubin 0.23, AST 19, ALT 26, Alkaline Phosphatase 99, Tro ponin T High Sens 8, Total Protein 7.2, Albumin 3.9, Globulin 3.3, Albumin/Globulin Ratio 1.2, TSH 1.020, Ethyl Alcohol < 10.1 08/10/25 14:09: Lactic Acid < 1.0 08/10/25 14:45: Urine Color Yellow, Urine Clarity Clear, Urine pH 6.0, Ur Specific [place] 1.015, Urine Protein 15 H, Urine Glucose (UA) Normal, Urine Ketones Negative, Urine Occult Blood Negative, Urine Nitrite Negative, Urine Bilirubin Negative, Urine Urobilinogen Normal, Ur Leukocyte Esterase Negative, Urine RBC 0-5 SEEN, Urine WBC 0-5 SEEN, Ur Squamous Epith Cells 0 SEEN, Urine Bacteria 0 SEEN, Urine Mucus 0 SEEN, Urine Opiates Screen NEGATIVE, U Buprenorphine Qual NEGATIVE, Ur Oxycodone Screen NEGATIVE, Urine Methadone Screen NEGATIVE, Urine Fentanyl Screen NEGATIVE, Ur Barbiturates Screen NEGATIVE, Ur Phencyclidine Scrn NEGATIVE, Ur Amphetamines Screen NEGATIVE, U Benzodiazepines ScrnNEGATIVE, Urine Cocaine Screen NEGATIVE, U Cannabinoids Screen NEGATIVE 08/10/25 16:10: Troponin T Hi Sens 2 Hr 8 Radiography Diagnostic Testing: Radiology Impression Brain CT 08/10/25 14:20 IMPRESSION: 1. Acute (to subacute) ischemia left MCA distribution. No hemorrhage. Correlate with history. 2. Correlate with CT angiogram as there are critical findings. Stroke Alert: Left MCA acute ischemia The critical findings in the findings and impression above were relayed directlyby me by telephone to Ever Barth on 08/10/2025 at 3:05 pm with readback verification. Reading Location: [id number] Chest X-Ray 08/10/25 14:30 IMPRESSION: No acute abnormality Reading Location: [facility] Head/Neck CTA 08/10/25 14:52 IMPRESSION: 1. Critical stenosis involving the proximal left internal carotid artery. Additionally, supraclinoid portion of the left internal carotid artery with likely flow limitation. Urgent vascular surgical consultation suggested. 2. 50% stenosis right supraclinoid internal carotid artery. 3. Hypoplastic versus atherosclerotic A1 segment on the left. 4. No evidence of large vessel occlusion at the MCA at this time. 5. Correlate with the head CT of the same day as there are positive findings. 6. Enlargement of the lymphoid tissue of the nasopharynx, palatine tonsils and uvula. Correlate with direct inspection, history and physical. Stroke Alert: Acute ischemia. Critical stenosis. The critical findings in the findings and impression above were relayed directlyby me by telephone to Ever Barth on 08/10/2025 at 3:05 pm with readback verification. Reading Location: [id number] Brain MRI 08/10/25 17:12 IMPRESSION: Subacute infarcts in the left frontoparietal region. No evidence of hemorrhagic transformation. Reading Location: [id number] Physical Exam Narrative Seen and examined. Patient admitted with 5 days of confusion weakness, slow to respond, mixing words/language deficit and slurred speech Physical exam General: Alert, Oriented x3, Cooperative. BMI 39.0 kg/m? obesity grade 2 HEENT: Atraumatic, PERRLA, EOMI, Normocephalic. Oral: No Gingival or Mucosal Lesions/ Ulcerations Neck: Supple, No JVD, Negative Carotid Bruits Chest wall/Lungs: Air entry diminished in bilateral lung bases. No crepitation/rhonchi Cardiovascular: Sinus bradycardia, Normal S1,S2, No M/G/R Abdomen: Bowel Sounds Present, Soft, Non Tender, Non-Distended : No dysuria. No renal angle tenderness. No suprapubic tenderness. Extremities: No edema, Capillary Refill Less than 3 Seconds Skin: No rashes, No breakdown Musculoskeletal: Right upper extremity weakness 3/5 no Tenderness to Palpation of Joints or Extremities Neurological: Mild left-sided facial palsy. Left upper extremity weakness, language deficit/slurredspeech. Slow to respond. Last NIH stroke scale documented 4 but + right arm 1. Right arm is more weaker, 3. Mild to moderate aphasia. Psych/Mental Status: Flat affect Assessment & Plan Assessment/Plan (1) Acute ischemic left MCA stroke: PLAN: Plan Patient is a 50-year-old male who presented [facility] ED on 08/10/2025 with intermittent confusion, generalized weakness for 2 weeks. Patient is not acting right. LKW last Saturday. Patient slow to respond and is mixing words. Patient also slurred speech and worsening right upper extremity weakness and numbness/tingling. 1. Acute left MCA stroke with left-sided critical ICA stenosis ? Admit under inpatient status to PCU. Neurology and vascular surgery consulted 08/11: MRI brain shows subacute infarct in left frontoparietal region. No evidence of hemorrhagic transformation. Prior to that, CT head shows acute/subacute ischemia of left MCA distribution no hemorrhage. CT headache note shows critical stenosis over supraclinoid portion of left ICA with flow limit ation. 50% stenosis of right supraclinoid ICA no evidence of LVO at MCA. Patient evaluated by [facility] neurologist recommended aspirin and Plavix along with statin which patient is already on. 2D echo wasdone report pending. Discussedwith vascular surgeon Dr. Nguyễn. If echo is normal otherwise if it shows regional wall motion abnormalities/depressed EF need impersonator character evaluation andclearance. Likely plan will be for vascular intervention in about 1 week. PT/OT/case management consulted. Lipid profile shows HDL 39, TC 200 LDL 143 elevated. TSH normal. A1c 6.7%. UTOX screen was negative. UA shows mild proteinuria 15 otherwise normal. DM type II: A1C 6.7%, meets the definition of DM type II. Accu-Cheks AC and at bedtime coverage is normal sliding scale 2. Hypertension ? Hypertensive to the 150s to 160s systolic in the ED. Not on any antihypertensive agents at this time, unclear if he has been in the past. 08/11: Blood pressure is in permissive hypertension range 3. Class II obesity ? BMI 39 on admit. Discussed lifestyle modifications. Complicates hospital course and care. 4. Tobacco dependence ? Current smoker. Nicotine replacement therapy available per patient request. Discussed cessation on discharge. DVT prophylaxis: SCDs CODE STATUS: Full code, verified Laboratory Results 08/10/25 14:07: Hemoglobin A1c 6.7 H, Troponin T High Sens 8, TSH 1.020 08/10/25 14:45: Urine Color Yellow, Urine Clarity Clear, Urine pH 6.0, Ur Specific [place] 1.015, Urine Protein 15 H, Urine Glucose (UA) Normal, Urine Ketones Negative, Urine Occult Blood Negative, Urine Nitrite Negative, Urine Bilirubin Negative, Urine Urobilinogen Normal, Ur Leukocyte Esterase Negative, Urine RBC 0-5 SEEN, Urine WBC 0-5 SEEN, Ur Squamous Epith Cells 0 SEEN, Urine Bacteria 0 SEEN, Urine Mucus 0 SEEN, Urine Opiates Screen NEGATIVE, U Buprenorphine Qual NEGATIVE, Ur Oxycodone Screen NEGATIVE, Urine Methadone Screen NEGATIVE, Urine Fentanyl Screen NEGATIVE, Ur Barbiturates Screen NEGATIVE, Ur Phencyclidine Scrn NEGATIVE, Ur Amphetamines Screen NEGATIVE, U Benzodiazepines ScrnNEGATIVE, Urine Cocaine Screen NEGATIVE, U Cannabinoids Screen NEGATIVE 08/10/25 16:10: Troponin T Hi Sens 2 Hr 8 08/11/25 05:04: Triglycerides 89, Cholesterol 200, LDL Cholesterol, Calc 143, VLDL Cholesterol 18, HDL Cholesterol 39 L, Cholesterol/HDL Ratio 5.12 Clinical Impression(s) from Imaging Studies Brain CT 08/10/25 14:20 IMPRESSION: 1. Acute (to subacute) ischemia left MCA distribution. No hemorrhage. Correlate with history. 2. Correlate with CT angiogram as there are critical findings. Stroke Alert: Left MCA acute ischemia The critical findings in the findings and impression above were relayed directlyby me by telephone to Ever Barth on 08/10/2025 at 3:05 pm with readback verification. Reading Location: [id number] Chest X-Ray 08/10/25 14:30 IMPRESSION: No acute abnormality Reading Location: [facility] Head/Neck CTA 08/10/25 14:52 IMPRESSION: 1. Critical stenosis involving the proximal left internal carotid artery. Additionally, supraclinoid portion of the left internal carotid artery with likely flow limitation. Urgent vascular surgical consultation suggested. 2. 50% stenosis right supraclinoid internal carotid artery. 3. Hypoplastic versus atherosclerotic A1 segment on the left. 4. No evidence of large vessel occlusion at the MCA at this time. 5. Correlate with the head CT of the same day as there are positive findings. 6. Enlargement of the lymphoid tissue of the nasopharynx, palatine tonsils and uvula. Correlate with direct inspection, history and physical. Stroke Alert: Acute ischemia. Critical stenosis. The critical findings in the findings and impression above were relayed directlyby me by telephone to Ever Barth on 08/10/2025 at 3:05 pm with readback verification. Reading Location: [id number] Brain MRI 08/10/25 17:12 IMPRESSION: Subacute infarcts in the left frontoparietal region. No evidence of hemorrhagic transformation. Reading Location: [id number] Charges/Coding Addendum Addendum: Total time of the visit including total time spent in counseling or coordinationof care, (more than50% of the total time, spent in obtaining medical information from nurses and other ancillary care providers ,explaining to the patient about labs, imaging, diagnosis and management of active complexmedical conditions), evaluation of left MCA distribution ischemic stroke, discussion with vascular surgeon and neurologist, review of labs, MRI and CT scan and imaging is 35 minutes. Visit Charges Inpatient E&M: 35823 Subs Hosp L3 NIHSS NIHSS Nursing Documentation NIHSS Nursing Documentation: NIH Stroke Scale Start: 08/10/25 12:25 Freq: Status: Discharge Protocol: Activity Type Activity Date Activity User E-sign Co-sign Detail Recorded Client Recorded Date Recorded By Document 08/10/25 12:26 [facility] [id number] 08/10/25 12:26 [facility] 08/10/25 12:26 NIH Stroke Scale [NIHSS] A score of 0 is normal or asymptomatic . Total possible score is 42. Inpatient: RN or Physician to activate a stroke alert for onset of new stroke symptoms or with NIHSS increase >/= 3 points. Following change in neurological status, NIHSS will be performed per physician order or more frequently PRN. -1a. Level of Consciousness 0 - Alert; keenly responsive -1b. LOC Questions 1 - Answers ONE question correctly -1c. LOC Commands 0 - Performs BOTH tasks correctly -2. Best Gaze 0 - Normal -3. Visual 0 - No visual loss -4. Facial Palsy 0 - Normal symmetrical movements -5a. Left Arm 0 - No drift; arm holds 90 ( or 45) degrees for full 10 seconds -5b. Right Arm 0 - No drift; arm holds 90 ( or 45) degrees for full 10 seconds -6a. Left Leg 0 - No drift; leg holds 30- degree position for full 5 seconds -6b. Right Leg 0 - No drift; leg holds 30- degree position for full 5 seconds -7. Limb Ataxia 0 - Absent -8. Sensory 0 - Normal; no sensory loss -9. Best Language 0 - No aphasia; normal -10. Dysarthria 0 - Normal -11. Extinction and Inattention 0 - No abnormality -Total 1 Query Text:A score of 0 is normal or asymptomatic. Total possible score is 42 . ED: Notify Physician for NIHSS increase by > / = 3 points. Inpatient: RN or Physician to activate a stroke alert for NIHSS increase of > / = 3 points. NIHSS: Ischemic Stroke/TIA Start: 08/10/25 18:45 Text: For PCU Patients: NIH and Neuro Check every 4 Status: Active hours, PRN and with change in RN caregiver. Freq: [id number] Protocol: Activity Type Activity Date Activity User E-sign Co-sign Detail Recorded Client Recorded Date Recorded By Document 08/11/25 06:45 [id number] 08/11/25 06:53 08/11/25 06:45 -1a. Level of Consciousness 0 - Alert; keenly responsive -1b. LOC Questions 1 - Answers ONE question correctly -1c. LOC Commands 0 - Performs BOTH tasks correctly -2. Best Gaze 1 - Partial gaze palsy; -3. Visual 1 - Partial hemianopia -4. Facial Palsy 1 - Minor paralysis ( flattened nasolabial fold , asymmetry on smiling) -5a. Left Arm 0 - No drift; arm holds 90 ( or 45) degrees for full 10 seconds -5b. Right Arm 1 - Drift; arm drifts downward but doesn?t hit the bed -6a. Left Leg 0 - No drift; leg holds 30- degree position for full 5 seconds -6b. Right Leg 0 - No drift; leg holds 30- degree position for full 5 seconds -7. Limb Ataxia 1 - Present in 1 limb -8. Sensory 0 - Normal; no sensory loss -9. Best Language 1 - Mild-to- moderate aphasia; -10. Dysarthria 1 = Mild-to- moderate dysarthria; -11. Extinction and Inattention 0 - No abnormality -Total 8 Query Text:A score of 0 is normal or asymptomatic. Total possible score is 42 . ED: Notify Physician for NIHSS increase by > / = 3 points. Inpatient: RN or Physician to activate a stroke alert for NIHSS increase of > / = 3 points. Coma Scale [Assess] -Eye Opening Spontaneous -Motor Obeys Commands -Verbal Oriented [Total] -Coma Scale Total 15 08/11/25 1548 Cosigner Signature (if applicable): CC: ~ Signed [facility]10-01-[address] [facility] Medical Records Department [address] [place] [address] Emergency Department Summary 08/10/25 MR#: [id number] Acct: [id number] Name: ARIEL BEAN Rep #:[id number] : 1975 50 From: Ever tang DO PCP: Care Physician,No Primary Status :ADM IN Location: [place] [address] HPI History of Present Illness Chief Complaint: Neuro S/Sx Narrative Narrative: Chief complaint and HPI: 50-year-old gentleman presents for evaluation for intermittent confusion and generalized weakness for the past 2 weeks. Close contact in the room states that the patient's last known normal was prior to 07/25/2025. Close contact states she saw the patient on 07/25/2025 and heseemed intermittently confused about what he was doing. States that it is progressively worsened. Patient states he feels confused and is intermittently mixing his words. He states approximately 3 weeks ago he had his head on a concrete wall. He denies any LOC. Not on blood thinners. He denies any fever,chills, shortness of breath, chest pain, abdominal pain, nausea, vomiting, dysuria, numbness/ti ngling. States he feels that he is occasionally slurring his speech. Review of systems: See HPI Medications: As listed on the chart Allergies: As listed on the chart PFSH: Per chart Vital signs: As listed on the chart. Reviewed. 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 ENT: Mildly dry mucous membranes, No facial asymmetry Neck: Trachea midline, No JVD CV: RRR, no murmurs, no peripheral edema Resp: Lungs CTA BL, no w/r/c GI: Abd soft, non-distended, non-tender, no r/r/g Musc: Full ROM except for the right upper extremity secondary to right shoulder pain that has been ongoing for several weeks, no deformity, strength +5/5 in allextremities, no pronator drift, no ataxia Skin: Warm, dry, intact Neuro: Alert, grossly intact, sensation intact, occasionally slurring certain words Psych: Cooperative [facility] Medical History (Updated 08/10/25 @ 18:48 by Keiko French) HTN (hypertension) Eye globe prosthesis Home Medications ?Medication ?Instructions ?Recorded ?Last Taken ?Type NK 08/10/25 Unknown History Allergy/AdvReac Type Severity Reaction Status Date / Time No Known Allergies Allergy Verified 08/10/25 19:55 Social History (Updated 08/10/25 @ 18:48 by Keiko French) household members: family housing: house Smoking Status: Light Smoker (<10/day) EXAM Physical Exam Const Vital Signs: 08/10/25 15:00 08/10/25 16:00 Pulse Rate 52 L 49 L Respiratory Rate 19 H 20 H Blood Pressure 142/70 H 165/74 H Blood Pressure Mean 94 104 Pulse Ox 98 100 Oxygen Delivery Method Room Air Physical Exam Const Vital Signs: 08/10/25 15:00 08/10/25 16:00 Pulse Rate 52 L 49 L Respiratory Rate 19 H 20 H Blood Pressure 142/70 H 165/74 H Blood Pressure Mean 94 104 Pulse Ox 98 100 Oxygen Delivery Method Room Air MDM MDM MDM Narrative Medical decision making narrative: 50-year-old gentleman presents for evaluation for intermittent confusion and generalized weakness for the past 2 weeks. Close contact in the room states that the patient's last known normal was priorto 07/25/2025. Close contact states she saw the patient on 07/25/2025 and he seemed intermittently confused about what he was doing. States that it is progressively worsened. Patient states he feels confused and is intermittently mixing his words. He states approximately 3 weeks ago he had his head on a concrete wall. He denies any LOC. On presentation patient is alert but fatigued. He is confused.Slow to respond. Vital stable. See physical exam findings. Differential diagnosis includes but is not limited to concussion, traumatic brain injury, CVA, electrolyte abnormality, dehydration, UTI. NSbolus ordered. CBC without leukocytosis or anemia. Platelets unremarkable. Coagulation panel unremarkable. CMP unremarkable. CTA head and neck shows critical stenosis involving the proximal left internal carotid artery additional supraclinoid portion of the left internal carotid artery with likely flow limitation. Urgentvascular surgery consultation suggested. 50% stenosis of the right supraclinoidinternal carotid artery. Hypoplastic versus atherosclerotic A1 segment on the left. No evidence ofLVO at the MCA at this time. Enlargement of the lymphoid tissue to the nasopharynx and palatine tons ils. I personally received a call from the radiologist. He is awaiting CT head without contrast. EKG: Interpreted by me/EM physician: EKG shows sinus bradycardia with first-degree AVblock. Heart rate 59. I do not have a previous EKG to compare to. Diagnostic: Interpreted by me/EM physician: Chest x-ray without pneumonia, effusion, cardiomegaly, pneumothorax. Radiology in agreement. Patient signed out to oncoming physician Dr. Mejias. He will wait further workupand results with plan for admission. Lab Data Labs: Laboratory Results - last 24 hr 08/10/25 08/10/25 08/10/25 14:07 14:09 14:45 WBC 6.6 RBC 4.68 Hgb 13.6 Hct 39.6 L MCV 84.6 MCH 29.1 MCHC 34.3 RDW Std Deviation 36.7 RDW Coeff of Ashanti 12.3 Plt Count 380 MPV 9.7 Immature Gran % (Auto) 0.200 Neut % (Auto) 46.0 L Lymph % (Auto) 41.8 H [place] % (Auto) 11.1 H Eos % (Auto) 0.6 Baso % (Auto) 0.3 Absolute Neuts (auto) 3.0 Absolute Lymphs (auto) 2.76 Nucleated RBC % 0 PT 13.9 INR 1.1 APTT 24.9 Sodium 139 Potassium 3.5 Chloride 106 Carbon Dioxide 23.2 Anion Gap 10 BUN 17 Creatinine 0.72 Estim Creat Clear Calc 166.57 Est GFR (MDRD) Non-Af 110 BUN/Creatinine Ratio 23.5 H Glucose 117 H Hemoglobin A1c 6.7 H Lactic Acid < 1.0 Calcium 9.1 Total Bilirubin 0.23 AST 19 ALT 26 Alkaline Phosphatase 99 Troponin T High Sens 8 Troponin T Hi Sens 2 Hr Total Protein 7.2 Albumin 3.9 Globulin 3.3 Albumin/Globulin Ratio 1.2 TSH 1.020 Urine Color Yellow Urine Clarity Clear Urine pH 6.0 Ur Specific [place] 1.015 Urine Protein 15 H Urine Glucose (UA) Normal Urine Ketones Negative Urine Occult Blood Negative Urine Nitrite Negative Urine Bilirubin Negative Urine Urobilinogen Normal Ur Leukocyte Esterase Negative Urine RBC 0-5 SEEN Urine WBC 0-5 SEEN Ur Squamous Epith Cells 0 SEEN Urine Bacteria 0 SEEN Urine Mucus 0 SEEN Urine Opiates Screen NEGATIVE U Buprenorphine Qual NEGATIVE Ur Oxycodone Screen NEGATIVE Urine Methadone Screen NEGATIVE Urine Fentanyl Screen NEGATIVE Ur Barbiturates Screen NEGATIVE Ur Phencyclidine Scrn NEGATIVE Ur Amphetamines Screen NEGATIVE U Benzodiazepines Scrn NEGATIVE Urine Cocaine Screen NEGATIVE U Cannabinoids Screen NEGATIVE Ethyl Alcohol < 10.1 08/10/25 16:10 WBC RBC Hgb Hct MCV MCH MCHC RDW Std Deviation RDW Coeff of Ashanti Plt Count MPV Immature Gran % (Auto) Neut % (Auto) Lymph % (Auto) [place] % (Auto) Eos % (Auto) Baso % (Auto) Absolute Neuts (auto) Absolute Lymphs (auto) Nucleated RBC % PT INR APTT Sodium Potassium Chloride Carbon Dioxide Anion Gap BUN Creatinine Estim Creat Clear Calc Est GFR (MDRD) Non-Af BUN/Creatinine Ratio Glucose Hemoglobin A1c Lactic Acid Calcium Total Bilirubin AST ALT Alkaline Phosphatase Troponin T High Sens Troponin T Hi Sens 2 Hr 8 Total Protein Albumin Globulin Albumin/Globulin Ratio TSH Urine Color Urine Clarity Urine pH Ur Specific [place] Urine Protein Urine Glucose (UA) Urine Ketones Urine Occult Blood Urine Nitrite Urine Bilirubin Urine Urobilinogen Ur Leukocyte Esterase Urine RBC Urine WBC Ur Squamous Epith Cells Urine Bacteria Urine Mucus Urine Opiates Screen U Buprenorphine Qual Ur Oxycodone Screen Urine Methadone Screen Urine Fentanyl Screen Ur Barbiturates Screen Ur Phencyclidine Scrn Ur Amphetamines Screen U Benzodiazepines Scrn Urine Cocaine Screen U Cannabinoids Screen Ethyl Alcohol Radiography Diagnostic Testing: Clinical Impression(s) from Imaging Studies Brain CT 08/10/25 14:20 IMPRESSION: 1. Acute (to subacute) ischemia left MCA distribution. No hemorrhage. Correlate with history. 2. Correlate with CT angiogram as there are critical findings. Stroke Alert: Left MCA acute ischemia The critical findings in the findings and impression above were relayed directlyby me by telephone to Ever Barth on 08/10/2025 at 3:05 pm with readback verification. Reading Location: [id number] Chest X-Ray 08/10/25 14:30 IMPRESSION: No acute abnormality Reading Location: [facility] Head/Neck CTA 08/10/25 14:52 IMPRESSION: 1. Critical stenosis involving the proximal left internal carotid artery. Additionally, supraclinoid portion of the left internal carotid artery with likely flow limitation. Urgent vascular surgical consultation suggested. 2. 50% stenosis right supraclinoid internal carotid artery. 3. Hypoplastic versus atherosclerotic A1 segment on the left. 4. No evidence of large vessel occlusion at the MCA at this time. 5. Correlate with the head CT of the same day as there are positive findings. 6. Enlargement of the lymphoid tissue of the nasopharynx, palatine tonsils and uvula. Correlate with direct inspection, history and physical. Stroke Alert: Acute ischemia. Critical stenosis. The critical findings in the findings and impression above were relayed directlyby me by telephone to Ever Barth on 08/10/2025 at 3:05 pm with readback verification. Reading Location: [id number] MDM Lab Data Attestation: I reviewed the patient's lab results. Lab results narrative: CBC is remarkable for mild lymphocytosis. Lactate was normal. Basic metabolic panel with slight ovation glucose of 117 with a normal CO2 anion gap. Liver enzymes and protein are normal. Urinalysis isunremarkable. Talk screen is negative. Alcohol is not detected. Will contact hospitalist for admission for acute to subacute ischemic stroke involving the left MCA distribution without evidence of hemorrhage. The CTA was remarkable for critical stenosis involving the proximal left internal carotid artery and supraclinoid portion of the left internal carotid artery with likely flow limitation. There is also 50% stenosisnoted on the right. Labs: Laboratory Results - last 24 hr 08/10/25 08/10/25 08/10/25 14:07 14:09 14:45 WBC 6.6 RBC 4.68 Hgb 13.6 Hct 39.6 L MCV 84.6 MCH 29.1 MCHC 34.3 RDW Std Deviation 36.7 RDW Coeff of Ashanti 12.3 Plt Count 380 MPV 9.7 Immature Gran % (Auto) 0.200 Neut % (Auto) 46.0 L Lymph % (Auto) 41.8 H [place] % (Auto) 11.1 H Eos % (Auto) 0.6 Baso % (Auto) 0.3 Absolute Neuts (auto) 3.0 Absolute Lymphs (auto) 2.76 Nucleated RBC % 0 PT 13.9 INR 1.1 APTT 24.9 Sodium 139 Potassium 3.5 Chloride 106 Carbon Dioxide 23.2 Anion Gap 10 BUN 17 Creatinine 0.72 Estim Creat Clear Calc 166.57 Est GFR (MDRD) Non-Af 110 BUN/Creatinine Ratio 23.5 H Glucose 117 H Hemoglobin A1c 6.7 H Lactic Acid < 1.0 Calcium 9.1 Total Bilirubin 0.23 AST 19 ALT 26 Alkaline Phosphatase 99 Troponin T High Sens 8 Troponin T Hi Sens 2 Hr Total Protein 7.2 Albumin 3.9 Globulin 3.3 Albumin/Globulin Ratio 1.2 TSH 1.020 Urine Color Yellow Urine Clarity Clear Urine pH 6.0 Ur Specific [place] 1.015 Urine Protein 15 H Urine Glucose (UA) Normal Urine Ketones Negative Urine Occult Blood Negative Urine Nitrite Negative Urine Bilirubin Negative Urine Urobilinogen Normal Ur Leukocyte Esterase Negative Urine RBC 0-5 SEEN Urine WBC 0-5 SEEN Ur Squamous Epith Cells 0 SEEN Urine Bacteria 0 SEEN Urine Mucus 0 SEEN Urine Opiates Screen NEGATIVE U Buprenorphine Qual NEGATIVE Ur Oxycodone Screen NEGATIVE Urine Methadone Screen NEGATIVE Urine Fentanyl Screen NEGATIVE Ur Barbiturates Screen NEGATIVE Ur Phencyclidine Scrn NEGATIVE Ur Amphetamines Screen NEGATIVE U Benzodiazepines Scrn NEGATIVE Urine Cocaine Screen NEGATIVE U Cannabinoids Screen NEGATIVE Ethyl Alcohol < 10.1 08/10/25 16:10 WBC RBC Hgb Hct MCV MCH MCHC RDW Std Deviation RDW Coeff of Ashanti Plt Count MPV Immature Gran % (Auto) Neut % (Auto) Lymph % (Auto) [place] % (Auto) Eos % (Auto) Baso % (Auto) Absolute Neuts (auto) Absolute Lymphs (auto) Nucleated RBC % PT INR APTT Sodium Potassium Chloride Carbon Dioxide Anion Gap BUN Creatinine Estim Creat Clear Calc Est GFR (MDRD) Non-Af BUN/Creatinine Ratio Glucose Hemoglobin A1c Lactic Acid Calcium Total Bilirubin AST ALT Alkaline Phosphatase Troponin T High Sens Troponin T Hi Sens 2 Hr 8 Total Protein Albumin Globulin Albumin/Globulin Ratio TSH Urine Color Urine Clarity Urine pH Ur Specific [place] Urine Protein Urine Glucose (UA) Urine Ketones Urine Occult Blood Urine Nitrite Urine Bilirubin Urine Urobilinogen Ur Leukocyte Esterase Urine RBC Urine WBC Ur Squamous Epith Cells Urine Bacteria Urine Mucus Urine Opiates Screen U Buprenorphine Qual Ur Oxycodone Screen Urine Methadone Screen Urine Fentanyl Screen Ur Barbiturates Screen Ur Phencyclidine Scrn Ur Amphetamines Screen U Benzodiazepines Scrn Urine Cocaine Screen U Cannabinoids Screen Ethyl Alcohol Radiography Diagnostic Testing: Clinical Impression(s) from Imaging Studies Brain CT 08/10/25 14:20 IMPRESSION: 1. Acute (to subacute) ischemia left MCA distribution. No hemorrhage. Correlate with history. 2. Correlate with CT angiogram as there are critical findings. Stroke Alert: Left MCA acute ischemia The critical findings in the findings and impression above were relayed directlyby me by telephone to Ever Barth on 08/10/2025 at 3:05 pm with readback verification. Reading Location: [facility] Chest X-Ray 08/10/25 14:30 IMPRESSION: No acute abnormality Reading Location: [id number] Head/Neck CTA 08/10/25 14:52 IMPRESSION: 1. Critical stenosis involving the proximal left internal carotid artery. Additionally, supraclinoid portion of the left internal carotid artery with likely flow limitation. Urgent vascular surgical consultation suggested. 2. 50% stenosis right supraclinoid internal carotid artery. 3. Hypoplastic versus atherosclerotic A1 segment on the left. 4. No evidence of large vessel occlusion at the MCA at this time. 5. Correlate with the head CT of the same day as there are positive findings. 6. Enlargement of the lymphoid tissue of the nasopharynx, palatine tonsils and uvula. Correlate with direct inspection, history and physical. Stroke Alert: Acute ischemia. Critical stenosis. The critical findings in the findings and impression above were relayed directlyby me by telephone to Ever Barth on 08/10/2025 at 3:05 pm with readback verification. Reading Location: [facility] Management Discussion w/another healthcare provider: Hospitalist (Spoke with Dr. Kal Costa. He was informed of patient's history physical. He requested that I contact Dr. Nguyễn.) and Utilization Supervisor (I spoke with Dr. Nguyễn. He states he willsee the patient. There is no issue keeping him at [facility]. He stated that they should do their normal workup.) Discharge Plan Dx/Rx/DC Orders Clinical Impression: Acute ischemic left MCA stroke, Acute confusion due to medical condition, Bradycardia, Elevated blood-pressure reading without diagnosis of hypertension Disposition Disposition: Acute Care Hospital [facility] Discharge Date/Time: 08/10/25 18:00 What to do if you have Problems For any increased pain, shortness of breath, bleeding, nausea or vomiting, chestpain, or any unexpected problems, contact your Primary Care Provider. Call [facility] ([phone]) or report tothe closest Emergency Room. Call 911 if necessary. 08/11/25 0642 Cosigner Signature (if applicable): 08/11/25 0141 CC: No Primary Care Physician ~ Signed [facility]09-30-2025 History and physical note Author Roger Costa [facility] Note Date/Time August 10, 2025 8:22pm [facility] Medical Records Department [address] [place] [address] H&P Exam - Hospitalist 08/10/25 1708 MR#: [id number] Acct: [id number] Name: ARIEL BEAN Rep #:[id number] : 1975 50 From: Roger solis DO PCP: Care Physician,No Primary Status :ADM IN Location: [id number] HPI - General General Date of Admission: 08/10/25 Date of Service: 08/10/25 Chief Complaint: Confusion, slurred speech and worsening right upper extremity weakness and numbness/tingling HPI Narrative ARIEL BEAN, is a 50 M who presented to [facility] ED on 08/10/2025 with confusion, slurred speech and worsening right upper extremity weakness and numbness/tingling. Medical history is significant for hypertension, class II obesity and tobacco dependence. Patient reports intermittent right upper extremity numbness/tingling for the right shoulder downto the hand for the past few months. He was seen in the ED here in late April for this. CT neck without contrast was negative for cervical spine pathology. Given that he was neurologically intact, CT brain and CTA head/neck were not done. Patient was accompanied by significant other today. She noted that 2 weeks ago on 07/25 he appeared to be more confused and had intermittent slurred speech. Since then he has progressively become more confused with worsening slurring of his speech. He has also developed right upper extremity weakness with inability to lift his arm up to 90 degrees. For this reason they came to the ED for further evaluation. On CT brain he was found to have acute to subacute ischemia in the left MCA distribution with no hemorrhage noted. CTA head/neck showed critical stenosis involving the proximal left internal carotid artery with likely flow limitation. Case was discussed with Dr. Nguyễn who reviewed the imaging and agreed with the radiology call of critical stenosis andsuspected this was the cause of his left MCA stroke. He recommended admitting for further stroke workup with MRI brain and echo and initiating dual antiplatelet therapy, with likely plan for surgical intervention in the next 1 to 2 weeks. Hospitalist was then contacted for admission. I saw the patient at bedside in the ED, significant other was present. Patient was sitting back fairly comfortably in bed and answering questions with short appropriate responses. He did have some slurred speech noted with a few answers. 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 He reported numbness/tingling from the shoulder down to the hands. Also reports numbness/tingling in the right side of his face and into his neck. He denied any right lower extremity weakness or numbness/tingling. No other acute concerns this time. Will be admitted for further management. [facility] Medical History (Updated 08/10/25 @ 18:48 by Keiko French) HTN (hypertension) Eye globe prosthesis Home Medications ?Medication ?Instructions ?Recorded ?Last Taken ?Type NK 08/10/25 Unknown History Allergy/AdvReac Type Severity Reaction Status Date / Time No Known Allergies Allergy Verified 08/10/25 19:55 Social History (Updated 08/10/25 @ 18:48 by Keiko French) household members: family housing: house Smoking Status: Light Smoker (<10/day) ROS Constitutional Constitutional: Reports weakness; Denies chills, fatigue or fever(s) Eyes Eyes: Denies change in vision Cardiovascular Cardiovascular: Denies chest pain Respiratory/Chest Respiratory/Chest: Denies shortness of breath at rest Gastrointestinal Gastrointestinal: Denies abdominal pain Musculoskeletal Musculoskeletal: Denies arthralgias, myalgias or neck pain Neurologic Neurologic: Reports abnormal gait, abnormal speech, confusion, disequilibrium, focal weakness, numbness, paresthesias and tingling; Denies dizziness or headache(s) Vital Signs Vital Signs Vital Signs: 08/10/25 11:58 08/10/25 12:58 08/10/25 14:00 Temperature 98.7 F Temperature Source Oral Pulse Rate 90 63 57 L Respiratory Rate 18 16 Blood Pressure 118/65 129/78 H 137/83 H Blood Pressure Mean 82 95 101 Pulse Ox 97 98 97 Oxygen Delivery Method Room Air Room Air Room Air 08/10/25 15:00 08/10/25 16:00 Temperature Temperature Source Pulse Rate 52 L 49 L Respiratory Rate 19 H 20 H Blood Pressure 142/70 H 165/74 H Blood Pressure Mean 94 104 Pulse Ox 98 100 Oxygen Delivery Method Room Air Weight Weight: 133.8 kg Body Mass Index (BMI) 40.0 Physical Exam Const alert, oriented x3 and no apparent distress Constitutional Narrative: Pleasant middle-age male, class II obesity, intermittent slurred speech noted but otherwise sitting back comfortably in bed, answering questions with short appropriate responses, in no acute distress. 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 Neck full ROM Chest inspection of chest normal Resp normal respiratory effort, normal air movement, no use of accessory muscles and clear to auscultation bilaterally Cardio regular rate, regular rhythm, no murmurs and peripheral pulses 2+ throughout GI normal to inspection, nondistended, normoactive bowel sounds, soft to palpation,non-tender and non-distended Back/Spine normal ROM Extremity normal to inspection, full ROM and no pedal edema Skin no rashes or lesions noted Neuro Neuro Narrative: Right shoulder weakness with abduction noted. Intermittent slurred speech noted. Results Lab / Micro Data 08/10/25 14:07 08/10/25 14:07 Labs: Laboratory Results - last 24 hr 08/10/25 14:07: WBC 6.6, RBC 4.68, Hgb 13.6, Hct 39.6 L, MCV 84.6, MCH 29.1, MCHC 34.3, RDW Std Deviation 36.7, RDW Coeff of Ashanti 12.3, Plt Count 380, MPV 9.7, Immature Gran % (Auto) 0.200, Neut % (Auto) 46.0 L, Lymph % (Auto) 41.8 H, [place] % (Auto) 11.1 H, Eos % (Auto) 0.6, Baso % (Auto) 0.3, Absolute Neuts (auto)3.0, Absolute Lymphs (auto) 2.76, Nucleated RBC % 0, PT 13.9, INR 1.1, APTT 24.9, Sodium 139, Potassium 3.5, Chloride 106, Carbon Dioxide 23.2, Anion Gap 10, BUN 17, Creatinine 0.72, Estim Creat Clear Calc 166.57, Est GFR (MDRD) Non-Af 110, BUN/Creatinine Ratio 23.5 H, Glucose 117 H, Calcium 9.1, Total Bilirubin0.23, AST 19, ALT 26, Alkaline Phosphatase 99, Troponin T High Sens 8, Total Protein 7.2, Albumin 3.9, Globulin 3.3, Albumin/Globulin Ratio 1.2, Ethyl Alcohol < 10.1 08/10/25 14:09: Lactic Acid < 1.0 08/10/25 14:45: Urine Color Yellow, Urine Clarity Clear, Urine pH 6.0, Ur Specific [place] 1.015, Urine Protein 15 H, Urine Glucose (UA) Normal, Urine Ketones Negative, Urine Occult Blood Negative, Urine Nitrite Negative, Urine Bilirubin Negative, Urine Urobilinogen Normal, Ur Leukocyte Esterase Negative, Urine RBC 0-5 SEEN, Urine WBC 0-5 SEEN, Ur Squamous Epith Cells 0 SEEN, Urine Bacteria 0 SEEN, Urine Mucus 0 SEEN, Urine Opiates Screen NEGATIVE, U Buprenorphine Qual NEGATIVE, Ur Oxycodone Screen NEGATIVE, Urine Methadone Screen NEGATIVE, Urine Fentanyl Screen NEGATIVE, Ur Barbiturates Screen NEGATIVE, Ur Phencyclidine Scrn NEGATIVE, Ur Amphetamines Screen NEGATIVE, U Benzodiazepines Scrn NEGATIVE, Urine Cocaine Screen NEGATIVE, U Cannabinoids Screen NEGATIVE 08/10/25 16:10: Troponin T Hi Sens 2 Hr 8 Imaging Radiology Impression Brain CT 08/10/25 14:20 IMPRESSION: 1. Acute (to subacute) ischemia left MCA distribution. No hemorrhage. Correlate with history. 2. Correlate with CT angiogram as there are critical findings. Stroke Alert: Left MCA acute ischemia The critical findings in the findings and impression above were relayed directlyby me by telephone to Ever Barth on 08/10/2025 at 3:05 pm with readback verification. Reading Location: [id number] Chest X-Ray 08/10/25 14:30 IMPRESSION: No acute abnormality Reading Location: [facility] Head/Neck CTA 08/10/25 14:52 IMPRESSION: 1. Critical stenosis involving the proximal left internal carotid artery. Additionally, supraclinoid portion of the left internal carotid artery with likely flow limitation. Urgent vascular surgical consultation suggested. 2. 50% stenosis right supraclinoid internal carotid artery. 3. Hypoplastic versus atherosclerotic A1 segment on the left. 4. No evidence of large vessel occlusion at the MCA at this time. 5. Correlate with the head CT of the same day as there are positive findings. 6. Enlargement of the lymphoid tissue of the nasopharynx, palatine tonsils and uvula. Correlate with direct inspection, history and physical. Stroke Alert: Acute ischemia. Critical stenosis. The critical findings in the findings and impression above were relayed directlyby me by telephone to Ever Barth on 08/10/2025 at 3:05 pm with readback verification. Reading Location: [id number] Assessment & Plan Assessment/Plan (1) Acute ischemic left MCA stroke: PLAN: Plan Patient is a 50-year-old male who presented [facility] ED on 08/10/2025 with confusion, slurred speech and worsening right upper extremity weakness and numbness/tingling. 1. Acute left MCA stroke with left-sided critical ICA stenosis ? Admit under inpatient status to PCU. Neurology and vascular surgery consulted. CT brain showed an acute to subacute left MCA stroke with no hemorrhage. CTA head/neck showed critical stenosis involving the proximal left internal carotid artery with likely flow limitation. Orders placed per stroke protocol order set. MRI brain and echo ordered. Fasting lipid panel and A1c ordered. Discussed with vascular surgery and will initiate baby aspirin, Plavixand high intensity statin. Likely plan will be for vascular intervention in about 1 week but vascular surgery will discuss further with patient pending MRI and echo results. PT/OT/case management consulted. 2. Hypertension ? Hypertensive to the 150s to 160s systolic in the ED. Not on any antihypertensive agents at this time, unclear if he has been in the past. Will hold off on initiating any antihypertensive therapy given need for permissive hypertension in setting of stroke as above, can consider adding on discharge. 3. Class II obesity ? BMI 37 on admit. Discussed lifestyle modifications. Complicates hospital course and care. 4. Tobacco dependence ? Current smoker. Nicotine replacement therapy available per patient request. Discussed cessation on discharge. DVT prophylaxis: SCDs CODE STATUS: Full code, verified Expected disposition: TBD Total clinical time spent by myself addressing the patient's medical issues, reviewing all the data, and collaborating with patient's care team: 78 minutes. Charges/Coding Visit Charges Inpatient E&M: 01031 Init Hosp L3 08/10/252021 <Electronically signed by Roger Costa DO> Cosigner Signature (if applicable): CC: Dr. Roger Costa DO; No Primary Care Physician~ Signed [facility] Work Phone: 1(408) 719-683409-30-2025 History and physical note [facility] Medical Records Department [address] [place] [address] H&P Exam - Hospitalist 08/10/25 1708 MR#: [id number] Acct: [id number] Name: ARIEL BEAN Rep #:[id number] : 1975 50 From: Roger solis DO PCP: Care Physician,No Primary Status :ADM IN Location: [place] [id number] HPI - General General Date of Admission: 08/10/25 Date of Service: 08/10/25 Chief Complaint: Confusion, slurred speech and worsening right upper extremity weakness and numbness/tingling HPI Narrative ARIEL BEAN, is a 50 M who presented to [facility] ED on 08/10/2025 with confusion,slurred speech and worsening right upper extremity weakness and numbness/tingling. Medical history is significant for hypertension, class II obesity and tobacco dependence. Patient reports intermittent right upper extremity numbness/tingling for the right shoulder downto the hand for the past few months. He was seen in the ED here in late April for this. CT neck without contrast was negative for cervical spine pathology. Given that he was neurologically intact, CT brain and CTA head/neck were not done. Patient was accompanied by significant other today. She noted that 2 weeks ago on 07/25 he appeared to be more confused and had intermittent slurred speech. Since then he has progressively become more confused with worsening slurring of his speech. He has also developed right upper extremity weakness with inability to lift his arm up to 90 degrees. For this reason they came to the ED for further evaluation. On CT brain he was found to have acute to subacute ischemia in the left MCA distribution with no hemorrhage noted. CTA head/neck showed critical stenosis involving the proximal left internal carotid artery with likely flow limitation. Case was discussed with Dr. Nguyễn who reviewedthe imaging and agreed with the radiology call of critical stenosis andsuspected this was the causeof his left MCA stroke. He recommended admitting for further stroke workup with MRI brain and echo and initiating dual antiplatelet therapy, with likely plan for surgical intervention in the next 1 to 2 weeks. Hospitalist was then contacted for admission. I saw the patient at bedside in the ED, significant other was present. Patient was sitting back fairly comfortably in bed and answering questions with short appropriate responses. He did have some slurred speech noted with a few answers. 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 He reported numbness/tingling from the shoulder down to the hands. Also reports numbness/tingling in the right side of his face and into his neck. He denied any right lower extremity weakness or numbness/tingling. No other acute concerns this time. Will be admitted for further management. [facility] Medical History (Updated 08/10/25 @ 18:48 by Keiko French) HTN (hypertension) Eye globe prosthesis Home Medications ?Medication ?Instructions ?Recorded ?Last Taken ?Type NK 08/10/25 Unknown History Allergy/AdvReac Type Severity Reaction Status Date / Time No Known Allergies Allergy Verified 08/10/25 19:55 Social History (Updated 08/10/25 @ 18:48 by Keiko French) household members: family housing: house Smoking Status: Light Smoker (<10/day) ROS Constitutional Constitutional: Reports weakness; Denies chills, fatigue or fever(s) Eyes Eyes: Denies change in vision Cardiovascular Cardiovascular: Denies chest pain Respiratory/Chest Respiratory/Chest: Denies shortness of breath at rest Gastrointestinal Gastrointestinal: Denies abdominal pain Musculoskeletal Musculoskeletal: Denies arthralgias, myalgias or neck pain Neurologic Neurologic: Reports abnormal gait, abnormal speech, confusion, disequilibrium, focal weakness, numbness, paresthesias and tingling; Denies dizziness or headache(s) Vital Signs Vital Signs Vital Signs: 08/10/25 11:58 08/10/25 12:58 08/10/25 14:00 Temperature 98.7 F Temperature Source Oral Pulse Rate 90 63 57 L Respiratory Rate 18 16 Blood Pressure 118/65 129/78 H 137/83 H Blood Pressure Mean 82 95 101 Pulse Ox 97 98 97 Oxygen Delivery Method Room Air Room Air Room Air 08/10/25 15:00 08/10/25 16:00 Temperature Temperature Source Pulse Rate 52 L 49 L Respiratory Rate 19 H 20 H Blood Pressure 142/70 H 165/74 H Blood Pressure Mean 94 104 Pulse Ox 98 100 Oxygen Delivery Method Room Air Weight Weight: 133.8 kg Body Mass Index (BMI) 40.0 Physical Exam Const alert, oriented x3 and no apparent distress Constitutional Narrative: Pleasant middle-age male, class II obesity, intermittent slurred speech noted but otherwise sittingback comfortably in bed, answering questions with short appropriate responses, in no acute distress. 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 Neck full ROM Chest inspection of chest normal Resp normal respiratory effort, normal air movement, no use of accessory muscles and clear to auscultation bilaterally Cardio regular rate, regular rhythm, no murmurs and peripheral pulses 2+ throughout GI normal to inspection, nondistended, normoactive bowel sounds, soft to palpation,non-tender and non-distended Back/Spine normal ROM Extremity normal to inspection, full ROM and no pedal edema Skin no rashes or lesions noted Neuro Neuro Narrative: Right shoulder weakness with abduction noted. Intermittent slurred speech noted. Results Lab / Micro Data 08/10/25 14:07 08/10/25 14:07 Labs: Laboratory Results - last 24 hr 08/10/25 14:07: WBC 6.6, RBC 4.68, Hgb 13.6, Hct 39.6 L, MCV 84.6, MCH 29.1, MCHC 34.3, RDW Std Deviation 36.7, RDW Coeff of [place] 12.3, Plt Count 380, MPV 9.7, Immature Gran % (Auto) 0.200, Neut % (Auto) 46.0 L, Lymph % (Auto) 41.8 H, [place] % (Auto) 11.1 H, Eos % (Auto) 0.6, Baso % (Auto) 0.3, Absolute Neuts (auto)3.0, Absolute Lymphs (auto) 2.76, Nucleated RBC % 0, PT 13.9, INR 1.1, APTT 24.9, Sodium 139, Potassium 3.5, Chloride 106, Carbon Dioxide 23.2, Anion Gap 10, BUN 17, Creatinine 0.72, Estim Creat Clear Calc 166.57, Est GFR (MDRD) Non-Af 110, BUN/Creatinine Ratio 23.5 H, Glucose 117 H, Calcium 9.1, Total Bilirubin0.23, AST 19, ALT 26, Alkaline Phosphatase 99, Troponin T High Sens 8, Total Protein 7.2, Albumin 3.9, Globulin 3.3, Albumin/Globulin Ratio 1.2, Ethyl Alcohol < 10.1 08/10/25 14:09: Lactic Acid < 1.0 08/10/25 14:45: Urine Color Yellow, Urine Clarity Clear, Urine pH 6.0, Ur Specific [place] 1.015, Urine Protein 15 H, Urine Glucose (UA) Normal, Urine Ketones Negative, Urine Occult Blood Negative, Urine Nitrite Negative, Urine Bilirubin Negative, Urine Urobilinogen Normal, Ur Leukocyte Esterase Negative, Urine RBC 0-5 SEEN, Urine WBC 0-5 SEEN, Ur Squamous Epith Cells 0 SEEN, Urine Bacteria 0 SEEN, Urine Mucus 0 SEEN, Urine Opiates Screen NEGATIVE, U Buprenorphine Qual NEGATIVE, Ur Oxycodone Screen NEGATIVE, Urine Methadone Screen NEGATIVE, Urine Fentanyl Screen NEGATIVE, Ur Barbiturates Screen NEGATIVE, Ur Phencyclidine Scrn NEGATIVE, Ur Amphetamines Screen NEGATIVE, U Benzodiazepines ScrnNEGATIVE, Urine Cocaine Screen NEGATIVE, U Cannabinoids Screen NEGATIVE 08/10/25 16:10: Troponin T Hi Sens 2 Hr 8 Imaging Radiology Impression Brain CT 08/10/25 14:20 IMPRESSION: 1. Acute (to subacute) ischemia left MCA distribution. No hemorrhage. Correlate with history. 2. Correlate with CT angiogram as there are critical findings. Stroke Alert: Left MCA acute ischemia The critical findings in the findings and impression above were relayed directlyby me by telephone to Ever Barth on 08/10/2025 at 3:05 pm with readback verification. Reading Location: [facility] Chest X-Ray 08/10/25 14:30 IMPRESSION: No acute abnormality Reading Location: [id number] Head/Neck CTA 08/10/25 14:52 IMPRESSION: 1. Critical stenosis involving the proximal left internal carotid artery. Additionally, supraclinoid portion of the left internal carotid artery with likely flow limitation. Urgent vascular surgical consultation suggested. 2. 50% stenosis right supraclinoid internal carotid artery. 3. Hypoplastic versus atherosclerotic A1 segment on the left. 4. No evidence of large vessel occlusion at the MCA at this time. 5. Correlate with the head CT of the same day as there are positive findings. 6. Enlargement of the lymphoid tissue of the nasopharynx, palatine tonsils and uvula. Correlate with direct inspection, history and physical. Stroke Alert: Acute ischemia. Critical stenosis. The critical findings in the findings and impression above were relayed directlyby me by telephone to Ever Barth on 08/10/2025 at 3:05 pm with readback verification. Reading Location: [facility] Assessment & Plan Assessment/Plan (1) Acute ischemic left MCA stroke: PLAN: Plan Patient is a 50-year-old male who presented [facility] ED on 08/10/2025 with confusion, slurred speech and worsening right upper extremity weakness and numbness/tingling. 1. Acute left MCA stroke with left-sided critical ICA stenosis ? Admit under inpatient status to PCU. Neurology and vascular surgery consulted. CT brain showed anacute to subacute left MCA stroke with no hemorrhage. CTA head/neck showed critical stenosis involving the proximal left internal carotid artery with likely flow limitation. Orders placed per stroke protocol order set. MRI brain and echo ordered. Fasting lipid panel and A1c ordered. Discussed with vascular surgery and will initiate baby aspirin, Plavixand high intensity statin. Likely plan will be for vascular intervention in about 1 week but vascular surgery will discuss further with patient pending MRI and echo results. PT/OT/case management consulted. 2. Hypertension ? Hypertensive to the 150s to 160s systolic in the ED. Not on any antihypertensive agents at this time, unclear if he has been in the past. Will hold off on initiating any antihypertensive therapy given need for permissive hypertension in setting of stroke as above, can consider adding on discharge. 3. Class II obesity ? BMI 39 on admit. Discussed lifestyle modifications. Complicates hospital course and care. 4. Tobacco dependence ? Current smoker. Nicotine replacement therapy available per patient request. Discussed cessation on discharge. DVT prophylaxis: SCDs CODE STATUS: Full code, verified Expected disposition: TBD Total clinical time spent by myself addressing the patient's medical issues, reviewing all the data, and collaborating with patient's care team: 78 minutes. Charges/Coding Visit Charges Inpatient E&M: 21072 Init Hosp L3 08/10/252021 Cosigner Signature (if applicable): CC: Dr. Roger Costa DO; No Primary Care Physician~ Signed [facility]09-30-2025 Evaluation note* Diagnosis Onset Date Resolution Status Admit Date Acute ischemic left MCA stroke acute August 10, 2025 5:09pm Left carotid stenosis acute Jul 5:09pm [facility] Work Phone: 1(154) 177-609509-30-2025 Radiology Diagnostic study note [facility] Imaging Services [address], [place] [address] Brain/Head without Contrast MR#: [id number] Acct: [id number] Name: ARIEL BEAN Rep #: [id number] : 1975 M 50 From: Jason Garay MD PCP: Care Physician,No Primary Status: REG ER Study:Brain/Head without Contrast Date of Exa m: 08/10/25 Exam# [id number] Ordering Dr: Ever Arevalo DO PROCEDURE: BRAIN/HEAD WITHOUT CONTRAST 08/10/2025 REASON FOR EXAM: CONFUSION TECHNIQUE: Procedure Code: CTBR Modality: CT Procedure: BRAIN/HEAD WITHOUT CONTRAST Coronal and Sagittal reconstruction series were provided. One or more dose reduction techniques were used (e.g., Automated exposure control, adjustment of the mA and/or kV according to patient size, use of iterative reconstruction technique. RADIATION DOSE SUMMARY: CTDlvol: 85 mGy DLP: 1679 mGycm COMPARISON: CT angiogram of the same day FINDINGS: Brain: Hypodensity is seen in the left MCA distribution involving the left insular cortex, anteriorMCA cortex (M1), lateral cortex (5) - ASPECTS 7 points. This is worrisome for acute to subacute ischemia. No hemorrhage. Hypodensity in the right cerebellar hemisphere likely sequelae of old infarct. CSF Spaces: Normal Sinuses/Mastoids: Clear Bones: No fracture Left orbit prosthesis. Multiple round, non-specific lesions of the scalp. Thisshould be apparent clinically. CT/Brain/Head without Contrast IMPRESSION: 1. Acute (to subacute) ischemia left MCA distribution. No hemorrhage. Correlate with history. 2. Correlate with CT angiogram as there are critical findings. Stroke Alert: Left MCA acute ischemia The critical findings in the findings and impression above were relayed directlyby me by telephone to Ever Barth on 08/10/2025 at 3:05 pm with readback verification. Reading Location: [id number] CC: Dr. Ever Barth DO; No Primary Care Physician ~ Edger Operator: Signed [facility]09-30-2025 Radiology Diagnostic study note [facility] Imaging Services [address] [place] [address] [id number] CTA Head AND Neck W/ Contrast MR#: [id number] Acct: [id number] Name: ARIEL BEAN Rep #: [id number] : 1975 M 50 From: Jason Garay MD PCP: Care Physician,No Primary Status: REG ER Study:CTA Head AND Neck W/ Contrast Date of E xam: 08/10/25 Exam# [id number] Ordering Dr: Ever Arevalo DO PROCEDURE: CTA HEAD AND NECK W/ CONTRAST 08/10/2025 REASON FOR EXAM: CONFUSION TECHNIQUE: Procedure Code: CTCTA.HDNCK Modality: CT Procedure: CTA HEAD AND NECK W/ CONTRAST Multiplanar Sagittal and Coronal images were obtained. 3D post processing was performed CONTRAST: Optiray 320 VOLUME: 100 mL One or more dose reduction techniques were used (e.g., Automated exposure control, adjustment of the mA and/or kV according to patient size, use of iterative reconstruction technique). RADIATION DOSE SUMMARY: CTDlvol: 86 mGy DLP: 1679 mGycm COMPARISON: Head CT of the same day FINDINGS: Aortic Arch: Normal size and branching pattern. No significant atherosclerotic plaque. Brachiocephalic and Subclavians: Unremarkable RIGHT Carotid: Right CCA: Unremarkable. Right ICA: Mild eccentric plaque at the proximal internal carotid artery. Calcified and noncalcified soft plaque of the cavernous and supraclinoid internal carotid arteries without flow limitation. However, there is at least 50% narrowing of the supraclinoid portion. Maximum stenosis (NASCET): Less than 25 % Right ECA: Unremarkable LEFT Carotid: Left CCA: Unremarkable. Left ICA: Atherosclerotic plaque is present in primarily is soft plaque that hasan infundibular morphology over the proximal 2 cm that terminates and a string sign. Calcified and noncalcified soft plaque ofthe supraclinoid internal carotid artery is likely flow-limiting. Maximum stenosis (NASCET): 70-99 % Left ECA: Unremarkable. Vertebrals: Codominant. Arise from the subclavians. Both vertebrals form the basilar. RIGHT Vertebral: Unremarkable. LEFT Vertebral: Unremarkable. Anatomy: [place] anatomy is normal. Aneurysm or avm: No intracranial aneurysms or large vascular malformations are identified. Anterior cerebral arteries: Patent bilaterally. Small caliber left A1 segment. Hypoplasia versus atherosclerosis. Middle cerebral arteries: Unremarkable. Basilar artery: Unremarkable. Posterior cerebral arteries: Unremarkable. Other major branches of the posterior circulation: There are possibly very smallcaliber patent posterior communicating arteries. Major venous structures: Unremarkable. Other findings: Neck: Fullness of the palatine tonsils bilaterally. Fullness ofthe soft tissues of the nasopharynx and uvula. Lungs: Clear. Bones: Degenerative changes mid to lower cervical spine. CT/CTA Head AND Neck W/ Contrast IMPRESSION: 1. Critical stenosis involving the proximal left internal carotid artery. Additionally, supraclinoid portion of the left internal carotid artery with likely flow limitation. Urgent vascular surgical consultation suggested. 2. 50% stenosis right supraclinoid internal carotid artery. 3. Hypoplastic versus atherosclerotic A1 segment on the left. 4. No evidence of large vessel occlusion at the MCA at this time. 5. Correlate with the head CT of the same day as there are positive findings. 6. Enlargement of the lymphoid tissue of the nasopharynx, palatine tonsils and uvula. Correlate with direct inspection, history and physical. Stroke Alert: Acute ischemia. Critical stenosis. The critical findings in the findings and impression above were relayed directlyby me by telephone to Ever Barth on 08/10/2025 at 3:05 pm with readback verification. Reading Location: [facility] CC: Dr. Ever Barth DO; No Primary Care Physician ~ Edger Operator: Signed [facility]09-30-2025 Radiology Diagnostic study note [facility] Imaging Services [address] [place] [address] Chest PA and Lateral MR#: [id number] Acct: [id number] Name: ARIEL BEAN Rep #: [id number] : 1975 M 50 From: Edw elisabet Garay MD PCP: Care Physician,No Primary Status: REG ER Study:Chest PA and Lateral Date of Exam: 08/10/25 Exam# [id number] Ordering Dr: Ever Arevalo DO PROCEDURE: CHEST PA AND LATERAL 08/10/2025 REASON FOR EXAM: CONFUSION TECHNIQUE: Procedure Code: RADCXR Modality: DX Procedure: CHEST PA AND LATERAL COMPARISON: None FINDINGS: Hardware: EKG leads Heart: Mild cardiac enlargement. Mediastinum: Aorta is atherosclerotic. Lungs: Hypoventilation. Otherwise clear. No pleural effusion or pneumothorax. Bones: The bones are unremarkable. RAD/Chest PA and Lateral IMPRESSION: No acute abnormality Reading Location: [facility] CC: Dr. Ever Barth DO; No Primary Care Physician ~ Edger Operator: Signed [facility]09-30-2025 Discharge summary Author Ever Barth [facility] Note Date/Time August 11, 2025 3: 26pm [facility] Medical Records Department [address] [place] [address] Emergency Department Summary 08/10/25 MR#: [id number] Acct: [id number] Name: ARIEL BEAN Rep #:[id number] : 1975 50 From: Ever tang DO PCP: Care Physician,No Primary Status :ADM IN Location: [place] [address] HPI <Dr. Ever Barth DO - Last Filed: 08/10/25 15:17> History of Present Illness Chief Complaint: Neuro S/Sx Narrative Narrative: Chief complaint and HPI: 50-year-old gentleman presents for evaluation for intermittent confusion and generalized weakness for the past 2 weeks. Close contact in the room states that the patient's last known normal was prior to 07/25/2025. Close contact states she saw the patient on 07/25/2025 and he seemed intermittently confused about what he was doing. States that it is progressively worsened. Patient states he feels confused and is intermittently mixing his words. He states approximately 3 weeks ago he had his head on a concrete wall. He denies any LOC. Not on blood thinners. He denies any fever,chills, shortness of breath, chest pain, abdominal pain, nausea, vomiting, dysuria, numbness/tingling. States he feels that he is occasionally slurring his speech. Review of systems: See HPI Medications: As listed on the chart Allergies: As listed on the chart PFSH: Per chart Vital signs: As listed on the chart. Reviewed. 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 Ever Barth, DO - Last Filed: 08/10/25 15:17> [facility] Medical History (Updated 08/10/25 @ 18:48 by Keiko French) HTN (hypertension) Eye globe prosthesis Home Medications ?Medication ?Instructions ?Recorded ?Last Taken ?Type NK 08/10/25 Unknown History Allergy/AdvReac Type Severity Reaction Status Date / Time No Known Allergies Allergy Verified 08/10/25 19:55 Social History (Updated 08/10/25 @ 18:48 by Keiko French) household members: family housing: house Smoking Status: Light Smoker (<10/day) EXAM <Dr. Ever Barth, DO - Last Filed: 08/10/25 15:17> Physical Exam Const Vital Signs: 08/10/25 15:00 08/10/25 16:00 Pulse Rate 52 L 49 L Respiratory Rate 19 H 20 H Blood Pressure 142/70 H 165/74 H Blood Pressure Mean 94 104 Pulse Ox 98 100 Oxygen Delivery Method Room Air <Dr. Nathan Mejias MD - Last Filed: 08/11/25 01:41> Physical Exam Const Vital Signs: 08/10/25 15:00 08/10/25 16:00 Pulse Rate 52 L 49 L Respiratory Rate 19 H 20 H Blood Pressure 142/70 H 165/74 H Blood Pressure Mean 94 104 Pulse Ox 98 100 Oxygen Delivery Method Room Air MDM <Dr. Evre Barth, DO - Last Filed: 08/10/25 15:17> [facility] Narrative Medical decision making narrative: 50-year-old gentleman presents for evaluation for intermittent confusion and generalized weakness for the past 2 weeks. Close contact in the room states that the patient's last known normal was prior to 07/25/2025. Close contact states she saw the patient on 07/25/2025 and he seemed intermittently confused about what he was doing. States that it is progressively worsened. Patient states he feels confused and is intermittently mixing his words. He states approximately 3 weeks ago he had his head on a concrete wall. He denies any LOC. On presentation patient is alert but fatigued. He is confused. Slow to respond. Vital stable. See physical exam findings. Differential diagnosis includes but is not limited to concussion, traumatic brain injury, CVA, electrolyte abnormality, dehydration, UTI. NS bolus ordered. CBC without leukocytosis or anemia. Platelets unremarkable. Coagulation panel unremarkable. CMP unremarkable. CTA head and neck shows critical stenosis involving the proximal left internal carotid artery additional supraclinoid portion of the left internal carotid artery with likely flow limitation. Urgentvascular surgery consultation suggested. 50% stenosis of the right supraclinoidinternal carotid artery. Hypoplastic versus atherosclerotic A1 segment on the left. No evidence of LVO at the MCA at this time. Enlargement of the lymphoid tissue to the nasopharynx and palatine tonsils. I personally received a call from the radiologist. He is awaiting CT head without contrast. EKG: Interpreted by me/EM physician: EKG shows sinus bradycardia with first-degree AVblock. Heart rate 59. I do not have a previous EKG to compare to. Diagnostic: Interpreted by me/EM physician: Chest x-ray without pneumonia, effusion, cardiomegaly, pneumothorax. Radiology in agreement. Patient signed out to oncoming physician Dr. Mejias. He will wait further workupand results with plan for admission. Lab Data Labs: Laboratory Results - last 24 hr 08/10/25 08/10/25 08/10/25 14:07 14:09 14:45 WBC 6.6 RBC 4.68 Hgb 13.6 Hct 39.6 L MCV 84.6 MCH 29.1 MCHC 34.3 RDW Std Deviation 36.7 RDW Coeff of Ashanti 12.3 Plt Count 380 MPV 9.7 Immature Gran % (Auto) 0.200 Neut % (Auto) 46.0 L Lymph % (Auto) 41.8 H [place] % (Auto) 11.1 H Eos % (Auto) 0.6 Baso % (Auto) 0.3 Absolute Neuts (auto) 3.0 Absolute Lymphs (auto) 2.76 Nucleated RBC % 0 PT 13.9 INR 1.1 APTT 24.9 Sodium 139 Potassium 3.5 Chloride 106 Carbon Dioxide 23.2 Anion Gap 10 BUN 17 Creatinine 0.72 Estim Creat Clear Calc 166.57 Est GFR (MDRD) Non-Af 110 BUN/Creatinine Ratio 23.5 H Glucose 117 H Hemoglobin A1c 6.7 H Lactic Acid < 1.0 Calcium 9.1 Total Bilirubin 0.23 AST 19 ALT 26 Alkaline Phosphatase 99 Troponin T High Sens 8 Troponin T Hi Sens 2 Hr Total Protein 7.2 Albumin 3.9 Globulin 3.3 Albumin/Globulin Ratio 1.2 TSH 1.020 Urine Color Yellow Urine Clarity Clear Urine pH 6.0 Ur Specific [place] 1.015 Urine Protein 15 H Urine Glucose (UA) Normal Urine Ketones Negative Urine Occult Blood Negative Urine Nitrite Negative Urine Bilirubin Negative Urine Urobilinogen Normal Ur Leukocyte Esterase Negative Urine RBC 0-5 SEEN Urine WBC 0-5 SEEN Ur Squamous Epith Cells 0 SEEN Urine Bacteria 0 SEEN Urine Mucus 0 SEEN Urine Opiates Screen NEGATIVE U Buprenorphine Qual NEGATIVE Ur Oxycodone Screen NEGATIVE Urine Methadone Screen NEGATIVE Urine Fentanyl Screen NEGATIVE Ur Barbiturates Screen NEGATIVE Ur Phencyclidine Scrn NEGATIVE Ur Amphetamines Screen NEGATIVE U Benzodiazepines Scrn NEGATIVE Urine Cocaine Screen NEGATIVE U Cannabinoids Screen NEGATIVE Ethyl Alcohol < 10.1 08/10/25 16:10 WBC RBC Hgb Hct MCV MCH MCHC RDW Std Deviation RDW Coeff of Ashanti Plt Count MPV Immature Gran % (Auto) Neut % (Auto) Lymph % (Auto) [place] % (Auto) Eos % (Auto) Baso % (Auto) Absolute Neuts (auto) Absolute Lymphs (auto) Nucleated RBC % PT INR APTT Sodium Potassium Chloride Carbon Dioxide Anion Gap BUN Creatinine Estim Creat Clear Calc Est GFR (MDRD) Non-Af BUN/Creatinine Ratio Glucose Hemoglobin A1c Lactic Acid Calcium Total Bilirubin AST ALT Alkaline Phosphatase Troponin T High Sens Troponin T Hi Sens 2 Hr 8 Total Protein Albumin Globulin Albumin/Globulin Ratio TSH Urine Color Urine Clarity Urine pH Ur Specific [place] Urine Protein Urine Glucose (UA) Urine Ketones Urine Occult Blood Urine Nitrite Urine Bilirubin Urine Urobilinogen Ur Leukocyte Esterase Urine RBC Urine WBC Ur Squamous Epith Cells Urine Bacteria Urine Mucus Urine Opiates Screen U Buprenorphine Qual Ur Oxycodone Screen Urine Methadone Screen Urine Fentanyl Screen Ur Barbiturates Screen Ur Phencyclidine Scrn Ur Amphetamines Screen U Benzodiazepines Scrn Urine Cocaine Screen U Cannabinoids Screen Ethyl Alcohol Radiography Diagnostic Testing: Clinical Impression(s) from Imaging Studies Brain CT 08/10/25 14:20 IMPRESSION: 1. Acute (to subacute) ischemia left MCA distribution. No hemorrhage. Correlate with history. 2. Correlate with CT angiogram as there are critical findings. Stroke Alert: Left MCA acute ischemia The critical findings in the findings and impression above were relayed directlyby me by telephone to Ever Barth on 08/10/2025 at 3:05 pm with readback verification. Reading Location: [facility] Chest X-Ray 08/10/25 14:30 IMPRESSION: No acute abnormality Reading Location: [id number] Head/Neck CTA 08/10/25 14:52 IMPRESSION: 1. Critical stenosis involving the proximal left internal carotid artery. Additionally, supraclinoid portion of the left internal carotid artery with likely flow limitation. Urgent vascular surgical consultation suggested. 2. 50% stenosis right supraclinoid internal carotid artery. 3. Hypoplastic versus atherosclerotic A1 segment on the left. 4. No evidence of large vessel occlusion at the MCA at this time. 5. Correlate with the head CT of the same day as there are positive findings. 6. Enlargement of the lymphoid tissue of the nasopharynx, palatine tonsils and uvula. Correlate with direct inspection, history and physical. Stroke Alert: Acute ischemia. Critical stenosis. The critical findings in the findings and impression above were relayed directlyby me by telephone to Ever Barth on 08/10/2025 at 3:05 pm with readback verification. Reading Location: [id number] <Dr. Nathan Mejias MD - Last Filed: 08/11/25 01:41> [facility] Lab Data Attestation: I reviewed the patient's lab results. Lab results narrative: CBC is remarkable for mild lymphocytosis. Lactate was normal. Basic metabolic panel with slight ovation glucose of 117 with a normal CO2 anion gap. Liver enzymes and protein are normal. Urinalysis is unremarkable. Talk screen is negative. Alcohol is not detected. Will contact hospitalist for admission for acute to subacute ischemic stroke involving the left MCA distribution without evidence of hemorrhage. The CTA was remarkable for critical stenosis involving the proximal left internal carotid artery and supraclinoid portion of the left internal carotid artery with likely flow limitation. There is also 50% stenosisnoted on the right. Labs: Laboratory Results - last 24 hr 08/10/25 08/10/25 08/10/25 14:07 14:09 14:45 WBC 6.6 RBC 4.68 Hgb 13.6 Hct 39.6 L MCV 84.6 MCH 29.1 MCHC 34.3 RDW Std Deviation 36.7 RDW Coeff of Ashanti 12.3 Plt Count 380 MPV 9.7 Immature Gran % (Auto) 0.200 Neut % (Auto) 46.0 L Lymph % (Auto) 41.8 H [place] % (Auto) 11.1 H Eos % (Auto) 0.6 Baso % (Auto) 0.3 Absolute Neuts (auto) 3.0 Absolute Lymphs (auto) 2.76 Nucleated RBC % 0 PT 13.9 INR 1.1 APTT 24.9 Sodium 139 Potassium 3.5 Chloride 106 Carbon Dioxide 23.2 Anion Gap 10 BUN 17 Creatinine 0.72 Estim Creat Clear Calc 166.57 Est GFR (MDRD) Non-Af 110 BUN/Creatinine Ratio 23.5 H Glucose 117 H Hemoglobin A1c 6.7 H Lactic Acid < 1.0 Calcium 9.1 Total Bilirubin 0.23 AST 19 ALT 26 Alkaline Phosphatase 99 Troponin T High Sens 8 Troponin T Hi Sens 2 Hr Total Protein 7.2 Albumin 3.9 Globulin 3.3 Albumin/Globulin Ratio 1.2 TSH 1.020 Urine Color Yellow Urine Clarity Clear Urine pH 6.0 Ur Specific [place] 1.015 Urine Protein 15 H Urine Glucose (UA) Normal Urine Ketones Negative Urine Occult Blood Negative Urine Nitrite Negative Urine Bilirubin Negative Urine Urobilinogen Normal Ur Leukocyte Esterase Negative Urine RBC 0-5 SEEN Urine WBC 0-5 SEEN Ur Squamous Epith Cells 0 SEEN Urine Bacteria 0 SEEN Urine Mucus 0 SEEN Urine Opiates Screen NEGATIVE U Buprenorphine Qual NEGATIVE Ur Oxycodone Screen NEGATIVE Urine Methadone Screen NEGATIVE Urine Fentanyl Screen NEGATIVE Ur Barbiturates Screen NEGATIVE Ur Phencyclidine Scrn NEGATIVE Ur Amphetamines Screen NEGATIVE U Benzodiazepines Scrn NEGATIVE Urine Cocaine Screen NEGATIVE U Cannabinoids Screen NEGATIVE Ethyl Alcohol < 10.1 08/10/25 16:10 WBC RBC Hgb Hct MCV MCH MCHC RDW Std Deviation RDW Coeff of Ashanti Plt Count MPV Immature Gran % (Auto) Neut % (Auto) Lymph % (Auto) [place] % (Auto) Eos % (Auto) Baso % (Auto) Absolute Neuts (auto) Absolute Lymphs (auto) Nucleated RBC % PT INR APTT Sodium Potassium Chloride Carbon Dioxide Anion Gap BUN Creatinine Estim Creat Clear Calc Est GFR (MDRD) Non-Af BUN/Creatinine Ratio Glucose Hemoglobin A1c Lactic Acid Calcium Total Bilirubin AST ALT Alkaline Phosphatase Troponin T High Sens Troponin T Hi Sens 2 Hr 8 Total Protein Albumin Globulin Albumin/Globulin Ratio TSH Urine Color Urine Clarity Urine pH Ur Specific [place] Urine Protein Urine Glucose (UA) Urine Ketones Urine Occult Blood Urine Nitrite Urine Bilirubin Urine Urobilinogen Ur Leukocyte Esterase Urine RBC Urine WBC Ur Squamous Epith Cells Urine Bacteria Urine Mucus Urine Opiates Screen U Buprenorphine Qual Ur Oxycodone Screen Urine Methadone Screen Urine Fentanyl Screen Ur Barbiturates Screen Ur Phencyclidine Scrn Ur Amphetamines Screen U Benzodiazepines Scrn Urine Cocaine Screen U Cannabinoids Screen Ethyl Alcohol Radiography Diagnostic Testing: Clinical Impression(s) from Imaging Studies Brain CT 08/10/25 14:20 IMPRESSION: 1. Acute (to subacute) ischemia left MCA distribution. No hemorrhage. Correlate with history. 2. Correlate with CT angiogram as there are critical findings. Stroke Alert: Left MCA acute ischemia The critical findings in the findings and impression above were relayed directlyby me by telephone to Ever Barth on 08/10/2025 at 3:05 pm with readback verification. Reading Location: [facility] Chest X-Ray 08/10/25 14:30 IMPRESSION: No acute abnormality Reading Location: [id number] Head/Neck CTA 08/10/25 14:52 IMPRESSION: 1. Critical stenosis involving the proximal left internal carotid artery. Additionally, supraclinoid portion of the left internal carotid artery with likely flow limitation. Urgent vascular surgical consultation suggested. 2. 50% stenosis right supraclinoid internal carotid artery. 3. Hypoplastic versus atherosclerotic A1 segment on the left. 4. No evidence of large vessel occlusion at the MCA at this time. 5. Correlate with the head CT of the same day as there are positive findings. 6. Enlargement of the lymphoid tissue of the nasopharynx, palatine tonsils and uvula. Correlate with direct inspection, history and physical. Stroke Alert: Acute ischemia. Critical stenosis. The critical findings in the findings and impression above were relayed directlyby me by telephone to Ever Barth on 08/10/2025 at 3:05 pm with readback verification. Reading Location: [facility] Management Discussion w/another healthcare provider: Hospitalist (Spoke with Dr. Kal Costa. He was informed of patient's history physical. He requested that I contact Dr. Nguyễn.) and Utilization Supervisor (I spoke with Dr. Nguyễn. He states he willsee the patient. There is no issue keeping him at [facility]. He stated that they should do their normal workup.) Discharge Plan Dx/Rx/DC Orders Clinical Impression: Acute ischemic left MCA stroke, Acute confusion due to medical condition, Bradycardia, Elevated blood-pressure reading without diagnosis of hypertension Disposition Disposition: Acute Care Hospital [facility] Discharge Date/Time: 08/10/25 18:00 What to do if you have Problems For any increased pain, shortness of breath, bleeding, nausea or vomiting, chestpain, or any unexpected problems, contact your Primary Care Provider. Call [facility] ([phone]) or report to the closest Emergency Room. Call 911 if necessary. 08/11/25 1526 <Electronically signed by Ever Barth DO> Cosigner Signature (if applicable): 08/11/25 0141 <Electronically signed by Velma WOLF> CC: No Primary Care Physician ~ Signed [facility] Work Phone: 1(619) 968-306209-20-2025 Hospital Discharge instructions* Discharge Instructions* Omar Malave MD - 07/31/2025 6:45 PM EDT High Blood Pressure: You were noted to have high blood pressure today. High blood pressure can haveserious detrimental effects on your body. It is very important for you to see your Primary Care Physician (or call [phone] if you do not have a PCP) for follow up in the next 5-7 days. Extremity Injury Instructions: Return to the ED if you develop increased pain in your injured limb,loss of sensation, or change in color of the limb. Procedures done during this visit: None documented in this [id number] NotePhysician Triage Note The patient was seen by [...] role in this case. PLEASE SEE OTHER ATTENDING/RESIDENT/PHYSICIAN/WEB OPERATIONS MANAGER/PA NOTATION GODFREY BartlettThe [facility] [id number] Physician Emergency department Note* Amanuel Hayward APRN-CNP - 07/31/2025 2:11 PM EDT Physician Triage Note The patient was seen [...] months was treated for pinched nreve at [facility] ED. This morning woke up with throbbing headache. Endorses blurry vision. Has pmh Htn, not currently medicated.Denies CP/SOB. A little better with ibuprofen. Focused [...] role in this case. PLEASE SEE OTHER ATTENDING/RESIDENT/PHYSICIAN/WEB OPERATIONS MANAGER/PA NOTATION GODFREY Bartlett [facility] Work Phone: [phone]) 683-982509-20-2025 Emergency department Note* Amanuel Hayward APRN-CNP - 07/31/2025 2:11 PM EDT Physician Triage Note The patient was seen [...] months was treated for pinched nreve at [facility] ED. This morning woke up with throbbing headache. Endorses blurry vision. Has pmh Htn, not currently medicated.Denies CP/SOB. A little better with ibuprofen. Focused [...] role in this case. PLEASE SEE OTHER ATTENDING/RESIDENT/PHYSICIAN/WEB OPERATIONS MANAGER/PA NOTATION GODFREY Bartlett documented in this [id number] History of Present illness Narrative* Deborah Infante - 10/15/2024 3:31 PM EST Start time of visit: 3:31pm The consent for telephonic health services was reviewed with the client. The client provided verbalconsent to participate in telephonic services via Method of Communication, Choose One: Telephonic only by patient/guardian request or due to inability to connect via video due to the CDC recommendations regarding safe distancing for communicable diseases. Lab Result Ariel Pruitt is a 49 year old Black/ male who presents for telehealth visit for labresults. He was recently released from five year incarceration and reports was unable to eat healthy. He ate lots of noodle and burritos. He also has not been able to cone picker his medication. Past Medical History: Diagnosis Date [...] complication, without long-term current use of insulin ([facility]) Lab Results Component Value Date HGBA1C [...] immunity. Low Vitamin D can contribute to depression,fatigue, hair loss, and brittle nails. Starting treatment below and advised a diet rich in dairy, fish, eggs, and mushrooms - ergocalciferol (VITAMIN D-2) 1,250 mcg (50,000 unit) capsule; Take 1 Capsule by mouth once a weekDispense: 8 Capsule; Refill: 0 4. Tonsillar hypertrophy Medication resent. - fluticasone (FLONASE) 50 mcg/actuation nasal spray; Place 1 [place] in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 Phencyclidine Scrn NEGATIVE, Ur Amphetamines Screen NEGATIVE, U Benzodiazepines Scrn NEGATIVE, Urine Cocaine Screen NEGATIVE, U Cannabinoids Screen NEGATIVE 08/10/25 16:10: Troponin T Hi Sens 2 Hr 8 Imaging Radiology Impression Brain CT 08/10/25 14:20 IMPRESSION: 1. Acute (to subacute) ischemia left MCA distribution. No hemorrhage. Correlate with history. 2. Correlate with CT angiogram as there are critical findings. Stroke Alert: Left MCA acute ischemia The critical findings in the findings and impression above were relayed directlyby me by telephone to Ever Barth on 08/10/2025 at 3:05 pm with readback verification. Reading Location: [facility] Chest X-Ray 08/10/25 14:30 IMPRESSION: No acute abnormality Reading Location: [facility] Head/Neck CTA 08/10/25 14:52 IMPRESSION: 1. Critical stenosis involving the proximal left internal carotid artery. Additionally, supraclinoid portion of the left internal carotid artery with likely flow limitation. Urgent vascular surgical consultation suggested. 2. 50% stenosis right supraclinoid internal carotid artery. 3. Hypoplastic versus atherosclerotic A1 segment on the left. 4. No evidence of large vessel occlusion at the MCA at this time. 5. Correlate with the head CT of the same day as there are positive findings. 6. Enlargement of the lymphoid tissue of the nasopharynx, palatine tonsils and uvula. Correlate with direct inspection, history and physical. Stroke Alert: Acute ischemia. Critical stenosis. The critical findings in the findings and impression above were relayed directlyby me by telephone to Ever Barth on 08/10/2025 at 3:05 pm with readback verification. Reading Location: [facility] Assessment & Plan Assessment/Plan (1) Acute ischemic left MCA stroke: PLAN: Plan Patient is a 50-year-old male who presented [facility] ED on 08/10/2025 with confusion, slurred speech and worsening right upper extremity weakness and numbness/tingling. 1. Acute left MCA stroke with left-sided critical ICA stenosis ? Admit under inpatient status to PCU. Neurology and vascular surgery consulted. CT brain showed an acute to subacute left MCA stroke with no hemorrhage. CTA head/neck showed critical stenosis involving the proximal left internal carotid artery with likely flow limitation. Orders placed per stroke protocol order set. MRI brain and echo ordered. Fasting lipid panel and A1c ordered. Discussed with vascular surgery and will initiate baby aspirin, Plavixand high intensity statin. Likely plan will be for vascular intervention in about 1 week but vascular surgery will discuss further with patient pending MRI and echo results. PT/OT/case management consulted. 2. Hypertension ? Hypertensive to the 150s to 160s systolic in the ED. Not on any antihypertensive agents at this time, unclear if he has been in the past. Will hold off on initiating any antihypertensive therapy given need for permissive hypertension in setting of stroke as above, can consider adding on discharge. 3. Class II obesity ? BMI 39 on admit. Discussed lifestyle modifications. Complicates hospital course and care. 4. Tobacco dependence ? Current smoker. Nicotine replacement therapy available per patient request. Discussed cessation on discharge. DVT prophylaxis: SCDs CODE STATUS: Full code, verified Expected disposition: TBD Total clinical time spent by myself addressing the patient's medical issues, reviewing all the data, and collaborating with patient's care team: 78 minutes. Charges/Coding Visit Charges Inpatient E&M: 65996 Init Hosp L3 08/10/252021 <Electronically signed by Roger Costa DO> Cosigner Signature (if applicable): CC: Dr. Roger Costa DO; No Primary Care Physician~ Signed [facility] Work Phone: Progress note Author Fahad Leiva [facility] Note Date/Time August 11, 2025 3: 48pm [facility] Medical Records Department [address] [place] [address] Progress Note - Hospitalist 08/11/25 0738 MR#: [id number] Acct: [id number] Name: ARIEL BEAN Rep #:[id number] : 1975 50 From: Fahad Melton PCP: Care Physician,No Primary Status :ADM IN Location: [place] [address] Reason for Visit Chief Complaint: Confusion, slurred speech and worsening right upper extremity weakness and numbness/tingling Objective Data Objective Data Vital Signs: Vital Signs Temp Pulse Resp BP Pulse Ox O2 Del Method 98.6 F 54 L 16 135/75 H 99 Room Air 08/11/25 06:45 08/11/25 06:45 08/11/25 06:45 08/11/25 06:45 08/11/25 06:45 08/11/25 06:45 Oxygen Delivery Method Room Air Weight: 288 lb Body Mass Index (BMI) 39.0 Intake & Output: Intake and Output for Last 24 Hours 08/09/25 08/10/25 08/11/25 23:59 23:59 23:59 Intake Total 1000 / 1000 Balance 1000 / 1000 Lab / Micro Data 08/10/25 14:07 08/10/25 14:07 Labs: Laboratory Results - last 24 hr 08/10/25 14:07: WBC 6.6, RBC 4.68, Hgb 13.6, Hct 39.6 L, MCV 84.6, MCH 29.1, MCHC 34.3, RDW Std Deviation 36.7, RDW Coeff of [place] 12.3, Plt Count 380, MPV 9.7, Immature Gran % (Auto) 0.200, Neut % (Auto) 46.0 L, Lymph % (Auto) 41.8 H, [place] % (Auto) 11.1 H, Eos % (Auto) 0.6, Baso % (Auto) 0.3, Absolute Neuts (auto)3.0, Absolute Lymphs (auto) 2.76, Nucleated RBC % 0, PT 13.9, INR 1.1, APTT 24.9, Sodium 139, Potassium 3.5, Chloride 106, Carbon Dioxide 23.2, Anion Gap 10, BUN 17, Creatinine 0.72, Estim Creat Clear Calc 166.57, Est GFR (MDRD) Non-Af 110, BUN/Creatinine Ratio 23.5 H, Glucose 117 H, Hemoglobin A1c 6.7 H, Calcium 9.1, Total Bilirubin 0.23, AST 19, ALT 26, Alkaline Phosphatase 99, Troponin T High Sens 8, Total Protein 7.2, Albumin 3.9, Globulin 3.3, Albumin/Globulin Ratio 1.2, TSH 1.020, Ethyl Alcohol < 10.1 08/10/25 14:09: Lactic Acid < 1.0 08/10/25 14:45: Urine Color Yellow, Urine Clarity Clear, Urine pH 6.0, Ur Specific [place] 1.015, Urine Protein 15 H, Urine Glucose (UA) Normal, Urine Ketones Negative, Urine Occult Blood Negative, Urine Nitrite Negative, Urine Bilirubin Negative, Urine Urobilinogen Normal, Ur Leukocyte Esterase Negative, Urine RBC 0-5 SEEN, Urine WBC 0-5 SEEN, Ur Squamous Epith Cells 0 SEEN, Urine Bacteria 0 SEEN, Urine Mucus 0 SEEN, Urine Opiates Screen NEGATIVE, U Buprenorphine Qual NEGATIVE, Ur Oxycodone Screen NEGATIVE, Urine Methadone Screen NEGATIVE, Urine Fentanyl Screen NEGATIVE, Ur Barbiturates Screen NEGATIVE, Ur Phencyclidine Scrn NEGATIVE, Ur Amphetamines Screen NEGATIVE, U Benzodiazepines Scrn NEGATIVE, Urine Cocaine Screen NEGATIVE, U Cannabinoids Screen NEGATIVE 08/10/25 16:10: Troponin T Hi Sens 2 Hr 8 Radiography Diagnostic Testing: Radiology Impression Brain CT 08/10/25 14:20 IMPRESSION: 1. Acute (to subacute) ischemia left MCA distribution. No hemorrhage. Correlate with history. 2. Correlate with CT angiogram as there are critical findings. Stroke Alert: Left MCA acute ischemia The critical findings in the findings and impression above were relayed directlyby me by telephone to Ever Barth on 08/10/2025 at 3:05 pm with readback verification. Reading Location: [id number] Chest X-Ray 08/10/25 14:30 IMPRESSION: No acute abnormality Reading Location: [id number] Head/Neck CTA 08/10/25 14:52 IMPRESSION: 1. Critical stenosis involving the proximal left internal carotid artery. Additionally, supraclinoid portion of the left internal carotid artery with likely flow limitation. Urgent vascular surgical consultation suggested. 2. 50% stenosis right supraclinoid internal carotid artery. 3. Hypoplastic versus atherosclerotic A1 segment on the left. 4. No evidence of large vessel occlusion at the MCA at this time. 5. Correlate with the head CT of the same day as there are positive findings. 6. Enlargement of the lymphoid tissue of the nasopharynx, palatine tonsils and uvula. Correlate with direct inspection, history and physical. Stroke Alert: Acute ischemia. Critical stenosis. The critical findings in the findings and impression above were relayed directlyby me by telephone to SajiEver Martinez on 08/10/2025 at 3:05 pm with readback verification. Reading Location: [id number] Brain MRI 08/10/25 17:12 IMPRESSION: Subacute infarcts in the left frontoparietal region. No evidence of hemorrhagic transformation. Reading Location: [id number] Physical Exam Narrative Seen and examined. Patient admitted with 5 days of confusion weakness, slow to respond, mixing words/language deficit and slurred speech Physical exam General: Alert, Oriented x3, Cooperative. BMI 39.0 kg/m? obesity grade 2 HEENT: Atraumatic, PERRLA, EOMI, Normocephalic. Oral: No Gingival or Mucosal Lesions/ Ulcerations Neck: Supple, No JVD, Negative Carotid Bruits Chest wall/Lungs: Air entry diminished in bilateral lung bases. No crepitation/rhonchi Cardiovascular: Sinus bradycardia, Normal S1,S2, No M/G/R Abdomen: Bowel Sounds Present, Soft, Non Tender, Non-Distended : No dysuria. No renal angle tenderness. No suprapubic tenderness. Extremities: No edema, Capillary Refill Less than 3 Seconds Skin: No rashes, No breakdown Musculoskeletal: Right upper extremity weakness 3/5 no Tenderness to Palpation of Joints or Extremities Neurological: Mild left-sided facial palsy. Left upper extremity weakness, language deficit/slurred speech. Slow to respond. Last NIH stroke scale documented 4 but + right arm 1. Right arm is more weaker, 3. Mild to moderate aphasia. Psych/Mental Status: Flat affect Assessment & Plan Assessment/Plan (1) Acute ischemic left MCA stroke: PLAN: Plan Patient is a 50-year-old male who presented [facility] ED on 08/10/2025 with intermittent confusion, generalized weakness for 2 weeks. Patient is not acting right. LKW last Saturday. Patient slow to respond and is mixing words. Patient also slurred speech and worsening right upper extremity weakness and numbness/tingling. 1. Acute left MCA stroke with left-sided critical ICA stenosis ? Admit under inpatient status to PCU. Neurology and vascular surgery consulted 08/11: MRI brain shows subacute infarct in left frontoparietal region. No evidence of hemorrhagic transformation. Prior to that, CT head shows acute/subacute ischemia of left MCA distribution no hemorrhage. CT headache note shows critical stenosis over supraclinoid portion of left ICA with flow limitation. 50% stenosis of right supraclinoid ICA no evidence of LVO at MCA. Patient evaluated by [facility] neurologist recommended aspirin and Plavix along with statin which patient is already on. 2D echo was done report pending. Discussedwith vascular surgeon Dr. Nguyễn. If echo is normal otherwise if it shows regional wall motion abnormalities/depressed EF need impersonator character evaluation andclearance. Likely plan will be for vascular intervention in about 1 week. PT/OT/case management consulted. Lipid profile shows HDL 39, TC 200 LDL 143 elevated. TSH normal. A1c 6.7%. UTOX screen was negative. UA shows mild proteinuria 15 otherwise normal. DM type II: A1C 6.7%, meets the definition of DM type II. Accu-Cheks AC and at bedtime coverage is normal sliding scale 2. Hypertension ? Hypertensive to the 150s to 160s systolic in the ED. Not on any antihypertensive agents at this time, unclear if he has been in the past. 08/11: Blood pressure is in permissive hypertension range 3. Class II obesity ? BMI 39 on admit. Discussed lifestyle modifications. Complicates hospital course and care. 4. Tobacco dependence ? Current smoker. Nicotine replacement therapy available per patient request. Discussed cessation on discharge. DVT prophylaxis: SCDs CODE STATUS: Full code, verified Laboratory Results 08/10/25 14:07: Hemoglobin A1c 6.7 H, Troponin T High Sens 8, TSH 1.020 08/10/25 14:45: Urine Color Yellow, Urine Clarity Clear, Urine pH 6.0, Ur Specific [place] 1.015, Urine Protein 15 H, Urine Glucose (UA) Normal, Urine Ketones Negative, Urine Occult Blood Negative, Urine Nitrite Negative, Urine Bilirubin Negative, Urine Urobilinogen Normal, Ur Leukocyte Esterase Negative, Urine RBC 0-5 SEEN, Urine WBC 0-5 SEEN, Ur Squamous Epith Cells 0 SEEN, Urine Bacteria 0 SEEN, Urine Mucus 0 SEEN, Urine Opiates Screen NEGATIVE, U Buprenorphine Qual NEGATIVE, Ur Oxycodone Screen NEGATIVE, Urine Methadone Screen NEGATIVE, Urine Fentanyl Screen NEGATIVE, Ur Barbiturates Screen NEGATIVE, Ur Phencyclidine Scrn NEGATIVE, Ur Amphetamines Screen NEGATIVE, U Benzodiazepines Scrn NEGATIVE, Urine Cocaine Screen NEGATIVE, U Cannabinoids Screen NEGATIVE 08/10/25 16:10: Troponin T Hi Sens 2 Hr 8 08/11/25 05:04: Triglycerides 89, Cholesterol 200, LDL Cholesterol, Calc 143, VLDL Cholesterol 18, HDL Cholesterol 39 L, Cholesterol/HDL Ratio 5.12 Clinical Impression(s) from Imaging Studies Brain CT 08/10/25 14:20 IMPRESSION: 1. Acute (to subacute) ischemia left MCA distribution. No hemorrhage. Correlate with history. 2. Correlate with CT angiogram as there are critical findings. Stroke Alert: Left MCA acute ischemia The critical findings in the findings and impression above were relayed directlyby me by telephone to Ever Barth on 08/10/2025 at 3:05 pm with readback verification. Reading Location: [facility] Chest X-Ray 08/10/25 14:30 IMPRESSION: No acute abnormality Reading Location: [id number] Head/Neck CTA 08/10/25 14:52 IMPRESSION: 1. Critical stenosis involving the proximal left internal carotid artery. Additionally, supraclinoid portion of the left internal carotid artery with likely flow limitation. Urgent vascular surgical consultation suggested. 2. 50% stenosis right supraclinoid internal carotid artery. 3. Hypoplastic versus atherosclerotic A1 segment on the left. 4. No evidence of large vessel occlusion at the MCA at this time. 5. Correlate with the head CT of the same day as there are positive findings. 6. Enlargement of the lymphoid tissue of the nasopharynx, palatine tonsils and uvula. Correlate with direct inspection, history and physical. Stroke Alert: Acute ischemia. Critical stenosis. The critical findings in the findings and impression above were relayed directlyby me by telephone to Ever Barth on 08/10/2025 at 3:05 pm with readback verification. Reading Location: [id number] Brain MRI 08/10/25 17:12 IMPRESSION: Subacute infarcts in the left frontoparietal region. No evidence of hemorrhagic transformation. Reading Location: [id number] Charges/Coding Addendum Addendum: Total time of the visit including total time spent in counseling or coordinationof care, (more than 50% of the total time, spent in obtaining medical information from nurses and other ancillary care providers ,explaining to the patient about labs, imaging, diagnosis and management of active complex medical conditions), evaluation of left MCA distribution ischemic stroke, discussion with vascular surgeon and neurologist, review of labs, MRI and CT scan and imaging is 35 minutes. Visit Charges Inpatient E&M: 45108 Subs Hosp L3 NIHSS NIHSS Nursing Documentation NIHSS Nursing Documentation: NIH Stroke Scale Start: 08/10/25 12:25 Freq: Status: Discharge Protocol: Activity Type Activity Date Activity User E-sign Co-sign Detail Recorded Client Recorded Date Recorded By Document 08/10/25 12:26 TOSHA [id number] 08/10/25 12:26 ABBIE 08/10/25 12:26 NIH Stroke Scale [NIHSS] A score of 0 is normal or asymptomatic . Total possible score is 42. Inpatient: RN or Physician to activate a stroke alert for onset of new stroke symptoms or with NIHSS increase >/= 3 points. Following change in neurological status, NIHSS will be performed per physician order or more frequently PRN. -1a. Level of Consciousness 0 - Alert; keenly responsive -1b. LOC Questions 1 - Answers ONE question correctly -1c. LOC Commands 0 - Performs BOTH tasks correctly -2. Best Gaze 0 - Normal -3. Visual 0 - No visual loss -4. Facial Palsy 0 - Normal symmetrical movements -5a. Left Arm 0 - No drift; arm holds 90 ( or 45) degrees for full 10 seconds -5b. Right Arm 0 - No drift; arm holds 90 ( or 45) degrees for full 10 seconds -6a. Left Leg 0 - No drift; leg holds 30- degree position for full 5 seconds -6b. Right Leg 0 - No drift; leg holds 30- degree position for full 5 seconds -7. Limb Ataxia 0 - Absent -8. Sensory 0 - Normal; no sensory loss -9. Best Language 0 - No aphasia; normal -10. Dysarthria 0 - Normal -11. Extinction and Inattention 0 - No abnormality -Total 1 Query Text:A score of 0 is normal or asymptomatic. Total possible score is 42 . ED: Notify Physician for NIHSS increase by > / = 3 points. Inpatient: RN or Physician to activate a stroke alert for NIHSS increase of > / = 3 points. NIHSS: Ischemic Stroke/TIA Start: 08/10/25 18:45 Text: For PCU Patients: NIH and Neuro Check every 4 Status: Active hours, PRN and with change in RN caregiver. Freq: [id number] Protocol: Activity Type Activity Date Activity User E-sign Co-sign Detail Recorded Client Recorded Date Recorded By Document 08/11/25 06:45 ARELI [id number] 08/11/25 06:53 JS 08/11/25 06:45 -1a. Level of Consciousness 0 - Alert; keenly responsive -1b. LOC Questions 1 - Answers ONE question correctly -1c. LOC Commands 0 - Performs BOTH tasks correctly -2. Best Gaze 1 - Partial gaze palsy; -3. Visual 1 - Partial hemianopia -4. Facial Palsy 1 - Minor paralysis ( flattened nasolabial fold , asymmetry on smiling) -5a. Left Arm 0 - No drift; arm holds 90 ( or 45) degrees for full 10 seconds -5b. Right Arm 1 - Drift; arm drifts downward but doesn?t hit the bed -6a. Left Leg 0 - No drift; leg holds 30- degree position for full 5 seconds -6b. Right Leg 0 - No drift; leg holds 30- degree position for full 5 seconds -7. Limb Ataxia 1 - Present in 1 limb -8. Sensory 0 - Normal; no sensory loss -9. Best Language 1 - Mild-to- moderate aphasia; -10. Dysarthria 1 = Mild-to- moderate dysarthria; -11. Extinction and Inattention 0 - No abnormality -Total 8 Query Text:A score of 0 is normal or asymptomatic. Total possible score is 42 . ED: Notify Physician for NIHSS increase by > / = 3 points. Inpatient: RN or Physician to activate a stroke alert for NIHSS increase of > / = 3 points. Coma Scale [Assess] -Eye Opening Spontaneous -Motor Obeys Commands -Verbal Oriented [Total] -Coma Scale Total 15 08/11/25 1548 <Electronically signed by Fahad Leiva MD> Cosigner Signature (if applicable): CC: ~ Signed [facility] Work Phone: Reason for referral (narrative)* General Medicine (Routine) - New Request Specialty Diagnoses / Procedures Referred By Contac t Referred To Contact Diagnoses Tonsillar hypertrophy Naresh Deborah [address] [place] [address] Phone: tel: fax: Referral ID Status Reason Start Date Expiration Date Visits Requested Visits Authorized [id number] New Request Specialty Services Required 4 10/02/2025 1 1 Comments [facility] * General Medicine (Routine) - New Request Specialty Diagnoses / Procedures Referred By Contac t Referred To Contact Diagnoses Snoring NareshDeborah quiñones [address] [place] [address] Phone: tel: fax: Referral ID Status Reason Start Date Expiration Date Visits Requested Visits Authorized [id number] New Request Specialty Services Required 4 10/02/2025 1 1 Comments [facility] * Ophthalmology (Routine) - New Request Specialty Diagnoses / Procedures Referred By Contac t Referred To Contact Ophthalmology Diagnoses Prosthetic eye globe Deborah Infante [address] [place] [address] Phone: tel: fax: Referral ID Status Reason Start Date Expiration Date Visits Requested Visits Authorized [id number] New Request Specialty Services Required 4 10/02/2025 1 1 Comments [facility] Work Phone: Reason for referral (narrative)* General Medicine (Routine) - Authorized Specialty Diagnoses / Procedures Referred By Contac t Referred To Contact Diagnoses Tonsillar hypertrophy Deborah Infante [address] [place], [place] [id number] Phone: tel: fax: [address] [phone] Phone: tel: fax: Referral ID Status Reason Start Date Expiration Date Visits Requested Visits Authorized [id number] Authorized Specialty Services Required 4 10/02/2025 1 1 Comments [facility] * General Medicine (Routine) - Authorized Specialty Diagnoses / Procedures Referred By Elizabethac t Referred To Contact Diagnoses Snoring Deborah Infante [address] [place], [place] [id number] Phone: tel: fax: [address] [phone] Phone: tel: fax: Referral ID Status Reason Start Date Expiration Date Visits Requested Visits Authorized [id number] Authorized Specialty Services Required 4 10/02/2025 1 1 Comments [facility] * Ophthalmology (Routine) - Authorized Specialty Diagnoses / Procedures Referred By Contac t Referred To Contact Ophthalmology Diagnoses Prosthetic eye globe NareshAlissaDeborah [address] [place], [place] [id number] Phone: tel: fax: [address] [phone] Phone: tel: fax: Referral ID Status Reason Start Date Expiration Date Visits Requested Visits Authorized [id number] Authorized Specialty Services Required 4 10/02/2025 1 1 Comments [facility] Work Phone: Reason for referral (narrative)No reason for referral information availableWMer[facility] Work Phone: Summary Purpose Family History No Family History Records FoundNo Family History Records FoundNo Family History Records Found Advance Directives No Advanced Directives Records Found Advance Directive Response Recorded Date/ Time Do you have a Healthcare Power of Healthcare Account Manager? No August 10, 2025 6:45pm Chief Complaint and Reason for Visit Chief Complaint Admit Date NECK/ARM PAIN May 06, 2025 1:37 am Chief Complaint Admit Date NECK/ARM PAIN May 06, 2025 1:37 am LEFT MCA STROKE W/ LEFT ICA STENOSIS Jul 5:09pm LEFT MCA STROKE W/ LEFT ICA STENOSIS Aug bharati 2024 7:38am Reason for Visit Admit Date Acute ischemic left MCA stroke August 10, 2025 5:09pm Left carotid stenosis August 10 5:09pm Chief Complaint Admit Date NECK/ARM PAIN May 06, 2025 1:37 am LEFT MCA STROKE W/ LEFT ICA STENOSIS Jul 5:09pm LEFT MCA STROKE W/ LEFT ICA STENOSIS Oct bharati 2024 7:38am LEFT MCA STROKE W/ LEFT ICA STENOSIS Oct bharati 2024 3:07pm Additional Source Comments Reason for Visit (unrecogniz ed section and content) Reason Comments Complete Physical Exam Reason Comments Lab Result Reason Comments Hypertension HTN w/ DYE since this am Pt inconsistent with HTN medication Arm symptoms Right arm pian x2 mo nths (unrecognized sect ion and content) No Status Records FoundNo Status Records FoundNo Status Records Found INFORMATION SOURCE (unrecogn ized section and content) DATE CREATED AUTHOR 10/16/2024 [facility] DATE CREATED AUTHOR AUTHOR'S ORGANIZ ATION 08/19/[address] [facility] DATE CREATED AUTHOR AUTHOR'S ORGANIZ ATION [facility]/21/2025 [facility] Care Teams (unrecognized sec tion and content) Team Status: Active Member Role Status Dates No Primary Care Physician Family Provider Active No Primary Care Physician Primary Care Provider Active Team Status: Inactive Member Role Status Dates No Primary Care Physician Primary Care Provider Active Start: May 06, 2025 End: May 06, 2025 Dr. Kenan Pedroza , DO Emergency Provider Active Start: May 06, 2025 End: May 06, 2025 Team Status: Active Member Role/Relationship Status Dates No Primary Care Physician Primary care physician Activ e Team Status: Inactive Member Role/Relationship Status Dates No Primary Care Physician Primary care physician Activ e Start: May 06, 2025 End: May 06, 2025 Dr. Kenan Pedroza , DO Attending physician Active Start: May 06, 2025 End: May 06, 2025 Dr. Kenan Pedroza , DO Emergency Departme nt Physician Active Start: May 06, 2025 End: May 06, 2025 Team Status: Active Member Role/Relationship Status Dates No Primary Care Physician Primary care physician Activ e Start: August 10, 2025 Dr. Ever Barth , DO Emergency Department Physician Active Start: August 10, 2025 Dr. Roger Costa , DO Admitting physician Active Start: July Dr. Roger Costa , DO Nurse Practitioner Active Start: July Bola Noland MD Nurse Practitioner Active Start : August 10, 2025 Dr. Chalo Garibay MD Nurse Practitioner Active St art: August 10, 2025 Juany Feliz MD Nurse Practitioner Active S tart: August 10, 2025 Dr. Lana Jimenez DO Nurse Practitioner Active Start: August 10, 2025 Dr. Shey Tapia MD Nurse Practitioner Active St art: August 10, 2025 Dr. Narciso Garcia MD Nurse Practitioner Active Start: August 10, 2025 Dr. Sofia Montiel MD Nurse Practitioner Active S tart: August 10, 2025 Dr. Matt Day MD Nurse Practitioner Active St art: August 10, 2025 Dr. David Jenkins MD Nurse Practitioner Active S tart: August 10, 2025 Dr. Yeison Muñoz MD Nurse Practitioner Active Start: August 10, 2025 Dr. Gianna Granado , Nurse Practitioner Active Start: August 10, 2025 Afshan Solis MD Nurse Practitioner Active S tart: August 10, 2025 Dr. Bill Bunch MD Nurse Practitioner Active Start: August 10, 2025 Dr. Sheryl James MD Nurse Practitioner Active S tart: August 10, 2025 Dr. Steph Banegas MD Nurse Practitioner Active Start: August 10, 2025 Dr. Oriana Gross MD Nurse Practitioner Active Start: July Dr. Adolfo Mcmahan MD Nurse Practitioner Active Start: August 10, 2025 Dr. Kev Medina MD Nurse Practitioner Active Start: August 10, 2025 Dr. Tashi Raman MD Nurse Practitioner Active Start: August 10, 2025 Dr. Carley Melendez MD Nurse Practitioner Active St art: August 10, 2025 Mariajose Knutson MD Nurse Practitioner Active St art: August 10, 2025 Dr. Fahad Leiva MD Attending physician Active Start: August 10, 2025 Team Status: Active Member Role/Relationship Status Dates No Primary Care Physician Primary care physician Activ e Start: August 11, 2025 Dr. Ever Barth , Emergency Department Physician Active Start: August 11, 2025 Dr. Roger Costa , Admitting physician Active Start: August 11, 2025 Dr. Roger Costa , Nurse Practitioner Active Start: August 11, 2025 Bola Noland MD Nurse Practitioner Active Start : August 11, 2025 Dr. Chalo Garibay MD Nurse Practitioner Active St art: August 11, 2025 Juany Feliz MD Nurse Practitioner Active S tart: August 11, 2025 Dr. Lana Jimenez DO Nurse Practitioner Active Start: August 11, 2025 Dr. Shey Tapia MD Nurse Practitioner Active St art: August 11, 2025 Dr. Narciso Garcia MD Nurse Practitioner Active Start: August 11, 2025 Dr. Sofia Montiel MD Nurse Practitioner Active S tart: August 11, 2025 Dr. Matt Day MD Nurse Practitioner Active St art: August 11, 2025 Dr. David Jenkins MD Nurse Practitioner Active S tart: August 11, 2025 Dr. Yeison Muñoz MD Nurse Practitioner Active Start: August 11, 2025 Dr. Gianna Granado DO Nurse Practitioner Active Start: August 11, 2025 Afshan Solis MD Nurse Practitioner Active S tart: August 11, 2025 Dr. Bill Bunch MD Nurse Practitioner Active Start: August 11, 2025 Dr. Sheryl James MD Nurse Practitioner Active S tart: August 11, 2025 Dr. Steph Banegas MD Nurse Practitioner Active Start: August 11, 2025 Dr. Oriana Gross MD Nurse Practitioner Active Start: August 11, 2025 Dr. Adolfo Mcmahan MD Nurse Practitioner Active Start: August 11, 2025 Dr. Kev Medina MD Nurse Practitioner Active Start: August 11, 2025 Dr. Tashi Raman MD Nurse Practitioner Active Start: August 11, 2025 Dr. Carley Melendez MD Nurse Practitioner Active St art: August 11, 2025 Mariajose Knutson MD Nurse Practitioner Active St art: August 11, 2025 Dr. Fahad Leiva MD Attending physician Active Start: August 11, 2025 Dr. Fahad Leiva MD Nurse Practitioner Active Start: August 11, 2025 Team Status: Inactive Member Role/Relationship Status Dates No Primary Care Physician Primary care physician Activ e Start: August 10, 2025 End: August 12, 2025 Dr. Ever Barth , Emergency Department Physician Active Start: August 10, 2025 End: August 12, 2025 Dr. Roger Costa , Admitting physician Active Start: July End: August 12, 2025 Dr. Roger Costa DO Nurse Practitioner Active Start: July End: August 12, 2025 Bola Noland MD Nurse Practitioner Active Start : August 10, 2025 End: August 12, 2025 Dr. Chalo Garibay MD Nurse Practitioner Active St art: August 10, 2025 End: August 12, 2025 Juany Feliz MD Nurse Practitioner Active S tart: August 10, 2025 End: August 12, 2025 Dr. Lana Jimenez DO Nurse Practitioner Active Start: August 10, 2025 End: August 12, 2025 Dr. Shey Tapia MD Nurse Practitioner Active St art: August 10, 2025 End: August 12, 2025 Dr. Narciso Garcia MD Nurse Practitioner Active Start: August 10, 2025 End: August 12, 2025 Dr. Sofia Montiel MD Nurse Practitioner Active S tart: August 10, 2025 End: August 12, 2025 Dr. Matt Day MD Nurse Practitioner Active St art: August 10, 2025 End: August 12, 2025 Dr. David Jenkins MD Nurse Practitioner Active S tart: August 10, 2025 End: August 12, 2025 Dr. Yeison Muñoz MD Nurse Practitioner Active Start: August 10, 2025 End: August 12, 2025 Dr. Gianna Granado , Nurse Practitioner Active Start: August 10, 2025 End: August 12, 2025 Afshan Solis MD Nurse Practitioner Active S tart: August 10, 2025 End: August 12, 2025 Dr. Bill Bunch MD Nurse Practitioner Active Start: August 10, 2025 End: August 12, 2025 Dr. Sheryl James MD Nurse Practitioner Active S tart: August 10, 2025 End: August 12, 2025 Dr. Steph Banegas MD Nurse Practitioner Active Start: August 10, 2025 End: August 12, 2025 Dr. Oriana Gross MD Nurse Practitioner Active Start: July End: August 12, 2025 Dr. Adolfo Mcmahan MD Nurse Practitioner Active Start: August 10, 2025 End: August 12, 2025 Dr. Kev Medina MD Nurse Practitioner Active Start: August 10, 2025 End: August 12, 2025 Dr. Tashi Raman MD Nurse Practitioner Active Start: August 10, 2025 End: August 12, 2025 Dr. Carley Melendez MD Nurse Practitioner Active St art: August 10, 2025 End: August 12, 2025 Mariajose Knutson MD Nurse Practitioner Active St art: August 10, 2025 End: August 12, 2025 Dr. Fahad Leiva MD Attending physician Active Start: August 10, 2025 End: August 12, 2025 Team Status: Active Member Role/Relationship Status Dates No Primary Care Physician Primary care physician Activ e Start: August 11, 2025 Dr. Usama Perez MD Attending physician Active Start: August 11, 2025 Team Status: Active Member Role/Relationship Status Dates No Primary Care Physician Primary care physician Activ e Start: August 12, 2025 Dr. Ever Barth , Emergency Department Physician Active Start: August 12, 2025 Dr. Roger Costa , Admitting physician Active Start: August 12, 2025 Dr. Roger Costa DO Nurse Practitioner Active Start: August 12, 2025 Bola Noland MD Nurse Practitioner Active Start : August 12, 2025 Dr. Chalo Garibay MD Nurse Practitioner Active St art: August 12, 2025 Juany Feliz MD Nurse Practitioner Active S tart: August 12, 2025 Dr. Lana Jimenez DO Nurse Practitioner Active Start: August 12, 2025 Dr. Shey Tapia MD Nurse Practitioner Active St art: August 12, 2025 Dr. Narciso Garcia MD Nurse Practitioner Active Start: August 12, 2025 Dr. Sofia Montiel MD Nurse Practitioner Active S tart: August 12, 2025 Dr. Matt Day MD Nurse Practitioner Active St art: August 12, 2025 Dr. David Jenkins MD Nurse Practitioner Active S tart: August 12, 2025 Dr. Yeison Muñoz MD Nurse Practitioner Active Start: August 12, 2025 Dr. Gianna Granado DO Nurse Practitioner Active Start: August 12, 2025 Afshan Solis MD Nurse Practitioner Active S tart: August 12, 2025 Dr. Bill Bunch MD Nurse Practitioner Active Start: August 12, 2025 Dr. Sheryl James MD Nurse Practitioner Active S tart: August 12, 2025 Dr. Steph Bangeas MD Nurse Practitioner Active Start: August 12, 2025 Dr. Oriana Gross MD Nurse Practitioner Active Start: August 12, 2025 Dr. Adolfo Mcmahan MD Nurse Practitioner Active Start: August 12, 2025 Dr. Kev Medina MD Nurse Practitioner Active Start: August 12, 2025 Dr. Tashi Raman MD Nurse Practitioner Active Start: August 12, 2025 Dr. Carley Melendez MD Nurse Practitioner Active St art: August 12, 2025 Mariajose Knutson MD Nurse Practitioner Active St art: August 12, 2025 Dr. Fahad Leiva MD Attending physician Active Start: August 12, 2025 Dr. Fahad Leiva MD Nurse Practitioner Active Start: August 12, 2025 Goals (unrecognized section and content) Goals may be documented in a n alternate section Scheduled Active and Recently Administ ered Medications (unrecognized section and content) Medication Order 07/29/2025 07/30/2025 07/31/2025 ibuprofen (MOTRIN) tablet (COMPLETED) 600 mg, Oral, Once, 1 dose, On 07/31/25 at 1917 1915 (Given - Provid er: Catalina Parsons RN) FOR RECORDS PERTAINING TO PATIENTS WHO ARE [...] BE BASED ON THE PRIMARY CLINICAL RECORDS. [employer] provides no warranty or guarantee of the accuracy or completeness of information in this document.
--- NOTE | 2025-10-24 10:07 | EKG12_ITS ---
Test Reason : Blood Pressure : */* mmHG Vent. Rate : 65 BPM Atrial Rate : 65 BPM P-R Int : 232 ms QRS Dur : 88 ms QT Int : 410 ms P-R-T Axes : 49 63 28 degrees QTcB Int : 426 ms Sinus rhythm with sinus arrhythmia with 1st degree A-V block Otherwise normal ECG Confirmed by MYRA WOLF, SIDNEY ([id number]), international editorial producer LARA GOMEZ ([id number]) on 10/26/2025 1:13:04 PM Referred By: Confirmed By: SIDNEY RENTERIA MD
--- NOTE | 2025-10-24 10:07 | CT_ITS ---
PROCEDURE: STROKE BRAIN/HEAD WITHOUT CONT 10/24/2025 REASON FOR EXAM: NEURO DEFICIT, ACUTE, STROKE SUSPECTED 2 1 9 mole TECHNIQUE: Procedure Code: CTBR.ST Modality: CT Procedure: STROKE BRAIN/HEAD WITHOUT CONT Coronal and Sagittal reconstruction series were provided. One or more dose reduction techniques were used (e.g., Automated exposure control, adjustment of the mA and/or kV according to patient size, use of iterative reconstruction technique. RADIATION DOSE SUMMARY: CTDlvol: 47.06 mGy DLP: 925.62 mGycm COMPARISON: CT brain without contrast, 08/10/2025. MRI brain without contrast, 08/10/2025. FINDINGS: The intracranial portion of both internal carotid arteries are heavily calcified. There is no evidence of acute intracranial hemorrhage or infarction. There are no abnormal intracranial masses or mass effects. The ventricular system and basilar cisterns are unremarkable. The skull base and calvarium are normal. The paranasal sinuses and mastoid air cells are unremarkable. The intraorbital contents are normal. The visualized extracranial soft tissues are normal. CT/STROKE Brain/Head without Cont IMPRESSION: One. No evidence of acute intracranial pathology. Two. 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 There i s a chronic cortical infarction in the right cerebellar hemisphere. Three. Other findings as noted. Stroke Alert: No acute stroke is identified. There is an old left frontal michael ical infarction. The critical findings in the findings and impression above were relayed directl y by me by telephone to Kennedy Cowan on 10/24/2025 at 10:26 am with readback verification. Reading Location: [place] [id number]
--- NOTE | 2025-10-24 10:08 | CT_ITS ---
PROCEDURE: STROKE CTA HEAD AND NECK W/CON 10/24/2025 REASON FOR EXAM: NEURO DEFICIT, ACUTE, STROKE SUSPECTED TECHNIQUE: Procedure Code: CTCTA.ST.HN Modality: CT Procedure: STROKE CTA HEAD AND NECK W/CON Multiplanar Sagittal and Coronal images were obtained. CONTRAST: Isovue 370 VOLUME: 75 mL One or more dose reduction techniques were used (e.g., Automated exposure control, adjustment of the mA and/or kV according to patient size, use of iterative reconstruction technique). RADIATION DOSE SUMMARY: CTDlvol: 25.59 mGy DLP: 987.79 mGycm COMPARISON: None. FINDINGS: Aortic Arch: Patent Brachiocephalic and Subclavians: Patent RIGHT Carotid: Right CCA: Unremarkable. Right ICA: Unremarkable. Right ECA: Unremarkable. LEFT Carotid: Left CCA: Patent Left ICA: Occluded Left ECA: Patent Vertebrals: Patent RIGHT Vertebral: Patent LEFT Vertebral: Patent Anatomy: Unremarkable. Aneurysm or avm: No intracranial aneurysms or large vascular malformations are identified. Anterior cerebral arteries: Patent Middle cerebral arteries: Patent Basilar artery: Patent Posterior cerebral arteries: Patent Other major branches of the posterior circulation: Patent Major venous structures: Patent Other findings: Neck: Unremarkable. Lungs: Clear. Bones: Patent CT/STROKE CTA Head AND Neck W/Con IMPRESSION: Occluded left internal carotid artery which reconstitutes intracranially. No significant stenosis of the right internal carotid artery. No significant stenosis at the posterior circulation. The [id number] is unremarkable. No middle cerebral artery cut off. Reading Location: [id number]
--- NOTE | 2025-10-24 10:08 | EDS_ITS ---
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 Home Medications ?Medication ?Instructions ?Recorded ?Last Taken ?Type aspirin 81 mg chewable tablet 81 mg PO BREAKFAST 30 da ys #30 tabs 08/12/25 Unknown Rx atorvastatin 80 mg tablet 80 mg PO QHS 30 days #30 tab s 08/12/25 Unknown Rx clopidogrel 75 mg tablet 75 mg PO DAILY 30 days #30 t abs 08/12/25 Unknown Rx lisinopril 5 mg tablet 5 mg PO DAILY #30 tabs 08/12 Unknown Rx metformin 500 mg tablet 500 mg PO BID 1 month #60 ta bs 08/12/25 Unknown Rx Allergy/AdvReac Type Severity Reaction Status Date / Time No Known Allergies Allergy Verified 10/24/25 10:00 Social History (Updated 08/10/25 @ 18:48 by Keiko French) household members: family housing: house Smoking Status: Light Smoker (<10/day) EXAM Physical Exam Const Vital Signs: 10/24/25 10:00 Temperature 97.2 F L Temperature Source Temporal Pulse Rate 78 Respiratory Rate 16 Blood Pressure 137/78 H Blood Pressure Mean 97 Pulse Ox 100 Oxygen Delivery Method Room Air MDM MDM MDM Narrative Medical decision making narrative: HISTORY OF PRESENT ILLNESS: Chief complaint: Right sided heaviness/weakness 50-year-old male history of hypertension, CVA, hyperlipidemia, tobacco abuse, left carotid stenosis, left eye globe prosthesis presents with transient onset of right upper and lower extremity heaviness/weakness. He states he worked overnight and went to bed at approximately 8:30 AM. When he awoke at approximately 9:30 AM he noted heaviness in his right arm and leg which is since resolved. Denies falls or head trauma. Denies chest pain. Nuys recent illness. REVIEW OF SYSTEMS: Pertinent positives: Right-sided heaviness/weakness Pertinent negatives: [] PHYSICAL EXAM: Nursing triage notes reviewed, Vital signs reviewed Constitutional: please see mdm HENT: MMM Eyes: Pupils equal round and reactive to light, Extraocular muscles intact Neck: No stridor, no JVD, full neck ROM Lungs: Clear to auscultation, No wheezing or rales. No increased work of breathing, no conversational dyspnea, no accessory muscle use, no nasal flaring. No respiratory distress noted Heart: Regular rate and rhythm, No murmurs, No rubs and No gallops, 2+ distal pulses (radial, femoral, posterior tibial) in all extremities Abdomen: Soft, there is no tenderness, rigidity, rebound or guarding, no obvious peritoneal signs, no palpable pulsatile abdominal masses, no auscultated abdominal bruit : No CVAT Extremities: No edema Neuro: No new focal neurological deficits, cranial nerves II through XII intact, 5/5 strength in all present extremities. Intact sensation to light touch in all present extremities, 2+ reflexes bilateral patella tendons. Skin: No rash or lesions noted MEDICAL DECISION MAKING: Chief Complaint: please see HPI External records reviewed: Reviewed prior imaging studies: Reviewed MRI of the brain from July 2025. This study showed subacute infarct in the left frontal parietal region. Factors affecting care: Social determinants of health: none History obtained from others: none Consults: none MDM Narrative: Patient was initially hemodynamically stable, afebrile and nontoxic-appearing. Initial neurologic exam intact. NIH of 0. Patient was initially called a stroke team per nursing secondary to him endorsing right sided arm sensory changes. He told me he did not have any sensory changes. For me is NIH was 0 and as such the stroke team was canceled. Given concern for TIA, ICH amongst other neurologic etiologies I still obtained CT scan of the head, CTA of the head neck to further assess the patient's symptoms. I obtained a broad lab and imaging workup to further determine if the patient was suffering from a life-threatening etiology. [] ALL IMAGES (IF OBTAINED) HAVE BEEN PERSONALLY REVIEWED AND INTERPRETED BY MYSELF. EKG with NSR rate 65, normal axis, no STEMI, first-degree AV block, open no sign of high degree block The patient and/or family, caregivers express understanding. The patient and/or family, caregivers agrees with the plan. Shared decision making: I will have a discussion with the patient and or visitors regarding risk/benefits of further testing or admission. They will be made aware of of the risk/benefits inherent in this decision they will be given the opportunity to voice understanding. Total critical care time today provided was at least 0 [] minutes. This excludes separately billable procedures. Critical care time (if documented) is secondary to the patient having high probability of clinically significant/life threatening deterioration in the patient's condition which required my urgent intervention. Impression: 1. [] 2. [] [] Dispo: [] This note was generated with [employer] dictation software. It may contain incorrect words, spelling, and punctuation that were not noted in review of the chart prior to signing. Discharge Plan Triage Chief Complaint: Stroke Alert ED Provider: Kennedy Cowan Dx/Rx/DC Orders Prescriptions: No Action atorvastatin 80 mg Tablet 80 mg PO QHS 30 Days Qty: 30 2RF clopidogrel 75 mg Tablet 75 mg PO DAILY 30 Days Qty: 30 2RF aspirin 81 mg Tablet,Chewable 81 mg PO BREAKFAST 30 Days Qty: 30 4RF metformin 500 mg tablet 500 mg PO BID 30 Days Qty: 60 2RF Rx Instructions: Start from 08/14/2025 lisinopril 5 mg tablet 5 mg PO DAILY Qty: 30 2RF Primary Care Provider: Rebecca Harper Referrals: Rebecca Harper, WOOLING MACHINE OPERATOR-C [Primary Care Provider, Family Practice] Print Language: Nigerian
--- NOTE | 2025-10-24 10:08 | EX.ED.DYSGE1 ---
HPI History of Present Illness Chief Complaint: Stroke Alert [facility] Medical History (Updated 08/20/25 @ 00:01 by Mike Demarco) Wears glasses Diabetes High cholesterol Stroke/cerebrovascular accident Smoker Poor historian History of echocardiogram Left carotid stenosis HTN (hypertension) Eye globe prosthesis Acute ischemic left MCA stroke Home Medications ?Medication ?Instructions ?Recorded ?Last Taken ?Type aspirin 81 mg chewable tablet 81 mg PO BREAKFAST 30 days #30 tabs 08/12/25 Unknown Rx atorvastatin 80 mg tablet 80 mg PO QHS 30 days #30 tabs 08/12/25 Unknown Rx clopidogrel 75 mg tablet 75 mg PO DAILY 30 days #30 tabs 08/12/25 Unknown Rx lisinopril 5 mg tablet 5 mg PO DAILY #30 tabs 08/12/25 Unknown Rx metformin 500 mg tablet 500 mg PO BID 1 month #60 tabs 08/12/25 Unknown Rx Allergy/AdvReac Type Severity Reaction Status Date / Time No Known Allergies Allergy Verified 10/24/25 10:00 Social History (Updated 08/10/25 @ 18:48 by Keiko French) household members: family housing: house Smoking Status: Light Smoker (<10/day) EXAM Physical Exam Const Vital Signs: 10/24/25 10:00 10/24/25 10:27 10/24/25 10:54 Temperature 97.2 F L Temperature Source Temporal Pulse Rate 78 66 Respiratory Rate 16 23 H Blood Pressure 137/78 H 146/98 H Blood Pressure Mean 97 114 Pulse Ox 100 97 Oxygen Delivery Method Room Air Room Air Room Air [facility] MDM MDM Narrative Medical decision making narrative: HISTORY OF PRESENT ILLNESS: Chief complaint: Right sided heaviness/weakness 50-year-old male history of hypertension, CVA, hyperlipidemia, tobacco abuse, left carotid stenosis, left eye globe prosthesis presents with transient onset of right upper and lower extremity heaviness/weakness. He states he worked overnight and went to bed at approximately 8:30 AM. When he awoke at approximately 9:30 AM he noted heaviness in his right arm and leg which is since resolved. Denies falls or head trauma. Denies chest pain. Denies recent illness. REVIEW OF SYSTEMS: Pertinent positives: Right-sided heaviness/weakness Pertinent negatives: Headache, chest pain, palpitations, syncope PHYSICAL EXAM: Nursing triage notes reviewed, Vital signs reviewed Constitutional: please see mdm HENT: MMM Eyes: Pupils equal round and reactive to light, Extraocular muscles intact Neck: No stridor, no JVD, full neck ROM Lungs: Clear to auscultation, No wheezing or rales. No increased work of breathing, no conversational dyspnea, no accessory muscle use, no nasal flaring. No respiratory distress noted Heart: Regular rate and rhythm, No murmurs, No rubs and No gallops, 2+ distal pulses (radial, femoral, posterior tibial) in all extremities Abdomen: Soft, there is no tenderness, rigidity, rebound or guarding, no obvious peritoneal signs, no palpable pulsatile abdominal masses, no auscultated abdominal bruit : No CVAT Extremities: No edema Neuro: Alert and oriented x3, neuro exam at baseline, cranial nerves II through XII are intact. No pain with extraocular muscle movement. There is negative test of skew. 5 of 5 strength in upper and lower extremities in flexion extension. Intact sensation to light touch in upper and lower extremity dermatomes. No truncal or extremity ataxia. No dysdiadochokinesia. Normal gait. 2+ reflexes in upper and lower extremities. No meningeal signs. Negative Babinski. NIH of 0. Skin: No rash or lesions noted MEDICAL DECISION MAKING: Chief Complaint: please see HPI External records reviewed: Reviewed prior imaging studies: Reviewed MRI of the brain from July 2025. This study showed subacute infarct in the left frontal parietal region. Factors affecting care: As per HPI Social determinants of health: History of tobacco use History obtained from others: Patient's Consults: none [facility] Narrative: Patient was initially hemodynamically stable, afebrile and nontoxic-appearing. Initial neurologic exam intact. NIH of 0. Patient was initially called a stroke team per nursing secondary to him endorsing right sided arm sensory changes. He told me he did not have any sensory changes. For me is NIH was 0 and as such the stroke team was canceled. Given concern for TIA, ICH amongst other neurologic etiologies I still obtained CT scan of the head, CTA of the head neck to further assess the patient's symptoms. I obtained a broad lab and imaging workup to further determine if the patient was suffering from a life-threatening etiology. ALL IMAGES (IF OBTAINED) HAVE BEEN PERSONALLY REVIEWED AND INTERPRETED BY MYSELF. EKG with NSR rate 65, normal axis, no STEMI, first-degree AV block, open no sign of high degree block CT/CTA shows no new abnormalities shows left carotid artery. CBC without leukocytosis, severe anemia, no thrombocytopenia. No coagulopathy BMP without evidence of significant electrolyte abnormalities, no anion gap, no acute kidney injury. High-sensitivity troponin is negative, no evidence of myocardial ischemia I Offered the patient admission as per standard of care given concern for TIA to get urgent MRI. Patient in the presence of his noted he would not like to stay overnight for an MRI. I discussed the importance of prompt evaluation with MRI for definitive diagnosis of TIA. The patient stated he already has a follow-up with his vascular surgeon to undergo carotid endarterectomy. Patient was alert and orient x 3 and had capacity to make his own medical decisions and chose for go admission at this time and lieu of close follow with vascular surgery for outpatient endarterectomy and possible MRI. Discussed tricked return precautions with the patient. The patient and/or family, caregivers express understanding. The patient and/or family, caregivers agrees with the plan. Shared decision making: I will have a discussion with the patient and or visitors regarding risk/benefits of further testing or admission. They will be made aware of of the risk/benefits inherent in this decision they will be given the opportunity to voice understanding. Total critical care time today provided was at least 0 minutes. This excludes separately billable procedures. Critical care time (if documented) is secondary to the patient having high probability of clinically significant/life threatening deterioration in the patient's condition which required my urgent intervention. Impression: 1. TIA 2. History of CVA Dispo: Discharge home This note was generated with [employer] dictation software. It may contain incorrect words, spelling, and punctuation that were not noted in review of the chart prior to signing. Lab Data Labs: Laboratory Results - last 24 hr 10/24/25 10/24/25 10:02 10:16 WBC 7.0 RBC 4.58 L Hgb 13.1 Hct 39.5 L MCV 86.2 MCH 28.6 MCHC 33.2 RDW Std Deviation 38.1 RDW Coeff of Ashanti 12.1 Plt Count 380 MPV 9.1 Immature Gran % (Auto) 0.300 Neut % (Auto) 44.2 L Lymph % (Auto) 45.2 H Spalding % (Auto) 9.3 Eos % (Auto) 0.7 Baso % (Auto) 0.3 Absolute Neuts (auto) 3.1 Absolute Lymphs (auto) 3.17 Nucleated RBC % 0 PT 14.3 INR 1.1 APTT 25.5 Sodium 136 Potassium 3.8 Chloride 101 Carbon Dioxide 23.6 Anion Gap 12 BUN 11 Creatinine 0.85 Estim Creat Clear Calc 141.93 Est GFR (MDRD) Non-Af 105 BUN/Creatinine Ratio 12.8 Glucose 121 H Calcium 9.4 Troponin T High Sens < 6 D POC Glucose 113 H Radiography Diagnostic Testing: Clinical Impression(s) from Imaging Studies Brain CT 10/24/25 10:07 IMPRESSION: One. No evidence of acute intracranial pathology. Two. 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 There is a chronic cortical infarction in the right cerebellar hemisphere. Three. Other findings as noted. Stroke Alert: No acute stroke is identified. There is an old left frontal cortical infarction. The critical findings in the findings and impression above were relayed directly by me by telephone to Kennedy Cowan on 10/24/2025 at 10:26 am with readback verification. Reading Location: [place] [id number] Head/Neck CTA 10/24/25 10:08 IMPRESSION: Occluded left internal carotid artery which reconstitutes intracranially. No significant stenosis of the right internal carotid artery. No significant stenosis at the posterior circulation. The [id number] is unremarkable. No middle cerebral artery cut off. Reading Location: [facility] Discharge Plan Triage Chief Complaint: Stroke Alert ED Provider: Kennedy Cowan Dx/Rx/DC Orders Instructions: ED TIA: Transient Ischemic Attack Prescriptions: No Action atorvastatin 80 mg Tablet 80 mg PO QHS 30 Days Qty: 30 2RF clopidogrel 75 mg Tablet 75 mg PO DAILY 30 Days Qty: 30 2RF aspirin 81 mg Tablet,Chewable 81 mg PO BREAKFAST 30 Days Qty: 30 4RF metformin 500 mg tablet 500 mg PO BID 30 Days Qty: 60 2RF Rx Instructions: Start from 08/14/2025 lisinopril 5 mg tablet 5 mg PO DAILY Qty: 30 2RF Primary Care Provider: Rebecca Harper [facility] Referrals: Grupo Nguyễn MD [Med Staff - Active Staff, Vascular Surgery] Guillermo Figueroa MD [Non-Staff -Ordering Privileges, Neurology] Activity Restrictions/Additional Instructions: Thank you for trusting us with your care today! CT scan of your brain did not reveal any new abnormalities. The CT scan of your head and neck did not show continued occlusion of the left carotid artery. This is likely producing some of your right sided symptoms. Please follow-up with your vascular surgeon for prompt carotid endarterectomy as already scheduled. Please continue to take aspirin and Plavix Please return to the emergency department if your symptoms change or worsen. Please follow with your neurologist and vascular surgeon for further outpatient evaluation and management. Print Language: Turkish Disposition Disposition: Home, Self Care Discharge Date/Time: 10/24/25 11:40
--- NOTE | 2025-10-24 10:10 | CM.ED ---
Social Work Date of referral: 10/24/25 Reason for referral: Stroke alert Boatswains Mate responded to stroke and remained with patient's significant other, Stephanie. Boatswains Mate provided support and got Stephanie coffee while she waited. Stephanie stated patient just recently had a stroke and was worried for stroke-like symptoms when patient fell out of the bed. No additional support needed at this time. Ekaterina Booker, GOVERNOR ASSEMBLER, FISH HATCHERY MANAGER
[2025-10-24 10:24] LABS: Hematocrit 39.5 % (40-54); Hemoglobin 13.1 g/dL (13.0-16.5); Immature Granulocytes Count 0.020 X10^3/uL (0.0-0.0); Mean Corp Hgb Conc 33.2 g/dL (32-36); Mean Corpuscular Volume 86.2 fL (80-94); Mean Platelet Vol. 9.1 fl (6.2-12.0); NRBC Flagged by Analyzer 0 % (0-5); Platelet Count 380 K/mm3 (150-450); RBC Distribution Width CV 12.1 % (11.6-14.6); RBC Distribution Width SD 38.1 fl (35.1-43.9); Red Blood Count 4.58 M/mm3 (4.6-6.2); White Blood Count 7.0 K/mm3 (4.4-11.0)
--- NOTE | 2025-10-24 10:28 | NURSING ---
pt exhibits no neurological sx. pt reports just feeling tired at this time.
[2025-10-24 10:33] LABS: Prothrombin Time (Protime)PT. 14.3 SECONDS (11.7-14.9)
[2025-10-24 10:34] LABS: Partial Thromboplast Time 25.5 Seconds (24.1-36.2)
[2025-10-24 10:43] LABS: Anion Gap 12 (5-15); BUN 11 mg/dL (4-19); BUN/Creat Ratio 12.8 RATIO (10-20); Calcium,Total 9.4 mg/dL (7.6-11.0); Carbon Dioxide 23.6 mmol/L (21.0-32.0); Chloride 101 mmol/L (98-108); Estimated Creatinine Clearance 141.93 ml/min (50-250); Glucose 121 mg/dL (70-99); Potassium 3.8 mmol/L (3.3-5.1); Troponin T High Sensitivity < 6 ng/L (<=22)
[2025-10-24 10:54] VITALS: BP 146/98; PULSE 66; RESP 23; O2SAT 97
== END 2025-10-24 11:40 | disposition home or self-care (01) ==
PROVIDERS: Emergency Provider Emergency Medicine; Visit Provider Emergency Medicine
DX: I63.9 Cerebral infarction, unspecified (principal); E11.9 Type 2 diabetes mellitus without complications; F17.200 Nicotine dependence, unspecified, uncomplicated; I10 Essential (primary) hypertension; Z86.73 Personal history of transient ischemic attack (TIA), and cerebral infarction without residual deficits; R29.700 NIHSS score 0; E78.00 Pure hypercholesterolemia, unspecified; R29.898 Other symptoms and signs involving the musculoskeletal system
CPT/HCPCS: 70450; 70496; 70498; 80048; 82962; 84484; 85025; 85610; 85730; 93005; 99285; A4216; Q9967

== ENCOUNTER 2025-10-26 15:05 | Inpatient (IN) | payer MEDICAID, SELFPAY ==
[2025-10-26] VITALS (9 sets, daily range): BP systolic 109–162; BP diastolic 71–89; PULSE 70–91; RESP 11–20; TEMP 36.7–37.6; O2SAT 96–99; BMI 38.7; BMI 40.4; BMI 39.2
--- NOTE | 2025-10-26 15:38 | EX.ED.DYSGE1 ---
HPI History of Present Illness Chief Complaint: Neuro S/Sx [facility] Medical History (Updated 08/20/25 @ 00:01 by Mike Demarco) Wears glasses Diabetes High cholesterol Stroke/cerebrovascular accident Smoker Poor historian History of echocardiogram Left carotid stenosis HTN (hypertension) Eye globe prosthesis Acute ischemic left MCA stroke Medical History unable to obtain Home Medications ?Medication ?Instructions ?Recorded ?Last Taken ?Type aspirin 81 mg chewable tablet 81 mg PO BREAKFAST 30 days #30 tabs 08/12/25 10/26/25 Rx atorvastatin 80 mg tablet 80 mg PO QHS 30 days #30 tabs 08/12/25 10/25/25 Rx lisinopril 5 mg tablet 5 mg PO DAILY #30 tabs 08/12/25 10/26/25 Rx metformin 500 mg tablet 500 mg PO BID 1 month #60 tabs 08/12/25 10/26/25 Rx clopidogrel 75 mg tablet (Plavix) 75 mg PO DAILY #90 tabs 10/25/25 10/26/25 Rx Allergy/AdvReac Type Severity Reaction Status Date / Time No Known Allergies Allergy Verified 10/26/25 15:06 Surgical History unable to obtain Social History (Updated 08/10/25 @ 18:48 by Keiko French) household members: family housing: house Smoking Status: Light Smoker (<10/day) EXAM Physical Exam Const Vital Signs: 10/26/25 15:06 10/26/25 16:12 10/26/25 16:17 Temperature 99.1 F Temperature Source Oral Pulse Rate 91 86 Respiratory Rate 16 11 L Blood Pressure 118/85 H 119/81 H Blood Pressure Mean 96 93 Pulse Ox 99 98 96 Oxygen Delivery Method Room Air Room Air Room Air 10/26/25 17:06 10/26/25 18:10 10/26/25 19:04 Temperature Temperature Source Pulse Rate 76 70 79 Respiratory Rate 16 20 H 18 Blood Pressure 109/89 H 122/71 H 148/73 H Blood Pressure Mean 95 88 98 Pulse Ox 98 99 98 Oxygen Delivery Method Room Air Room Air Room Air MDM MDM MDM Narrative Medical decision making narrative: HISTORY OF PRESENT ILLNESS: Chief complaint: Right sided sensory changes, slurred speech 50-year-old male history of hypertension, CVA, carotid artery stenosis, type 2 diabetes presents with ongoing right sided sensory deficits in the face and right arm as well as slurred speech that began on Saturday ( His last known well was 10/24/2025). States symptoms have been constant since that time after left the ED. Denies chest pain shortness of breath or falls. States this is similar to his prior strokes. REVIEW OF SYSTEMS: Pertinent positives: Slurred speech, change in sensation Pertinent negatives: As per HPI PHYSICAL EXAM: Nursing triage notes reviewed, Vital signs reviewed Constitutional: please see [facility] HENT: MMM Eyes: Pupils equal round and reactive to light, Extraocular muscles intact Neck: No stridor, no JVD, full neck ROM Lungs: Clear to auscultation, No wheezing or rales. No increased work of breathing, no conversational dyspnea, no accessory muscle use, no nasal flaring. No respiratory distress noted Heart: Regular rate and rhythm, No murmurs, No rubs and No gallops, 2+ distal pulses (radial, femoral, posterior tibial) in all extremities Abdomen: Soft, there is no tenderness, rigidity, rebound or guarding, no obvious peritoneal signs, no palpable pulsatile abdominal masses, no auscultated abdominal bruit : No CVAT Extremities: No edema Neuro: Patient was alert, oriented x 3, decreased sensation right side of face and right arm, slight lack of coordination right arm. Slight aphasia but no obvious dysarthria. Initial NIH of 4 (4 mild dysarthria, mild aphasia, mild sensory loss and mild ataxia) Skin: No rash or lesions noted MEDICAL DECISION MAKING: Chief Complaint: please see [facility] External records reviewed: Reviewed recent imaging Factors affecting care: As per [facility] Social determinants of health: denies drug use History obtained from others: Consults: Stroke radiology, internal medicine open sees Dr. Costa) [facility] Narrative: The patient was initially hemodynamically stable, afebrile and nontoxic-appearing. Exam initial NIH of 4 for mild dysarthria, aphasia and mild sensory loss on the right side of face and right upper arm as well as mild ataxia I considered the following differential diagnosis: CVA, TIA, ICH amongst other I obtained a broad lab and imaging work to further determine if the patient was suffering from a life-threatening etiology. No immediate therapies were indicated. No indication for TNK or thrombectomy given his last known well was greater than 24 hours prior to arrival. ALL IMAGES (IF OBTAINED) HAVE BEEN PERSONALLY REVIEWED AND INTERPRETED BY MYSELF. EKG with normal sinus rhythm rate of 91, prolonged interval, first-degree AV block, no sign of high degree block, no obvious STEMI, no A-fib. CT scan of the brain shows acute infarct CTA of the head neck shows left carotid artery occlusion High-sensitivity troponin is negative, no evidence of myocardial ischemia CBC without leukocytosis, severe anemia, no thrombocytopenia. No coagulopathy BMP without evidence of significant electrolyte abnormalities, no anion gap, no acute kidney injury. Patient was accepted for admission here at [facility] to the PCU for ongoing CVA care. The patient and/or family, caregivers express understanding. The patient and/or family, caregivers agrees with the plan. Shared decision making: I will have a discussion with the patient and or visitors regarding risk/benefits of further testing or admission. They will be made aware of of the risk/benefits inherent in this decision they will be given the opportunity to voice understanding. Total critical care time today provided was at least 35 minutes. This excludes separately billable procedures. Critical care time (if documented) is secondary to the patient having high probability of clinically significant/life threatening deterioration in the patient's condition which required my urgent intervention. Impression: 1. Acute CVA 2. History of CVA 3. History of hypertension 4. Carotid artery stenosis Dispo: Admit to PCU This note was generated with Screwp[employer] dictation software. It may contain incorrect words, spelling, and punctuation that were not noted in review of the chart prior to signing. Lab Data Labs: Laboratory Results - last 24 hr 10/26/25 10/26/25 10/26/25 16:05 16:20 18:01 WBC 5.6 RBC 4.81 Hgb 14.0 Hct 41.3 MCV 85.9 MCH 29.1 MCHC 33.9 RDW Std Deviation 38.8 RDW Coeff of Ashanti 12.3 Plt Count 403 MPV 9.2 Immature Gran % (Auto) 0.400 Neut % (Auto) 49.3 Lymph % (Auto) 42.0 H Clarke % (Auto) 7.4 Eos % (Auto) 0.5 Baso % (Auto) 0.4 Absolute Neuts (auto) 2.8 Absolute Lymphs (auto) 2.34 Nucleated RBC % 0 PT 13.8 INR 1.0 APTT 24.1 Sodium 138 Potassium 3.7 Chloride 104 Carbon Dioxide 23.2 Anion Gap 11 BUN 12 Creatinine 0.87 Estim Creat Clear Calc 141.50 Est GFR (MDRD) Non-Af 104 BUN/Creatinine Ratio 13.6 Glucose 106 H Calcium 9.3 Troponin T High Sens 7 D Troponin T Hi Sens 2 Hr 6 POC Glucose 104 Radiography Diagnostic Testing: Clinical Impression(s) from Imaging Studies Brain CT 10/26/25 15:49 IMPRESSION: 1. Acute ischemia in the posterior left frontal lobe. This is new since 10/24/2025. 2. Old left frontoparietal region and right cerebellar infarcts. Reading Location: [facility] Head/Neck CTA 10/26/25 15:49 IMPRESSION: 1. Diminished caliber and paucity of the left MCA branches, likely due to occlusion and/or severe stenosis. This has worsened since 10/24/2025. 2. Persistent left ICA occlusion, from just distal to the origin to the proximal cavernous segment. No significant change since 10/24/2025, but new since 08/10/2025. 3. Multifocal stenosis in the cavernous and supraclinoid ICA segments bilaterally, greater on the left. Reading Location: [facility] Discharge Plan Triage Chief Complaint: Neuro S/Sx ED Provider: Kennedy Cowan Dx/Rx/DC Orders Prescriptions: No Action atorvastatin 80 mg Tablet 80 mg PO QHS 30 Days Qty: 30 2RF aspirin 81 mg Tablet,Chewable 81 mg PO BREAKFAST 30 Days Qty: 30 4RF metformin 500 mg tablet 500 mg PO BID 30 Days Qty: 60 2RF Rx Instructions: Start from 08/14/2025 lisinopril 5 mg tablet 5 mg PO DAILY Qty: 30 2RF clopidogrel [Plavix] 75 mg tablet 75 mg PO DAILY Qty: 90 3RF Primary Care Provider: Rebecca Harper Referrals: Rebecca Harper, SINGLE ENDING MACHINE OPERATOR-C [Primary Care Provider, Family Practice] Print Language: Romansh
--- NOTE | 2025-10-26 15:49 | CT_ITS ---
PROCEDURE: STROKE CTA HEAD AND NECK W/CON 10/26/2025 REASON FOR EXAM: NEURO DEFICIT, ACUTE, STROKE SUSPECTED TECHNIQUE: Procedure Code: CTCTA.ST.HN Modality: CT Procedure: STROKE CTA HEAD AND NECK W/CON Axial CTA images of the head and neck performed with intravenous contrast. MIP reconstructed images were created and reviewed. Note: Per PQRS, the description of internal carotid artery percent stenosis, including 0 percent or normal exam, is based on [place] Symptomatic Carotid Endarterectomy Trial (NASCET) criteria. CONTRAST: Isovue 370 VOLUME: 100 mL One or more dose reduction techniques were used (e.g., Automated exposure control, adjustment of the mA and/or kV according to patient size, use of iterative reconstruction technique). RADIATION DOSE SUMMARY: CTDlvol: 18.8 mGy DLP: 686 mGycm COMPARISON: 10/24/2025 and 08/10/2025 FINDINGS: CTA HEAD: INTERNAL CAROTID ARTERIES (ICA) Carotid siphon calcification bilaterally. Persistent left ICA occlusion with reconstitution of flow in the proximal cavernous segment, with no significant change since 10/24/2025. Multifocal stenosis in the cavernous and supraclinoid segments bilaterally, greater on the left. No aneurysm. ANTERIOR CEREBRAL ARTERIES (KAZ) No significant stenosis. No occlusion. No aneurysm. Hypoplastic left A1 segment. MIDDLE CEREBRAL ARTERIES (MCA) Paucity and diminished caliber of the left M2, M3 and M4 branches, which has worsened. No occlusion or significant stenosis on the right. No aneurysm. POSTERIOR CEREBRAL ARTERIES (IT ENGINEER) No significant stenosis. No occlusion. No aneurysm. BASILAR ARTERY No significant stenosis. No occlusion. No aneurysm. VERTEBRAL ARTERIES No significant stenosis. No dissection or occlusion. VENOUS STRUCTURES Patent. BONES No acute osseous abnormality. CTA NECK: COMMON CAROTID ARTERIES (CCA) No significant stenosis. No dissection or occlusion. INTERNAL CAROTID ARTERIES Similar-appearing left ICA occlusion, just distal to the origin to the proximal cavernous segment, with no significant change since 10/24/2025. No occlusion or stenosis by NASCET criteria on the right. Mild right proximal ICA calcification. VERTEBRAL ARTERIES Focal stenosis (~50%) in the left vertebral artery origin. No significant stenosis on the right. No dissection or occlusion. SOFT TISSUES No acute finding. No masses or lymphadenopathy. BONES No acute osseous abnormality. CT/STROKE CTA Head AND Neck W/Con IMPRESSION: 1. Diminished caliber and paucity of the left MCA branches, likely due to occl usion and/or severe stenosis. This has worsened since 10/24/2025. 2. Persistent left ICA occlusion, from just distal to the origin to the proxim al cavernous segment. No significant change since 10/24/2025, but new since 08/10/2025. 3. Multifocal stenosis in the cavernous and supraclinoid ICA segments bilatera lly, greater on the left. Reading Location: [id number]
--- NOTE | 2025-10-26 15:49 | CT_ITS ---
PROCEDURE: STROKE BRAIN/HEAD WITHOUT CONT 10/26/2025 REASON FOR EXAM: NEURO DEFICIT, ACUTE, STROKE SUSPECTED TECHNIQUE: Procedure Code: CTBR.ST Modality: CT Procedure: STROKE BRAIN/HEAD WITHOUT CONT Coronal and Sagittal reconstruction series were provided. One or more dose reduction techniques were used (e.g., Automated exposure control, adjustment of the mA and/or kV according to patient size, use of iterative reconstruction technique. RADIATION DOSE SUMMARY: CTDlvol: 44.99 mGy DLP: 796 mGycm COMPARISON: 10/24/2025 and 08/10/2025 FINDINGS: BRAIN: No acute intraparenchymal hemorrhage. Old infarcts in the left frontal and parietal lobes and inferior right cerebellum. New area of cortical and subcortical hypoattenuation in the posterior left frontal lobe, consistent with acute ischemia. No mass lesion. No midline shift or extra-axial collection. VENTRICLES: No hydrocephalus. 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 SINUSES AND MASTOIDS: The paranasal sinuses and mastoid air cells are clear. SOFT TISSUES: No acute abnormality seen. BONES: No acute osseous abnormality seen. OTHER: Carotid siphon calcification bilaterally. CT/STROKE Brain/Head without Cont IMPRESSION: 1. Acute ischemia in the posterior left frontal lobe. This is new since 10/24. 2. Old left frontoparietal region and right cerebellar infarcts. Reading Location: [id number]
--- NOTE | 2025-10-26 15:49 | EKG12_ITS ---
Test Reason : NEURO Blood Pressure : */* mmHG Vent. Rate : 91 BPM Atrial Rate : 91 BPM P-R Int : 234 ms QRS Dur : 90 ms QT Int : 354 ms P-R-T Axes : 52 63 9 degrees QTcB Int : 435 ms Sinus rhythm with 1st degree A-V block Nonspecific ST abnormality Abnormal ECG Confirmed by Samuel Valentin ([id number]), slot editor ABBY DHALIWAL ([id number]) on 10/27/2025 10:26:35 AM Referred By: Confirmed By: Samuel Valentin
[2025-10-26 16:11] LABS: Hematocrit 41.3 % (40-54); Hemoglobin 14.0 g/dL (13.0-16.5); Immature Granulocytes Count 0.020 X10^3/uL (0.0-0.0); Mean Corp Hgb Conc 33.9 g/dL (32-36); Mean Corpuscular Volume 85.9 fL (80-94); Mean Platelet Vol. 9.2 fl (6.2-12.0); NRBC Flagged by Analyzer 0 % (0-5); Platelet Count 403 K/mm3 (150-450); RBC Distribution Width CV 12.3 % (11.6-14.6); RBC Distribution Width SD 38.8 fl (35.1-43.9); Red Blood Count 4.81 M/mm3 (4.6-6.2); White Blood Count 5.6 K/mm3 (4.4-11.0)
[2025-10-26 16:26] LABS: Prothrombin Time (Protime)PT. 13.8 SECONDS (11.7-14.9)
[2025-10-26 16:27] LABS: Partial Thromboplast Time 24.1 Seconds (24.1-36.2)
[2025-10-26 16:43] LABS: Anion Gap 11 (5-15); BUN 12 mg/dL (4-19); BUN/Creat Ratio 13.6 RATIO (10-20); Calcium,Total 9.3 mg/dL (7.6-11.0); Carbon Dioxide 23.2 mmol/L (21.0-32.0); Chloride 104 mmol/L (98-108); Glucose 106 mg/dL (70-99); Potassium 3.7 mmol/L (3.3-5.1); Troponin T High Sensitivity 7 ng/L (<=22)
[2025-10-26 18:36] LABS: Troponin T High Sens 2 HR 6 ng/L (<=22)
--- NOTE | 2025-10-26 18:40 | PCM.HP.STD ---
HPI - General General Date of Admission: 10/26/25 Date of Service: 10/26/25 Chief Complaint: Strokelike symptoms HPI Narrative FIOR BEAN, is a 50 M who presented to [facility] ED on 10/26/2025 with strokelike symptoms. Medical history significant for recent CVA with left ICA stenosis, hypertension, hyperlipidemia, type 2 diabetes mellitus and class III obesity. Patient was hospitalized here from 08/10-08/12 for an acute ischemic left MCA stroke. CTA head/neck on 08/10 showed critical stenosis involving the proximal left ICA with flow limitation. Dr. Nguyễn followed and the plan was to have a procedure done on the left ICA 1 to 2 weeks after that hospitalization. Unfortunately, patient notes there has been insurance issues that have kept this from being done. He was recovering well from a stroke until Saturday when he developed acute right-sided weakness and numbness/tingling as well as slurred speech. CT brain in the ED was unremarkable, but CTA head/neck now showed and occluded left internal carotid artery with reconstitution intracranially. ED provider recommended admission for further stroke workup but patient opted to go home. Since going home, his symptoms have remained stable and have not improved much, so he came back in today for further evaluation. CT brain today did show acute ischemia in the posterior left frontal lobe, new from previous. CT head/neck continued to show occlusion of the left ICA. Given his acute stroke, hospitalist was contacted for admission. I discussed the case with Dr. Nguyễn over the phone prior to admitting the patient. He noted that if the left ICA is fully occluded, there unfortunately is no indication for a procedure at this point. He recommended obtaining a carotid ultrasound to confirm that the left ICA is fully occluded. He also recommended obtaining an MRI brain to further characterize the extent of his acute stroke. I saw the patient at bedside in the ED and discussed plus plan with him. Patient was upset about the potential degree of permanence of his current deficits and if the vessel is fully occluded, that there would be no indication for a procedure. He was agreeable to staying overnight but noted he did not wish to stay in the hospital longer than that if there is no procedure that will help him. He reports ongoing right arm and leg numbness/tingling and heaviness/weakness. He also reports intermittent slurred speech, and during our conversation he had clear thoughts but occasionally did have some slurred speech. No other acute concerns noted. Will be admitted for further management. [facility] Medical History (Updated 10/26/25 @ 19:[address] Roger Costa, DO) Wears glasses Diabetes High cholesterol Stroke/cerebrovascular accident Smoker Poor historian History of echocardiogram Left carotid stenosis HTN (hypertension) Eye globe prosthesis Acute ischemic left MCA stroke Medical History unable to obtain Home Medications ?Medication ?Instructions ?Recorded ?Last Taken ?Type aspirin 81 mg chewable tablet 81 mg PO BREAKFAST 30 days #30 tabs 08/12/25 10/26/25 Rx atorvastatin 80 mg tablet 80 mg PO QHS 30 days #30 tabs 08/12/25 10/25/25 Rx lisinopril 5 mg tablet 5 mg PO DAILY #30 tabs 08/12/25 10/26/25 Rx metformin 500 mg tablet 500 mg PO BID 1 month #60 tabs 08/12/25 10/26/25 Rx clopidogrel 75 mg tablet (Plavix) 75 mg PO DAILY #90 tabs 10/25/25 10/26/25 Rx Allergy/AdvReac Type Severity Reaction Status Date / Time No Known Allergies Allergy Verified 10/26/25 15:06 Surgical History unable to obtain Social History (Updated 08/10/25 @ 18:48 by Keiko French) household members: family housing: house Smoking Status: Light Smoker (<10/day) ROS Constitutional Constitutional: Denies chills, fatigue or fever(s) Cardiovascular Cardiovascular: Denies chest pain Respiratory/Chest Respiratory/Chest: Denies shortness of breath at rest Gastrointestinal Gastrointestinal: Denies abdominal pain Musculoskeletal Musculoskeletal: Denies arthralgias or myalgias Neurologic Neurologic: Reports abnormal speech, focal weakness, numbness and tingling; Denies confusion, disequilibrium, dizziness or headache(s) Vital Signs Vital Signs Vital Signs: 10/26/25 15:06 10/26/25 16:12 10/26/25 16:17 Temperature 99.1 F Temperature Source Oral Pulse Rate 91 86 Respiratory Rate 16 11 L Blood Pressure 118/85 H 119/81 H Blood Pressure Mean 96 93 Pulse Ox 99 98 96 Oxygen Delivery Method Room Air Room Air Room Air 10/26/25 17:06 10/26/25 18:10 Temperature Temperature Source Pulse Rate 76 70 Respiratory Rate 16 20 H Blood Pressure 109/89 H 122/71 H Blood Pressure Mean 95 88 Pulse Ox 98 99 Oxygen Delivery Method Room Air Room Air Weight Weight: 135.4 kg Body Mass Index (BMI) 40.4 Physical Exam Const alert, oriented x3 and no apparent distress Constitutional Narrative: Middle-age male, class III obesity, mild fatigue., Otherwise laying back comfortably in bed, conversing normally, in no acute distress. General Appearance: cooperative and comfortable HEENT normocephalic, head/scalp atraumatic, hearing grossly normal bilaterally, nasal mucous membranes and turbinates normal and moist oral mucous membranes Eyes PERRL, EOMs intact bilaterally and conjunctivae normal Eyes Narrative: Left prosthetic eye noted. Neck full ROM Chest inspection of chest normal Resp normal respiratory effort, normal air movement, no use of accessory muscles and clear to auscultation bilaterally Cardio regular rate, regular rhythm, no murmurs and peripheral pulses 2+ throughout GI normal to inspection, nondistended, normoactive bowel sounds, soft to palpation, non-tender and non-distended Back/Spine normal ROM Extremity normal to inspection and no pedal edema Skin no rashes or lesions noted Neuro Neuro Narrative: +4/5 strength in right upper and lower extremities noted. Mild intermittent slurred speech noted. Patient with reported right facial, arm and leg numbness/tingling. Psych mental status grossly normal Results Lab / Micro Data 10/26/25 16:05 10/26/25 16:05 Labs: Laboratory Results - last 24 hr 10/26/25 16:05: WBC 5.6, RBC 4.81, Hgb 14.0, Hct 41.3, MCV 85.9, MCH 29.1, MCHC 33.9, RDW Std Deviation 38.8, RDW Coeff of Ashanti 12.3, Plt Count 403, MPV 9.2, Immature Gran % (Auto) 0.400, Neut % (Auto) 49.3, Lymph % (Auto) 42.0 H, [place] % (Auto) 7.4, Eos % (Auto) 0.5, Baso % (Auto) 0.4, Absolute Neuts (auto) 2.8, Absolute Lymphs (auto) 2.34, Nucleated RBC % 0, PT 13.8, INR 1.0, APTT 24.1, Sodium 138, Potassium 3.7, Chloride 104, Carbon Dioxide 23.2, Anion Gap 11, BUN 12, Creatinine 0.87, Estim Creat Clear Calc 141.50, Est GFR (MDRD) Non-Af 104, BUN/Creatinine Ratio 13.6, Glucose 106 H, Calcium 9.3, Troponin T High Sens 7 D 10/26/25 16:20: POC Glucose 104 10/26/25 18:01: Troponin T Hi Sens 2 Hr 6 Imaging Radiology Impression Brain CT 10/26/25 15:49 IMPRESSION: 1. Acute ischemia in the posterior left frontal lobe. This is new since 10/24/2025. 2. Old left frontoparietal region and right cerebellar infarcts. Reading Location: [id number] Head/Neck CTA 10/26/25 15:49 IMPRESSION: 1. Diminished caliber and paucity of the left MCA branches, likely due to occlusion and/or severe stenosis. This has worsened since 10/24/2025. 2. Persistent left ICA occlusion, from just distal to the origin to the proximal cavernous segment. No significant change since 10/24/2025, but new since 08/10/2025. 3. Multifocal stenosis in the cavernous and supraclinoid ICA segments bilaterally, greater on the left. Reading Location: [facility] Assessment & Plan Assessment/Plan (1) Acute CVA (cerebrovascular accident): PLAN: Plan Patient is a 50-year-old male who presented to [facility] ED on 10/26/2025 with strokelike symptoms. 1. Acute ischemic left MCA stroke suspected secondary to acute left ICA occlusion ? Admit under inpatient status to PCU. Teleneurology and vascular surgery consulted. See HPI for further details. In short, patient had acute ischemic left MCA stroke in late July presumed secondary to critical left ICA stenosis. Plan was for left ICA stenting versus carotid endarterectomy but this was delayed due to insurance issues. Had recurrent strokelike symptoms on 10/24 and CTA head/neck showed that the left ICA was now occluded. Patient opted to go home but had continued strokelike symptoms of right sided numbness/tingling and right arm and leg heaviness/weakness. CT brain on 10/26 showed acute ischemia in the left frontal lobe. Per Dr. Nguyễn, carotid duplex ultrasound ordered to confirm an occluded left ICA. If the ICA is occluded, unfortunately there is no indication for surgical intervention. If the ICA still has some blood flow, Dr. Nguyễn noted that patient will likely need transferred for neuro IR evaluation. MRI brain also ordered to further characterize the extent of this acute CVA. Otherwise orders placed per stroke protocol order set. PT/OT/case management consulted. Continue baby aspirin, Plavix and high intensity statin. Holding home lisinopril for permissive hypertension. 2. Hypertension ? Mildly hypertensive to the 140s systolic in the ED. Holding home lisinopril as above. 3. Class III obesity ? BMI 40.5 on admit. Complicates hospital course and care. 4. Tobacco dependence ? Nicotine replacement therapy available per patient request. Discussed cessation at discharge. DVT prophylaxis: SCDs CODE STATUS: Full code, verified Expected disposition: TBD Total clinical time spent by myself addressing the patient's medical issues, reviewing all the data, and collaborating with patient's care team: 78 minutes. Charges/Coding Visit Charges Inpatient E&M: 68241 Init Hosp L3
--- NOTE | 2025-10-26 18:59 | CDU_ITS ---
Reason For Study Reason For Study: Possible Lt ICA Occlusion Rt. Velocities/BP Lt. Velocities/BP Prox CCA 117.7/25.5 cm/sec. Prox CCA 118.0/13.9 cm/sec. Mid CCA 133.0/27.7 cm/sec. Mid CCA 88.6/11.7 cm/sec. Dist CCA 97.7/24.1 cm/sec. Dist CCA 85.1/10.2 cm/sec. Prox ICA 65.8/22.8 cm/sec. Lt Bulb - 36.0/2.6 cm/s. Mid ICA 68.3/30.2 cm/sec. Lt ICA - Unable to acquire flow in color or Dist ICA 78.1/33.9 cm/sec. pulsed wave doppler. Rt. ICA/CCA = 0.6. Prox ECA 90.6/17.5 cm/sec. Prox ECA 96.5/10.6 cm/sec. Lt. Vert. 35.3/13.2 cm/sec. Rt. Vert. 54.5/24.8 cm/sec. Right Extracranial There is homogeneous, smooth atherosclerotic plaque noted in the right common carotid artery. There is heterogeneous, smooth atherosclerotic plaque noted in the right internal carotid artery. There is intimal thickening but no significant atherosclerotic plaque noted in the right external carotid artery. Antegrade flow is noted in the right vertebral artery. Left Extracranial There is heterogeneous, irregular atherosclerotic plaque noted in the left common carotid artery. There is heterogeneous, irregular atherosclerotic plaque noted in the left internal carotid artery. Unable to obtain flow in Lt ICA. Possible total occlusion. There is intimal thickening but no significant atherosclerotic plaque noted in the left external carotid artery. Antegrade flow is noted in the left vertebral artery. Procedure Carotid Duplex 37910. This is a Carotid Duplex examination using B-mode, color flow and specral Doppler. The exam was diagnostic. Exam performed in department. VL/Carotid Duplex Ultrasound Interpretation Summary Mild (<50%) stenosis right extracranial internal carotid. Occlusion of the left extracranial internal carotid. Patent and antegrade vertebrals bilaterally. Ordering Physician: Roger Costa Referring Physician: Rebecca Harper Performed By: Darin Murillo RVT
--- OUTSIDE RECORDS SUMMARY | 2025-10-26 20:37 | XMS RPT_ITS | CCD ---
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 Kenan Pedroza DO Emergency Provider [phone] Unavailable Primary Care Provider Unavailabl e Care Physician, No Primary Primary Care Physicia n Unavailable Dr. Kenan Pedroza DO Attending Physician Dr. Kenan Pedroza DO Emergency Department Physic nano Dr. Ever Barth DO Emergency Departmen t Physician Dr. Roger Costa DO Admitting Physician Dr. Roger Costa DO Nurse Practitioner Bola Noland MD Nurse Practitioner Unavailable Lani WOLF, Dr. Isabel Nurse Practitioner Juany Feliz MD Nurse Practitioner Unavailab Dr. Lana Patel DO Nurse Practitioner Regina WOLF, Dr. Kat Nurse Practitioner [phone] Dr. Narciso Garcia MD Nurse Practitioner Dinesh WOLF, Dr. Black Nurse Practitioner Dr. Matt Day MD Nurse Practitioner Gregory WOLF, Dr. Hernandez Nurse Practitioner [phone] Toni WOLF, Dr. Latham Nurse Practitioner Vannesa SU, Dr. Katz Nurse Practitioner Will WOLF, Afshan Nurse Practitioner Julio C WOLF, Dr. Khna Nurse Practitioner Jacob WOLF, Dr. Saucedo Nurse Practitioner Makenzie WOLF, Dr. Choi Nurse Practitioner Ginny WOLF, Dr. Oriana Coppola Nurse Practitioner Martir WOLF, Dr. Mata Nurse Practitioner Adam WOLF, Dr. Angulo Nurse Practitioner Danisha WOLF, Dr. Akins Nurse Practitioner Al WOLF, Dr. Howe Nurse Practitioner Unavailcaren Knutson MD, [facility] Nurse Practitioner Unavailcaren Leiva MD, Dr. Vásquez Attending Physician Cali WOLF, Dr. Vásquez Nurse Practitioner [phone] Chris WOLF, Dr. Forrester Attending Physician MAGGI [...] Attending Unavailable Beam, Zebulun Primary Care Unavailable [place], Grupo Attending Unavailable Gopi, Grupo Referring Unavailable [place], Grupo Admitting Unavailable Care Physician, No Primary [...] Drug Class(es) Dates Sig (Normalized) Sig (Original) [id number] 60 actuat albuterol 0.09 mg/actuat metered dose [...] take 1 tablet by mouth twice daily [place] (Nk) (1 source) Start: 08-10-2025 [place] (Nk) Active August 10, 2025 12:00am Completed/Discontinued [...] Comment on above: Take 1 Capsule by [facility] once a week fluticasone propionate 0.05 mg/actuat metered dose nasal spray (6 sources) Corticosteroid Start: 10-02-20 End: 10-15-20 take 1 spray(s) nasal route once daily fluticasone (FLONASE) 50 mcg/actuation nasal spray Indications: Tonsillar hypertrophy Place 1 [place] in both nostrils once daily 16 g 2 10/15/2024 Active Comment on above: Place 1 [place] in bot h nostrils once daily hydroCHLOROthiazide [...] Absolute Lymph 3.35 X10 3/uL Normal 0.83-4.51 [facility] Comment on above: Performed By: #### L 100.0100, L500.4050 #### [facility] Laboratory [address] [place], [address] Absolute Neut 3.0 X10 3/uL Normal 2.0-7.7 [facility] Comment on above: Performed By: #### L 100.0100, L500.4050 #### [facility] [address] [place], [address] Basophils/100 WBC (Bld) 0.4 % Normal 0-1 [facility] Comment on above: Performed By: #### L 100.0100, L500.4050 #### [facility] [address] [place], [address] Eosinophils/100 WBC (Bld) 0.6 % Normal 0-5 [facility] Comment on above: Performed By: #### L 100.0100, L500.4050 #### [facility] [address] [place], [address] Erythrocyte distribution width (RBC) [Ratio] 12.2 % Normal 11.6-14.6 [facility] Comment on above: Performed By: #### L 100.0100, L500.4050 #### [facility] [address] [place], [address] Hematocrit (Bld) [Volume fraction] 42.3 % Normal 40-54 [facility] Comment on above: Performed By: #### L 100.0100, L500.4050 #### [facility] [address] [place], [address] Hemoglobin (Bld) [Mass/Vol] 14.7 g/dL Normal 13.0-16.5 [facility] Comment on above: Performed By: #### L 100.0100, L500.4050 #### [facility] [address] [place], [address] IG% 0.300 Normal 0.0-0.9 [facility] Comment on above: Result Comment: IG% - Immature Granulocytes (promyelocytes, myelocytes and metamyelocytes) > 1% indicates that a LEFT SHIFT is Present. Performed By: #### L 100.0100, L500.4050 #### [facility] [address] [place], [address] Lymphocytes/100 WBC (Bld) 47.5 % High 19-41 [facility] Comment on above: Performed By: #### L 100.0100, L500.4050 #### [facility] [address] [place], [address] MCH (RBC) [Entitic mass] 29.1 pg Normal 27.0-32.0 [facility] Comment on above: Performed By: #### L 100.0100, L500.4050 #### [facility] [address] [place], [address] MCHC (RBC) [Mass/Vol] 34.8 g/dL Normal 32-[address] [facility] Comment on above: Performed By: #### L 100.0100, L500.4050 #### [facility] [address] [place], [address] MCV (RBC) [Entitic vol] 83.8 fL Normal 80-94 [facility] Comment on above: Performed By: #### L 100.0100, L500.4050 #### [facility] [address] [place], [address] Monocytes/100 WBC (Bld) 9.1 % Normal 0-10 [facility] Comment on above: Performed By: #### L 100.0100, L500.4050 #### [facility] [address] [place], [address] Neutrophils/100 WBC (Bld) 42.1 % Low 47-70 [facility] Comment on above: Performed By: #### L 100.0100, L500.4050 #### [facility] [address] [place], [address] Nucleated RBC (Bld) [#/Vol] 0 10*3/uL Normal 0-5 [facility] Comment on above: Performed By: #### L 100.0100, L500.4050 #### [facility] [address] [place], [address] Platelet mean volume (Bld) [Entitic vol] 9.4 fL Normal 6.2-12.0 [facility] Comment on above: Performed By: #### L 100.0100, L500.4050 #### [facility] [address] [place], [address] Platelets (Bld) [#/Vol] 432 10*3/uL Normal 150-450 [facility] Comment on above: Performed By: #### L 100.0100, L500.4050 #### [facility] [address] [place], [address] RBC (Bld) [#/Vol] 5.05 10*6/uL Normal 4.6-6.2 [facility] Comment on above: Performed By: #### L 100.0100, L500.4050 #### [facility] [address] [place], [address] RDW SD 37.1 fl Normal 35.1-43.9 [facility] Comment on above: Performed By: #### L 100.0100, L500.4050 #### [facility] [address] [place], [address] WBC (Bld) [#/Vol] 7.1 10*3/uL Normal 4.4-11.0 [facility] Comment on above: Performed By: #### L 100.0100, L500.4050 #### [facility] [address] [place], [address] Absolute Neut Normal 2.0-7.7 [facility] Comment on above: Result Comment: PT I S [facility] TO [facility] BLOOD WORK. Performed By: #### L 500.4050, L502.0500, L100.0100 ####[facility] [address] [place], [address] HCT Normal 40-54 [facility] Comment on above: Result Comment: PT I S [facility]LOOD WORK. Performed By: #### L 500.4050, L502.0500, L100.0100 ####[facility] [address] [place], [address] HGB Normal 13.0-16.5 [facility] Comment on above: Result Comment: PT I S GOINT [facility] TO DO BLOOD WORK. Performed By: #### L 500.4050, L502.0500, L100.0100 ####[facility] [address] [place], [address] MCH Normal 27.0-32.0 [facility] Comment on above: Result Comment: PT I S [facility]INT [facility] TO DO BLOOD WORK. Performed By: #### L 500.4050, L502.0500, L100.0100 ####[facility] [address] [place], [address] MCHC Normal 32-36 [facility] Comment on above: Result Comment: PT I S [facility] TO DO BLOOD WORK. Performed By: #### L 500.4050, L502.0500, L100.0100 ####[facility] [address] [place], [address] MCV Normal 80-94 [facility] Comment on above: Result Comment: PT I S [facility]INT [facility] TO DO BLOOD WORK. Performed By: #### L 500.4050, L502.0500, L100.0100 ####[facility] [address] [place], [address] NEUT% Normal 47-70 [facility] Comment on above: Result Comment: PT I S [facility] TO [facility] BLOOD WORK. Performed By: #### L 500.4050, L502.0500, L100.0100 ####[facility] [address] [place], [address] PLT Normal 150-450 [facility] Comment on above: Result Comment: PT I S [facility]INT [facility] TO DO BLOOD WORK. Performed By: #### L 500.4050, L502.0500, L100.0100 ####[facility] [address] [place], [address] RBC Normal 4.6-6.2 [facility] Comment on above: Result Comment: PT I S [facility]INT [facility] TO DO BLOOD WORK. Performed By: #### L 500.4050, L502.0500, L100.0100 ####[facility] [address] [place], [address] RDW CV Normal 11.6-14.6 [facility] Comment on above: Result Comment: PT I S [facility] BLOOD WORK. Performed By: #### L 500.4050, L502.0500, L100.0100 ####[facility] [address] [place], [address] RDW SD Normal 35.1-43.9 [facility] Comment on above: Result Comment: PT I S [facility]INT [facility] TO DO BLOOD WORK. Performed By: #### L 500.4050, L502.0500, L100.0100 ####[facility] [address] [place], [address] WBC Normal 4.4-11.0 [facility] Comment on above: Result Comment: PT I S [facility] TO [facility] BLOOD WORK. Performed By: #### L 500.4050, L502.0500, L100.0100 ####[facility] [address] [place], [address] Comprehensive Metabolic Prof waon 09-02-2025 Albumin [Mass/Vol] 4.4 g/dL Normal 3.5-5.0 [facility] Comment on above: Performed By: #### L 100.0100, L500.4050 #### [facility] [address] [place], [address] Albumin/Globulin [Mass ratio] 1.2 {ratio} Normal 0.9-2.4 [facility] Comment on above: Performed By: #### L 100.0100, L500.4050 #### [facility] [address] [place], [address] ALK PHOS 162 U/L High 40-129 [facility] Comment on above: Performed By: #### L 100.0100, L500.4050 #### [facility] [address] [place], [address] ALT [Catalytic activity/Vol] 62 U/L High <=46 [facility] Comment on above: Performed By: #### L 100.0100, L500.4050 #### [facility] [address] [place], [address] AST [Catalytic activity/Vol] 28 U/L Normal <=37 [facility] Comment on above: Performed By: #### L 100.0100, L500.4050 #### [facility] [address] [place], [address] Bilirubin [Mass/Vol] 0.46 mg/dL Normal 0.00-1.30 [facility] Comment on above: Performed By: #### L 100.0100, L500.4050 #### [facility] [address] [place], [address] BUN/CRE 14.3 RATIO Normal 10-20 [facility] Comment on above: Performed By: #### L 100.0100, L500.4050 #### [facility] [address] [place], [address] Calcium [Mass/Vol] 9.5 mg/dL Normal 7.6-11.0 [facility] Comment on above: Performed By: #### L 100.0100, L500.4050 #### [facility] [address] [place], [address] Chloride [Moles/Vol] 102 mmol/L Normal 98-108 [facility] Comment on above: Performed By: #### L 100.0100, L500.4050 #### [facility] [address] [place], [address] CO2 [Moles/Vol] 24.8 mmol/L Normal 21.0-32.0 [facility] Comment on above: Performed By: #### L 100.0100, L500.4050 #### [facility] [address] [place], [address] Creatinine [Mass/Vol] 0.75 mg/dL Normal 0.70-1.[address] [facility] Comment on above: Performed By: #### L 100.0100, L500.4050 #### [facility] [address] [place], [address] GAP 11 Normal 5-15 [facility] Comment on above: Performed By: #### L 100.0100, L500.4050 #### [facility] [address] [place], [address] GFR/1.73 sq M.predicted among non-blacks MDRD (S/P/Bld) [Vol rate/Area] 109 mL/min/{1.73_m2} Normal >60 [facility] Comment on above: Result Comment: mL/m in/1.73m2 CKD-EPI Creatinine Equation (2020) Performed By: #### L 100.0100, L500.4050 #### [facility] [address] [place], [address] Globulin (S) [Mass/Vol] 3.6 g/dL Normal 2.2-4.2 [facility] Comment on above: Performed By: #### L 100.0100, L500.4050 #### [facility] [address] [place], [address] Glucose [Mass/Vol] 109 mg/dL High 70-99 [facility] Comment on above: Performed By: #### L 100.0100, L500.4050 #### [facility] [address] [place], [address] Potassium [Moles/Vol] 3.8 mmol/L Normal 3.3-5.[address] [facility] Comment on above: Performed By: #### L 100.0100, L500.4050 #### [facility] [address] [place], [address] Sodium [Moles/Vol] 138 mmol/L Normal 133-145 [facility] Comment on above: Performed By: #### L 100.0100, L500.4050 #### [facility] [address] [place], [address] T PROT 8.0 g/dL Normal 5.9-8.4 [facility] Comment on above: Performed By: #### L 100.0100, L500.4050 #### [facility] [address] [place], [address] Urea nitrogen [Mass/Vol] 11 mg/dL Normal 4-19 [facility] Comment on above: Performed By: #### L 100.0100, L500.4050 #### [facility] [address] [place], [address] ALB Normal 3.5-5.0 [facility] Comment on above: Result Comment: PT I S [facility]LOOD WORK. Performed By: #### L 500.4050, L502.0500, L100.0100 ####[facility] [address] [place], [address] ALK PHOS Normal 40-129 [facility] Comment on above: Result Comment: PT I S [facility] TO [facility] BLOOD WORK. Performed By: #### L 500.4050, L502.0500, L100.0100 ####[facility] [address] [place], [address] ALT Normal <=46 [facility] Comment on above: Result Comment: PT I S GOINT [facility] TO DO BLOOD WORK. Performed By: #### L 500.4050, L502.0500, L100.0100 ####[facility] [address] [place], [address] AST Normal <=37 [facility] Comment on above: Result Comment: PT I S [facility] TO [facility] BLOOD WORK. Performed By: #### L 500.4050, L502.0500, L100.0100 ####[facility] [address] [place], [address] BUN Normal 4-19 [facility] Comment on above: Result Comment: PT I S [facility] TO [facility] BLOOD WORK. Performed By: #### L 500.4050, L502.0500, L100.0100 ####[facility] [address] [place], [address] BUN/CRE Normal 10-20 [facility] Comment on above: Result Comment: PT I S GOINT [facility] TO DO BLOOD WORK. Performed By: #### L 500.4050, L502.0500, L100.0100 ####[facility] [address] [place], [address] Calcium Normal 7.6-11.0 [facility] Comment on above: Result Comment: PT I S GOINT [facility] TO DO BLOOD WORK. Performed By: #### L 500.4050, L502.0500, L100.0100 ####[facility] [address], [address] CL Normal 98-108 [facility] Comment on above: Result Comment: PT I S GOINT [facility] TO DO BLOOD WORK. Performed By: #### L 500.4050, L502.0500, L100.0100 ####[facility] [address] [place], [address] CO2 Normal 21.0-32.0 [facility] Comment on above: Result Comment: PT I S GOINT [facility] TO DO BLOOD WORK. Performed By: #### L 500.4050, L502.0500, L100.0100 ####[facility] [address] [place], [address] CREAT,SERUM Normal 0.70-1.20 [facility] Comment on above: Result Comment: PT I S GOINT [facility] TO DO BLOOD WORK. Performed By: #### L 500.4050, L502.0500, L100.0100 ####[facility] [address] [place], [address] eGFR Normal >60 [facility] Comment on above: Result Comment: PT I S GOINT [facility] TO DO BLOOD WORK. Performed By: #### L 500.4050, L502.0500, L100.0100 ####[facility] [address] [place], [address] GAP Normal 5-15 [facility] Comment on above: Result Comment: PT I S GOINT [facility] TO DO BLOOD WORK. Performed By: #### L 500.4050, L502.0500, L100.0100 ####[facility] [address] [place], [address] GLU Normal 70-99 [facility] Comment on above: Result Comment: PT I S GOINT [facility] TO DO BLOOD WORK. Performed By: #### L 500.4050, L502.0500, L100.0100 ####[facility] [address] [place], [address] Potassium Normal 3.3-5.1 [facility] Comment on above: Result Comment: PT I S GOINT [facility] TO DO BLOOD WORK. Performed By: #### L 500.4050, L502.0500, L100.0100 ####[facility] [address] [place], [address] T BILI Normal 0.00-1.30 [facility] Comment on above: Result Comment: PT I S GOINT [facility] TO DO BLOOD WORK. Performed By: #### L 500.4050, L502.0500, L100.0100 ####[facility] [address] [place], [address] T PROT Normal 5.9-8.4 [facility] Comment on above: Result Comment: PT I S GOINT [facility] TO DO BLOOD WORK. Performed By: #### L 500.4050, L502.0500, L100.0100 ####[facility] [address] [place], [address] Comprehensive Metabolic Profil Normal 133-145 [facility] Comment on above: Result Comment: PT I S GOINT [facility] TO DO BLOOD WORK. Performed By: #### L 500.4050, L502.0500, L100.0100 ####[facility] [address] [place], [address] Microalbumin,Random Urineon 09-02-2025 MICROALBUMIN,UR 32.2 mg/L Normal <20 mg/L [facility] Comment on above: Performed By: #### L 500.4050, L502.0500, L100.0100 ####[facility] [address] [place], [address] SP/HP.SP.Iraj 08-23-2025 SP/HP.SP.EV [facility] Speech Pathology [facility] [address] [place] [address] / REHABILITATION SERVICES INITIAL EVALUATION MR#: [id number] Acct: [id number] Name: ARIEL BEAN Rep #: [id number] : 1975 50 From: Allegra Ordonez Referring Dr.: Dr. 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 Other Relevant Medical History/Diagnoses/Surge ry: Ariel Robertson is a 50 M who presented to [facility] ED on 08/10/2025 with confusion, slurred speech and worsening right upper extremity weakness and numbness/tingling. Medical history is significant for hypertension, class II obesity and tobacco dependence. Patient reported intermittent right upper extremity numbness/tingling for the right shoulder down to the hand for the past few months. He was seen in the ED at [facility] in late April for that. Diana significant [...] his left MCA stroke. He presents to [facility] with chief complaints of difficulty with memory and word finding. Medications related to this diagnosis: aspirin 81 mg Tablet,Chewable; atorvastatin 80 mg Tablet; clopidogrel 75 mg Tablet; lisinopril 5 mg tablet; metformin 500 mg tablet Smoking Status: Light Smoker (<10/day) Diagnosis Diagnosis: Mild cognitive deficit Pain Is pain an issue with your current prescribed condition?: No Personal Preferred language: Citizen Of [place] Patient Allergies Allergies Allergies: Allergies No Known [...] convergent and (more content not included)... Normal [facility] SP/HP.SP.Iraj 08-18-2025 SP/HP.SP.EV [facility] Speech Pathology [facility] [address] [place] [address] / REHABILITATION SERVICES INITIAL EVALUATION MR#: [id number] Acct: [id number] Name: ARIEL BEAN Rep #: [id number] : 1975 50 From: Allegra Ordonez Referring Dr.: Dr. 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 Other Relevant Medical History/Diagnoses/Surge ry: Ariel Robertson is a 50 M who presented to [facility] ED on 08/10/2025 with confusion, slurred speech and worsening right upper extremity weakness and numbness/tingling. Medical history is significant for hypertension, class II obesity and tobacco dependence. Patient reported intermittent right upper extremity numbness/tingling for the right shoulder down to the hand for the past few months. He was seen in the ED at [facility] in late April for that. Ariels significant [...] his left MCA stroke. He presents to [facility] with chief complaints of difficulty with memory and word finding. Medications related to this diagnosis: aspirin 81 mg Tablet,Chewable; atorvastatin 80 mg Tablet; clopidogrel 75 mg Tablet; lisinopril 5 mg tablet; metformin 500 mg tablet Smoking Status: Light Smoker (<10/day) Diagnosis Diagnosis: Mild cognitive deficit Pain Is pain an issue with your current prescribed condition?: No Personal Preferred language: Citizen Of [place] Patient Allergies Allergies Allergies: Allergies No Known [...] with 90 (more content not included)... Normal [facility] Inital Evaluation (1) - PTon 08-16-2025 Inital Evaluation (1) - PT [facility] Physical Therapy [facility] [address] [place] [address] / REHABILITATION SERVICES INITIAL EVALUATION MR#: [id number] Acct: [id number] Name: ARIEL BEAN Rep #: [id number] : 1975 50 From: Jaspal Mandujano DPT Referring Dr.: Dr. Fahad Leiva MD Status: RE G RCR Insurance: [employer] SELF PAY INSURANCE Patient's Visit Information Visit [...] placed next week. Pt. works at local [employer] with some lifting, but not much over [...] to be FAXED BACK to us at [phone] for Medicare purposes. For Medicare only, by signing this I certify the plan of care. Please let me know if there are questions or concerns regarding this plan of care. Physician Signature: Date: 08/16/25 1500 CC: Dr. 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 Hx Hospitalization No 08/13/25 10:40 Any Problems [...] take am of surgery PONV PONV - deputy 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: PONV - deputy 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 Female No 08/13/25 10:40 HX of Motion Sickness No 08/13/25 10:40 HX of N/V After Surgery No 08/13/25 10:40 Non-Smoker No 08/13/25 10:40 Duration of Surgery greater Yes 08/13/25 10:40 than 60 minutes Number of Risk Factors 1 08/13/25 10:40 PONV Score Low Risk 08/13/25 10:40 Height Weight Height Weight: Anesthesia: Height Weight Height 6 ft 08/11/25 11:36 Respiratory Assessment Respiratory Assessment - deputy 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: Respiratory Tract Infection Hx - deputy 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 Hx Respiratory Tract Infection No 08/13/25 10:40 STOP Sleep Apnea STOP Sleep Apnea - deputy 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: STOP Sleep Apnea - deputy 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 Hx Hypertension Yes 08/13/25 10:40 Hx Sleep [...] Tobacco Use History Tobacco Use History - deputy 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: Tobacco Use History - deputy 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 Tobacco Use Smoking Status Light Smoker (<10/day) 08/13/25 10:40 Hx Tobacco Use Yes 08/13/25 10:40 Years Smoking Packs Smoked per Day Smoking Cessation Date was within the last 15 years Hx Smoking Cessation Date Hx Smoking Cessation Counseling Hematologic Medial History Hematologic Hx - deputy 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: 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 Normal [facility] Discharge Instructionon Discharge Instruction [facility] Medical Records Department [address] [place] [address] Instructions for Home/Discharge Instructions 08/12/25 1452 MR#: [id number] Acct: [id number] Name: ARIEL BEAN Rep #: [id number] : 1975 50 From: Fahad Leiva MD [...] Primary [Primary Care Provider, Medical] Rebecca Harper, BPM ARCHITECT-C [[facility]] - 08/17/25 1:30 pm Referral Note: Please [...] Care Physician; Mariajose Knutson MD Signed Normal [facility] Calculated very low density lipoprotein (VLDL) cholesterol measurementOrdered By: Roger Costa on 08-11-2025 Calculated very low density lipoprotein (VLDL) cholesterol measurement 18 mg/dL 5-40 [facility] Consultation - Surgicalon Consultation - Surgical [facility] Medical Records Department [address] [place] [address] Consultation - Surgical 08/11/25 0758 MR#: [id number] Acct: [id number] Name: ARIEL BEAN Rep #: [id number] : 1975 50 From: Lana FRAIRE PCP: Care Physician,No Primary Status:DIS IN Location: [place] [id number] Assessment Plan Assessment/Plan (1) Left carotid stenosis: [...] for stroke workup after presenting to the [facility] ER 08/10/25 with 2-3 weeks of confusion, [...] but otherwise does not notice any weakness. [facility] Medical History (Updated 08/11/25 @ 14:10 [...] 46.0 L, Lymph % (Auto) 41.8 H, Stanley % (Auto) 11.1 H, Eos % (Auto) [...] Screen NEGATIVE (more content not included)... Normal [facility] Echocardiogram study reportO rdered By: Usama Perez on 08-11-2025 Study report [facility] Cardiovascular Services [address] [place] [address] Echo Complete W/ Contrast 08/11/25 0931 MR#: [id number] Acct: [id number] Name: ARIEL BEAN Rep #:[id number] : [...] _ Usama Perez MD CC: Dr. Roger Costa DO; Dr. Fahad Leiva MD; No Primary Care Physician ~ Date Dictated: 08/11/25930 Date Transcribed: 08/11/251923 Compressor Station Operator: Signed [facility] Other Electrocardiogram reportOrde red By: Usama Perez on 08-11-2025 EKG study [facility] Cardiovascular Services [address] [place] [address] 12 Lead EKG 08/10/25 1412 MR#: [id number] Acct: [id number] Name: ARIEL BEAN Rep #:[id number] : 1975 50 From: Usama Perez MD Attending Dr: Dr. Fahad Leiva MD Status: ADM IN Ordering Dr: Ever Barth ate: 08/10/25 Location: [facility] Sex: M AA Admitted: 08/10/25 Test Reason [...] ECG Confirmed by CHRIS WOLF, USAMA ([id number]), fashion editor ABBY DHALIWAL ([id number]) on 08/11/2025 9:10:38 AM Referred By: Confirmed By: USAMA PEREZ MD 08/11/25909 Date _ Usama Perez MD CC: Dr. Ever Barth DO; Dr. Fahad Leiva MD; No Primary Care Physician ~ Signed [facility] Other LDL calc ser/plasOrdered By: Roger Costa on 08-11-2025 Cholesterol in LDL [Mass/Vol] 143 mg/dL [facility] Comment on above: Lkpkpsxnrd=172-497 m g/dL & Higher Lqdb=211 mg/dL or greaterFriedwald Equation for LDL-C Lipid Profileon 08-11-2025 CHOL:HDL 5.12 Normal [facility] Comment on above: Order Comment: Comme nts: NPO at [place] prior to lipid panel Performed By: #### L 500.8060 #### [facility] Laboratory [address] [place], [place], [address] Cholesterol [Mass/Vol] 200 mg/dL Normal <=200 [facility] Comment on above: Order Comment: Comme nts: NPO at [place] prior to lipid panel Result Comment: Chol esterol level, Desirable <200 mg/dL Borderline high cholesterol 200-239 mg/dL High cholesterol >=240 mg/dL Recommendations of the NCEP Adult Treatment Panel for the following risk-cutoff thresholds for the [place] population. Performed By: #### L 500.4100 #### [facility] Laboratory [address] [place], [address] Cholesterol in HDL [Mass/Vol] 39 mg/dL Low [facility] Comment on above: Order Comment: Comme [...] age. Performed By: #### L 500.4100 #### [facility] Laboratory [address] [place], [address] Cholesterol in LDL [Mass/Vol] 143 mg/dL Normal [facility] Comment on above: Order Comment: Comme nts: NPO at [place] prior to lipid panel Result Comment: Bord iqqibe=154-076 mg/dL Higher Qbym=064 mg/dL or greater Friedwald Equation for LDL-C Performed By: #### L 500.4100 #### [facility] Laboratory [address] [place], [address] Cholesterol in VLDL [Mass/Vol] 18 mg/dL Normal 5-40 [facility] Comment on above: Order Comment: Comme nts: NPO at [place] prior to lipid panel Performed By: #### L 500.4100 #### [facility] Laboratory [address] [place], [address] Triglyceride [Mass/Vol] 89 mg/dL Normal [facility] Comment on above: Order Comment: Comme nts: NPO at [place] prior to lipid panel Result Comment: The drugs N-Acetylcysteine and Metamizole may falsely depress this assay. Normal range: <150 mg/dL Borderline High: 150-199 mg/dL High: 200-499 mg/dL Very High: >500 mg/dL Performed By: #### L 500.4100 #### [facility] Laboratory [address] [place], [address] MR/CON.PCM.NEon 08-11-2025 MR/CON.PCM.NE [facility] Medical Records Department [address] [place] [address] Consultation - Neurology 08/11/25 1351 MR#: [id number] Acct: [id number] Name: ARIEL BEAN Rep #: [id number] : 1975 50 From: Narciso Garcia MD PCP: Care Physician,No Primary Status:ADM IN Location: [place] [address] Assessment and Plan: Neuro Assessment/Plan Telestroke (Audio/Video) [...] surgery for possible revascularization. Follow up TTE. 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 Control of vascular risk factors. Follow up [...] drift in RUE. Denies any new complaints. [facility] Medical History (Updated 08/11/25 @ 14:10 [...] 08/11/25 07:30 (more content not included)... Normal [facility] Screening total cholesterol/ high density lipoprotein (HDL) cholesterol ratioOrdered By: Roger Costa on 08-11-2025 Cholesterol.total/Monica sterol in HDL [Mass ratio] 5.12 {ratio} [facility] Serum or plasma cholesterol in HDL measurement (mass/volume)Ordered By: Roger Costa on 08-11-2025 Cholesterol in HDL [Mass/Vol] 39 mg/dL Low >40 [facility] Comment on above: National Cholesterol Education Program (NCEP) guidelines:<40 mg/dL: Low HDL-cholesterol (major risk factor for CHD)>= 60 mg/dL: High HDL-cholesterol (negative risk factor for CHD)HDL-cholesterol is affected by a number of factors, e.g. smoking, exercise, hormones, sex and age. Serum or plasma cholesterol measurement (mass/volume)Ordered By: Roger Costa on 08-11-2025 Cholesterol [Mass/Vol] 200 mg/dL <201 [facility] Comment on above: Cholesterol level, D esirable <200 mg/dLBorderline high cholesterol 200-239 mg/dLHigh cholesterol >=240 mg/dLRecommendations of the NCEP Adult Treatment Panel for the following risk-cutoff thresholds for the [place] population. Triglycerides measurementOrd ered By: Roger Costa on 08-11-2025 Triglyceride [Mass/Vol] 89 mg/dL <199 [facility] Comment on above: The drugs N-Acetylcy steine and Metamizole may falsely depress this assay. Normal range: <150 mg/dLBorderline High: 150-199 mg/dLHigh: 200-499 mg/dLVery High: >500 mg/dL 12 Lead EKGon 08-10-2025 12 Lead EKG [facility] Cardiovascular Services [address] [place] [address] 12 Lead EKG 08/10/25 1412 MR#: [id number] Acct: [id number] Name: ARIEL BEAN Rep #: [id number] : 1975 50 From: Usama Perez MD Attending Dr: Dr. Fahad Leiva MD Status: ADM IN Ordering Dr: Ever Barth DO Date: 5 Location: [facility] Sex: M AA Admitted: 08/10/25 Test Reason [...] ECG Confirmed by CHRIS WOLF, USAMA ([id number]), fashion editor ABBY DHALIWAL ([id number]) on 08/11/2025 9:10:38 AM Referred By: Confirmed By: USAMA PEREZ MD 08/11/25 0910 Date Usama Perez MD CC: Dr. Ever Barth DO; Dr. Fahad Leiva MD; No Primary Care Physician Signed Normal [facility] Absolute lymphocyte countOrd ered By: Ever Barth on 08-10-2025 Lymphocytes Auto (Unsp spec) [#/Vol] 2.76 10*3/uL 0.83-4.51 [facility] Absolute neutrophil countOrd ered By: Ever Barth on 08-10-2025 Neutrophils (Bld) [#/Vol] 3.0 10*3/uL 2.0-7.7 [facility] Activated partial thrombopla stin time (aPTT) in platelet poor plasma by coagulation aOrdered By: Ever Barth on 08-10-2025 aPTT Coag (PPP) [Time] 24.9 s 24.1-36.2 [facility] Alcohol, Blood (Medical)-Ser umon 08-10-2025 SERUM ETOH < 10.1 Normal <=10.0 [facility] Comment on above: Result Comment: This test is for medical purposes only. The legal definition of intoxication varies according to local law. Performed By: #### L 503.6005, L500.4050, L501.9100, L505.5000, L300.4310, L300.3900, L100.0100 ####[facility] [address] [place], [address] Amphetamine detection with 1 000 ng/mL as cutoffOrdered By: Ever Tab on 08-10-2025 Amphetamines Screen method >1000 ng/mL Ql (U) Negative < 200 ng/mL [facility] Anion gap in Serum or Plasma Ordered By: [facility] on 08-10-2025 Anion gap [Moles/Vol] 10 mmol/L 5-[address] [facility] Automated lymphocyte count a s percentage of total leukocytesOrdered By: [place] RajSuzanne on 08-10-2025 Lymphocytes/100 WBC Auto (Unsp spec) 41.8 % High 19-41 [facility] BUN/creatinine ratioOrdered By: [facility] CenterDougSuzanne on 08-10-2025 Urea nitrogen/Creatinine [Mass ratio] 23.5 mg/mg High 10-20 [facility] Basophil percentageOrdered B y: Ever AnthonySuzanne on 08-10-2025 Basophils/100 WBC (Bld) 0.3 % 0-1 [facility] Bilirubin Test strip Ql (U)O rdered By: [facility] HospitalJuan on 08-10-2025 Bilirubin Ql (U) Negative Negative [facility] Bilirubin, totalOrdered By: [facility] CenterDougSuzanne on 08-10-2025 Bilirubin [Mass/Vol] 0.23 mg/dL 0.00-1.30 [facility] Brain without Contraston Brain without Contrast [facility] Imaging Services [address] [place], [place] [address] Brain without Contrast MR#: [id number] Acct: [id number] Name: ARIEL BEAN Rep #: [id number] : 1975 M 50 From: Bill Lopez MD PCP: Care Physician,No Primary Status: ADM IN Study: Brain without Contrast Date of Exam: 08/10/25 Exam# [id number] Ordering Dr: Roger Costa DO PROCEDURE: BRAIN [...] No evidence of hemorrhagic transformation. Reading Location: [facility] CC: Dr. Roger Costa DO; No Primary Care Physician Compressor Station Operator: Signed Normal [facility] Brain/Head without Contrasto n 08-10-2025 Brain/Head without Contrast [facility] Imaging Services [address] [place], [place] [address] Brain/Head without Contrast MR#: [id number] Acct: [id number] Name: ARIEL BEAN Rep #: [id number] : 1975 M 50 From: Ivan Garay MD PCP: Care Physician,No Primary Status: REG ER Study: Brain/Head without Contrast Date of Exam: 07/14 Exam# [id number] Ordering Dr: Ever Barth DO PROCEDURE: BRAIN/HEAD [...] 3:05 pm with readback verification. Reading Location: [id number] CC: Dr. Ever Barth, ; No Primary Care Physician Compressor Station Operator: Signed Normal [facility] CBC W/Diff, Automatedon 07-14 Absolute Lymph 2.76 X10 3/uL Normal 0.83-4.51 [facility] Comment on above: Performed By: #### L 503.6005, L500.4050, L501.9100, L505.5000, L300.4310, L300.3900, L100.0100 ####[facility] [address] [place], [place], [address] Absolute Neut 3.0 X10 3/uL Normal 2.0-7.7 [facility] Comment on above: Performed By: #### L 503.6005, L500.4050, L501.9100, L505.5000, L300.4310, L300.3900, L100.0100 ####[facility] [address] [place], [address] Basophils/100 WBC (Bld) 0.3 % Normal 0-1 [facility] Comment on above: Performed By: #### L 503.6005, L500.4050, L501.9100, L505.5000, L300.4310, L300.3900, L100.0100 ####[facility] [address] [place], [address] Eosinophils/100 WBC (Bld) 0.6 % Normal 0-5 [facility] Comment on above: Performed By: #### L 503.6005, L500.4050, L501.9100, L505.5000, L300.4310, L300.3900, L100.0100 ####[facility] [address] [place], [address] Erythrocyte distribution width (RBC) [Ratio] 12.3 % Normal 11.6-14.6 [facility] Comment on above: Performed By: #### L 503.6005, L500.4050, L501.9100, L505.5000, L300.4310, L300.3900, L100.0100 ####[facility] [address] [place], [address] Hematocrit (Bld) [Volume fraction] 39.6 % Low 40-54 [facility] Comment on above: Performed By: #### L 503.6005, L500.4050, L501.9100, L505.5000, L300.4310, L300.3900, L100.0100 ####[facility] [address] [place], [address] Hemoglobin (Bld) [Mass/Vol] 13.6 g/dL Normal 13.0-16.5 [facility] Comment on above: Performed By: #### L 503.6005, L500.4050, L501.9100, L505.5000, L300.4310, L300.3900, L100.0100 ####[facility] [address] [place], [address] IG% 0.200 Normal 0.0-0.9 [facility] Comment on above: Result Comment: IG% - Immature Granulocytes (promyelocytes, myelocytes and metamyelocytes) > 1% indicates that a LEFT SHIFT is Present. Performed By: #### L 503.6005, L500.4050, L501.9100, L505.5000, L300.4310, L300.3900, L100.0100 ####[facility] [address] [place], [address] Lymphocytes/100 WBC (Bld) 41.8 % High 19-41 [facility] Comment on above: Performed By: #### L 503.6005, L500.4050, L501.9100, L505.5000, L300.4310, L300.3900, L100.0100 ####[facility] [address] [place], [address] MCH (RBC) [Entitic mass] 29.1 pg Normal 27.0-32.0 [facility] Comment on above: Performed By: #### L 503.6005, L500.4050, L501.9100, L505.5000, L300.4310, L300.3900, L100.0100 ####[facility] [address] [place], [address] MCHC (RBC) [Mass/Vol] 34.3 g/dL Normal 32-[address] [facility] Comment on above: Performed By: #### L 503.6005, L500.4050, L501.9100, L505.5000, L300.4310, L300.3900, L100.0100 ####[facility] [address] [place], [address] MCV (RBC) [Entitic vol] 84.6 fL Normal 80-94 [facility] Comment on above: Performed By: #### L 503.6005, L500.4050, L501.9100, L505.5000, L300.4310, L300.3900, L100.0100 ####[facility] [address] [place], [address] Monocytes/100 WBC (Bld) 11.1 % High 0-10 [facility] Comment on above: Performed By: #### L 503.6005, L500.4050, L501.9100, L505.5000, L300.4310, L300.3900, L100.0100 ####[facility] [address] [place], [address] Neutrophils/100 WBC (Bld) 46.0 % Low 47-70 [facility] Comment on above: Performed By: #### L 503.6005, L500.4050, L501.9100, L505.5000, L300.4310, L300.3900, L100.0100 ####[facility] [address] [place], [address] Nucleated RBC (Bld) [#/Vol] 0 10*3/uL Normal 0-5 [facility] Comment on above: Performed By: #### L 503.6005, L500.4050, L501.9100, L505.5000, L300.4310, L300.3900, L100.0100 ####[facility] [address] [place], [address] Platelet mean volume (Bld) [Entitic vol] 9.7 fL Normal 6.2-12.0 [facility] Comment on above: Performed By: #### L 503.6005, L500.4050, L501.9100, L505.5000, L300.4310, L300.3900, L100.0100 ####[facility] [address] [place], [address] Platelets (Bld) [#/Vol] 380 10*3/uL Normal 150-450 [facility] Comment on above: Performed By: #### L 503.6005, L500.4050, L501.9100, L505.5000, L300.4310, L300.3900, L100.0100 ####[facility] [address] [place], [address] RBC (Bld) [#/Vol] 4.68 10*6/uL Normal 4.6-6.2 [facility] Comment on above: Performed By: #### L 503.6005, L500.4050, L501.9100, L505.5000, L300.4310, L300.3900, L100.0100 ####[facility] [address] [place], [address] RDW SD 36.7 fl Normal 35.1-43.9 [facility] Comment on above: Performed By: #### L 503.6005, L500.4050, L501.9100, L505.5000, L300.4310, L300.3900, L100.0100 ####[facility] [address] [place], [address] WBC (Bld) [#/Vol] 6.6 10*3/uL Normal 4.4-11.0 [facility] Comment on above: Performed By: #### L 503.6005, L500.4050, L501.9100, L505.5000, L300.4310, L300.3900, L100.0100 ####[facility] [address] [place], [address] CTA Head AND Neck W/ Contras ton 08-10-2025 CTA Head AND Neck W/ Contrast [facility] Imaging Services [address] [place] [address] CTA Head AND Neck W/ Contrast MR#: [id number] Acct: [id number] Name: ARIEL BEAN Rep #: [id number] : 1975 M 50 From: Ivan Garay MD PCP: Care Physician,No Primary Status: REG ER Study: CTA Head AND Neck W/ Contrast Date of Exam: Exam# [id number] Ordering Dr: Ever Barth DO PROCEDURE: CTA [...] RIGHT Vertebral: Unremarkable. LEFT Vertebral: Unremarkable. Anatomy: [place] anatomy is normal. Aneurysm or [...] 3:05 pm with readback verification. Reading Location: [id number] CC: Dr. Ever Barth, DO; No Primary Care Physician Compressor Station Operator: Signed Normal [facility] Carbon dioxide, total [Moles /volume] in Central venous bloodOrdered By: Ever Barth on 08-10-2025 CO2 [Moles/Vol] 23.2 mmol/L 21.0-32.0 [facility] Chest PA and Lateralon 08-10 Chest PA and Lateral [facility] Imaging Services [address] [place] [address] Chest PA and Lateral MR#: [id number] Acct: [id number] Name: ARIEL BEAN Rep #: [id number] : 1975 M 50 From: Ivan Garay MD PCP: Care Physician,No Primary Status: REG ER Study: Chest PA and Lateral Date of Exam: 08/10/25 Exam# [id number] Ordering Dr: Ever Barth DO PROCEDURE: CHEST [...] Lateral IMPRESSION: No acute abnormality Reading Location: [id number] CC: Dr. Ever Barth DO; No Primary Care Physician Compressor Station Operator: Signed Normal [facility] Chloride assayOrdered By: Billy Barth on 08-10-2025 Chloride [Moles/Vol] 106 mmol/L 98-108 [facility] Comprehensive Metabolic Prof ilon 08-10-2025 Albumin [Mass/Vol] 3.9 g/dL Normal 3.5-5.0 [facility] Comment on above: Performed By: #### L 503.6005, L500.4050, L501.9100, L505.5000, L300.4310, L300.3900, L100.0100 ####[facility] [address] [place], [address] Albumin/Globulin [Mass ratio] 1.2 {ratio} Normal 0.9-2.4 [facility] Comment on above: Performed By: #### L 503.6005, L500.4050, L501.9100, L505.5000, L300.4310, L300.3900, L100.0100 ####[facility] [address] [place], [address] ALK PHOS 99 U/L Normal 40-129 [facility] Comment on above: Performed By: #### L 503.6005, L500.4050, L501.9100, L505.5000, L300.4310, L300.3900, L100.0100 ####[facility] [address] [place], [address] ALT [Catalytic activity/Vol] 26 U/L Normal <=46 [facility] Comment on above: Performed By: #### L 503.6005, L500.4050, L501.9100, L505.5000, L300.4310, L300.3900, L100.0100 ####[facility] [address] [place], [address] AST [Catalytic activity/Vol] 19 U/L Normal <=37 [facility] Comment on above: Performed By: #### L 503.6005, L500.4050, L501.9100, L505.5000, L300.4310, L300.3900, L100.0100 ####[facility] [address] [place] [place], [address] Bilirubin [Mass/Vol] 0.23 mg/dL Normal 0.00-1.30 [facility] Comment on above: Performed By: #### L 503.6005, L500.4050, L501.9100, L505.5000, L300.4310, L300.3900, L100.0100 ####[facility] [address] [place], [address] BUN/CRE 23.5 RATIO High 10-20 [facility] Comment on above: Performed By: #### L 503.6005, L500.4050, L501.9100, L505.5000, L300.4310, L300.3900, L100.0100 ####[facility] [address] [place] [place], [address] Calcium [Mass/Vol] 9.1 mg/dL Normal 7.6-11.0 [facility] Comment on above: Performed By: #### L 503.6005, L500.4050, L501.9100, L505.5000, L300.4310, L300.3900, L100.0100 ####[facility] [address] [place], [address] Chloride [Moles/Vol] 106 mmol/L Normal 98-108 [facility] Comment on above: Performed By: #### L 503.6005, L500.4050, L501.9100, L505.5000, L300.4310, L300.3900, L100.0100 ####[facility] [address] [place], [address] CO2 [Moles/Vol] 23.2 mmol/L Normal 21.0-32.0 [facility] Comment on above: Performed By: #### L 503.6005, L500.4050, L501.9100, L505.5000, L300.4310, L300.3900, L100.0100 ####[facility] [address] [place], [address] Creatinine [Mass/Vol] 0.72 mg/dL Normal 0.70-1.[address] [facility] Comment on above: Performed By: #### L 503.6005, L500.4050, L501.9100, L505.5000, L300.4310, L300.3900, L100.0100 ####[facility] [address] [place], [address] ECRCL 166.57 ml/min Normal 50-250 [facility] Comment on above: Performed By: #### L 503.6005, L500.4050, L501.9100, L505.5000, L300.4310, L300.3900, L100.0100 ####[facility] [address] [place], [address] GAP 10 Normal 5-15 [facility] Comment on above: Performed By: #### L 503.6005, L500.4050, L501.9100, L505.5000, L300.4310, L300.3900, L100.0100 ####[facility] [address] [place], [address] GFR/1.73 sq M.predicted among non-blacks MDRD (S/P/Bld) [Vol rate/Area] 110 mL/min/{1.73_m2} Normal >60 [facility] Comment on above: Result Comment: mL/m in/1.73m2 CKD-EPI Creatinine Equation (2020) Performed By: #### L 503.6005, L500.4050, L501.9100, L505.5000, L300.4310, L300.3900, L100.0100 ####[facility] [address] [place], [address] Globulin (S) [Mass/Vol] 3.3 g/dL Normal 2.2-4.2 [facility] Comment on above: Performed By: #### L 503.6005, L500.4050, L501.9100, L505.5000, L300.4310, L300.3900, L100.0100 ####[facility] [address] [place], [address] Glucose [Mass/Vol] 117 mg/dL High 70-99 [facility] Comment on above: Performed By: #### L 503.6005, L500.4050, L501.9100, L505.5000, L300.4310, L300.3900, L100.0100 ####[facility] [address] [place], [address] Potassium [Moles/Vol] 3.5 mmol/L Normal 3.3-5.[address] [facility] Comment on above: Performed By: #### L 503.6005, L500.4050, L501.9100, L505.5000, L300.4310, L300.3900, L100.0100 ####[facility] [address] [place], [address] Sodium [Moles/Vol] 139 mmol/L Normal 133-145 [facility] Comment on above: Performed By: #### L 503.6005, L500.4050, L501.9100, L505.5000, L300.4310, L300.3900, L100.0100 ####[facility] [address] [place], [address] T PROT 7.2 g/dL Normal 5.9-8.4 [facility] Comment on above: Performed By: #### L 503.6005, L500.4050, L501.9100, L505.5000, L300.4310, L300.3900, L100.0100 ####[facility] [address] [place], [address] Urea nitrogen [Mass/Vol] 17 mg/dL Normal 4-19 [facility] Comment on above: Performed By: #### L 503.6005, L500.4050, L501.9100, L505.5000, L300.4310, L300.3900, L100.0100 ####[facility] [address] [place], [address] Echo Complete W/ Contraston 08-10-2025 Echo Complete W/ Contrast [facility] Cardiovascular Services [address] [place] [address] Echo Complete W/ Contrast 08/11/25 0931 MR#: [id number] Acct: [id number] Name: ARIEL BEAN Rep #: [id number] : 1975 50 From: Usama Perez MD [...] Physician Date Dictated: 08/11/25930 Date Transcribed: 08/11/251923 Compressor Station Operator: Signed Normal [facility] Emergency Department Summary on 08-10-2025 Emergency Department Summary [facility] Medical Records Department [address] [address] Emergency Department Summary 08/10/25 MR#: [id number] Acct: [id number] Name: ARIEL BEAN Rep #: [id number] : 1975 50 From: Ever Barth DO PCP: Care Physician,No Primary Status:ADM IN Location: [place] [address] HPI History of Present Illness Chief Complaint: [...] intact, occasionally slurring certain words Psych: Cooperative [facility] Medical History (Updated 08/10/25 @ 18:48 by [...] block. Hea (more content not included)... Normal [facility] Eosinophil percentageOrdered By: Ever Barth on 08-10-2025 Eosinophils/100 WBC (Bld) 0.6 % 0-5 [facility] Erythrocyte distribution wid th ratioOrdered By: Ever Barth on 08-10-2025 Erythrocyte distribution width (RBC) [Ratio] 12.3 % 11.6-14.6 [facility] Erythrocyte distribution wid th standard deviationOrdered By: [facility] Pal[facility]ios on 08-10-2025 Erythrocyte distribution width (RBC) [Ratio] 36.7 fl 35.1-43.9 [facility] Glomerular filtration rate ( GFR) estimation/1.73 sq m using serum, plasma, or whole bOrdered By: [facility] HospitalJean Carlos on 08-10-2025 GFR/1.73 sq M.predicted among non-blacks MDRD (S/P/Bld) [Vol rate/Area] 110 mL/min/{1.73_m2} >60 [facility] Comment on above: mL/min/1.73m2 CKD-EP I Creatinine Equation (2020) H AND P Exam - Hospitaliston 08-10-2025 H&P Exam - Hospitalist [facility] Medical Records Department [address] [place] [address] H P Exam - Hospitalist 08/10/25 1708 MR#: [id number] Acct: [id number] Name: ARIEL BEAN Rep #: [id number] : 1975 50 From: Roger Costa DO PCP: Care Physician,No Primary Status:ADM IN Location: [place] [address] HPI - General General Date of Admission: 08/10/25 Date of Service: 08/10/25 Chief Complaint: Confusion, slurred speech and worsening right upper extremity weakness and numbness/tingling HPI Narrative ARIEL BEAN, is a 50 M who presented to [facility] ED on 08/10/2025 with confusion, slurred [...] answers. 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 Will be admitted for further management[facility] Medical History (Updated 08/10/25 @ 18:48 [...] speech no (more content not included)... Normal [facility] Hematocrit Auto (Bld) [Volum e fraction]Ordered By: Ever Barth on 08-10-2025 Hematocrit (Bld) [Volume fraction] 39.6 % Low 40-54 [facility] Hemoglobin A1con 08-10-2025 HbA1c (Bld) [Mass fraction] 6.7 % High <=5.6 [facility] Comment on above: Result Comment: Norm al < 5.7 % Prediabetic 5.7 - 6.4 % Diabetic >or= 6.5 % Please note range changes. Performed By: #### L 501.0529, L501.9929 ####[facility] [address] [place], [address] Hemoglobin A1c percentageOrd ered By: Roger Costa on 08-10-2025 HbA1c (Bld) [Mass fraction] 6.7 % High <5.7 [facility] Comment on above: Normal < 5.7 % Predi abetic 5.7 - 6.4 % Diabetic >or= 6.5 % Please note range changes. Hemoglobin measurementOrdere d By: Ever Barth on 08-10-2025 Hemoglobin (Bld) [Mass/Vol] 13.6 g/dL 13.0-16.5 [facility] Immature granulocytes/100 WB C Auto (Bld)Ordered By: Ever Barth on 08-10-2025 Immature granulocytes/100 WBC (Bld) 0.200 % 0.0-0.9 [facility] Comment on above: IG% - Immature Granu locytes (promyelocytes, myelocytes and metamyelocytes) > 1% indicates that a LEFT SHIFT is Present. International normalized rat io (INR) calculationOrdered By: Ever Barth on 08-10-2025 INR Coag (Bld) [Relative time] 1.1 {INR} [facility] Ketones Test strip Ql (U)Ord ered By: Ever Barth on 08-10-2025 Ketones Ql (U) Negative Negative [facility] L501.4021on 08-10-2025 Trop T High Sen 8 ng/L Normal <=22 [facility] Comment on above: Performed By: #### L 501.4021 ####[facility] [address] [place], [place], [id number] Laboratory - Chemistry and C hemistry - challengeOrdered By: Ever Barth on 08-10-2025 AST [Catalytic activity/Vol] 19 U/L <38 [facility] Lactic Acidon 08-10-2025 Lactate [Moles/Vol] mmol/L Normal 0.0-2.0 [facility] Comment on above: Order Comment: Y Performed By: #### L 503.6005, L500.4050, L501.9100, L505.5000, L300.4310, L300.3900, L100.0100 ####[facility] [address] [place], [place], [address] Lactic acid measurementOrder ed By: Ever Barth on 08-10-2025 Lactate [Moles/Vol] mmol/L 0.0-2.0 [facility] MCV (mean corpuscular volume ) determinationOrdered By: Ever Barth on 08-10-2025 MCV (RBC) [Entitic vol] 84.6 fL 80-94 [facility] Magnetic resonance imaging r eportOrdered By: Bill Lopez on 08-10-2025 Study report [facility] Imaging Services [address] [place] [address] Brain without Contrast MR#: [id number] Acct: [id number] Name: ARIEL BEAN Rep #: [id number] : 1975 M 50 From: Kirt Lopez MD PCP: Care Physician,No Primary Status: ADM IN Study:Brain without Contrast Date of Exam: 08/10/25 Exam# [id number] Ordering Dr: Roger Broussard DO PROCEDURE: BRAIN [...] No evidence of hemorrhagic transformation. Reading Location: [id number] CC: Dr. Roger Costa DO; No Primary Care Physician ~ Compressor Station Operator: Signed [facility] Mean corpuscular hemoglobin (MCH) determinationOrdered By: Ever Barth on 08-10-2025 MCH (RBC) [Entitic mass] 29.1 pg 27.0-32.0 [facility] Mean corpuscular hemoglobin concentration (MCHC) determinationOrdered By: Ever Barth on 08-10-2025 MCHC (RBC) [Mass/Vol] 34.3 g/dL 32-[address] [facility] Mean platelet volume determi nationOrdered By: Ever Barth on 08-10-2025 Platelet mean volume (Bld) [Entitic vol] 9.7 fL 6.2-12.0 [facility] Microscopic analysis of urin e for red blood cells (RBC)Ordered By: Ever Barth on 08-10-2025 Microscopic analysis of urine for red blood cells (RBC) 0-5 SEEN /hpf 0-5 [facility] Monocyte percentageOrdered B y: Ever Barth on 08-10-2025 Monocytes/100 WBC (Bld) 11.1 % High 0-10 [facility] Mucus LM Ql (Urine sed)Order ed By: Ever Barth on 08-10-2025 Mucus Ql (Urine sed) 0 SEEN /hpf [facility] Neutrophil percentageOrdered By: Ever Barth on 08-10-2025 Neutrophils/100 WBC (Bld) 46.0 % Low 47-70 [facility] Nitrite Test strip Ql (U)Ord ered By: Ever Barth on 08-10-2025 Nitrite Ql (U) Negative Negative [facility] No Panel InformationOrdered By: Ever Barth on 08-10-2025 Urine Buprenorphine Qualitative Negative < 200 ng/mL [facility] Urine Oxycodone Screen Negative < 100 ng/mL [facility] Nucleated red blood cell per centageOrdered By: Ever Barth on 08-10-2025 Nucleated RBC/100 WBC (Bld) [Ratio] 0 % 0-5 [facility] Partial Thromboplast Timeon 08-10-2025 aPTT Coag (Bld) [Time] 24.9 s Normal 24.1-36.2 [facility] Comment on above: Performed By: #### L 503.6005, L500.4050, L501.9100, L505.5000, L300.4310, L300.3900, L100.0100 ####[facility] [address] [place], [address] Platelet countOrdered By: Billy Barth on 08-10-2025 Platelets (Bld) [#/Vol] 380 10*3/uL 150-450 [facility] Potassium measurement (mass/ volume)Ordered By: Ever Juan on 08-10-2025 Potassium (Unsp spec) [Mass/Vol] 3.5 mmol/L 3.3-5.1 [facility] Protein Test strip Ql (U)Ord ered By: Ever Barth on 08-10-2025 Protein Ql (U) 15 mg/dl High Negative [facility] Prothrombin Time w/INRon INR Coag (PPP) [Relative time] 1.1 {INR} Normal [facility] Comment on above: Performed By: #### L 503.6005, L500.4050, L501.9100, L505.5000, L300.4310, L300.3900, L100.0100 ####[facility] [address] [place], [address] PT Coag (PPP) [Time] 13.9 s Normal 11.7-14.9 [facility] Comment on above: Performed By: #### L 503.6005, L500.4050, L501.9100, L505.5000, L300.4310, L300.3900, L100.0100 ####[facility] [address] [place], [address] Prothrombin timeOrdered By: Ever Barth on 08-10-2025 PT Coag (PPP) [Time] 13.9 s 11.7-14.9 [facility] Quantitative urine opiates m easurementOrdered By: Ever Barth on 08-10-2025 Opiates Ql (U) Negative < 300 ng/mL [facility] RBC Auto (Bld) [#/Vol]Ordere d By: Ever Barth on 08-10-2025 RBC (Bld) [#/Vol] 4.68 10*6/uL 4.6-6.2 [facility] Screening urine fentanyl javier surementOrdered By: Ever Barth on 08-10-2025 fentaNYL Screen Ql (U) Negative <5 ng/mL [facility] Comment on above: CONFIRMATORY TESTING FOR [...] on 08-10-2025 Creatinine [Mass/Vol] 0.72 mg/dL 0.70-1.[address] [facility] Serum globulin measurementOr dered By: Ever Barth on 08-10-2025 Globulin (S) [Mass/Vol] 3.3 g/dL 2.2-4.2 [facility] Serum glucose measurement (m ass/volume)Ordered By: Ever Barth on 08-10-2025 Glucose [Mass/Vol] 117 mg/dL High 70-99 [facility] Serum or plasma alanine starks otransferase (ALT) measurementOrdered By: Ever Barth on 08-10-2025 ALT [Catalytic activity/Vol] 26 U/L <47 [facility] Serum or plasma albumin alvino urement (mass/volume)Ordered By: Ever Palacios on 08-10-2025 Albumin [Mass/Vol] 3.9 g/dL 3.5-5.0 [facility] Serum or plasma albumin/glob ulin mass ratioOrdered By: [facility] HospitalowenYemi on 08-10-2025 Albumin/Globulin [Mass ratio] 1.2 {ratio} 0.9-2.4 [facility] Serum or plasma alkaline avel sphatase measurementOrdered By: [facility] CenterDougSuzanne on 08-10-2025 ALP [Catalytic activity/Vol] 99 U/L 40-129 [facility] Serum or plasma calcium alvino urement (mass/volume)Ordered By: Ever Palacios on 08-10-2025 Calcium [Mass/Vol] 9.1 mg/dL 7.6-11.0 [facility] Serum or plasma ethanol alvino urement (mass/volume)Ordered By: [facility] Hospitaljessica Palacios on 08-10-2025 Ethanol [Mass/Vol] mg/dL <10.1 [facility] Comment on above: This test is for med ical purposes only. The legal definition of intoxication varies according to local law. Serum or plasma urea nitroge n measurement (mass/volume)Ordered By: Everjanina GironYemi on 08-10-2025 Urea nitrogen [Mass/Vol] 17 mg/dL 4-19 [facility] Sodium levelOrdered By: Laci Barth on 08-10-2025 Sodium [Moles/Vol] 139 mmol/L 133-145 [facility] Squamous epithelial cells de tection in urine sediment by light microscopyOrdered By: Ever Barth on 08-10-2025 Epithelial cells.squamous LM Ql (Urine sed) 0 SEEN /hpf 0-5 [facility] TSH DL <= 0.005 mIU/L QnOrde red By: Roger Costa on 08-10-2025 TSH Qn 1.020 uIU/mL 0.300-4.200 [facility] Thyroid Stim Hormone (TSH)on 08-10-2025 TSH 1.020 uIU/mL Normal 0.300-4.200 [facility] Comment on above: Performed By: #### L 501.9520, L501.9985 #### [facility] Laboratory [address] [place], [place], [id number] Total proteinOrdered By: Tone Barth on 08-10-2025 Protein [Mass/Vol] 7.2 g/dL 5.9-8.4 [facility] Troponin T HS 2 HRon 025 Trop T High Sen 8 ng/L Normal <=22 [facility] Comment on above: Performed By: #### L 499.0042 ####[facility] [address] [place], [place], [phone]) Troponin T.cardiac [Mass/vol ume] in Serum or Plasma by High sensitivity methodOrdered By: Ever Barth on 08-10-2025 Troponin T.cardiac High sensitivity method [Mass/Vol] 8 ng/L <22 [facility] Troponin T.cardiac High sensitivity method [Mass/Vol] 8 ng/L <22 [facility] Urinalysis, Completeon 08-10 RBC 0-5 SEEN Normal 0-5 [facility] Comment on above: Order Comment: CLEAN CATCH Performed By: #### L 400.0001 ####[facility] [address] [place], [address] WBC 0-5 SEEN Normal 0-5 [facility] Comment on above: Order Comment: CLEAN CATCH Performed By: #### L 400.0001 ####[facility] [address] [place], [address] BACTERIA 0 SEEN Normal None Seen [facility] Comment on above: Order Comment: CLEAN CATCH Performed By: #### L 400.0001 ####[facility] [address] [place], [address] EPI,SQUAMOUS 0 SEEN Normal 0-5 [facility] Comment on above: Order Comment: CLEAN CATCH Performed By: #### L 400.0001 ####[facility] [address] [place], [address] Mucus Ql (Urine sed) 0 SEEN Normal [facility] Comment on above: Order Comment: CLEAN CATCH Performed By: #### L 400.0001 ####[facility] [address] [place], [phone] Urine Drug Screen (VISTA)on 08-10-2025 AMPHETAMINES Negative Normal <1000 ng/mL [facility] Comment on above: Performed By: #### L 503.6005, L500.4050, L501.9100, L505.5000, L300.4310, L300.3900, L100.0100 ####[facility] [address] [place], [address] [employer]BITIURATES Negative Normal < 200 ng/mL [facility] Comment on above: Performed By: #### L 503.6005, L500.4050, L501.9100, L505.5000, L300.4310, L300.3900, L100.0100 ####[facility] [address] [place], [place], [phone] BENZODIAZIPINE Negative Normal < 200 ng/mL [facility] Comment on above: Performed By: #### L 503.6005, L500.4050, L501.9100, L505.5000, L300.4310, L300.3900, L100.0100 ####[facility] [address] [place], [place], [phone] [facility] Scr Negative Normal < 200 ng/mL [facility] Comment on above: Performed By: #### L 503.6005, L500.4050, L501.9100, L505.5000, L300.4310, L300.3900, L100.0100 ####[facility] [address] [place], [address] COCAINE Negative Normal < 300 ng/mL [facility] Comment on above: Performed By: #### L 503.6005, L500.4050, L501.9100, L505.5000, L300.4310, L300.3900, L100.0100 ####[facility] [address] [place], [address] Fentanyl Negative Normal <5 ng/mL [facility] Comment on above: Result Comment: CONF [...] 503.6005, L500.4050, L501.9100, L505.5000, L300.4310, L300.3900, L100.0100 ####[facility] [address] [place], [address] METHADONE Negative Normal < 300 ng/mL [facility] Comment on above: Performed By: #### L 503.6005, L500.4050, L501.9100, L505.5000, L300.4310, L300.3900, L100.0100 ####[facility] [address] [place], [address] OPIATES Negative Normal < 300 ng/mL [facility] Comment on above: Performed By: #### L 503.6005, L500.4050, L501.9100, L505.5000, L300.4310, L300.3900, L100.0100 ####[facility] [address] [place], [address] OXYCODONE Negative Normal < 100 ng/mL [facility] Comment on above: Performed By: #### L 503.6005, L500.4050, L501.9100, L505.5000, L300.4310, L300.3900, L100.0100 ####[facility] [address] [place], [address] PCP Negative Normal < 25 ng/mL [facility] Comment on above: Performed By: #### L 503.6005, L500.4050, L501.9100, L505.5000, L300.4310, L300.3900, L100.0100 ####[facility] [address] [place], [address] THC Negative Normal < 50 ng/mL [facility] Comment on above: Performed By: #### L 503.6005, L500.4050, L501.9100, L505.5000, L300.4310, L300.3900, L100.0100 ####[facility] [address] [place], [place], [phone] Urine benzodiazepine levelOr dered By: Ever Barth on 08-10-2025 Benzodiazepines Ql (U) Negative < 200 ng/mL [facility] Urine clarityOrdered By: Tone Barth on 08-10-2025 Clarity (U) Clear Clear [facility] Urine cocaine levelOrdered B y: Ever Barth on 08-10-2025 Cocaine Ql (U) Negative < 300 ng/mL [facility] Urine color determinationOrd ered By: Ever Barth on 08-10-2025 Color (U) Yellow Yellow [facility] Urine gyyzu-9-cmuoaznmiboqjd abinol (THC) measurementOrdered By: Ever Palacios on 08-10-2025 Cannabinoids Screen Ql (U) Negative < 50 ng/mL [facility] Urine glucose detectionOrder ed By: Ever Barth on 08-10-2025 Glucose Ql (U) Normal mg/dl Normal [facility] Urine leukocyte esterase det ection by dipstickOrdered By: Ever Barth on 08-10-2025 Leukocyte esterase Test strip Ql (U) Negative Negative [facility] Urine pHOrdered By: Ever Martinez on 08-10-2025 pH (U) 6.0 [pH] 5.0 - 8.0 [facility] Urine phencyclidine (PCP) de tectionOrdered By: Ever Barth on 08-10-2025 Phencyclidine Ql (U) Negative < 25 ng/mL [facility] Urine sediment bacteria coun t by microscopy (number/high power field)Ordered By: Ever Barth on 08-10-2025 Bacteria LM.HPF (Urine sed) [#/Area] 0 /[HPF] None Seen [facility] Urine specific gravity measu rementOrdered By: Ever Barth on 08-10-2025 Specific gravity (U) [Rel density] 1.015 1.002-1.030 [facility] Urine urobilinogen measureme ntOrdered By: Ever Barth on 08-10-2025 Urobilinogen Ql (U) Normal mg/dl Normal [facility] White blood cell (WBC) count Ordered By: Ever Barth on 08-10-2025 WBC (Bld) [#/Vol] 6.6 10*3/uL 4.4-11.0 [facility] White blood cell countOrdere d By: Ever Barth on 08-10-2025 White blood cell count 0-5 SEEN /hpf 0-5 [facility] Progress Noteson 08-03-2025 Passenger Interline Clerk Authentication Interface Message Text Emergency Department Follow-Up Call [facility] Call attempt: 08/03/25, 2:37 PM, no answer, unable to leave a VM Sources of Information: Chart review Date of ED visit: 07/31/25 Reason for ED visit: HTN, right shoulder pain Medical coverage: Payor: [employer] MEDICAID / Plan: [place] MEDICA[place] / Product Type: Medicaid HMO Medication changes? Yes Amlodipine Ibuprofen Normal [facility] BASIC METABOLIC PANELon 07-13 Anion gap [Moles/Vol] 10 mmol/L Normal 10-20 [facility] Comment on above: Performed By: #### C H8 #### [facility] [address] [place], [place], Calcium [Mass/Vol] 9.8 mg/dL Normal 8.6-10.3 [facility] Comment on above: Performed By: #### C H8 #### [facility] [address] [place] [address], Chloride [Moles/Vol] 103 mmol/L Normal 98-107 [facility] Comment on above: Performed By: #### C H8 #### [facility] [address] [place], [place], CO2 [Moles/Vol] 28 mmol/L Normal 21-31 [facility] Comment on above: Performed By: #### C H8 #### [facility] [address] [place] [address], Creatinine [Mass/Vol] 0.73 mg/dL Normal 0.70-1.30 [facility] Comment on above: Performed By: #### C H8 #### [facility] [address] [place] [address], ESTIMATED GFR (CKD-EPI) 109 mL/min/1.73sqm Normal >=60 [facility] Comment on above: Result Comment: 2020 [...] Inclusion of Race in Diagnosing Kidney Disease. [place] Journal of Kidney Diseases 2021;79(2):268-88.e1. 2. N Engl J Med 1 Vol. 385 Issue 19 Pages [phone] Performed By: #### C H8 #### [facility] [address] [place], [place], Glucose [Mass/Vol] 134 mg/dL High 74-109 [facility] Comment on above: Performed By: #### C H8 #### [facility] [address] [place] [address], Potassium [Moles/Vol] 5.8 mmol/L High 3.5-5.0 [facility] Comment on above: Result Comment: Hemo lysis present Performed By: #### C H8 #### [facility] [address] [place], [place], Sodium [Moles/Vol] 135 mmol/L Low 136-145 [facility] Comment on above: Performed By: #### C H8 #### [facility] [address] [place], [place], Urea nitrogen [Mass/Vol] 16 mg/dL Normal 7-25 [facility] Comment on above: Performed By: #### C H8 #### [facility] [address] [place], [place], Basic metabolic 2000 panelon 07-31-2025 Anion [...] Inclusion of Race in Diagnosing Kidney Disease. [place] Journal of Kidney Diseases 202;79(2):268-88.e1. 2. N Engl J Med 2020 Vol. 385 Issue 19 Pages 8297-7849 Glucose [Mass/Vol] 134 mg/dL High 74 - 109 mg/dL [facility] Interpretation and review of laboratory results Abnormal [facility] Potassium [Moles/Vol] 5.8 mmol/L High 3.5 - 5.0 mmol/L [facility] Comment on above: Hemolysis present Sodium [Moles/Vol] 135 mmol/L Low 136 - 145 mmol/L [facility] Urea nitrogen [Mass/Vol] 16 mg/dL 7 - 25 mg/dL [facility] CBC panel Auto (Bld)on 07-31 Erythrocyte distribution width (RBC) [Ratio] 13.2 % 11.5 - 14.5 % [facility] Hematocrit (Bld) [Volume fraction] 42 % 41.0 - 53.0 % [facility] Hemoglobin (Bld) [Mass/Vol] 14.6 g/dL 13.9 - 16.3 g/dL [facility] Interpretation and review of laboratory results Normal [facility] MCH (RBC) [Entitic mass] 29.2 pg 26.0 - 34.0 pg [facility] MCHC (RBC) [Mass/Vol] 34.7 g/dL 32.0 - 35.9 g/dL [facility] MCV (RBC) [Entitic vol] 84 fL 80 - 100 fL [facility] Platelet mean volume (Bld) [Entitic vol] 8.5 fL 7.5 - 11.2 fL [facility] Platelets (Bld) [#/Vol] 386 10*3/uL 150 - 400 K/uL [facility] RBC (Bld) [#/Vol] 5 10*6/uL [facility] WBC (Bld) [#/Vol] 6.2 10*3/uL 4.5 - 11.5 K/uL [facility] COMPLETE BLOOD COUNTon 07-31 Erythrocyte distribution width (RBC) [Ratio] 13.2 % Normal 11.5-14.5 [facility] Comment on above: Performed By: #### C BC #### [facility] [address] [place] [address], Hematocrit (Bld) [Volume fraction] 42.0 % Normal 41.0-53.0 [facility] Comment on above: Performed By: #### C BC #### [facility] [address] [place] [address], Hemoglobin (Bld) [Mass/Vol] 14.6 g/dL Normal 13.9-16.3 [facility] Comment on above: Performed By: #### C BC #### [facility] [address] [place] [address], MCH (RBC) [Entitic mass] 29.2 pg Normal 26.0-34.0 [facility] Comment on above: Performed By: #### C BC #### [facility] [address] [place] [address], MCHC (RBC) [Mass/Vol] 34.7 g/dL Normal 32.0-35.9 [facility] Comment on above: Performed By: #### C BC #### [facility] [address] [place] [address], MCV (RBC) [Entitic vol] 84 fL Normal 80-100 [facility] Comment on above: Performed By: #### C BC #### [facility] [address] [place] [address], Platelet mean volume (Bld) [Entitic vol] 8.5 fL Normal 7.5-11.2 [facility] Comment on above: Performed By: #### C BC #### [facility] [address] [place] [address], Platelets (Bld) [#/Vol] 386 10*3/uL Normal 150-400 [facility] Comment on above: Performed By: #### C BC #### [facility] [address] [place] [address], RBC (Bld) [#/Vol] 5.00 10*6/uL Normal 4.50-5.90 [facility] Comment on above: Performed By: #### C BC #### [facility] [address] [place] [address], WBC (Bld) [#/Vol] 6.2 10*3/uL Normal 4.5-11.5 [facility] Comment on above: Performed By: #### C BC #### [facility] [address] [place] [address], ED Provider Noteson 07-31-20 Passenger Interline Clerk Authentication Interface Message Text Attestation signed by [...] The history is provided by the Patient. Managing Consultant Clinical Professor use: not needed - patient preferred language is Citizen Of [place]. Ariel Bean is a 50 year old [...] f (more content not included)... Normal [facility] No Panel Informationon 07-31 Radiology Study observation (narrative) [facility] XR C-SPINE AP+LATERAL 2 VIEW Son 07-31-2025 XR C-SPINE AP+LATERAL 2 VIEWS EXAMINATION: XR C-SPINE AP+LATERAL 2 VIEWSPRO 07/31/2025 02:49 PM CLINICAL HISTORY: Neuropathy ASSOCIATED DIAGNOSIS: Neuropathy ORDERING PROVIDER: AMANUEL HAYWARD TECHNOLOGISTS NOTE: Injured at work ([employer]) COMPARISON: None FINDINGS: On the lateral [...] with contrast can be obtained. Normal [facility] XR Cervical spine AP and Lat eralon 07-31-2025 EXAMINATION: XR C-SP INE AP+LATERAL 2 VIEWSPRO 07/31/2025 02:49 PM CLINICAL HISTORY: Neuropathy ASSOCIATED DIAGNOSIS: Neuropathy ORDERING PROVIDER: AMANUEL RUBIN NOTE: Injured at work ([employer]) COMPARISON: None FINDINGS: On the lateral [...] PROVIDER: AMANUEL RUBIN NOTE: Injured at work ([employer]) COMPARISON: None FINDINGS: On the lateral [...] tissue CT with contrast can be obtained. [facility] XR SHOULDER RIGHT MINIMUM 2 VIEWSon 07-31-2025 XR SHOULDER RIGHT MINIMUM 2 VIEWS EXAMINATION: XR SHOULDER RIGHT MINIMUM 2 VIEWSPRO/RT 07/31/2025 02:49 PM CLINICAL HISTORY: Range of motion decreased ASSOCIATED DIAGNOSIS: Range of motion decreased ORDERING PROVIDER: AMANUEL RUBIN NOTE: Injured at work ([employer]) COMPARISON: None IMPRESSION: No right shoulder fracture or glenohumeral dislocation is identified. No evidence of calcific tendinitis. Mild degenerative glenohumeral joint change. Mild degenerative changes are present at the acromioclavicular joint. Right shoulder MACRO: None Normal [facility] XR Shoulder - right 2 Viewso n 07-31-2025 EXAMINATION: XR SHOULDER RIGHT MINIMUM 2 VIEWSPRO/RT 07/31/2025 02:49 PM CLINICAL HISTORY: Range of motion decreased ASSOCIATED DIAGNOSIS: Range of motion decreased ORDERING PROVIDER: AMANUEL RUBIN NOTE: Injured at work ([employer]) COMPARISON: None IMPRESSION: No right shoulder [...] Range of motion decreased ORDERING PROVIDER: AMANUEL RUBNI NOTE: Injured at work ([employer]) COMPARISON: None IMPRESSION: No right shoulder fracture or glenohumeral dislocation is identified. No evidence of calcific tendinitis. Mild degenerative glenohumeral joint change. Mild degenerative changes are present at the acromioclavicular joint. Right shoulder MACRO: None [facility] XR Shoulder - right 2 ViewsO rdered By: Camden Willis on 07-31-2025 [employer] Work Phone: Emergency Department Summary on 05-09-2025 Emergency Department Summary [facility] Medical Records Department [address] [address] Emergency Department Summary 05/09/25 MR#: [id number] Acct: [id number] Name: ARIEL BEAN Rep #: [id number] : 1975 50 From: Kenan Pedroza DO [...] secondary to this comes in for evaluation [facility] Home Medications ???Medication ???Instructions ???Recorded ???Last Taken [...] Record Review (more content not included)... Normal [facility] Anion gap in Serum or Plasma Ordered By: Kenan Pedroza on 05-06-2025 Anion gap [Moles/Vol] 13 mmol/L - [facility] BUN/creatinine ratioOrdered By: Kenan Pedroza on 05-06-2025 Urea nitrogen/Creatinine [Mass ratio] 16.0 mg/mg - [facility] Basic Metabolic Profile (BMP )on 05-06-2025 BUN/CRE 16.0 RATIO Normal 08-30 [facility] Comment on above: Performed By: #### L 501.5200, L500.2500, L100.0500 #### [facility] [address] [place], [address] Calcium [Mass/Vol] 9.3 mg/dL Normal 7.6-11.0 [facility] Comment on above: Performed By: #### L 501.5200, L500.2500, L100.0500 #### [facility] [address] [place], [address] Chloride [Moles/Vol] 101 mmol/L Normal 98-108 [facility] Comment on above: Performed By: #### L 501.5200, L500.2500, L100.0500 #### [facility] [address] [place], [address] CO2 [Moles/Vol] 20.7 mmol/L Low 21.0-32.0 [facility] Comment on above: Performed By: #### L 501.5200, L500.2500, L100.0500 #### [facility] [address] [place], [address] Creatinine [Mass/Vol] 1.02 mg/dL Normal 0.70-1.[address] [facility] Comment on above: Performed By: #### L 501.5200, L500.2500, L100.0500 #### [facility] [address] [place], [address] GAP 13 Normal 5-15 [facility] Comment on above: Performed By: #### L 501.5200, L500.2500, L100.0500 #### [facility] [address] [place], [address] GFR/1.73 sq M.predicted among non-blacks MDRD (S/P/Bld) [Vol rate/Area] 88 mL/min/{1.73_m2} Normal >60 [facility] Comment on above: Result Comment: mL/m in/1.73m2 CKD-EPI Creatinine Equation (2020) Performed By: #### L 501.5200, L500.2500, L100.0500 #### [facility] [address] [place], [address] Glucose [Mass/Vol] 190 mg/dL High 70-99 [facility] Comment on above: Performed By: #### L 501.5200, L500.2500, L100.0500 #### [facility] [address] [place], [address] Potassium [Moles/Vol] 3.5 mmol/L Normal 3.3-5.[address] [facility] Comment on above: Performed By: #### L 501.5200, L500.2500, L100.0500 #### [facility] [address] [place], [address] Sodium [Moles/Vol] 135 mmol/L Normal 133-145 [facility] Comment on above: Performed By: #### L 501.5200, L500.2500, L100.0500 #### [facility] [address] [place], [address] Urea nitrogen [Mass/Vol] 16 mg/dL Normal 4-19 [facility] Comment on above: Performed By: #### L 501.5200, L500.2500, L100.0500 #### [facility] [address] [place], [address] Blood platelets count (numbe r/volume)Ordered By: Kenan Pedroza on 05-06-2025 Platelets (Bld) [#/Vol] 359 10*3/uL 150-450 [facility] CBC-Complete Blood Cnt No Di ffon 05-06-2025 Platelet mean volume (Bld) [Entitic vol] 9.3 fL Normal 6.2-12.0 [facility] Comment on above: Performed By: #### L 501.5200, L500.2500, L100.0500 #### [facility] [address] [place], [address] Platelets (Bld) [#/Vol] 359 10*3/uL Normal 150-450 [facility] Comment on above: Performed By: #### L 501.5200, L500.2500, L100.0500 #### [facility] [address] [place], [address] Erythrocyte distribution width (RBC) [Ratio] 12.0 % Normal 11.6-14.6 [facility] Comment on above: Performed By: #### L 501.5200, L500.2500, L100.0500 #### [facility] [address] [place], [address] Hematocrit (Bld) [Volume fraction] 38.7 % Low 40-54 [facility] Comment on above: Performed By: #### L 501.5200, L500.2500, L100.0500 #### [facility] [address] [place], [address] Hemoglobin (Bld) [Mass/Vol] 13.4 g/dL Normal 13.0-16.5 [facility] Comment on above: Performed By: #### L 501.5200, L500.2500, L100.0500 #### [facility] [address] [place], [address] MCH (RBC) [Entitic mass] 29.3 pg Normal 27.0-32.0 [facility] Comment on above: Performed By: #### L 501.5200, L500.2500, L100.0500 #### [facility] [address] [place], [address] MCHC (RBC) [Mass/Vol] 34.6 g/dL Normal 32-[address] [facility] Comment on above: Performed By: #### L 501.5200, L500.2500, L100.0500 #### [facility] [address] [place], [address] MCV (RBC) [Entitic vol] 84.7 fL Normal 80-94 [facility] Comment on above: Performed By: #### L 501.5200, L500.2500, L100.0500 #### [facility] [address] [place], [address] RBC (Bld) [#/Vol] 4.57 10*6/uL Low 4.6-6.2 [facility] Comment on above: Performed By: #### L 501.5200, L500.2500, L100.0500 #### [facility] [address] [place], [address] RDW SD 37.2 fl Normal 35.1-43.9 [facility] Comment on above: Performed By: #### L 501.5200, L500.2500, L100.0500 #### [facility] [address] [place], [address] WBC (Bld) [#/Vol] 6.6 10*3/uL Normal 4.4-11.0 [facility] Comment on above: Performed By: #### L 501.5200, L500.2500, L100.0500 #### [facility] [address] [place], [place], [address] Carbon dioxide, total [Moles /volume] in Central venous bloodOrdered By: Kenan Pedroza on 05-06-2025 CO2 [Moles/Vol] 20.7 mmol/L Low 21.0-32.0 [facility] Chloride assayOrdered By: Geovanna Pedroza on 05-06-2025 Chloride [Moles/Vol] 101 mmol/L 98-108 [facility] Erythrocyte distribution wid th ratioOrdered By: Kenan Pedroza on 05-06-2025 Erythrocyte distribution width (RBC) [Ratio] 12.0 % 11.6-14.6 [facility] Glomerular filtration rate ( GFR) estimation/1.73 sq m using serum, plasma, or whole bOrdered By: Kenan Pedroza on 05-06-2025 GFR/1.73 sq M.predicted among non-blacks MDRD (S/P/Bld) [Vol rate/Area] 88 mL/min/{1.73_m2} >60 [facility] Comment on above: mL/min/1.73m2 CKD-EP I Creatinine Equation (2020) Hematocrit Auto (Bld) [Volum e fraction]Ordered By: Kenan Pedroza on 05-06-2025 Hematocrit (Bld) [Volume fraction] 38.7 % Low 40-54 [facility] Hemoglobin measurementOrdere d By: Kenan Pedroza on 05-06-2025 Hemoglobin (Bld) [Mass/Vol] 13.4 g/dL 13.0-16.5 [facility] MCV (mean corpuscular volume ) determinationOrdered By: Kenan Pedroza on 05-06-2025 MCV (RBC) [Entitic vol] 84.7 fL 80-94 [facility] Magnesiumon 05-06-2025 Magnesium [Mass/Vol] 2.0 mg/dL Normal 1.5-2.2 [facility] Comment on above: Performed By: #### L 501.5200, L500.2500, L100.0500 #### [facility] [address], [address] Magnesium measurement (mass/ volume)Ordered By: Kenan Pedroza on 05-06-2025 Magnesium (Unsp spec) [Mass/Vol] 2.0 mg/dL 1.5-2.2 [facility] Mean corpuscular hemoglobin (MCH) determinationOrdered By: Kenan Pedroza on 05-06-2025 MCH (RBC) [Entitic mass] 29.3 pg 27.0-32.0 [facility] Mean corpuscular hemoglobin concentration (MCHC) determinationOrdered By: Kenan Pedroza on 05-06-2025 MCHC (RBC) [Mass/Vol] 34.6 g/dL 32-[address] [facility] Mean platelet volume determi nationOrdered By: Kenan Pedroza on 05-06-2025 Platelet mean volume (Bld) [Entitic vol] 9.3 fL 6.2-12.0 [facility] Potassium measurement (mass/ volume)Ordered By: Kenan Pedroza on 05-06-2025 Potassium (Unsp spec) [Mass/Vol] 3.5 mmol/L 3.3-5.1 [facility] [facility] RBC Auto (Bld) [#/Vol]Ordere d By: Kenan Pedroza on 05-06-2025 RBC (Bld) [#/Vol] 4.57 10*6/uL Low 4.6-6.2 [facility] RDWOrdered By: Kenan Pedroza on 05-06-2025 RDW 37.2 fl 35.1-43.9 [facility] Serum creatinine measurement (mass/volume)Ordered By: Kenan Pedroza on 05-06-2025 Creatinine [Mass/Vol] 1.02 mg/dL 0.70-1.[address] [facility] Serum glucose measurement (m ass/volume)Ordered By: Kenan Pedroza on 05-06-2025 Glucose [Mass/Vol] 190 mg/dL High 70-99 [facility] Serum or plasma calcium alvino urement (mass/volume)Ordered By: Kenan Pedroza on 05-06-2025 Calcium [Mass/Vol] 9.3 mg/dL 7.6-11.0 [facility] Serum or plasma urea nitroge n measurement (mass/volume)Ordered By: Kenan Pedroza on 05-06-2025 Urea nitrogen [Mass/Vol] 16 mg/dL 4-19 [facility] Sodium levelOrdered By: Jaime Pedroza on 05-06-2025 Sodium [Moles/Vol] 135 mmol/L 133-145 [facility] Spine Cervical without Contr ason 05-06-2025 Spine Cervical without Contras [facility] Imaging Services [address] [place], [place] [address] Spine Cervical without Contras MR#: [id number] Acct: [id number] Name: ARIEL BEAN Rep #: [id number] : 1975 M 50 From: An ortiz MD PCP: Care Physician,No Primary Status: DEP ER Study: Spine Cervical without Contras Date of Exam: 0 05/06/25 Exam# [id number] Ordering Dr: Kenan Pedroza DO PROCEDURE: SPINE [...] an acute abnormality. Diffuse spondylosis. Reading Location: [place] [address] CC: Kenan Pedroza DO; No Primary Care Physician Compressor Station Operator: Signed Normal [facility] White blood cell (WBC) count Ordered By: Kenan Pedroza on 05-06-2025 WBC (Bld) [#/Vol] 6.6 10*3/uL 4.4-11.0 [facility] Vital Signs Date Time Vital Sign Value Performing Clinician Facility 08-12-2025 14:45-0400 Body temperature 98.1 [degF] No Primary Care Physician [facility] 08-12-2025 14:45-0400 Diastolic blood pressure 97 mm[Hg] No Primary Care Physician [facility] 08-12-2025 14:45-0400 Heart rate 69 /min No Primary Care Physician [facility] 08-12-2025 14:45-0400 Respiratory rate 16 /min No Primary Care Physician [facility] 08-12-2025 14:45-0400 SaO2% (BldA) [Mass fraction] 98 % No Primary Care Physician [facility] 08-12-2025 14:45-0400 Systolic blood pressure 140 mm[Hg] No Primary Care Physician [facility] 08-12-2025 07:06-0400 Inhaled oxygen flow rate 1 L/min No Primary Care Physician [facility] 08-12-2025 03:33-0400 Body mass index (BMI) [Ratio] 39 kg/m2 No Primary Care Physician [facility] 08-11-2025 16:07-0400 Body mass index (BMI) [Ratio] 39 kg/m2 No Primary Care Physician [facility] 08-11-2025 16:00-0400 Body temperature 97.9 [degF] No Primary Care Physician [facility] 08-11-2025 16:00-0400 Diastolic blood pressure 66 mm[Hg] No Primary Care Physician [facility] 08-11-2025 16:00-0400 Heart rate 52 /min No Primary Care Physician [facility] 08-11-2025 16:00-0400 Respiratory rate 16 /min No Primary Care Physician [facility] 08-11-2025 16:00-0400 SaO2% (BldA) [Mass fraction] 99 % No Primary Care Physician [facility] 08-11-2025 16:00-0400 Systolic blood pressure 143 mm[Hg] No Primary Care Physician [facility] 08-11-2025 11:36-0400 Body height 182.88 cm No Primary Care Physician [facility] 08-11-2025 11:36-0400 Body weight 130.6 kg No Primary Care Physician [facility] 07-31-2025 19:17-0400 Diastolic blood pressure 93 mm[Hg] Stevie Feliciano MD Work Phone: [employer] 07-31-2025 19:17-0400 Systolic blood pressure 138 mm[Hg] [facility] 07-31-2025 14:07-0400 Body temperature 98.2 [degF] Stevie Feliciano MD Work Phone: [employer] 07-31-2025 14:07-0400 Heart rate 96 /min Stevie Feliciano MD Work Phone: [employer] 07-31-2025 14:07-0400 Respiratory rate 18 /min Ste[facility]ician[facility] 07-31-2025 14:07-0400 SaO2% (BldA) [Mass fraction] 96 % Stevie Feliciano MD Work Phone: [employer] 10-02-2024 08:53-0500 Body height 182.9 cm Deborah Infante Work Phone: [facility] Work Phone: 10-02-2024 08:53-0500 Body temperature 98.01 [degF] Deborah Infante Work Phone: [facility] Work Phone: 10-02-2024 08:53-0500 Body weight 127.64 kg Deborah Alexanderajo Work Phone: [facility] Work Phone: 10-02-2024 08:53-0500 Diastolic blood pressure 90 mm[Hg] Deborah Naresh Work Phone: [facility] Work Phone: 10-02-2024 08:53-0500 Heart rate 74 /min Deborah Naresh Work Phone: [facility] Work Phone: 10-02-2024 08:53-0500 Respiratory rate 18 /min Deborah Infante Work Phone: [facility] Work Phone: 10-02-2024 08:53-0500 SaO2% (BldA) [Mass fraction] 98 % Deborah Infante Work Phone: [facility] Work Phone: 10-02-2024 08:53-0500 Systolic blood pressure 142 mm[Hg] Deborah Infante Work Phone: [facility] Work Phone: Encounters Encounter Date Encounter Type Care Provider Facility Start: 09-20-2025 ambulatory No Primary Car e Physician Facility:[facility] Start: 09-02-2025 End: 09-02-2025 ambulatory Zebulun Beam Facility:[facility] Start: 08-31-2025 End: 08-31-2025 ambulatory Monica Rdz Work Phone: [facility] Start: 08-31-2025 End: 08-31-2025 Chart abstracting Monica Rdz Work Phone: [facility] Start: 08-12-2025 Non-patient / Non-visit Dr. Fahad Leiva MD -[facility] Work Phone: Start: 08-11-2025 ambulatory Usama Perez Facility:[facility] Start: 08-11-2025 Non-patient / Non-visit [facility] Field [facility] -[facility] Start: 08-11-2025 Non-patient / Non-visit Dr. Fahad Leiva MD -[facility] Work Phone: Start: 08-10-2025 ambulatory No Primary Car e Physician Facility:[facility] Start: 08-10-2025 End: 08-12-2025 Evaluation and management of inpatient Dr. Fahad Leiva MD -[facility] Work Phone: Start: 07-31-2025 End: 07-31-2025 Emergency department patient visit Stevie Feliciano MD Work Phone: [facility] Comment on above: Hypertension (HTN w/ DYE since this am /Pt inconsistent with HTN medication ); Arm symptoms (Right arm pian x2 months ) Start: 05-06-2025 End: 05-06-2025 Emergency department patient visit No Primary Care Physician -Emergency Department Work Phone: Start: 10-15-2024 End: 10-15-2024 Phys/qhp telephone evaluation 11-20 min Deborah Infante Work Phone: [facility] Comment on above: Encounter to discuss test results (Primary Dx); Controlled type 2 diabetes mellitus without complication, without long-term current use of insulin ([facility]); Vitamin D deficiency; Tonsillar hypertrophy; Primary hypertension Start: 10-15-2024 ambulatory DEBORAH INFANTE [facility] Start: 10-02-2024 End: 10-02-2024 ambulatory Tia Boris Work Phone: [facility] Start: 10-02-2024 End: 10-02-2024 Chart abstracting Tia Boris Work Phone: [facility] Start: 10-02-2024 End: 10-02-2024 Initial preventive medicine new patient 40-64yrs Deborah Infante Work Phone: [facility] Comment on above: Encounter for routin e history and physical exam for male (Primary Dx); Primary hypertension; Hyperlipidemia, unspecified hyperlipidemia type; Prosthetic eye globe; Snoring; Tonsillar hypertrophy Start: 10-02-2024 End: 10-02-2024 Physical examination Deborah Infante Work Phone: [facility] Work Phone: Procedures Date Procedure Procedure Detail [...] compl ete minimum 2 views Amanuel Hayward CRIMINAL PSYCHOLOGIST-DRY HEAT CABINET ATTENDANT Work Phone: Start: 07-31-2025 Blood count complete automated Amanuel Hayward CRIMINAL PSYCHOLOGIST-DRY HEAT CABINET ATTENDANT Work Phone: Start: 05-06-2025 CT cervical spine [...] re Visit Annual Preventive Care Visit [facility] Start: 10-02-2025 Annual Wellness (Yg lt): Indicated (All Coverage) Annual Wellness (Adult): Indicated (All Coverage) [facility] Start: 10-02-2025 Creatinine measurement Serum Creatin ine [facility] Start: 10-02-2025 Lipid panel Lipid Screening [facility] Start: 09-24-2025 ambulatory Ambulatory Facility:[facility] Start: 08-12-2025 Patient discharge [facility] Start: 08-10-2025 Application of intermittent pneumatic compression device [facility] Start: 08-10-2025 Following clinical pathway protocol [facility] Start: 08-10-2025 Aspiration precautions [facility] Start: 08-10-2025 Assessment of risk o f venous thromboembolism [facility] Start: 08-10-2025 Cardiac monitoring [facility] Start: 08-10-2025 Catheterization of vein [facility] Start: 08-10-2025 Consultation [facility] Start: 08-10-2025 Continuous pulse oximetry [facility] Start: 08-10-2025 Elevation of head of bed [facility] Start: 08-10-2025 Exercises [facility] Start: 08-10-2025 Insertion of cathete r into peripheral vein [facility] Start: 08-10-2025 Notification of physician [facility] Start: 08-10-2025 Oxygen therapy [facility] Start: 08-10-2025 Patient referral to dietitian [facility] Start: 08-10-2025 Providing care accor ding to standard [facility] Start: 08-10-2025 Referral for physica l therapy [facility] Start: 08-10-2025 Referral to occupati onal therapist [facility] Start: 08-10-2025 Referral to service [facility] Start: 08-10-2025 Speech therapy assessment [facility] Start: 08-10-2025 Telemedicine consult ation with patient [facility] Start: 08-10-2025 Tobacco use cessatio n education [facility] Start: 08-10-2025 End: 08-10-2025 [facility] Start: 08-10-2025 Vital signs measurements [facility] Start: 08-10-2025 Verification routine [facility] Start: 08-10-[address] [facility] Start: 08-10-2025 [facility] Start: 08-10-2025 Patient referral to dietitian [facility] Start: 07-12-2025 COVID-19 Vaccine ( season) COVID-19 Vaccine ( season) [facility] Start: 07-12-2025 [id number]-86 ( season) [id number]-[id number]-85 ( season) [facility] Start: 07-12-2025 Influenza [facility] Start: 05-10-2025 Influenza vaccination Imm-Influenza (#1) [facility] Comment on above: Postponed from 07/12 (Patient postponement) Start: 04-01-2025 Hemoglobin A1c measurement [facility] Start: 11-11-2024 Depression screening Depressio n Annual Screen [facility] Start: 11-11-2024 Screening for substa nce abuse Alcohol and Drug Screen [facility] Start: 07-12-2024 Hgx-[id number]-47 ( season) Gui-UCICJ-04 ( season) [facility] Start: 11-11-2023 Depression screening Depressio n Annual Screen [facility] Start: 11-11-2023 Screening for substa nce abuse Alcohol and Drug Screen [facility] Start: 2023 Imm-Zoster, Recombin ant (1 of 2) Imm-Zoster, Recombinant (1 of 2) [facility] Start: 2023 Pneumococcal vaccination Pneum ococcal Vaccine(s) (50+ yrs) (1 of 1 - PCV) [facility] Start: 2023 Shingles (RZV) Vacci ne (1 of 2) Shingles (RZV) Vaccine (1 of 2) [facility] Start: 2018 Screening for malign ant neoplasm of colon [facility] Start: 1992 Hepatitis A (HAV) Va ccine (optional start 19+ years) Hepatitis A (HAV) Vaccine (optional start 19+ years) [facility] Start: 1992 Hepatitis B vaccination [facility] Start: 1992 Imm-Pneumococcal 50+ (1 of 2 - PCV) Imm-Pneumococcal 50+ (1 of 2 - PCV) [facility] Start: 1992 Tetanus vaccination Imm-DTaP/T dap/Td (1 - Tdap) [facility] Start: 1991 Hepatitis C screening Hepatitis C An tibody [facility] Start: 1991 Tdap Booster Tdap Booster [facility] Start: 1988 HIV Screening HIV Screening [facility] Start: 1988 HIV screening HIV Test [facility] Start: 1986 Diabetic retinal eye exam Retinopath y Screening [facility] Start: 1979 Imm-Pneumococcal (1 of 2 - PCV) Imm-Pneumococcal (1 of 2 - PCV) [facility] Start: 1973 Anxiety Screening Anxiety Screening [facility] Start: 1973 Diabetes mellitus screening Diabetes Screening [facility] Start: 1973 Diabetic foot examination Diabetes F oot Exam [facility] Start: 1973 Hepatitis C screening Hepatitis C Sc reening [facility] Start: 1973 Lipid panel Lipid Screening [facility] Start: 1973 Microalbumin measure ment, urine, quantitative [facility] Start: 1973 Screening for malign ant neoplasm of colon Colonoscopy [facility] Start: 1973 Tobacco use cessatio n education Tobacco Cessation Counseling (#1) [facility] 25 hydroxy includes fractions if performed 25 HYDROXY INCLUDES FRACTIONS IF PERFORMED Lab Routine Encounter for routine history and physical exam for male Ordered: 10/02/2024 [facility] [employer] Work Phone: Comment on above: Ordered: 10/02/2024 Assay of thyroid stimulating hormone tsh TSH REFLEX TO T4 Lab Routine Encounter for routine history and physical exam for male Ordered: 10/02/2024 [facility] [employer] Work Phone: Comment on above: Ordered: 10/02/2024 CBC W Auto Different ial panel - Blood BLOOD COUNT COMPLETE AUTO&AUTO DIFRNTL WBC Lab Routine Encounter for routine history and physical exam for male Ordered: 10/02/2024 [facility] Work Phone: Comment on above: Ordered: 10/02/2024 Comprehensive metabo lic panel COMPREHENSIVE METABOLIC PANEL Lab Routine Encounter for routine history and physical exam for male Ordered: 10/02/2024 [facility] [employer] Work Phone: Comment on above: Ordered: 10/02/2024 Hemoglobin glycosyla mark a1c HEMOGLOBIN GLYCOSYLATED A1C Lab Routine Encounter for routine history and physical exam for male Ordered: 10/02/2024 [facility] Work Phone: Comment on above: Ordered: 10/02/2024 Lipid panel LIPID PANEL Lab Routine Encounter for routine history and physical exam for male Hyperlipidemia, unspecified hyperlipidemia type Ordered: 10/02/2024 [facility] [employer] Work Phone: Comment on above: Ordered: 10/02/2024 [facility] Immunizations Immunization Date Immunization Notes Care Provider Hillary moraes 10-02-2024 Hemoglobin A1c Monica Rausch son Work Phone: [facility] [employer] Work Phone: Payers Date Payer Category Payer Self-pay [id number] 2024 Private Health Insurance [id number] 2023 Medicaid HMO [employer] [id number] 2023 Unknown [id number] 2023 Unknown [id number] 1975 Unknown [id number] 1975 Unknown [id number] 732 Unknown [id number] Unknown [id number] 462 Unknown [id number]. 462 Unknown [id number]. 462 Unknown [id number]. 462 Unknown [id number]. 462 Unknown [id number] [id number]. 462 Unknown [id number]. 462 Unknown [id number]. 462 Unknown [id number]. 462 Unknown [id number] 462 Social History Date Type Detail Facility Start: 10-02-2024 Tobacco smoking status NHIS Occasional tobacco smoker [facility] History of tobacco use Cigar Smoker [facility] Start: 10-02-2024 Tobacco use and exposure Smokeless tobacco non-user [facility] Start: 10-02-2024 Alcoholic beverage intake Ex-drinker (finding) [facility] Work Phone: Start: 09-15-2024 History of Social function [facility] Work Phone: Start: 09-15-2024 Social Connections [facility] Connectedness 0 [facility] Work Phone: Start: 10-02-2024 Tobacco Comment 10/02/2024 [facility] Work Phone: Start: 1975 Sex assigned at Not on file [facility] Work Phone: Start: 08-19-2014 Tobacco smoking status NHIS Smokes tobacco daily (finding) [facility] Start: 1975 Sex Assigned At Male [facility] Tobacco smoking stat us NHIS Tobacco smoking consumption unknown [facility] Start: 09-15-2024 End: 07-31-2025 Sex Male (finding[facility] Start: 08-11-2025 End: 08-12-2025 Tobacco smoking status NHIS Current Light tobacco smoker [facility] Goals Date Patient Goal Desired Activity /State Functional Status Date Assessment Result Facility 08-12-2025 Functional status Ambulates [facility] Work Phone: 08-11-2025 Functional status Ambulates [facility] Work Phone: Mental Status Date Assessment Result Facility 08-12-2025 Cognitive function Voice/Name [facility] Work Phone: 08-11-2025 Cognitive function Voice/Name [facility] Work Phone: Clinical Notes 10-02-2024 to 08-31-2025 Monica Rdz - 08/31/2025 9:14 AM EDT Note Date & Type Note Facility 08-31-2025 History of Present illness Narrative Records Associate contacted patient regarding scheduling diabetes education. Patient was not interested, stating he does not need that. documented in this encounter [facility] Work Phone: 08-12-2025 Discharge summary [facility] 08-12-2025 Note [facility] Medical Records Department [address] [place] [address] Discharge Summary 08/12/25 1507 MR#: [id number] Acct: [id number] Name: ARIEL BEAN Rep #: [id number] : 1975 50 From: Fahad Leiva MD PCP: Care Physician,No Primary Status:ADM IN Location: [facility] [place] [address] Providers Date of Admission: 08/10/25 Date of [...] Patient is a 50-year-old male who presented [facility] ED on 08/10/2025 with intermittent confusion, [...] shows regional wall motion abnormalities/depressed EF need online merchandising manager evaluation and clearance. Likely plan will be for vascular intervention in about 1 week. PT/OT/case management consulted. Lipid profile shows HDL 39, TC 200 LDL 143 elevated. TSH normal. A1c 6.7%. UTOX screen was negative. UA shows mild proteinuria 15 otherwise normal. 08/12: Discussed with the patient and the casework supervisor. Patient given prescription for outpatient physical therapy. [...] Barbiturates Screen NEG (more content not included)... [facility] 08-12-2025 Discharge summary [facility] 08-12-2025 Consult note Note Date/Time August 12, 2025 12:14pm [facility] Medical Records Department [address] [place] [address] Consultation - Neurology 08/11/25 1351 MR#: [id number] Acct: [id number] Name: ARIEL BEAN Rep #:[id number] : 1975 50 From: Narciso Melton PCP: Care Physician,No Primary Status :ADM IN Location: [place] [address] Assessment and Plan: Neuro Assessment/Plan Telestroke (Audio/Video) [...] surgery for possible revascularization. Follow up TTE. 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 Control of vascular risk factors. Follow up [...] drift in RUE. Denies any new complaints. [facility] History (Updated 08/11/25 @ 14:10 [...] 46.0 L, Lymph % (Auto) 41.8 H, Stanley % (Auto) 11.1 H, Eos % (Auto) [...] 3:05 pm with readback verification. Reading Location: [facility] Chest X-Ray 08/10/25 14:30 IMPRESSION: No acute abnormality Reading Location: [facility] Head/Neck CTA 08/10/25 14:52 IMPRESSION: 1. Critical [...] 3:05 pm with readback verification. 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 No evidence of hemorrhagic transformation. Reading Location: [facility] Active Medications Active Medications Active Medications: Current [...] mls @ 15 mls/hr 08/10/25 19:08 IV .[id number] PRN Saline Flush Sodium Chloride 250 mls @ 15 mls/hr 08/10/25 19:08 IV .[id number] PRN Additional IVPB Infusion Labetalol HCl 10 [...] Recorded Date Recorded By Document 08/10/25 12:26 [facility] [id number] 08/10/25 12:26 [facility] 08/10/25 12:26 NIH Stroke Scale [NIHSS] A [...] and with change in RN caregiver. Freq: [id number] Protocol: Activity Type Activity Date Activity User E-sign Co-sign Detail Recorded Client Recorded Date Recorded By Document 08/11/25 11:00 [id number] 08/11/25 11:08 08/11/25 11:00 -1a. Level of [...] sensory loss 9. Best Language: 1 - Rlsf-dw-wzfqrnyl aphasia; 10. Dysarthria: 0 - Normal 11. Extinction and Inattention: 0 - No abnormality Total: 2 08/12/25 1214 <Electronically signed by Narciso Garcia MD> Cosigner Signature (if applicable): CC: No Primary Care Physician~ Signed [facility] Work Phone: 1(267) 222-876110-02-2025 Hospital Discharge instructionsAdditional Instructions [facility]: [facility]: 1(303) 869-861710-02-2025 Consult note [facility] Medical Records Department [address] [place] [address] Consultation - Neurology 08/11/25 1351 MR#: [id number] Acct: [id number] Name: ARIEL BEAN Rep #:[id number] : 1975 50 From: Narciso Melton PCP: Care Physician,No Primary Status :ADM IN Location: [place] [address] Assessment and Plan: Neuro Assessment/Plan Telestroke (Audio/Video) [...] surgery for possible revascularization. Follow up TTE. 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 Control of vascular risk factors. Follow up [...] drift in RUE. Denies any new complaints. [facility] Medical History (Updated 08/11/25 @ 14:10 [...] 46.0 L, Lymph % (Auto) 41.8 H, Stanley % (Auto) 11.1 H, Eos % (Auto) [...] 3:05 pm with readback verification. Reading Location: [id number] Chest X-Ray 08/10/25 14:30 IMPRESSION: No acute abnormality Reading Location: [id number] Head/Neck CTA 08/10/25 14:52 IMPRESSION: 1. Critical [...] 3:05 pm with readback verification. Reading Location: [id number] Brain MRI 08/10/25 17:12 IMPRESSION: Subacute infarcts in the left frontoparietal region. No evidence of hemorrhagic transformation. Reading Location: [id number] Active Medications Active Medications Active Medications: Current [...] mls @ 15 mls/hr 08/10/25 19:08 IV .[id number] PRN Saline Flush Sodium Chloride 250 mls @ 15 mls/hr 08/10/25 19:08 IV .[id number] PRN Additional IVPB Infusion Labetalol HCl 10 [...] Recorded Date Recorded By Document 08/10/25 12:26 [facility] [id number] 08/10/25 12:26 [facility] 08/10/25 12:26 NIH Stroke Scale [NIHSS] A [...] and with change in RN caregiver. Freq: [id number] Protocol: Activity Type Activity Date Activity User E-sign Co-sign Detail Recorded Client Recorded Date Recorded By Document 08/11/25 11:00 [id number] 08/11/25 11:08 08/11/25 11:00 -1a. Level of [...] sensory loss 9. Best Language: 1 - Ckip-or-rsqwcwio aphasia; 10. Dysarthria: 0 - Normal 11. Extinction and Inattention: 0 - No abnormality Total: 2 08/12/25 1214 Cosigner Signature (if applicable): CC: No Primary Care Physician~ Signed [facility]10-01-2025 Progress note Author Fahad Leiva [facility] Note Date/Time August 11, 2025 3: 48pm [facility] Medical Records Department [address] [address] Progress Note - Hospitalist 08/11/25 0738 MR#: [id number] Acct: [id number] Name: ARIEL BEAN Rep #:[id number] : 1975 50 From: Fahad Melton PCP: Care Physician,No Primary Status :ADM IN Location: [place] [address] Reason for Visit Chief Complaint: Confusion, slurred [...] 46.0 L, Lymph % (Auto) 41.8 H, Stanley % (Auto) 11.1 H, Eos % (Auto) [...] 3:05 pm with readback verification. Reading Location: [facility] Chest X-Ray 08/10/25 14:30 IMPRESSION: No acute abnormality Reading Location: [facility] Head/Neck CTA 08/10/25 14:52 IMPRESSION: 1. Critical [...] 3:05 pm with readback verification. 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 No evidence of hemorrhagic transformation. Reading Location: [facility] Physical Exam Narrative Seen and examined. Patient [...] Patient is a 50-year-old male who presented [facility] ED on 08/10/2025 with intermittent confusion, [...] shows regional wall motion abnormalities/depressed EF need online merchandising manager evaluation andclearance. Likely plan will be for [...] 3:05 pm with readback verification. Reading Location: [id number]-[id number]-IM Chest X-Ray 08/10/25 14:30 IMPRESSION: No acute [...] 3:05 pm with readback verification. Reading Location: PFP-YFWIEJG-IR Brain MRI 08/10/25 17:12 IMPRESSION: Subacute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 HPI - General General Date of Admission: 08/10/25 Date of Service: 08/10/25 Chief Complaint: Confusion, slurred speech and worsening right upper extremity weakness and numbness/tingling HPI Narrative ARIEL GENEVA, is a 50 M who presented to [facility] ED on 08/10/2025 with confusion, slurred [...] answers. 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 Will be admitted for further management. [facility] History (Updated 08/10/25 @ 18:48 [...] 46.0 L, Lymph % (Auto) 41.8 H, Stanley % (Auto) 11.1 H, Eos % (Auto) [...] 3:05 pm with readback verification. Reading Location: [facility] Chest X-Ray 08/10/25 14:30 IMPRESSION: No acute abnormality Reading Location: [facility] Head/Neck CTA 08/10/25 14:52 IMPRESSION: 1. Critical [...] 3:05 pm with readback verification. Reading Location: [facility] Assessment & Plan Assessment/Plan (1) Acute ischemic left MCA stroke: PLAN: Plan Patient is a 50-year-old male who presented [facility] ED on 08/10/2025 with confusion, slurred [...] 78 minutes. Charges/Coding Visit Charges Inpatient E&M: 47601 Init Hosp L3 08/10/252021 <Electronically signed by Roger Costa DO> Cosigner Signature (if applicable): CC: Dr. Roger Costa DO; No Primary Care Physician~ Signed [facility] Work Phone: Progress note Author Fahad Leiva [facility] Note Date/Time August 11, 2025 3: 48pm [facility] Medical Records Department [address] [place] [address] Progress Note - Hospitalist 08/11/25 0738 MR#: [id number] Acct: [id number] Name: ARIEL BEAN Rep #:[id number] : 1975 50 From: Fahad Melton PCP: Care Physician,No Primary Status :ADM IN Location: [place] [address] Reason for Visit Chief Complaint: Confusion, slurred [...] 46.0 L, Lymph % (Auto) 41.8 H, Stanley % (Auto) 11.1 H, Eos % (Auto) [...] 3:05 pm with readback verification. Reading Location: [id number] Chest X-Ray 08/10/25 14:30 IMPRESSION: No acute abnormality Reading Location: [id number] Head/Neck CTA 08/10/25 14:52 IMPRESSION: 1. Critical [...] 3:05 pm with readback verification. Reading Location: [id number] Brain MRI 08/10/25 17:12 IMPRESSION: Subacute infarcts in the left frontoparietal region. No evidence of hemorrhagic transformation. Reading Location: [id number] Physical Exam Narrative Seen and examined. Patient [...] Patient is a 50-year-old male who presented [facility] ED on 08/10/2025 with intermittent confusion, [...] shows regional wall motion abnormalities/depressed EF need online merchandising manager evaluation andclearance. Likely plan will be for [...] 3:05 pm with readback verification. Reading Location: [facility] Chest X-Ray 08/10/25 14:30 IMPRESSION: No acute abnormality Reading Location: [id number] Head/Neck CTA 08/10/25 14:52 IMPRESSION: 1. Critical [...] 3:05 pm with readback verification. Reading Location: [id number]-AN Brain MRI 08/10/25 17:12 IMPRESSION: Subacute infarcts in the left frontoparietal region. No evidence of hemorrhagic transformation. Reading Location: [id number] Charges/Coding Addendum Addendum: Total time of the [...] is 35 minutes. Visit Charges Inpatient E&M: 49132 Subs Hosp L3 NIHSS NIHSS Nursing Documentation NIHSS Nursing Documentation: NIH Stroke Scale Start: 08/10/25 12:25 Freq: Status: Discharge Protocol: Activity Type Activity Date Activity User E-sign Co-sign Detail Recorded Client Recorded Date Recorded By Document 08/10/25 12:26 TOSHA [id number] 08/10/25 12:26 ABBIE 08/10/25 12:26 NIH Stroke [...] and with change in RN caregiver. Freq: [id number] Protocol: Activity Type Activity Date Activity User E-sign Co-sign Detail Recorded Client Recorded Date Recorded By Document 08/11/25 06:45 ARELI [id number] 08/11/25 06:53 JS 08/11/25 06:45 -1a. Level [...] Cosigner Signature (if applicable): CC: ~ Signed [facility] Work Phone: Reason for referral (narrative)* General Medicine (Routine) - New Request Specialty Diagnoses / Procedures Referred By Contac t Referred To Contact Diagnoses Tonsillar hypertrophy Naresh Deborah [address] [place] [address] Phone: tel: fax: Referral ID Status Reason Start Date Expiration Date Visits Requested Visits Authorized [id number] New Request Specialty Services Required 4 10/02/2025 1 1 Comments [facility] * General Medicine (Routine) - New Request Specialty Diagnoses / Procedures Referred By Contac t Referred To Contact Diagnoses Snoring NareshDeborah quiñones [address] [place] [address] Phone: tel: fax: Referral ID Status Reason Start Date Expiration Date Visits Requested Visits Authorized [id number] New Request Specialty Services Required 4 10/02/2025 1 1 Comments [facility] * Ophthalmology (Routine) - New Request Specialty Diagnoses / Procedures Referred By Contac t Referred To Contact Ophthalmology Diagnoses Prosthetic eye globe Deborah Infante [address] [place] [address] Phone: tel: fax: Referral ID Status Reason Start Date Expiration Date Visits Requested Visits Authorized [id number] New Request Specialty Services Required 4 10/02/2025 1 1 Comments [facility] Work Phone: Reason for referral (narrative)* General Medicine (Routine) - Authorized Specialty Diagnoses / Procedures Referred By Contac t Referred To Contact Diagnoses Tonsillar hypertrophy Deborah Infante [address] [place], [place] [address] Phone: tel: fax: [address] [phone] Phone: tel: fax: Referral ID Status Reason Start Date Expiration Date Visits Requested Visits Authorized [id number] Authorized Specialty Services Required 4 10/02/2025 1 1 Comments [facility] * General Medicine (Routine) - Authorized Specialty Diagnoses / Procedures Referred By Elizabethac t Referred To Contact Diagnoses Snoring Deborah Infante [address] [place], [place] [address] Phone: tel: fax: [address] [phone] Phone: tel: fax: Referral ID Status Reason Start Date Expiration Date Visits Requested Visits Authorized [id number] Authorized Specialty Services Required 4 10/02/2025 1 1 Comments [facility] * Ophthalmology (Routine) - Authorized Specialty Diagnoses / Procedures Referred By Contac t Referred To Contact Ophthalmology Diagnoses Prosthetic eye globe NareshAlissaDeborah [address] [place], [place] [address] Phone: tel: fax: [address] [phone] Phone: tel: fax: Referral ID Status Reason Start Date Expiration Date Visits Requested Visits Authorized [id number] Authorized Specialty Services Required 4 10/02/2025 1 1 Comments [facility] Work Phone: Reason for referral (narrative)No reason for referral [facility] Work Phone: Summary Purpose Family History No Family History Records FoundNo Family History Records FoundNo Family History Records Found Advance Directives No Advanced Directives Records Found Advance Directive Response Recorded Date/ Time Do you have a Healthcare Power of Dobby Loom Weaver? No August 10, 2025 6:45pm Chief Complaint [...] and content) DATE CREATED AUTHOR 10/16/2024 [facility] DATE CREATED AUTHOR AUTHOR'S ORGANIZ ATION 08/19/2025 [facility] DATE CREATED AUTHOR AUTHOR'S ORGANIZ ATION [facility]/20[facility] (unrecognized sec tion [...] August 10, 2025 End: August 12, 2025 Junay Feliz MD Nurse Practitioner Active S tart: [...] S tart: August 12, 2025 Dr. Steph Banegas MD Nurse Practitioner Active Start: August 12, [...] 1917 1915 (Given - Provid er: Catalina Pasrons RN) FOR RECORDS PERTAINING TO PATIENTS WHO [...] BE BASED ON THE PRIMARY CLINICAL RECORDS. [employer] provides no warranty or guarantee of the accuracy or completeness of information in this document.
[2025-10-26 21:06] LABS: Troponin T High Sens 4 HR 7 ng/L (<=22)
[2025-10-26] MEDS: 0.9% Normal Saline (1000mL) 1,000 ML 500 ML IV (21:37)
[2025-10-27] VITALS (8 sets, daily range): BP systolic 116–140; BP diastolic 68–95; PULSE 69–107; RESP 14–20; TEMP 36.4–38.1; O2SAT 94–98; BMI 39.2
[2025-10-27 06:40] LABS: Hematocrit 38.2 % (40-54); Hemoglobin 13.2 g/dL (13.0-16.5); Mean Corp Hgb Conc 34.6 g/dL (32-36); Mean Corpuscular Volume 84.7 fL (80-94); Mean Platelet Vol. 9.8 fl (6.2-12.0); Platelet Count 339 K/mm3 (150-450); RBC Distribution Width CV 12.4 % (11.6-14.6); RBC Distribution Width SD 38.2 fl (35.1-43.9); Red Blood Count 4.51 M/mm3 (4.6-6.2); White Blood Count 5.6 K/mm3 (4.4-11.0)
[2025-10-27 07:20] LABS: Anion Gap 12 (5-15); BUN 12 mg/dL (4-19); BUN/Creat Ratio 14.2 RATIO (10-20); Calcium,Total 8.9 mg/dL (7.6-11.0); Carbon Dioxide 22.2 mmol/L (21.0-32.0); Chloride 100 mmol/L (98-108); Estimated Creatinine Clearance 138.41 ml/min (50-250); Glucose 103 mg/dL (70-99); Potassium 3.6 mmol/L (3.3-5.1)
--- NOTE | 2025-10-27 07:28 | PCM.PN.HOSP ---
Reason for Visit Chief Complaint: Strokelike symptoms Subjective Subjective Patient is a 50-year-old gentleman with past medical history significant for left MCA stroke in July 2025 with known critical left ICA stenosis who presented with right-sided numbness. CT of the head obtained demonstrated acute ischemia in the posterior left frontal lobe and old left frontoparietal region and right cerebellar infarcts. Admitted to monitored bed for subsequent eval Objective Data Objective Data Vital Signs: Vital Signs Temp Pulse Resp BP Pulse Ox O2 Del Method 100 F H 107 H 16 116/82 H 97 Room Air 10/27/25 04:37 10/27/25 04:37 10/27/25 04:37 10/27/25 04:37 10/27/25 04:37 10/27/25 04:37 Oxygen Delivery Method Room Air Weight: 127.7 kg Body Mass Index (BMI) 39.2 Intake & Output: Intake and Output for Last 24 Hours 10/25/25 10/26/25 10/27/25 23:59 23:59 23:59 Intake Total 1000 / 1000 Balance 1000 / 1000 Lab / Micro Data 10/27/25 05:20 10/27/25 05:20 Labs: Laboratory Results - last 24 hr 10/26/25 16:05: WBC 5.6, RBC 4.81, Hgb 14.0, Hct 41.3, MCV 85.9, MCH 29.1, MCHC 33.9, RDW Std Deviation 38.8, RDW Coeff of Ashanti 12.3, Plt Count 403, MPV 9.2, Immature Gran % (Auto) 0.400, Neut % (Auto) 49.3, Lymph % (Auto) 42.0 H, Pershing % (Auto) 7.4, Eos % (Auto) 0.5, Baso % (Auto) 0.4, Absolute Neuts (auto) 2.8, Absolute Lymphs (auto) 2.34, Nucleated RBC % 0, PT 13.8, INR 1.0, APTT 24.1, Sodium 138, Potassium 3.7, Chloride 104, Carbon Dioxide 23.2, Anion Gap 11, BUN 12, Creatinine 0.87, Estim Creat Clear Calc 141.50, Est GFR (MDRD) Non-Af 104, BUN/Creatinine Ratio 13.6, Glucose 106 H, Calcium 9.3, Troponin T High Sens 7 D 10/26/25 16:20: POC Glucose 104 10/26/25 18:01: Troponin T Hi Sens 2 Hr 6 10/26/25 20:25: Troponin T Hi Sens 4Hr 7 10/27/25 05:20: WBC 5.6, RBC 4.51 L, Hgb 13.2, Hct 38.2 L, MCV 84.7, MCH 29.3, MCHC 34.6, RDW Std Deviation 38.2, RDW Coeff of Ashanti 12.4, Plt Count 339, MPV 9.8, Sodium 134, Potassium 3.6, Chloride 100, Carbon Dioxide 22.2, Anion Gap 12, BUN 12, Creatinine 0.85, Estim Creat Clear Calc 138.41, Est GFR (MDRD) Non-Af 105, BUN/Creatinine Ratio 14.2, Glucose 103 H, Calcium 8.9 Radiography Diagnostic Testing: Radiology Impression Brain CT 10/26/25 15:49 IMPRESSION: 1. Acute ischemia in the posterior left frontal lobe. This is new since 10/24/2025. 2. Old left frontoparietal region and right cerebellar infarcts. Reading Location: [facility] Head/Neck CTA 10/26/25 15:49 IMPRESSION: 1. Diminished caliber and paucity of the left MCA branches, likely due to occlusion and/or severe stenosis. This has worsened since 10/24/2025. 2. Persistent left ICA occlusion, from just distal to the origin to the proximal cavernous segment. No significant change since 10/24/2025, but new since 08/10/2025. 3. Multifocal stenosis in the cavernous and supraclinoid ICA segments bilaterally, greater on the left. Reading Location: [facility] Physical Exam Narrative GENERAL: cooperative HEENT: Atraumatic; normocephalic EYES; Anicteric, Normal Conjunctiva NECK; supple, normal thyroid, RESPIRATORY: Diminished to auscultation CARDIOVASCULAR: Regular S1 S2, GI: soft, normoactive bowel sounds, : No Renal angle tenderness; EXTREMITIES: No edema, no clubbing, MUSCULOSKELETAL: no muscle wasting NEURO: Awake; no lateralizing signs except for intermittent slurred speech SKIN: No Rash PSYCH; Flat affect Assessment & Plan Assessment/Plan (1) Acute CVA (cerebrovascular accident): PLAN: Plan Patient is a 50-year-old gentleman with past medical history significant for left MCA stroke in July 2025 with known critical left ICA stenosis who presented with right-sided numbness. CT of the head obtained demonstrated acute ischemia in the posterior left frontal lobe and old left frontoparietal region and right cerebellar infarcts. Admitted to monitored bed for subsequent eval 1. Acute left MCA CVA presented with right-sided numbness. CT of the head obtained demonstrated acute ischemia in the posterior left frontal lobe and old left frontoparietal region and right cerebellar infarcts. Admitted to monitored bed for subsequent eval. Consult was placed to teleneuro case discussed with Dr. Esteban with [facility] teleneuro recommended obtaining hemoglobin A1c, fasting lipid as well as carotid ultrasound to assess if trickle flow. Patient had a complete 2D echo in July 2025 with bubble study which was essentially unremarkable 2. Known history of severe left ICA stenosis ? Patient had been seen by vascular surgery during his previous admission. Reconsulted. As stated above ordered carotid ultrasound to assess if trickle flow is present 3. Class III obesity with BMI of 40.5 ? Complicating care weight loss advised 4. Hypertension ? Blood pressure controlled, home medications continued with dose adjustment as needed 5. Dyslipidemia ? Patient is on high-dose statin therapy. LDL obtained within normal limit 6. Diabetes mellitus type 2 ? Patient hemoglobin A1c 6.8. Patient is on metformin held on admission placed on Accu-Cheks ACHS with sliding scale coverage 7. DVT prophylaxis ? On enoxaparin Charges/Coding Visit Charges Inpatient E&M: 03369 Subs Hosp L2 NIHSS NIHSS Nursing Documentation NIHSS Nursing Documentation: NIHSS: Ischemic Stroke/TIA Start: 10/26/25 20:05 Text: For PCU Patients: NIH and Neuro Check every 4 Status: Active hours, PRN and with change in RN caregiver. Freq: [id number] Protocol: Activity Type Activity Date Activity User E-sign Co-sign Detail Recorded Client Recorded Date Recorded By Document 10/27/25 04:37 KW [id number] 10/27/25 04:46 KW 10/27/25 04:37 NIH Stroke Scale [NIHSS] A score of 0 is normal or asymptomatic . Total possible score is 42. Inpatient: RN or Physician to activate a stroke alert for onset of new stroke symptoms or with NIHSS increase >/= 3 points. Following change in neurological status, NIHSS will be performed per physician order or more frequently PRN. -1a. Level of Consciousness 0 - Alert; keenly responsive -1b. LOC Questions 0 - Answers BOTH questions correctly -1c. LOC Commands 0 - Performs BOTH tasks correctly -2. Best Gaze 0 - Normal -3. Visual 1 - Partial hemianopia -4. Facial Palsy 0 - Normal symmetrical movements -5a. Left Arm 0 - No drift; arm holds 90 ( or 45) degrees for full 10 seconds -5b. Right Arm 0 - No drift; arm holds 90 ( or 45) degrees for full 10 seconds -6a. Left Leg 0 - No drift; leg holds 30- degree position for full 5 seconds -6b. Right Leg 0 - No drift; leg holds 30- degree position for full 5 seconds -7. Limb Ataxia 0 - Absent -8. Sensory 0 - Normal; no sensory loss -9. Best Language 1 - Mild-to- moderate aphasia; -10. Dysarthria 1 = Mild-to- moderate dysarthria; -11. Extinction and Inattention 0 - No abnormality -Total 3 Query Text:A score of 0 is normal or asymptomatic. Total possible score is 42 . ED: Notify Physician for NIHSS increase by > / = 3 points. Inpatient: RN or Physician to activate a stroke alert for NIHSS increase of > / = 3 points. Coma Scale [Assess] -Eye Opening Spontaneous -Motor Obeys Commands -Verbal Oriented [Total] -Coma Scale Total 15
--- NOTE | 2025-10-27 08:13 | NEURO.CONS ---
Assessment and Plan: Neuro Assessment/Plan FIOR BEAN is a 50 M with a past medical history of prior stroke, LICA stenosis, HTN, HLD being evaluated by Teleneurology for worsening R sided numbness and weakness. On imaging, there is a new area of subacute stroke on the L parietal region. Etiology is BEVERLEY - large artery athero. ?The following tests for stroke work-up have been/should be obtained:? ? Neuroimaging: new L parietal ? Vascular imaging: agree with carotid US to assess if trickle flow ? Cardiac testing: pending TTE ? Cardiac monitoring: telemetry in the hospital ? Labs: HgbA1c pending, LDL pending ?Permissive hypertension to goal SBP < 160/80 for next 2 weeks then normotensive thereafter ?Anti-platelet medication: continue plavix 75mg ?Statin therapy: continue home atovastating for now. ?Occupational/Physical therapy consults ?NPO until swallow evaluation.? IVF until able to take po ?DVT prophylaxis with SCDs and heparin SQ. ?Vascular risk factor modification.? 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 Weight Management: Goal for BMI is 18.5-24.9 kg/m2. Alcohol: No more than 2 drinks/day for men or 1 drink/day for non- women. Promote lifestyle modification: weight control, physical activity, moderation of alcohol intake, moderate sodium intake. I personally attended this patient and spent a total time of 45 min evaluating this patient including clinical assessment, review of chart, medical history, and imaging, and determining appropriate treatment and workup. HPI Consult Data Date of Consult: 10/27/25 HPI Narrative HPI Narrative: FIOR BEAN, is a 50 M who presented to [facility] ED on 10/26/2025 with strokelike symptoms. Medical history significant for recent CVA with left ICA stenosis, hypertension, hyperlipidemia, type 2 diabetes mellitus and class III obesity. Patient was hospitalized here from 08/10-08/12 for an acute ischemic left MCA stroke. CTA head/neck on 08/10 showed critical stenosis involving the proximal left ICA with flow limitation. Dr. Nguyễn followed and the plan was to have a procedure done on the left ICA 1 to 2 weeks after that hospitalization. Unfortunately, patient notes there has been insurance issues that have kept this from being done. He was recovering well from a stroke until Saturday when he developed acute right-sided weakness and numbness/tingling as well as slurred speech. CT brain in the ED was unremarkable, but CTA head/neck now showed and occluded left internal carotid artery with reconstitution intracranially. ED provider recommended admission for further stroke workup but patient opted to go home. Since going home, his symptoms have remained stable and have not improved much, so he came back in today for further evaluation. CT brain today did show acute ischemia in the posterior left frontal lobe, new from previous. CT head/neck continued to show occlusion of the left ICA. Given his acute stroke, hospitalist was contacted for admission. I discussed the case with Dr. Nguyễn over the phone prior to admitting the patient. He noted that if the left ICA is fully occluded, there unfortunately is no indication for a procedure at this point. He recommended obtaining a carotid ultrasound to confirm that the left ICA is fully occluded. He also recommended obtaining an MRI brain to further characterize the extent of his acute stroke. I saw the patient at bedside in the ED and discussed plus plan with him. Patient was upset about the potential degree of permanence of his current deficits and if the vessel is fully occluded, that there would be no indication for a procedure. He was agreeable to staying overnight but noted he did not wish to stay in the hospital longer than that if there is no procedure that will help him. He reports ongoing right arm and leg numbness/tingling and heaviness/weakness. He also reports intermittent slurred speech, and during our conversation he had clear thoughts but occasionally did have some slurred speech. No other acute concerns noted. Will be admitted for further management. Neurologic History Pt was not really fully recovered from the stroke in August. In august he ran into something at work and symptoms were difficulty speaking. Patient was lying in bed and he felt his R side went numb and seemed to go away but then came back. Patient is not the best historian. He also endorses that the speaking has gotten worse as well. Patient lives with a friend. PAtient endorses taking the medications with no missed meds. Exam -? General: Laying comfortably in bed; in no acute distress. -? HENT: Normal oropharynx and mucosa. Normal external appearance of ears and nose. Exophthalmos. -? Neck: Supple, no pain or tenderness -? CV:? No peripheral edema. -? Pulmonary:? Normal respiratory effort. -? Ext: No cyanosis, edema, or deformity -? Skin: No rash. Normal palpation of skin.? -? Musculoskeletal: full range of motion; no joint tenderness. Normal digits and nails by inspection. No clubbing. -? NEURO: -? Mental Status: The patient was alert and oriented to time, place, and person but speech is impaired. Normal recent/remote memory, concentration, and general fund of knowledge. -? Language: speech is clear.? Naming -? Cranial Nerves: R pupil is 3mm/brisk; L eye is fake. EOMI in the R eye (L eye is fake), visual louis full, R facial droop, facial sensation intact, hearing intact, tongue midline, no evidence of atrophy or fibrillations. -? Motor:RUE with pronation no drift. Upper extremities antigravity bilaterally. RLE with drift SA 5/5 etcher electrolytic 5/5 KF 5/5 -? Sensation- Intact to light touch bilaterally -? Coordination: slight past pointing bilaterally, HTS intact b/l -? Gait- deferred [facility] Medical History (Updated 10/27/25 @ 18:58 by JUNO Harris) Wears glasses Diabetes High cholesterol Stroke/cerebrovascular accident Smoker Poor historian History of echocardiogram Left carotid stenosis HTN (hypertension) Eye globe prosthesis Acute ischemic left MCA stroke Medical History unable to obtain Home Medications ?Medication ?Instructions ?Recorded ?Last Taken ?Type aspirin 81 mg chewable tablet 81 mg PO BREAKFAST 30 days #30 tabs 10/02/25 12/16/25 Rx atorvastatin 80 mg tablet 80 mg PO QHS 30 days #30 tabs 08/12/25 10/25/25 Rx lisinopril 5 mg tablet 5 mg PO DAILY #30 tabs 08/12/25 10/26/25 Rx metformin 500 mg tablet 500 mg PO BID 1 month #60 tabs 08/12/25 10/26/25 Rx clopidogrel 75 mg tablet (Plavix) 75 mg PO DAILY #90 tabs 10/25/25 10/26/25 Rx Allergy/AdvReac Type Severity Reaction Status Date / Time No Known Allergies Allergy Verified 10/26/25 15:06 Surgical History unable to obtain Social History (Updated 08/10/25 @ 18:48 by Keiko French) household members: family housing: house Smoking Status: Light Smoker (<10/day) Vital Signs Vital Signs Vital Signs: 10/26/25 15:06 10/26/25 16:12 10/26/25 16:17 Temperature 99.1 F Temperature Source Oral Pulse Rate 91 86 Respiratory Rate 16 11 L Respiratory Effort Respiratory Depth Respiratory Pattern Blood Pressure 118/85 H 119/81 H Blood Pressure Mean 96 93 Blood Pressure Source Blood Pressure Position Blood Pressure Location Pulse Ox 99 98 96 Oxygen Delivery Method Room Air Room Air Room Air 10/26/25 17:06 10/26/25 18:10 10/26/25 19:00 Temperature Temperature Source Pulse Rate 76 70 83 Respiratory Rate 16 20 H 18 Respiratory Effort Respiratory Depth Respiratory Pattern Blood Pressure 109/89 H 122/71 H 139/74 H Blood Pressure Mean 95 88 95 Blood Pressure Source Blood Pressure Position Blood Pressure Location Pulse Ox 98 99 99 Oxygen Delivery Method Room Air Room Air Room Air 10/26/25 19:00 10/26/25 19:04 10/26/25 20:37 Temperature 98.1 F 99.6 F H Temperature Source Oral Pulse Rate 83 79 70 Respiratory Rate 18 18 16 Respiratory Effort Respiratory Depth Respiratory Pattern Blood Pressure 139/74 H 148/73 H 162/73 H Blood Pressure Mean 95 98 102 Blood Pressure Source Monitor Blood Pressure Position Semi-Fowlers Blood Pressure Location Left Arm Pulse Ox 99 98 97 Oxygen Delivery Method Room Air Room Air 10/26/25 20:54 10/27/25 00:37 10/27/25 04:37 Temperature 100.6 F H 100 F H Temperature Source Oral Oral Pulse Rate 103 H 107 H Respiratory Rate 16 16 Respiratory Effort Respiratory Depth Respiratory Pattern Blood Pressure 140/95 H 116/82 H Blood Pressure Mean 110 93 Blood Pressure Source Monitor Monitor Blood Pressure Position Semi-Fowlers Semi-Fowlers Blood Pressure Location Left Arm Left Arm Pulse Ox 99 98 97 Oxygen Delivery Method Room Air Room Air Room Air 10/27/25 07:30 10/27/25 07:56 Temperature 98.9 F Temperature Source Oral Pulse Rate 85 Respiratory Rate 18 Respiratory Effort Normal Non-Labored Respiratory Depth Normal Respiratory Pattern Normal Blood Pressure 120/78 Blood Pressure Mean 92 Blood Pressure Source Blood Pressure Position Blood Pressure Location Pulse Ox 96 Oxygen Delivery Method Room Air Room Air Weight Weight: 127.7 kg Body Mass Index (BMI) 39.2 EEG Results Procedure Details EEG Procedure Details: FIOR BEAN is a 50 year old M with a past medical history of , who presents for evaluation of Electroencephalogram on DATE at TIME Lab / Micro Data 10/27/25 05:20 10/27/25 05:20 Labs: Laboratory Results - last 24 hr 10/26/25 16:05: WBC 5.6, RBC 4.81, Hgb 14.0, Hct 41.3, MCV 85.9, MCH 29.1, MCHC 33.9, RDW Std Deviation 38.8, RDW Coeff of Ashanti 12.3, Plt Count 403, MPV 9.2, Immature Gran % (Auto) 0.400, Neut % (Auto) 49.3, Lymph % (Auto) 42.0 H, [place] % (Auto) 7.4, Eos % (Auto) 0.5, Baso % (Auto) 0.4, Absolute Neuts (auto) 2.8, Absolute Lymphs (auto) 2.34, Nucleated RBC % 0, PT 13.8, INR 1.0, APTT 24.1, Sodium 138, Potassium 3.7, Chloride 104, Carbon Dioxide 23.2, Anion Gap 11, BUN 12, Creatinine 0.87, Estim Creat Clear Calc 141.50, Est GFR (MDRD) Non-Af 104, BUN/Creatinine Ratio 13.6, Glucose 106 H, Calcium 9.3, Troponin T High Sens 7 D 10/26/25 16:20: POC Glucose 104 10/26/25 18:01: Troponin T Hi Sens 2 Hr 6 10/26/25 20:25: Troponin T Hi Sens 4Hr 7 10/27/25 05:20: WBC 5.6, RBC 4.51 L, Hgb 13.2, Hct 38.2 L, MCV 84.7, MCH 29.3, MCHC 34.6, RDW Std Deviation 38.2, RDW Coeff of Ashanti 12.4, Plt Count 339, MPV 9.8, Sodium 134, Potassium 3.6, Chloride 100, Carbon Dioxide 22.2, Anion Gap 12, BUN 12, Creatinine 0.85, Estim Creat Clear Calc 138.41, Est GFR (MDRD) Non-Af 105, BUN/Creatinine Ratio 14.2, Glucose 103 H, Calcium 8.9 Imaging Radiology Impression Brain CT 10/26/25 15:49 IMPRESSION: 1. Acute ischemia in the posterior left frontal lobe. This is new since 10/24/2025. 2. Old left frontoparietal region and right cerebellar infarcts. Reading Location: [facility] Head/Neck CTA 10/26/25 15:49 IMPRESSION: 1. Diminished caliber and paucity of the left MCA branches, likely due to occlusion and/or severe stenosis. This has worsened since 10/24/2025. 2. Persistent left ICA occlusion, from just distal to the origin to the proximal cavernous segment. No significant change since 10/24/2025, but new since 08/10/2025. 3. Multifocal stenosis in the cavernous and supraclinoid ICA segments bilaterally, greater on the left. Reading Location: [facility] Active Medications Active Medications Active Medications: Current Medications Generic Name Dose Route Start Last Admin Trade Name Freq PRN Reason Stop Dose Admin Acetaminophen 650 mg 10/26/25 20:05 Acetaminophen 325 Mg Tablet PO Q6H PRN PRN Pain 1-10 Or Fever>100.7 Aspirin 81 mg 10/27/25 08:00 10/27/25 07:45 Aspirin 81 Mg Tab.Chew PO 81 mg BREAKFAST KELSY Administration Atorvastatin Calcium 80 mg 10/26/25 22:00 10/26/25 21:37 Atorvastatin Calcium 80 Mg Tablet PO 80 mg QHS KELSY Administration Clopidogrel Bisulfate 75 mg 10/27/25 10:00 10/27/25 07:45 Clopidogrel Bisulfate 75 Mg Tablet PO 75 mg DAILY KELSY Administration Hydralazine HCl 5 mg 10/26/25 20:05 Hydralazine 20 Mg/Ml Vial IV 10/27/25 20:05 Q30M PRN maintain BP parameters with HR <60 Sodium Chloride 250 mls @ 15 mls/hr 10/27/25 00:15 IV .[id number] PRN Saline Flush Sodium Chloride 250 mls @ 15 mls/hr 10/27/25 00:15 IV .[id number] PRN Additional IVPB Infusion Labetalol HCl 20 mg 10/26/25 15:49 Labetalol 20 Mg/4 Ml Vial IV 10/27/25 15:49 X1 PRN BLOOD PRESSURE Labetalol HCl 10 - 20 mg 10/26/25 20:05 Labetalol 20 Mg/4 Ml Vial IV 10/27/25 20:05 Q10M PRN PRN maintain BP parameters with HR >/=60 Melatonin 3 mg 10/26/25 20:05 Melatonin 3 Mg Tablet PO QHS PRN PRN INSOMNIA Ondansetron HCl 4 mg 10/26/25 20:05 Ondansetron 4 Mg/2 Ml Vial IV Q8H PRN PRN NAUSEA/VOMITING Sodium Chloride 10 - 40 ml 10/27/25 00:15 0.9% Saline Lock 10 Ml Syringe IV UD PRN SALINE FLUSH NIHSS NIHSS Nursing Documentation NIHSS Nursing Documentation: NIHSS: Ischemic Stroke/TIA Start: 10/26/25 20:05 Text: For PCU Patients: NIH and Neuro Check every 4 Status: Active hours, PRN and with change in RN caregiver. Freq: [id number] Protocol: Activity Type Activity Date Activity User E-sign Co-sign Detail Recorded Client Recorded Date Recorded By Document 10/27/25 07:30 [id number] 10/27/25 07:55 10/27/25 07:30 NIH Stroke Scale [NIHSS] A score of 0 is normal or asymptomatic . Total possible score is 42. Inpatient: RN or Physician to activate a stroke alert for onset of new stroke symptoms or with NIHSS increase >/= 3 points. Following change in neurological status, NIHSS will be performed per physician order or more frequently PRN. -1a. Level of Consciousness 0 - Alert; keenly responsive -1b. LOC Questions 0 - Answers BOTH questions correctly -1c. LOC Commands 0 - Performs BOTH tasks correctly -2. Best Gaze 0 - Normal -3. Visual 1 - Partial hemianopia -4. Facial Palsy 0 - Normal symmetrical movements -5a. Left Arm 0 - No drift; arm holds 90 ( or 45) degrees for full 10 seconds -5b. Right Arm 0 - No drift; arm holds 90 ( or 45) degrees for full 10 seconds -6a. Left Leg 0 - No drift; leg holds 30- degree position for full 5 seconds -6b. Right Leg 0 - No drift; leg holds 30- degree position for full 5 seconds -7. Limb Ataxia 0 - Absent -8. Sensory 0 - Normal; no sensory loss -9. Best Language 1 - Mild-to- moderate aphasia; -10. Dysarthria 1 = Mild-to- moderate dysarthria; -11. Extinction and Inattention 0 - No abnormality -Total 3 Query Text:A score of 0 is normal or asymptomatic. Total possible score is 42 . ED: Notify Physician for NIHSS increase by > / = 3 points. Inpatient: RN or Physician to activate a stroke alert for NIHSS increase of > / = 3 points. Coma Scale [Assess] -Eye Opening Spontaneous -Motor Obeys Commands -Verbal Oriented [Total] -Coma Scale Total 15 NIHSS 1a. Level of Consciousness: 0 - Alert; keenly responsive 1b. LOC Questions: 0 - Answers BOTH questions correctly 1c. LOC Commands: 0 - Performs BOTH tasks correctly 2. Best Gaze: 1 - Partial gaze palsy; 3. Visual: 0 - No visual loss 4. Facial Palsy: 1 - Minor paralysis (flattened nasolabial fold, asymmetry on smiling) 5a. Left Arm: 0 - No drift; arm holds 90 (or 45) degrees for full 10 seconds 5b. Right Arm: 0 - No drift; arm holds 90 (or 45) degrees for full 10 seconds 6a. Left Le - No drift; leg holds 30-degree position for full 5 seconds 6b. Right Le - Drift; leg falls by the end of 5-seconds, but does not hit bed 7. Limb Ataxia: 0 - Absent 8. Sensory: 0 - Normal; no sensory loss 9. Best Language: 2 - Severe aphasia; 10. Dysarthria: 0 - Normal 11. Extinction and Inattention: 0 - No abnormality Total: 5
[2025-10-27 10:28] LABS: Cholesterol 130 mg/dL (<=200); Low Density Lipoprotein Calc. 82 mg/dL; Triglycerides 65 mg/dL; Very Low Density Lipoprotein 13 mg/dL (5-40); cholesterol:hdl ratio screen 3.77
--- NOTE | 2025-10-27 12:59 | CON.PCM.SX_ITS ---
Assessment & Plan Assessment/Plan (1) Acute CVA (cerebrovascular accident): (2) Left carotid artery occlusion: PLAN: Plan Carotid doppler confirmed L ICA occlusion identified on CTA. Given the L carotid is now occluded, surgical intervention is not recommended. This was discussed in detail with the patient and his girlfriend (present via phone) and both acknowledged understanding. Continue to recommend maximum medical therapy with DAPT and high-intensity statin. Will plan for outpatient follow-up in the office in 2-4 weeks to coordinate ongoing surveillance imaging for his very mild R ICA stenosis (not at threshold for surgery). HPI Consult Data Date of Consult: 10/27/25 HPI Narrative HPI Narrative: FIOR BEAN, is a 50 M who has a known history of significant carotid artery stenosis and stroke. He initially presented to the [facility] ER at the end of July with 2-3 weeks of confusion, difficulty word-finding/communicating and general fatigue/weakness; he also noted RUE pain/weakness/numbness which started a couple months prior with workup identifying L frontoparietal infarct and severe L ICA stenosis. We were consulted at that time and had patient scheduled for L TCAR to address his severe L ICA stenosis in August; unfortunately, due to insurance difficulties patient was not able to undergo this procedure. He then presented back to the [facility] ER on 10/24/24 with new R sided heaviness and weakness. Updated CTA Head/Neck on 10/24 demonstrated now occluded L ICA. Patient declined admission that day and discharged home. Unfortunately, he continued to have persistent R sided weakness and then developed R sided numbness and worsened slurred speech which led him to present back to the [facility] ER on 10/26 and he was admitted for further workup. Given repeat CTA suggested now L ICA occlusion, carotid doppler was ordered to correlate and did confirm L ICA occlusion. He reports that since admission he feels that his slurring speech is improved. He still has some R sided numbness and heaviness/weakness. [facility] Medical History (Updated 10/27/25 @ 18:58 by JUNO Harris) Wears glasses Diabetes High cholesterol Stroke/cerebrovascular accident Smoker Poor historian History of echocardiogram Left carotid stenosis HTN (hypertension) Eye globe prosthesis Acute ischemic left MCA stroke Medical History unable to obtain Home Medications ?Medication ?Instructions ?Recorded ?Last Taken ?Type aspirin 81 mg chewable tablet 81 mg PO BREAKFAST 30 da ys #30 tabs 08/12/25 10/26/25 Rx atorvastatin 80 mg tablet 80 mg PO QHS 30 days #30 tab s 08/12/25 10/25/25 Rx lisinopril 5 mg tablet 5 mg PO DAILY #30 tabs 08/1210/26/25 Rx metformin 500 mg tablet 500 mg PO BID 1 month #60 ta bs 08/12/25 10/26/25 Rx clopidogrel 75 mg tablet (Plavix) 75 mg PO DAILY #90 t abs 10/25/25 10/26/25 Rx Allergy/AdvReac Type Severity Reaction Status Date / Time No Known Allergies Allergy Verified 10/26/25 15:06 Surgical History unable to obtain Social History (Updated 08/10/25 @ 18:48 by Keiko French) household members: family housing: house Smoking Status: Light Smoker (<10/day) Physical Exam Const alert, oriented x3 and no apparent distress General Appearance: cooperative and comfortable HEENT normocephalic, head/scalp atraumatic, hearing grossly normal bilaterally, external ears normal and external nose normal Nose: external nose normal Eyes General Eye: normal appearance of both eyes Neck General: normal visual inspection Resp normal respiratory effort and normal air movement Effort and Inspection: able to speak in complete sentences; Negative for labored, grunting, stridor or audible wheezes Cardio regular rate Extremity normal to inspection Skin no rashes or lesions noted Trauma: no lacerations or abrasions Neuro oriented x3 Neuro Narrative: Mild RUE drift noted on exam, some mild intermittent slurred speech on exam Psych mental status grossly normal Appearance: grossly normal Attitude: calm and engaged Activity / Motor Behavior: appropriate eye contact Lab / Micro Data 10/27/25 05:20 10/27/25 05:20 Labs: Laboratory Results - last 24 hr 10/26/25 16:05: WBC 5.6, RBC 4.81, Hgb 14.0, Hct 41.3, MCV 85.9, MCH 29.1, MCHC 33.9, RDW Std Deviation 38.8, RDW Coeff of Ashanti 12.3, Plt Count 403, MPV 9.2, Immature Gran % (Auto) 0.400, Neut % (Auto) 49.3, Lymph % (Auto) 42.0 H, [place] % (Auto) 7.4, Eos % (Auto) 0.5, Baso % (Auto) 0.4, Absolute Neuts (auto) 2.8, Absolute Lymphs (auto) 2.34, Nucleated RBC % 0, PT 13.8, INR 1.0, APTT 24.1, Sodium 138, Potassium 3.7, Chloride 104, Carbon Dioxide 23.2, Anion Gap 11, BUN 12, Creatinine 0.87, Estim Creat Clear Calc 141.50, Est GFR (MDRD) Non-Af 104, BUN/Creatinine Ratio 13.6, Glucose 106 H, Calcium 9.3, Troponin T High Sens 7 D 10/26/25 16:20: POC Glucose 104 10/26/25 18:01: Troponin T Hi Sens 2 Hr 6 10/26/25 20:25: Troponin T Hi Sens 4Hr 7 10/27/25 05:20: WBC 5.6, RBC 4.51 L, Hgb 13.2, Hct 38.2 L, MCV 84.7, MCH 29.3, MCHC 34.6, RDW Std Deviation 38.2, RDW Coeff of Ashanti 12.4, Plt Count 339, MPV 9.8, Sodium 134, Potassium 3.6, Chloride 100, Carbon Dioxide 22.2, Anion Gap 12, BUN 12, Creatinine 0.85, Estim Creat Clear Calc 138.41, Est GFR (MDRD) Non-Af 105, BUN/Creatinine Ratio 14.2, Glucose 103 H, Hemoglobin A1c 6.8 H, Calcium 8.9, Triglycerides 65, Cholesterol 130, LDL Cholesterol, Calc 82, VLDL Cholesterol 13, HDL Cholesterol 35 L, Cholesterol/HDL Ratio 3.77 10/27/25 11:59: POC Glucose 130 H Imaging Radiology Impression Brain CT 10/26/25 15:49 IMPRESSION: 1. Acute ischemia in the posterior left frontal lobe. This is new since 10/24/2025. 2. Old left frontoparietal region and right cerebellar infarcts. Reading Location: [id number] Head/Neck CTA 10/26/25 15:49 IMPRESSION: 1. Diminished caliber and paucity of the left MCA branches, likely due to occlusion and/or severe stenosis. This has worsened since 10/24/2025. 2. Persistent left ICA occlusion, from just distal to the origin to the proximal cavernous segment. No significant change since 10/24/2025, but new since 08/10/2025. 3. Multifocal stenosis in the cavernous and supraclinoid ICA segments bilaterally, greater on the left. Reading Location: [id number] Charges/Coding Visit Charges Inpatient E&M: 42520 Init Hosp L1
--- NOTE | 2025-10-27 13:45 | CASEMGMT ---
RN?CM?ASSESSMENT ? RN?CM?to room to meet with patient for initial transition planning/care coordination?assessment.?RN?CM?introduced self and role at [facility].? Pt voices understanding and consents to?assessment?at this time.? Pt sitting up in recliner chair in no distress at this time.? Pt is A/O at this time and answers all questions appropriately.?? Care providers, pharmacy, and demographics verified/updated at this time. ? Strata: 3 PCP: Laqiuta Harper NP @ [facility] Preferred Pharmacy: [facility] Retail Insurance: Diaz HOWIE Prescription Benefit:?Yes Living Will/HPOA:? Pt does not currently have LW/HCPOA and is interested in completing. HAVEN Liu, made aware. LNOK: Pt has 7 children (5 are adults, the other 2 are ages 17 & 14). BrotherNorris. Brother, Keon. Sig Other, Stephanie. Living Arrangements: Pt lives w/nephew in 2-story home w/3-4 steps to enter. Independent. Denies difficulty w/ADL's and IADL's. Works full-time @ [employer]. Transportation:?Pt states drives self and states no transportation concerns at this time.? Sig other, Stephanie, can assist if needed. DME: ? Denies using any DME and denies needs.? HHC/SNF: No hx of either. Pt has been going to [facility] for OP ST since August. He states just finished w/them, but would like to return again for more OP ST. [employer] DEAN CM, Flor, made aware. Pt denies need for OP PT/OT. ? Pt wishes to return home and states has no concerns with going home at time of discharge. CM?to follow for any further discharge planning/needs.? Pt voices no further concerns/needs at this time.? Advised pt to ask for?CM?if any further questions/concerns/needs arise.? Voices understanding. ? PLAN:??Home w/OP ST @ [facility]. ? Panda BSN?RN?CM ? ?
[2025-10-28 03:18] VITALS: BP 137/73; PULSE 71; RESP 14; TEMP 36.6; O2SAT 94
[2025-10-28 03:47] VITALS: BMI 39.2
[2025-10-28 07:00] VITALS: BP 128/83; PULSE 67; RESP 17; TEMP 36.6; O2SAT 100
--- NOTE | 2025-10-28 09:27 | PCM.DC.SUM ---
Providers Date of Admission: 10/26/25 Date of Discharge: 10/28/25 Primary Care Physician: RIA Gibbs, [employer] Consultations 10/26/25 20:05 Consult: Tele-Neurology Routine Consulting Provider: [facility] Reason for Consult: Acute Ischemic Stroke/TIA EMERGENT Consult: No MD Notified: Yes Date Notified: 10/26/25 Time Notified: 21:12 Method of Notification: Answering Service Nursing Unit Staff Notify [facility] of Tele-Neurology Consult: Yes 10/27/25 11:31 Consult: Vascular Surgery Routine Consulting Provider: [facility] N[facility] Reason for Consult: Left ICA stenosis EMERGENT Consult: No MD Notified: Yes Date Notified: 10/27/25 Time Notified: 12:57 Method of Notification: Text Reason For Visit: ACUTE CVA Diagnosis Discharge Diagnosis (1) Acute CVA (cerebrovascular accident): Status: Acute Code(s): I63.9 - Cerebral infarction, unspecified (2) Left carotid artery occlusion: Status: Acute Code(s): I65.22 - Occlusion and stenosis of left carotid artery Plan Patient is a 50-year-old gentleman with past medical history significant for left MCA stroke in July 2025 with known critical left ICA stenosis who presented with right-sided numbness. CT of the head obtained demonstrated acute ischemia in the posterior left frontal lobe and old left frontoparietal region and right cerebellar infarcts. Admitted to monitored bed for subsequent eval 1. Acute left MCA CVA presented with right-sided numbness. CT of the head obtained demonstrated acute ischemia in the posterior left frontal lobe and old left frontoparietal region and right cerebellar infarcts. Admitted to monitored bed for subsequent eval. Consult was placed to teleneuro case discussed with Dr. Esteban with [facility] teleneuro recommended obtaining hemoglobin A1c, fasting lipid as well as carotid ultrasound to assess if trickle flow. Patient had a complete 2D echo in July 2025 with bubble study which was essentially unremarkable 2. Known history of severe left ICA stenosis ? Patient had been seen by vascular surgery during his previous admission. Reconsulted. As stated above ordered carotid ultrasound to assess if trickle flow is present ? 10/28/2025; carotid Doppler confirmed left ICA occlusion identified on the CTA. Vascular surgery therefore recommended optimization of medical therapy only 3. Class III obesity with BMI of 40.5 ? Complicating care weight loss advised 4. Hypertension ? Blood pressure controlled, home medications continued with dose adjustment as needed 5. Dyslipidemia ? Patient is on high-dose statin therapy. LDL obtained within normal limit 6. Diabetes mellitus type 2 ? Patient hemoglobin A1c 6.8. Patient is on metformin held on admission placed on Accu-Cheks ACHS with sliding scale coverage 7. DVT prophylaxis ? On enoxaparin Medications at Discharge Home Medications aspirin 81 mg chewable tablet 81 mg PO BREAKFAST 30 days #30 tabs 08/12/25 atorvastatin 80 mg tablet 80 mg PO QHS 30 days #30 tabs 08/12/25 lisinopril 5 mg tablet 5 mg PO DAILY #30 tabs 08/12/25 metformin 500 mg tablet 500 mg PO BID 1 month #60 tabs 08/12/25 clopidogrel 75 mg tablet (Plavix) 75 mg PO DAILY #90 tabs 10/25/25 ezetimibe 10 mg tablet 10 mg PO DAILY #90 tabs 10/28/25 Hospital Course Summary of Care Provided Minutes Spent on Discharge: 32 Physical Exam Narrative GENERAL: cooperative HEENT: Atraumatic; normocephalic EYES; Anicteric, Normal Conjunctiva NECK; supple, normal thyroid, RESPIRATORY: Diminished to auscultation CARDIOVASCULAR: Regular S1 S2, GI: soft, normoactive bowel sounds, : No Renal angle tenderness; EXTREMITIES: No edema, no clubbing, MUSCULOSKELETAL: no muscle wasting NEURO: Awake; no lateralizing signs except for intermittent slurred speech SKIN: No Rash PSYCH; Flat affect Weight / BMI Weight Weight: 127.7 kg Body Mass Index (BMI) 39.2 ABG / Lab / Microbiology Data 10/27/25 05:20 10/27/25 05:20 Laboratory: Laboratory Results - last 24 hr 10/27/25 05:20: Hemoglobin A1c 6.8 H, Triglycerides 65, Cholesterol 130, LDL Cholesterol, Calc 82, VLDL Cholesterol 13, HDL Cholesterol 35 L, Cholesterol/HDL Ratio 3.77 10/27/25 11:59: POC Glucose 130 H 10/27/25 16:12: POC Glucose 116 H 10/27/25 23:20: POC Glucose 123 H 10/28/25 05:58: POC Glucose 155 H Radiography Diagnostic Testing: Radiology Impression Carotid Duplex 10/26/25 18:59 Interpretation Summary Mild (<50%) stenosis right extracranial internal carotid. Occlusion of the left extracranial internal carotid. Patent and antegrade vertebrals bilaterally. Ordering Physician: Roger Costa Referring Physician: Rebecca Harper Performed By: Darin Murillo RVT D/C Instructions Discharge Activity: May Not Drive (Patient instructed not to drive until cleared by neurology as outpatient/primary care physician) DC O2, CPAP, BIPAP Needs Home O2 Discharge instructions: No Meaningful Use Info Meaningful Use Meaningful Use Diagnoses (Choose all that apply): Ischemic CVA CVA Therapy Assessed for PT,OT and/or ST?: Yes Ischemic Stroke Antithrombotic order at d/c?: Yes Dx of Atrial fib/flutter?: No Statins at discharge?: Yes If patient is 75 or younger, pt will be discharged on HIGH intensity statin.: Yes Primary Dx Acute Ischemic CVA?: Yes IV thrombolytic ordered during stay?: No Reason IV thrombolytic not ordered: Treatment not Indicated Discharge Plan Admission Admit Date/Time: 10/26/25 18:56 Attending Provider: Sanjay Perez Primary Care Provider: Rebecca Harper [facility] Consulting Providers: Bola Noland; Chalo Garibay; Juany Feliz; Lana Jimenez; Shey Tapia; Narciso Garcia; Sofia Montiel; Matt Day; David Jenkins; Yeison Muñoz; Gianna Granado; Afshan Solis; Bill Bunch; Sheryl James; Steph Banegas; Oriana Gross; Adolfo Mcmahan; Kev Medina; Tashi Raman; Carley Melendez; Mariajose Knutson; Roger Costa; [employer] N[facility] Discharge Orders/Prescriptions Prescriptions: New ezetimibe 10 mg Tablet 10 mg PO DAILY Qty: 90 0RF Continued atorvastatin 80 mg Tablet 80 mg PO QHS 30 Days Qty: 30 2RF aspirin 81 mg Tablet,Chewable 81 mg PO BREAKFAST 30 Days Qty: 30 4RF metformin 500 mg tablet 500 mg PO BID 30 Days Qty: 60 2RF Rx Instructions: Start from 08/14/2025 lisinopril 5 mg tablet 5 mg PO DAILY Qty: 30 2RF clopidogrel [Plavix] 75 mg tablet 75 mg PO DAILY Qty: 90 3RF Referrals / Follow Up: [facility] Nguyễn MD [Med Staff - Active Staff, Vascular Surgery] - Within 2 Weeks Guillermo Figueroa MD [Non-Staff -Ordering Privileges, Neurology] - Within 1 Month Rebecca Harper [employer] [Primary Care Provider, Family Practice] - Within 2 Weeks Disposition Disposition (needs filled in before D/C Order can be placed): Home, Self Care Charges/Coding Visit Charges Inpatient E&M: 79712 Disch Hosp >30min
[2025-10-28 11:30] VITALS: BP 119/7; PULSE 72; RESP 16; TEMP 36.6; O2SAT 99
--- NOTE | 2025-10-28 11:41 | CASEMGMT ---
Patient has order for discharge. [facility] received script for ST and for glucometer. RN CM in to discuss needs at discharge. Patient prefers for RN BERNICE to send referral to [facility] and have them call his significant other to schedule appointment. Patient denies further needs or help at [facility]. [facility] sent referral to [facility] with request to call significant other. [facility] provided glucometer script in DC packet.
--- NOTE | 2025-10-28 11:46 | PHA.DC_ITS ---
Pharmacy [facility] has performed discharge medication counseling for this patient. The patient was counseled on the following discharge medications and changes in medications for homegoing review. - Ezetimibe 10 mg tablet The Reason for Use, instructions for use, and potential side effects were reviewed for all new medications. The patient's questions regarding all of their medications were answered. The patient was able to verbally demonstrate an understanding of their discharge medications. Medications at Discharge Home Medications aspirin 81 mg chewable tablet 81 mg PO BREAKFAST 30 days #30 tabs 08/12/25 atorvastatin 80 mg tablet 80 mg PO QHS 30 days #30 tabs 08/12/25 lisinopril 5 mg tablet 5 mg PO DAILY #30 tabs 08/12/25 metformin 500 mg tablet 500 mg PO BID 1 month #60 tabs 08/12/25 clopidogrel 75 mg tablet (Plavix) 75 mg PO DAILY #90 tabs 10/25/25 ezetimibe 10 mg tablet 10 mg PO DAILY #90 tabs 10/28/25
== END 2025-10-28 12:43 | disposition home or self-care (01) | DRG 45 ==
LOC: ED 16:36 → PCU 19:11
PROVIDERS: Admitting Provider Hospitalist; Emergency Provider Emergency Medicine; Visit Provider Internal Medicine
DX: I63.512 Cerebral infarction due to unspecified occlusion or stenosis of left middle cerebral artery (principal); E11.9 Type 2 diabetes mellitus without complications; E66.813 Obesity, class 3; I10 Essential (primary) hypertension; Z68.41 Body mass index [BMI] 40.0-44.9, adult; F17.200 Nicotine dependence, unspecified, uncomplicated; E78.5 Hyperlipidemia, unspecified; Z86.73 Personal history of transient ischemic attack (TIA), and cerebral infarction without residual deficits; Z79.899 Other long term (current) drug therapy; Z79.84 Long term (current) use of oral hypoglycemic drugs; R29.704 NIHSS score 4; Z79.82 Long term (current) use of aspirin; Z79.02 Long term (current) use of antithrombotics/antiplatelets
CPT/HCPCS: 36415; 70450; 70496; 70498; 80048; 80061; 82962; 83036; 84484; 85025; 85027; 85610; 85730; 92523; 93005; 93880; 94762; 97162; 97166; 97530; 97802; 99285; 99406; Q9967; A4216